=== PATIENT | male | born 1960 | race Caucasian/White ===

== ENCOUNTER 2016-12-03 19:31 | Emergency (ER) | payer OTHER ==
--- NOTE | 2016-12-03 21:31 | ED ---
Skin/Abscess/FB HPI - General Chief complaint: Skin/Abscess/Foreign Body Stated complaint: infection in right thumb Time Seen by Provider: 12/03/16 19:59 Source: patient Mode of arrival: ambulatory Limitations: no limitations - History of Present Illness Initial comments: Physical 6 years old gentleman presented with swelling of the right thumb, he denies any trauma or any injury to this he noticed swelling and infection for the last 24 hours. His neighbor tried to help him with poking the wound with a sterilized pain any cold symptoms passed out but swelling continue to remain. Denies any fever no chills my review of system is negative otherwise - Related Data Home Medications Medication Instructions Recorded Confirmed Lanoxin (Unknown Dose) 1 dose PO DAILY 12/03/16 12/03/16 Warfarin (Unknown Dose) 1 dose PO DIRECTED 12/03/16 12/03/16 Previous Rx's Medication Instructions Recorded Amoxic-Pot Clav 500-125 mg 1 tab PO Q12HR #14 tab 12/03/16 [Augmentin 500-125 mg] Allergies Allergy/AdvReac Type Severity Reaction Status Date / Time No Known Allergies Allergy Verified 12/03/16 20:06 Review of Systems ROS Statement: Those systems with pertinent positive or pertinent negative responses have been documented in the HPI. ROS Other: All systems not noted in ROS Statement are negative. Past Medical History Past Medical History: CVA/TIA, Hypertension History of Any Multi-Drug Resistant Organisms: None Reported Additional Past Surgical History / Comment(s): valve Past Psychological History: No Psychological Hx Reported Smoking Status: Current every day smoker Past Alcohol Use History: None Reported Past Drug Use History: None Reported General Exam - General Exam Comments Initial Comments: General: The patient is awake and alert, in no distress, and does not appear acutely ill. Skin: Skin is warm and dry and no rashes or lesions are noted. The patient's right thumb is quite swollen, has a paronychia Eye: Pupils are equal, round and reactive to light, extra-ocular movements are intact; there is normal conjunctiva bilaterally. Ears, nose, mouth and throat: There are moist mucous membranes and no oral lesions. Neck: The neck is supple, there is no tenderness or JVD. Cardiovascular: There is a regular rate and rhythm. No murmur, rub or gallop is appreciated. Respiratory: To auscultation bilateral, no wheezing no rhonchi no distress respiratory samaniego noticed Gastrointestinal: Soft, non-distended, non-tender abdomen without masses or organomegaly noted. There is no rebound or guarding present. Bowel sounds are unremarkable. Back: There is no tenderness to palpation in the midline. There is no obvious deformity. Musculoskeletal: Normal ROM, no tenderness, There is no pedal edema. There is no calf tenderness or swelling. No cords were appreciated. Neurological: CN II-XII intact, Cranial nerves III through XII are intact. There are no obvious motor or sensory deficits. Coordination appears grossly intact. Speech is normal. Psychiatric: Cooperative, appropriate mood & affect, normal judgment. Limitations: no limitations Course Vital Signs 12/03/16 19:50 Temperature 98.5 F Pulse Rate 64 Respiratory 16 Rate O2 Sat by Pulse 94 L Oximetry Procedures - Incision & Drainage Time Out Performed?: Yes Site: upper extremity Anesthetic Used: lidocaine 1% I&D Cleaning Method: Iodine Sterile Field Used?: Yes Scalpel Used: #11 Irrigation Performed?: Yes I&D Drainage Obtained: Pus, Blood (She tolerated the procedure well) Disposition Clinical Impression: Paronychia, Abscess Disposition: HOME SELF-CARE Condition: Good Instructions: Abscess Incision and Drainage (ED) Prescriptions: Amoxic-Pot Clav 500-125 mg [Augmentin 500-125 mg] 1 tab PO Q12HR #14 tab Referrals: Jose Ramon Dudley MD [Primary Care Provider] - 1-2 days
[2016-12-03] MEDS ORDERED: AMOXIC-POT CLAV 875-125MG 1 EACH TAB PO STA (21:37)
[2016-12-03 22:16] VITALS: BP 131/78; PULSE 76; RESP 18; TEMP 98.8
== END 2016-12-03 22:13 | disposition home or self-care (01) ==
LOC: EC 19:31
DX: L03.011 Cellulitis of right finger (principal); L02.511 Cutaneous abscess of right hand; F17.200 Nicotine dependence, unspecified, uncomplicated; Z86.73 Personal history of transient ischemic attack (TIA), and cerebral infarction without residual deficits; Z79.899 Other long term (current) drug therapy
CPT/HCPCS: 10060; 99282

== ENCOUNTER 2018-02-26 10:43 | Inpatient (IN) | payer OTHER ==
[2018-02-26] MEDS ORDERED: IPRATROPIUM-ALBUTEROL 3 ML NEB INHALATION STA (11:05)
--- NOTE | 2018-02-26 11:09 | ED ---
General Adult HPI - General Chief complaint: Weakness Stated complaint: Dyspnea Time Seen by Provider: 02/26/18 11:00 Source: patient, family, RN notes reviewed, Caregiver Mode of arrival: ambulatory Limitations: altered mental status - History of Present Illness Initial comments: Patient is a pleasant 57-year-old male presenting to the emergency department for not feeling well. Patient does have a history of anoxic brain injury and is a poor historian. Operations Vocational Instructor is present who does help provide history. Patient and regulatory manager have a difficult time explaining her symptoms. Patient did not eat well yesterday or today. Patient denies any chest discomfort. Patient does have history of atrial fibrillation with previous TX as well as previous aortic valve repair. Patient does admit to dyspnea. Dyspnea worsens with exertion. Mild cough that is nonproductive. No leg pain or leg swelling. No fevers. - Related Data Home Medications Medication Instructions Recorded Confirmed Diltiazem Oral [Cardizem*] 30 mg PO TID 02/26/18 02/26/18 Fosinopril [Monopril] 10 mg PO DAILY 02/26/18 02/26/18 Metoprolol Tartrate [Lopressor] 50 mg PO BID 02/26/18 02/26/18 Simvastatin [Zocor] 20 mg PO HS 02/26/18 02/26/18 Warfarin [Coumadin] 5 mg PO MOWESA 02/26/18 02/26/18 Warfarin [Coumadin] 7.5 mg PO SUTUTHFR 02/26/18 02/26/18 Allergies Allergy/AdvReac Type Severity Reaction Status Date / Time No Known Allergies Allergy Verified 02/26/18 11:41 Review of Systems ROS Statement: Those systems with pertinent positive or pertinent negative responses have been documented in the HPI. ROS Other: All systems not noted in ROS Statement are negative. Constitutional: Denies: fever Eyes: Denies: eye pain ENT: Denies: ear pain Respiratory: Reports: dyspnea Cardiovascular: Denies: chest pain Endocrine: Reports: fatigue Gastrointestinal: Denies: vomiting Genitourinary: Denies: dysuria Musculoskeletal: Denies: back pain Skin: Denies: rash Neurological: Denies: weakness, confusion Past Medical History Past Medical History: CVA/TIA, Hypertension History of Any Multi-Drug Resistant Organisms: None Reported Past Surgical History: Cardiac Valve Replacement Additional Past Surgical History / Comment(s): valve mi Past Psychological History: No Psychological Hx Reported Smoking Status: Current every day smoker Past Alcohol Use History: None Reported Past Drug Use History: None Reported General Exam General appearance: alert, in no apparent distress Head exam: Present: atraumatic Eye exam: Present: normal appearance, PERRL ENT exam: Present: normal oropharynx Neck exam: Present: normal inspection Respiratory exam: Present: decreased breath sounds Cardiovascular Exam: Present: tachycardia, irregular rhythm GI/Abdominal exam: Present: soft. Absent: tenderness Extremities exam: Present: normal inspection. Absent: pedal edema, calf tenderness Back exam: Present: normal inspection Neurological exam: Present: alert Psychiatric exam: Present: normal affect, normal mood Skin exam: Present: normal color Course Vital Signs 02/26/18 02/26/18 02/26/18 10:52 10:57 11:00 Temperature 97.2 F L Pulse Rate 115 H 96 107 H Pulse Rate [ Chief Concierge ] Respiratory 23 18 Rate Blood Pressure 89/76 89/76 O2 Sat by Pulse 93 L 93 L Oximetry 02/26/18 02/26/18 02/26/18 11:30 11:38 11:48 Temperature Pulse Rate 83 82 Pulse Rate [ 94 Chief Concierge ] Respiratory 16 12 Rate Blood Pressure 101/81 O2 Sat by Pulse 94 L Oximetry 02/26/18 02/26/18 02/26/18 11:58 12:00 12:30 Temperature Pulse Rate 90 86 Pulse Rate [ Chief Concierge ] Respiratory 10 L 21 Rate Blood Pressure 108/73 91/72 O2 Sat by Pulse Oximetry 02/26/18 13:00 Temperature Pulse Rate 90 Pulse Rate [ Chief Concierge ] Respiratory 11 L Rate Blood Pressure 91/71 O2 Sat by Pulse Oximetry EKG Findings - EKG Comments: EKG Findings:: A. fib with RVR, rate 104. QRS 110. QT 380. QTC or 99. Right axis. Incomplete right bundle-branch block. Nonspecific T waves. Medical Decision Making - Medical Decision Making Patient reevaluated and updated. Case was discussed in detail with Dr. Walton, who will admit covering for hospital call. Cardiology will be placed on consult. - Lab Data Result diagrams: 02/26/18 11:24 02/26/18 11:24 Lab Results 02/26/18 02/26/18 02/26/18 Range/Units 11:24 11:24 11:24 WBC 8.0 (3.8-10.6) k/uL RBC 5.09 (4.30-5.90) m/uL Hgb 16.5 (13.0-17.5) gm/dL Hct 54.1 H (39.0-53.0) % MCV 106.3 H (80.0-100.0) fL MCH 32.4 (25.0-35.0) pg MCHC 30.5 L (31.0-37.0) g/dL RDW 14.9 (11.5-15.5) % Plt Count 150 (150-450) k/uL Neutrophils % 66 % Lymphocytes % 16 % Monocytes % 13 % Eosinophils % 2 % Basophils % 1 % Neutrophils # 5.3 (1.3-7.7) k/uL Lymphocytes # 1.2 (1.0-4.8) k/uL Monocytes # 1.0 (0-1.0) k/uL Eosinophils # 0.1 (0-0.7) k/uL Basophils # 0.1 (0-0.2) k/uL Hypochromasia Slight Macrocytosis Moderate PT (9.0-12.0) sec INR (<1.2) APTT (22.0-30.0) sec Sodium 138 (137-145) mmol/L Potassium 4.6 (3.5-5.1) mmol/L Chloride 112 H (98-107) mmol/L Carbon Dioxide 21 L (22-30) mmol/L Anion Gap 5 mmol/L BUN 19 (9-20) mg/dL Creatinine 1.05 (0.66-1.25) mg/dL Est GFR (CKD-EPI)AfAm >90 (>60 ml/min/1.73 sqM) Est GFR (CKD-EPI)NonAf 78 (>60 ml/min/1.73 sqM) Glucose 93 (74-99) mg/dL Calcium 9.4 (8.4-10.2) mg/dL Magnesium 1.7 (1.6-2.3) mg/dL Total Bilirubin 5.3 H (0.2-1.3) mg/dL AST 39 (17-59) U/L ALT 32 (21-72) U/L Alkaline Phosphatase 141 H (38-126) U/L Total Creatine Kinase 84 (55-170) U/L CK-MB (CK-2) 2.2 (0.0-2.4) ng/mL CK-MB (CK-2) Rel Index 2.6 Troponin I 0.017 (0.000-0.034) ng/mL NT-Pro-B Natriuret Pep pg/mL Total Protein 6.1 L (6.3-8.2) g/dL Albumin 2.9 L (3.5-5.0) g/dL Digoxin <0.4 ng/mL 02/26/18 02/26/18 Range/Units 11:24 11:24 WBC (3.8-10.6) k/uL RBC (4.30-5.90) m/uL Hgb (13.0-17.5) gm/dL Hct (39.0-53.0) % MCV (80.0-100.0) fL MCH (25.0-35.0) pg MCHC (31.0-37.0) g/dL RDW (11.5-15.5) % Plt Count (150-450) k/uL Neutrophils % % Lymphocytes % % Monocytes % % Eosinophils % % Basophils % % Neutrophils # (1.3-7.7) k/uL Lymphocytes # (1.0-4.8) k/uL Monocytes # (0-1.0) k/uL Eosinophils # (0-0.7) k/uL Basophils # (0-0.2) k/uL Hypochromasia Macrocytosis PT 35.7 H (9.0-12.0) sec INR 3.7 H (<1.2) APTT 34.4 H (22.0-30.0) sec Sodium (137-145) mmol/L Potassium (3.5-5.1) mmol/L Chloride (98-107) mmol/L Carbon Dioxide (22-30) mmol/L Anion Gap mmol/L BUN (9-20) mg/dL Creatinine (0.66-1.25) mg/dL Est GFR (CKD-EPI)AfAm (>60 ml/min/1.73 sqM) Est GFR (CKD-EPI)NonAf (>60 ml/min/1.73 sqM) Glucose (74-99) mg/dL Calcium (8.4-10.2) mg/dL Magnesium (1.6-2.3) mg/dL Total Bilirubin (0.2-1.3) mg/dL AST (17-59) U/L ALT (21-72) U/L Alkaline Phosphatase (38-126) U/L Total Creatine Kinase (55-170) U/L CK-MB (CK-2) (0.0-2.4) ng/mL CK-MB (CK-2) Rel Index Troponin I (0.000-0.034) ng/mL NT-Pro-B Natriuret Pep 1310 pg/mL Total Protein (6.3-8.2) g/dL Albumin (3.5-5.0) g/dL Digoxin ng/mL - Radiology Data Radiology results: image reviewed (Chest x-ray shows cardiomegaly and interstitial changes consistent with CHF.) Disposition Clinical Impression: CHF (congestive heart failure) Disposition: ADMITTED IP TO THIS HOSP Is patient prescribed a controlled substance at d/c from ED?: No Referrals: None,Stated [Primary Care Provider] - 1-2 days Decision Time: 13:25
[2018-02-26 11:40] LABS: Basophils # (A) 0.1 k/uL (0-0.2); Basophils % (A) 1 %; Eosinophils # (A) 0.1 k/uL (0-0.7); Eosinophils % (A) 2 %; HCT 54.1 % (39.0-53.0); HGB 16.5 gm/dL (13.0-17.5); Hypochromasia Slight; Lymphocytes # (A) 1.2 k/uL (1.0-4.8); Lymphocytes % (A) 16 %; MCH 32.4 pg (25.0-35.0); MCHC 30.5 g/dL (31.0-37.0); MCV 106.3 fL (80.0-100.0); Macrocytosis Moderate; Mean Platelet Volume 7.3; Monocytes % (A) 13 %; Neutrophils # (A) 5.3 k/uL (1.3-7.7); Neutrophils % (A) 66 %; Platelet Count 150 k/uL (150-450); RBC 5.09 m/uL (4.30-5.90); RDW 14.9 % (11.5-15.5)
[2018-02-26 11:48] LABS: INR 3.7 (<1.2); Partial Thromboplastin Time 34.4 sec (22.0-30.0); Prothrombin Time 35.7 sec (9.0-12.0)
[2018-02-26 12:07] LABS: ALT 32 U/L (21-72); AST 39 U/L (17-59); Albumin 2.9 g/dL (3.5-5.0); Alkaline Phosphatase 141 U/L (38-126); Anion Gap 5 mmol/L; Blood Urea Nitrogen 19 mg/dL (9-20); Calcium 9.4 mg/dL (8.4-10.2); Carbon Dioxide 21 mmol/L (22-30); Chloride 112 mmol/L (98-107); Digoxin <0.4 ng/mL; Glucose 93 mg/dL (74-99); Magnesium 1.7 mg/dL (1.6-2.3); Potassium 4.6 mmol/L (3.5-5.1); Sodium 138 mmol/L (137-145); Total Bilirubin 5.3 mg/dL (0.2-1.3); Total Protein 6.1 g/dL (6.3-8.2)
[2018-02-26 12:18] LABS: Creatine Kinase MB 2.2 ng/mL (0.0-2.4); Troponin I 0.017 ng/mL (0.000-0.034)
--- NOTE | 2018-02-26 12:39 | XR ---
EXAMINATION TYPE: XR chest 2V DATE OF EXAM: 02/26/2018 COMPARISON: 07/20/2011 TECHNIQUE: PA and lateral views submitted. HISTORY: Difficulty breathing FINDINGS: Heart is enlarged there is a diffuse interstitial pattern with bilateral pleural effusions and consol idation. Chronic rib deformity seen. No pneumothorax. Diffuse osteopenia and arthropathy of the shoul ders. Postsurgical changes. Hyperinflation suggests COPD. IMPRESSION: 1. Correlate for CHF.
[2018-02-26] MEDS ORDERED: ASPIRIN 325 MG TAB PO STA (13:25)
[2018-02-26] MEDS ORDERED: MORPHINE SULFATE 2 MG/ML SYRINGE IV PRN (14:25)
[2018-02-26] MEDS ORDERED: NALOXONE 0.4 MG/ML 1 ML VIAL IV PRN (14:25)
[2018-02-26] MEDS ORDERED: ACETAMINOPHEN TAB 325 MG TAB PO PRN (14:25)
[2018-02-26] MEDS ORDERED: WARFARIN 5 MG TAB PO SCH (14:30)
--- NOTE | 2018-02-26 14:39 | P.HPIM ---
History of Present Illness H&P Date: 02/26/18 Chief Complaint: CHF exacerbation 49-year-old male with past medical history of cardiac valve replacement, atrial fibrillation, history of CVA presents the ED for generalized fatigue and weakness for the past 2 weeks. Patient reports a regular exercise tolerance of 2-3 blocks without feeling dyspneic. Over the last 2 weeks he has been able to walk only less than one block. Patient also endorses 3 pillow orthopnea. patient also reports a nonproductive cough over the past 2 weeks. He denies any lower extremity edema. Patient reports receiving a mechanical valve 20 years ago in [place]. He denies any headaches, nausea, vomiting, fever, chest pain, palpitations, changes in his bowel habits. He denies any numbness, weakness or tingling of the extremities. He does report increased urinary frequency and a decreased appetite. Denies any dysuria or hematuria. Of note, patient reports smoking one half packs per day since age of 15. He denies any alcohol or illicit drug use. Of note, patient reports living with his friend. He reports difficulty showering and getting up from a seated position. Patient reports that his friends son cooks for him. In the ED, CBC showed no leukocytosis. Coagulation panel showed an INR of 2.7. CMP was unremarkable except for chloride of 112, bicarbonate of 21 and total bilirubin of 5.3 with an alkaline phosphatase of 141. Initial troponin is 0.017 , EKG showing atrial fibrillation with rapid ventricular rate. BNP is 1310, chest x-ray showing findings of CHF. Patient is admitted for CHF exacerbation, cardiology is on consult. Review of Systems All systems: negative Past Medical History Past Medical History: CVA/TIA, Hypertension History of Any Multi-Drug Resistant Organisms: None Reported Past Surgical History: Cardiac Valve Replacement Additional Past Surgical History / Comment(s): valve mi Past Psychological History: No Psychological Hx Reported Smoking Status: Current every day smoker Past Alcohol Use History: None Reported Past Drug Use History: None Reported Medications and Allergies Home Medications Medication Instructions Recorded Confirmed Type Diltiazem Oral [Cardizem*] 30 mg PO TID 02/26/18 02/26/18 History Fosinopril [Monopril] 10 mg PO DAILY 02/26/18 02/26/18 History Metoprolol Tartrate [Lopressor] 50 mg PO BID 02/26/18 02/26/18 History Simvastatin [Zocor] 20 mg PO HS 02/26/18 02/26/18 History Warfarin [Coumadin] 5 mg PO MOWESA 02/26/18 02/26/18 History Warfarin [Coumadin] 7.5 mg PO SUTUTHFR 02/26/18 02/26/18 History Allergies Allergy/AdvReac Type Severity Reaction Status Date / Time No Known Allergies Allergy Verified 02/26/18 11:41 Physical Exam Vitals: Vital Signs Temp Pulse Pulse Resp BP Pulse Ox 02/26/18 13:00 90 11 L 91/71 02/26/18 12:30 91/72 02/26/18 12:00 86 21 108/73 02/26/18 11:58 90 10 L 02/26/18 11:48 82 12 02/26/18 11:38 94 02/26/18 11:30 83 16 101/81 94 L 02/26/18 11:00 107 H 89/76 93 L 02/26/18 10:57 97.2 F L 96 18 89/76 93 L 02/26/18 10:52 115 H 23 Intake and Output 02/25/18 02/26/18 02/26/18 22:59 06:59 14:59 Other: Weight 90.718 kg General: [non toxic], [no distress], [appears at stated age] Derm: [warm], [dry] Head: [atraumatic], [normocephalic], [symmetric] Eyes: [EOMI], [no lid lag], [anicteric sclera] Mouth: [no lip lesion], [mucus membranes moist] Cardiovascular: [irregularly irregular], [no murmur], [positive DP pulse bilateral], [positive JVD] Lungs: [decreased breath sounds bilateralwith poor inspiratory effort], [no rhonchi, no rales] , [no accessory muscle use] Abdominal: [soft], [ nontender to palpation], [no guarding], [no appreciable organomegaly] Ext: [no gross muscle atrophy], [no edema], [no contractures] Neuro: [no focal neuro deficits] Psych: [Alert], [oriented], [appropriate affect] Results CBC & Chem 7: 02/26/18 11:24 02/26/18 11:24 Labs: Abnormal Lab Results - Last 24 Hours (Table) 02/26/18 02/26/18 02/26/18 Range/Units 11:24 11:24 11:24 Hct 54.1 H (39.0-53.0) % MCV 106.3 H (80.0-100.0) fL MCHC 30.5 L (31.0-37.0) g/dL PT 35.7 H (9.0-12.0) sec INR 3.7 H (<1.2) APTT 34.4 H (22.0-30.0) sec Chloride 112 H (98-107) mmol/L Carbon Dioxide 21 L (22-30) mmol/L Total Bilirubin 5.3 H (0.2-1.3) mg/dL Alkaline Phosphatase 141 H (38-126) U/L Total Protein 6.1 L (6.3-8.2) g/dL Albumin 2.9 L (3.5-5.0) g/dL Thrombosis Risk Factor Assmnt - Choose All That Apply Any of the Below Risk Factors Present?: Yes Each Factor Represents 1 point: Age 41-60 years, Obesity (BMI >25) Other Risk Factors: No Thrombosis Risk Factor Assessment Total Risk Factor Score: 2 Thrombosis Risk Factor Assessment Level: Low Risk Assessment and Plan Assessment: Assessment and Plan 1. CHF exacerbation: BNP 1310. Troponin 0.017 with patient being asymptomatic, EKG showing A Fib with RVR. CXR shows findings consistent with CHF. Diuresis with Lasix 40 mg IV TID. Continue ACEi and beta pinky. Ins and Outs. Daily Weights. Elevated HOB. O2 per NC to maintain O2 sat > 92%. Trend Trop/EKG to r/ o ACS. FU Cardiology, Echocardiogram 2. Generalized weakness: Difficulty with ambulating at home and showering. FU PT /OT, SW 3. Atrial fibrillation with RVR: Confirmed on EKG. Continue Diltiazem 30 mg PO TID. Telemetry monitoring. Keep K > 4 and Mg > 2. Coumadin for anticoagulation. FU Cardiology 4. Hyperbilirubinemia: T. Bili 5.3 with ALK 141. Normal LFTs otherwise. Likely from hepatic congestion? Daily CMP 5. Supratherapeutic INR: INR 3.7. From Coumadin use. Hold Coumadin 5 mg PO QMoWeSa + 7.5 mg PO QSuTuThFr until within therapeutic range. Daily INR 6. h/o CVA: Stable. Continue ASA 325 mg PO QD, Lipitor 20 mg PO QHS. FU PT/OT 7. Hypertension: BP 91/71. Continue Lisinopril 10 mg PO QD, Metoprolol 50 mg PO BID. 8. DVT/GI Prophylaxis: Coumadin. Patient admitted for CHF exacerbation. Diuresing with Lasix IV. Pending clinical improvement. Will follow Cardiology recommendations.
[2018-02-26] MEDS: NOREPINEPHRINE 4 MG in SODIUM CHLORIDE 0.9% 250 ML IV SCH (17:40)
[2018-02-26] MEDS: NOREPINEPHRINE 16 MG in SODIUM CHLORIDE 0.9% 250 ML IV SCH ×2 (17:40→17:43)
[2018-02-26] MEDS: NITROGLYCERIN OINT 1 INCH/GM PACKET TOPICAL SCH ×2 (17:42→23:53)
--- NOTE | 2018-02-26 18:13 | P.CNPUL ---
History of Present Illness Consult date: 02/26/18 Reason for consult: dyspnea History of present illness: 49-year-old male patient with known history of valvular heart disease with a previous history of mechanical valve insertion, possibly aortic valve replacement along with history of chronic atrial fibrillation maintained on lifelong anticoagulation. The patient also has history of previous CVA. Patient presented emergency department because of exertional dyspnea and orthopnea and nonproductive cough of a few weeks duration. No significant edema lower extremity. He has been followed up by Dr. ROSALBA Mock locally. Initial blood work showed that the patient had a BNP of 1310, digoxin level was less than 0.4, troponin is that 0.017 and the rest of the blood work did not show any acute abnormalities. INR was at 3.7. The patient was running a blood pressure in the mid 90s. Following that the patient became hypotensive in addition to some rapid ventricular response in regards to his chronic atrial fibrillation. He was placed on norepinephrine infusion 5 mics. His chest x- ray showing cardiomegaly and pulmonary vessel congestion/early edema. No fever. No chills. No angina. No pleurisy. No hemoptysis. No altered mentation although he is slow in answering questions. The EKG showing atrial fibrillation with RVR and incomplete right bundle-branch block pattern. Review of Systems Poor historian the patient has a previous history of anoxic brain injury. No focal neurological deficits. Speech is slow and the patient is slow in answering questions. He has slow reflexes. No nausea. No vomiting. No abdominal pain. No significant urgency. No fever chills or night sweats. No falls. No open wounds or sores or ulceration. No angina. He has exertional dyspnea along with orthopnea. No edema in lower extremities. 12 point review of system was done and the positive findings are almost above history of present illness. 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 Past Anesthesia/Blood Transfusion Reactions: No Reported Reaction Additional Past Anesthesia/Blood Transfusion Reaction / Comment(s): clausterphobia. 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 Sister(s) Family Medical History: Thyroid Disorder Additional Family Medical History / Comment(s): thyroidectomy Medications and Allergies Home Medications Medication Instructions Recorded Confirmed Type Diltiazem Oral [Cardizem*] 30 mg PO TID 02/26/18 02/26/18 History Fosinopril [Monopril] 10 mg PO DAILY 02/26/18 02/26/18 History Metoprolol Tartrate [Lopressor] 50 mg PO BID 02/26/18 02/26/18 History Simvastatin [Zocor] 20 mg PO HS 02/26/18 02/26/18 History Warfarin [Coumadin] 5 mg PO MOWESA 02/26/18 02/26/18 History Warfarin [Coumadin] 7.5 mg PO SUTUTHFR 02/26/18 02/26/18 History Allergies Allergy/AdvReac Type Severity Reaction Status Date / Time No Known Allergies Allergy Verified 02/26/18 11:41 Physical Exam Vitals: Vital Signs Temp Pulse Pulse Resp BP Pulse Ox 02/26/18 16:21 97/87 02/26/18 16:00 80 20 74/54 02/26/18 15:00 100 14 89/78 93 L 02/26/18 14:00 89 24 80/69 95 02/26/18 13:00 90 11 L 91/71 02/26/18 12:30 91/72 02/26/18 12:00 86 21 108/73 02/26/18 11:58 90 10 L 02/26/18 11:48 82 12 02/26/18 11:38 94 02/26/18 11:30 83 16 101/81 94 L 02/26/18 11:00 107 H 89/76 93 L 02/26/18 10:57 97.2 F L 96 18 89/76 93 L 02/26/18 10:52 115 H 23 Intake and Output 02/26/18 02/26/18 02/26/18 06:59 14:59 22:59 Other: Weight 90.718 kg Gen. appearance he is calm and comfortable likely distress. No significant respiratory distress at this point and the patient is on room air oxygen. Head exam was generally normal. There was no scleral icterus or corneal arcus. Mucous membranes were moist. Neck was supple and without jugular venous distension, thyromegaly, or carotid bruits. Carotids were easily palpable bilaterally. There was no adenopathy. Lungs sounds are revealing crackles in the mid and lower lung couch bilaterally along with some scattered rhonchi. Heart sounds are irregular, slightly tachycardic, there is no aortic valve click heard throughout the precordium. There is some ventricular heave also.Abdominal exam revealed normal bowel sounds. The abdomen was soft, non- tender, and without masses, organomegaly, or appreciable enlargement of the abdominal aorta. Examination of the extremities revealed easily palpable radial, femoral and pedal pulses. There was no cyanosis, clubbing or edema. Examination of the skin revealed no evidence of significant rashes, suspicious appearing nevi or other concerning lesions. Results - Laboratory Findings CBC and BMP: 02/26/18 11:24 02/26/18 11:24 PT/INR, D-dimer PT 35.7 sec (9.0-12.0) H 02/26/18 11:24 INR 3.7 (<1.2) H 02/26/18 11:24 Abnormal lab findings: Abnormal Labs 02/26/18 02/26/18 02/26/18 11:24 11:24 11:24 Hct 54.1 H MCV 106.3 H MCHC 30.5 L PT 35.7 H INR 3.7 H APTT 34.4 H Chloride 112 H Carbon Dioxide 21 L Total Bilirubin 5.3 H Alkaline Phosphatase 141 H Total Protein 6.1 L Albumin 2.9 L - Diagnostic Findings Chest x-ray: image reviewed Assessment and Plan Plan: Assessment 1 acute CHF exacerbation. Suspect underlying systolic dysfunction. BNP slightly elevated. Chest x-ray is consistent with interstitial edema and cardiomegaly. 2 hypotension currently on pressors, rule out secondary to CHF 3 chronic atrial fibrillation with rapid ventricular response 4 previous history aortic valve replacement/mechanical valve and the patient is on lifelong articulation with warfarin. 5 supratherapeutic INR with an INR of 3.7 while on Coumadin 6 history of CVA 7 history of hypertension 8 history of anoxic encephalopathy, exact circumstances not known. Plan We'll move the patient to the intensive care unit. We'll obtain an echocardiogram to assess LV function, valvular function and pulmonary hypertension. We'll support the patient's blood pressure with some levo fed to keep a mean arterial pressure above 65. Insert a Almanza catheter. Monitor urine output. Gentle diuresis with Lasix and I would suggest going with 20 mg IV push every 8 hours. Hold on Cardizem and metoprolol to his blood pressures under better control. Obtain UA. Obtain urine culture. Obtain blood cultures. Repeat chest x-ray in the morning. Cardiology consultation. Establishment IV line. We'll continue to follow. The patient will be moved to the intensive care unit.
[2018-02-26] MEDS: FUROSEMIDE 10 MG/ML 4 ML VIAL IV SCH ×2 (18:27→23:54)
--- NOTE | 2018-02-26 18:35 | CONS ---
CONSULTATION Mr. Robles is a 49-year-old gentleman with history of aortic valve replacement, atrial fibrillation, CVA, who was brought into hospital by his friend with whom he lives with symptoms of fatigue and weakness for the past 2 weeks. The patient states that he has not been able to walk more than a block over the last few weeks. He is also using 3 pillows and has nonproductive cough. With all this he has been diagnosed with congestive heart failure and is admitted to the hospital. When I first evaluated him in the ER, he was found to be hypotensive with systolic blood pressures in the 70s. Hence, I started the patient on Levophed. The patient has a history of mechanical aortic valve replacement. I do not have any recent echos on him. He follows with Dr. Mattie Dudley in my office. SOCIAL HISTORY: Significant for smoking. There is no history of EtOH abuse or drug abuse. MEDICATIONS: At home included: Cardizem, Monopril, Lopressor, Zocor, and Coumadin. FAMILY HISTORY: Family history is negative for premature coronary artery disease. SOCIAL HISTORY: Significant for smoking. REVIEW OF SYSTEMS: HEENT is unremarkable. CARDIOVASCULAR: As described above. RESPIRATORY as described above. GI negative. GENITOURINARY: Negative. ALLERGY/IMMUNOLOGY: Negative. MUSCULOSKELETAL: Significant for fatigue, tiredness and weakness. PSYCHOSOCIAL negative. ENDOCRINE negative. HEMATOLOGICAL negative. The rest of the system review is not relevant. EXAM: Patient is comfortable at rest. Blood pressure is 74/54, heart rate is around 90 to 100 beats per minute, irregular. There is no jugular venous distention. Chest exam reveals first and second heart sounds, irregular rhythm. I cannot clearly hear the mechanical valve sound. Abdomen is soft. Exam of extremities did not reveal edema. Peripheral pulses are felt. LAB: Show that the hemoglobin is 16.5, platelet count is 150. INR is therapeutic at 3.7. Potassium is 4.6. Creatinine is 1. BNP is 1310. Troponin is 0.017. ASSESSMENT: 1. Acute onset diastolic heart failure. 2. History of aortic valve replacement. 3. Dyslipidemia. 4. Hypertension. PLAN: I will obtain a 2D echo to assess the mechanical valve. The exact etiology for hypotension is unclear. Patient does not have white cell count. Does not have any fever. If he develops any fever, we will consider doing blood cultures on him given the mechanical valve. We will assess mechanical valve function with an echo, treat him with the Levophed in the meantime. Further course of action based on how he evolves. MMODL / IJN: [id number] /
[2018-02-26 18:40] LABS: Troponin I 0.03 ng/mL (0.000-0.034)
[2018-02-26 19:05] LABS: Glucose,Whole Blood 66 mg/dL (75-99)
[2018-02-26 19:25] LABS: Glucose,Whole Blood 76 mg/dL (75-99)
--- NOTE | 2018-02-26 20:10 | ECHOF ---
Referral Reason:Heart Failure MEASUREMENTS -------- HEIGHT: 180.3 cm WEIGHT: 90.7 kg BP: RVIDd: 5.1 cm (< 3.3) IVSd: 1.2 cm (0.6 - 1.1) LVIDd: 3.8 cm (3.9 - 5.3) LVPWd: 1.3 cm (0.6 - 1.1) IVSs: 1.5 cm LVIDs: 3.7 cm LVPWs: 1.9 cm LAESV Index (A-L): 125.62 ml/m EPSS: 0.2 cm MV E Kane: 1.36 m/s MV DecT: 609 ms MV A Kane: 0.25 m/s MV E/A Ratio: 5.42 AV maxP.06 mmHg AV meanP.68 mmHg RAP: 5.00 mmHg RVSP: 24.38 mmHg %FS: 24.09 % EDV(Teich): 101.86 ml EF(Teich): 47.96 % ESV(Teich): 53.00 ml IVSd: 1.06 cm (0.6 - 1.1) IVSs: 1.03 cm LVIDd: 4.69 cm (3.9 - 5.3) LVIDs: 3.56 cm LVPWd: 0.89 cm (0.6 - 1.1) LVPWs: 1.37 cm MV EF SLOPE: 68.17 mm/s (70 - 150) MV EXCURSION: 1.82 cm (> 18.000) SV(Teich): 48.85 ml FINDINGS -------- Undetermined rhythm. This was a technically difficult study with suboptimal views. ADVISED IRMA Left ventricular wall thickness is normal. Overall left ventricular systolic function is mildly imp aired with, an EF between 45 - 50 %. There is paradoxical/dysynergic septal motion consistent with right ventricular volume overload and/or elevated right ventricular end-diastolic pressure. Possibl e Epsteins Anomaly The right ventricle is severely enlarged. The right ventricular systolic function is moderately imp aired. LA is severely dilated >40 ml/m2 The right atrium is moderately enlarged. Peak/mean gradient across the Aortic Valve is 15.06mmHg / 9.68mmHg. Normally functioning mechanical prosthetic valve. The mitral valve leaflets are mildly thickened. Mild mitral regurgitation is present. The peak a nd mean MV gradients are 10.82mmHg 3.83mmHg as measured by doppler. Qnrqhiqj-af-iibyip mitral steno sis. MV Repair. ADVISED IRMA Severe tricuspid regurgitation present. The right ventricular systolic pressure, as measured by Dop pler, is 24.38mmHg. The pulmonic valve was not well visualized. The aortic root size is normal. IVC Not well visulized. The pericardium is normal. CONCLUSIONS -------- 1. Undetermined rhythm. 2. This was a technically difficult study with suboptimal views. 3. Left ventricular wall thickness is normal. 4. Overall left ventricular systolic function is mildly impaired with, an EF between 45 - 50 %. 5. There is paradoxical/dysynergic septal motion consistent with right ventricular volume overload an d/or elevated right ventricular end-diastolic pressure. 6. 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 The right ventricle is severely enlarged. 8. LA is severely dilated >40 ml/m2 9. The right atrium is moderately enlarged. 10. Peak/mean gradient across the Aortic Valve is 15.06mmHg / 9.68mmHg. 11. Normally functioning mechanical prosthetic valve. 12. The mitral valve leaflets are mildly thickened. 13. Mild mitral regurgitation is present. 14. The peak and mean MV gradients are 10.82mmHg 3.83mmHg as measured by doppler. 15. Qeosooss-ot-joicss mitral stenosis. 16. MV Repair. 17. Severe tricuspid regurgitation present. 18. The right ventricular systolic pressure, as measured by Doppler, is 24.38mmHg. 19. The pulmonic valve was not well visualized. 20. The aortic root size is normal. 21. IVC Not well visulized. 22. The pericardium is normal. BASIC SCIENCES PROFESSOR: Cha Cotton RDCS
[2018-02-26 20:38] LABS: Glucose,Whole Blood 116 mg/dL (75-99)
[2018-02-26] MEDS: DILTIAZEM ORAL 30 MG TAB PO SCH ×2 (20:52→21:12)
[2018-02-26] MEDS: METOPROLOL TARTRATE 50 MG TAB PO SCH (21:12)
[2018-02-26] MEDS: ATORVASTATIN 20 MG TAB PO SCH (22:04)
[2018-02-27 00:46] LABS: Troponin I 0.02 ng/mL (0.000-0.034)
[2018-02-27] MEDS ORDERED: HALOPERIDOL LACTATE 5 MG/ML 1 ML VIAL IVP PRN (00:56)
[2018-02-27] MEDS: DILTIAZEM 50 MG in SODIUM CHLORIDE 0.9% 40 ML IV SCH ×3 (02:26→16:23)
[2018-02-27 02:42] LABS: Calcium 9.6 mg/dL (8.4-10.2); INR 4.1 (<1.2); Magnesium 1.7 mg/dL (1.6-2.3); Potassium 4.4 mmol/L (3.5-5.1); Prothrombin Time 39.1 sec (9.0-12.0); Total Bilirubin 3.7 mg/dL (0.2-1.3); Total Protein 6.2 g/dL (6.3-8.2)
[2018-02-27 03:39] LABS: Basophils # (A) 0.1 k/uL (0-0.2); Basophils % (A) 1 %; Eosinophils # (A) 0.1 k/uL (0-0.7); Eosinophils % (A) 2 %; HCT 51.6 % (39.0-53.0); HGB 15.7 gm/dL (13.0-17.5); Hypochromasia Slight; Lymphocytes # (A) 1.6 k/uL (1.0-4.8); Lymphocytes % (A) 20 %; MCH 32.6 pg (25.0-35.0); MCHC 30.5 g/dL (31.0-37.0); Macrocytosis Moderate; Mean Platelet Volume 7.3; Monocytes # (A) 1.5 k/uL (0-1.0); Monocytes % (A) 18 %; Neutrophils # (A) 4.4 k/uL (1.3-7.7); Neutrophils % (A) 55 %; Platelet Count 132 k/uL (150-450); RBC 4.82 m/uL (4.30-5.90); RDW 14.9 % (11.5-15.5)
[2018-02-27] MEDS ORDERED: Magnesium Replacement Protocol 1 EACH MISC MISCELLANE PRN (05:17)
[2018-02-27 05:55] LABS: Polychromasia Present
[2018-02-27 05:56] LABS: Anisocytosis (M) Present; Target Cells Present
[2018-02-27 05:57] LABS: Large Platelets Present; Poikilocytosis (M) Present
[2018-02-27] MEDS: MAGNESIUM SULFATE-D5W PMX 1 GM in DEXTROSE/WATER 1 100ML.BAG IVPB SCH ×2 (06:21→09:13)
--- NOTE | 2018-02-27 07:43 | XR ---
EXAMINATION TYPE: XR chest 1V portable DATE OF EXAM: 02/27/2018 COMPARISON: Prior chest x-ray 02/26/2018 HISTORY: Congestive heart failure TECHNIQUE: frontal view of the chest is obtained on 2 images. FINDINGS: Patient is post median sternotomy. Heart is enlarged. Prominent lung volume compatible wit h underlying COPD. Interstitium is increased. No pneumothorax. There are overlying cardiac leads. Dif ficult to exclude minimal effusion. IMPRESSION: Findings compatible with congestive heart failure.
[2018-02-27] MEDS ORDERED: SODIUM BICARB 8.4% 50 ML SYR (1 MEQ/ML) ONE (07:51)
--- NOTE | 2018-02-27 08:28 | P.PN ---
Subjective Progress Note Date: 02/27/18 On today's evaluation of 02/27/2018, I'm seeing this patient for a follow-up. The patient is resting comfortably in bed. The patient was brought into the intensive care unit because of CHF, interstitial edema and hypotension. The exact cause of hypotension was not clear. On and off, he required pressors in the form of levo fed. Earlier this morning the levo fed was discontinued and the patient was placed back on Cardizem drip at 5 mg an hour to regulate her chronic atrial fibrillation and drop the rate. Note that the patient is on no anticoagulants for now. Is a mechanical aortic valve. INR is at 4.1 today. Echocardiogram was done yesterday and the patient was found to have mildly impaired LV function with an ejection fraction 45-50% and there was paradoxic septal motion consistent with right ventricular overload and elevated right ventricular end-diastolic pressure. The right ventricle was severely dilated. An 80 was severely dilated. The patient also had moderate to severe mitral regurgitation. Aortic valve was prosthetic and metallic and was functioning appropriately. The IVC was not visualized. No fever. No chills. No leukocytosis. He was given a dose of empiric antibiotic coverage with IV Rocephin yesterday. His creatinine is up to 1.28 on today's evaluation. He is producing adequate amount of urine output and he has a net fluid balance of - 1.6 L since yesterday. Chest x-ray still showing cardiomegaly and pulmonary edema. The lactic acid is up from 2.1 down to 1.5. LFTs are within normal limits. Troponins are negative. Objective - Vital Signs Vital signs: Vital Signs Temp 97.9 F 02/27/18 03:30 Pulse 112 H 02/27/18 07:00 Resp 30 H 02/27/18 07:00 BP 145/75 02/27/18 07:00 Pulse Ox 91 L 02/27/18 07:00 Intake & Output 02/26/18 02/27/18 02/27/18 18:59 06:59 18:59 Intake Total 268.063 122.375 Output Total 1930 150 Balance -1661.937 -27.625 Weight 90.718 kg 95.8 kg Intake: IV 165 115 0.9 carrier 90 10 Diltiazem 50 mg In Sodium 25 5 Chloride 0.9% 40 ml @ 5 MG/HR 5 mls/hr IV .Q10H BEATA Rx#:[id number] Magnesium Sulfate-D5w Pmx 100 1 gm In Dextrose/Water 1 100ml.bag @ 100 mls/hr IVPB Q1H BEATA Rx#: [id number] cefTRIAXone 1,000 mg In 50 Sodium Chloride 0.9% 50 ml @ 100 mls/hr IVPB ONCE STA Rx#:[id number] Intake, IV Titration 103.063 7.375 Amount Norepinephrine 4 mg In 103.063 7.375 Sodium Chloride 0.9% 250 ml @ Titrate IV .Q0M BEATA Rx#:[id number] Output: Urine 1930 150 Other: Voiding Method Indwelling Catheter # Voids 1 # Bowel Movements 1 - Exam Gen. appearance he is calm and comfortable likely distress. No significant respiratory distress at this point and the patient is on room air oxygen. Head exam was generally normal. There was no scleral icterus or corneal arcus. Mucous membranes were moist. Neck was supple and without jugular venous distension, thyromegaly, or carotid bruits. Carotids were easily palpable bilaterally. There was no adenopathy. Lungs sounds are revealing crackles in the mid and lower lung couch bilaterally along with some scattered rhonchi. Heart sounds are irregular, slightly tachycardic, there is no aortic valve click heard throughout the precordium. There is some ventricular heave also.Abdominal exam revealed normal bowel sounds. The abdomen was soft, non- tender, and without masses, organomegaly, or appreciable enlargement of the abdominal aorta. Examination of the extremities revealed easily palpable radial, femoral and pedal pulses. There was no cyanosis, clubbing or edema. Examination of the skin revealed no evidence of significant rashes, suspicious appearing nevi or other concerning lesions. - Labs CBC & Chem 7: 02/27/18 02:13 02/27/18 02:13 Labs: Abnormal Lab Results - Last 24 Hours (Table) 02/26/18 02/26/18 02/26/18 Range/Units 11:24 11:24 11:24 Hct 54.1 H (39.0-53.0) % MCV 106.3 H (80.0-100.0) fL MCHC 30.5 L (31.0-37.0) g/dL Plt Count (150-450) k/uL Monocytes # (0-1.0) k/uL PT 35.7 H (9.0-12.0) sec INR 3.7 H (<1.2) APTT 34.4 H (22.0-30.0) sec Chloride 112 H (98-107) mmol/L Carbon Dioxide 21 L (22-30) mmol/L BUN (9-20) mg/dL Creatinine (0.66-1.25) mg/dL POC Glucose (mg/dL) (75-99) mg/dL Plasma Lactic Acid Heri (0.7-2.0) mmol/L Total Bilirubin 5.3 H (0.2-1.3) mg/dL Alkaline Phosphatase 141 H (38-126) U/L Total Protein 6.1 L (6.3-8.2) g/dL Albumin 2.9 L (3.5-5.0) g/dL 02/26/18 02/26/18 02/26/18 Range/Units 18:52 20:26 21:26 Hct (39.0-53.0) % MCV (80.0-100.0) fL MCHC (31.0-37.0) g/dL Plt Count (150-450) k/uL Monocytes # (0-1.0) k/uL PT (9.0-12.0) sec INR (<1.2) APTT (22.0-30.0) sec Chloride (98-107) mmol/L Carbon Dioxide (22-30) mmol/L BUN (9-20) mg/dL Creatinine (0.66-1.25) mg/dL POC Glucose (mg/dL) 66 L 116 H (75-99) mg/dL Plasma Lactic Acid Heri 2.1 H* (0.7-2.0) mmol/L Total Bilirubin (0.2-1.3) mg/dL Alkaline Phosphatase (38-126) U/L Total Protein (6.3-8.2) g/dL Albumin (3.5-5.0) g/dL 02/27/18 02/27/18 02/27/18 Range/Units 02:13 02:13 02:13 Hct (39.0-53.0) % MCV 107.0 H (80.0-100.0) fL MCHC 30.5 L (31.0-37.0) g/dL Plt Count 132 L (150-450) k/uL Monocytes # 1.5 H (0-1.0) k/uL PT 39.1 H (9.0-12.0) sec INR 4.1 H (<1.2) APTT (22.0-30.0) sec Chloride 109 H (98-107) mmol/L Carbon Dioxide (22-30) mmol/L BUN 23 H (9-20) mg/dL Creatinine 1.28 H (0.66-1.25) mg/dL POC Glucose (mg/dL) (75-99) mg/dL Plasma Lactic Acid Heri (0.7-2.0) mmol/L Total Bilirubin 3.7 H (0.2-1.3) mg/dL Alkaline Phosphatase 135 H (38-126) U/L Total Protein 6.2 L (6.3-8.2) g/dL Albumin 3.0 L (3.5-5.0) g/dL Assessment and Plan Plan: Assessment 1 acute CHF exacerbation. The patient has mild CHF with ejection fraction of 45 %. He does have also or valvular heart disease with moderate severe mitral regurgitation, severe LA dilatation, severe RV dilatation probably due to ongoing chronic MR. Aortic valve was bioprosthetic/mechanical and has been functioning appropriately based on the echocardiogram findings. 2 hypotension , could be related to his cardiac disease/valvular heart disease. No other obvious cause for his fluctuating blood pressure. He required pressors overnight and currently is off pressors. 3 chronic atrial fibrillation with rapid ventricular response, currently on Cardizem drip at 5 mg an hour for rate control 4 previous history aortic valve replacement/mechanical valve and the patient is on lifelong articulation with warfarin. 5 supratherapeutic INR with an INR of 4.1 while on Coumadin 6 history of CVA 7 history of hypertension 8 history of anoxic encephalopathy, exact circumstances not known. Plan We'll keep the patient ICU for hemodynamic monitoring. Consult cardiology. Continue the Cardizem drip with the intention of switching this patient oral Cardizem once the rate is under better control. Continue metoprolol as long as the patient's blood pressure remains stable. Cut down the Lasix to 20 mg IV push every 12 hours. Keep the Almanza catheter in place. Monitor the PT/INR. Pressors if needed. Blood cultures of been sent. Urine culture been sent. The patient was given empiric IV Rocephin. We'll continue to follow along with cardiology.
[2018-02-27] MEDS ORDERED: LISINOPRIL 10 MG TAB PO SCH (09:00)
[2018-02-27] MEDS: NITROGLYCERIN OINT 1 INCH/GM PACKET TOPICAL SCH (09:10)
[2018-02-27] MEDS: METOPROLOL TARTRATE 50 MG TAB PO SCH (09:10)
[2018-02-27] MEDS: FUROSEMIDE 10 MG/ML 2 ML VIAL IV SCH ×2 (09:13→21:53)
[2018-02-27] MEDS: DILTIAZEM ORAL 30 MG TAB PO SCH ×3 (09:22→22:07)
--- NOTE | 2018-02-27 09:56 | PCN ---
PROCEDURE NOTE ARTERIAL LINE PLACEMENT: PREOPERATIVE DIAGNOSIS: Hypertension. POSTOPERATIVE DIAGNOSIS: Hypertension. A time-out was completed verifying correct patient, procedure, site, positioning, and implant(s) or special equipment if applicable. Sanya's test was performed to ensure adequate perfusion. The patient's left wrist was prepped and draped in sterile fashion. Lidocaine 1% was used to anesthetize the area. An 18G Arrow arterial line was introduced into the radial/femoral artery. The catheter was threaded over the guide wire and the needle was removed with appropriate pulsatile blood return. Blood loss was minimal. The catheter was then sutured in place to the skin and a sterile dressing applied. Perfusion to the extremity distal to the point of catheter insertion was checked and found to be adequate. The patient tolerated the procedure well and there were no bedside complications or bleeding. MMODL / IJN: [id number] /
[2018-02-27 09:58] LABS: Appearance,Urine Clear (Clear); Bacteria,Urine Rare /hpf; Bilirubin,Urine Negative (Negative); Blood,Urine Moderate (Negative); Color,Urine Yellow; Glucose,Urine (UA) Negative (Negative); Hyaline Casts,Urine 3 /lpf (0-2); Ketones,Urine Negative (Negative); Leukocyte Esterase,Urine Large (Negative); Mucus,Urine Rare /hpf; Nitrite,Urine Negative (Negative); Protein,Urine Negative (Negative); RBC,Urine 17 /hpf (0-5); Specific Gravity,Urine 1.009 (1.001-1.035); Urobilinogen,Urine <2.0 mg/dL (<2.0); WBC,Urine 11 /hpf (0-5)
[2018-02-27] MEDS: METOPROLOL TARTRATE 25 MG TAB PO SCH ×2 (10:13→21:53)
--- NOTE | 2018-02-27 12:08 | PN ---
PROGRESS NOTE Leonel Robles is a 57-year-old gentleman with history of congenital heart disease, status post aortic valve replacement and chronic atrial fibrillation, who presented to hospital with symptoms of not feeling well. The patient was hypotensive in the emergency room and was in atrial fibrillation with poorly controlled ventricular rate. I admitted him to ICU on Levophed. This morning he is feeling better. Blood pressures have improved. PHYSICAL EXAMINATION: On exam, heart rate is 77 beats per minute. Blood pressure is 85/58. Respiratory rate is 18. Chest exam reveals good air entry bilaterally. Heart exam reveals first and second heart sounds. Systolic murmur at the left lower sternal border. Abdomen is soft. Examination of the extremities did not reveal any edema. 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 LABS: Labs show that the hemoglobin is 15.7. Potassium is 4.1. Creatinine is 1.2. ASSESSMENT: 1. History of aortic valve replacement with a mechanical valve. 2. Mitral stenosis. 3. Chronic atrial fibrillation with poorly controlled ventricular rate. 4. Atrial fibrillation with poorly controlled ventricular rate. PLAN: I will continue the patient on intravenous Cardizem, Levophed for blood pressure. INR is 4.1. Please hold the Coumadin. I am going to review his echocardiogram from the hospital and perform a IRMA if necessary. MMODL / ELLIEN: [id number] /
--- NOTE | 2018-02-27 12:48 | P.PN ---
Subjective Progress Note Date: 02/27/18 Principal diagnosis: CHF exacerbation, hypotension Patient was seen and examined. No acute events overnight. Patient is slow to respond, similar to yesterday. Patient reports no complaints this morning. He reports improvement in his breathing. He denies any chest pain, shortness of breath or palpitations. Currently on IV pressors to maintain MAP greater than 65. Objective - Vital Signs Vital signs: Vital Signs Temp 97.6 F 02/27/18 12:00 Pulse 84 02/27/18 12:00 Resp 20 02/27/18 12:00 BP 84/60 02/27/18 09:45 Pulse Ox 92 L 02/27/18 12:00 Intake & Output 02/26/18 02/27/18 02/27/18 18:59 06:59 18:59 Intake Total 268.063 311.292 Output Total 1930 1210 Balance -1661.937 -898.708 Weight 90.718 kg 95.8 kg Intake: IV 165 265 0.9 carrier 90 60 Diltiazem 50 mg In Sodium 25 5 Chloride 0.9% 40 ml @ 5 MG/HR 5 mls/hr IV .Q10H [facility] Rx#:[id number] Magnesium Sulfate-D5w Pmx 200 1 gm In Dextrose/Water 1 100ml.bag @ 100 mls/hr IVPB Q1H [facility] Rx#: [id number] cefTRIAXone 1,000 mg In 50 Sodium Chloride 0.9% 50 ml @ 100 mls/hr IVPB ONCE STA Rx#:[id number] Intake, IV Titration 103.063 46.292 Amount Diltiazem 50 mg In Sodium 38.917 Chloride 0.9% 40 ml @ 5 MG/HR 5 mls/hr IV .Q10H [facility] Rx#:[id number] Norepinephrine 4 mg In 103.063 7.375 Sodium Chloride 0.9% 250 ml @ Titrate IV .Q0M [facility] Rx#:[id number] Output: Urine 19290 Other: Voiding Method Indwelling Catheter Indwelling Catheter # Voids 1 # Bowel Movements 1 ABP, PAP, CO, CI - Last Documented Arterial Blood Pressure 107/78 - Exam General: [non toxic], [no distress], [appears at stated age] Derm: [warm], [dry] Head: [atraumatic], [normocephalic], [symmetric] Eyes: [EOMI], [no lid lag], [anicteric sclera] Mouth: [no lip lesion], [mucus membranes moist] Cardiovascular: [irregularly irregular], [no murmur], [positive DP pulse bilateral], [positive JVD] Lungs: [Bilateral crackles lower lung field, no wheezing, good air entry], [no rhonchi, no rales] , [no accessory muscle use] Abdominal: [soft], [ nontender to palpation], [no guarding], [no appreciable organomegaly] Ext: [no gross muscle atrophy], [no edema], [no contractures] Neuro: [no focal neuro deficits] Psych: [Alert], [oriented], [appropriate affect] - Labs CBC & Chem 7: 02/27/18 02:13 02/27/18 02:13 Labs: Abnormal Lab Results - Last 24 Hours (Table) 02/26/18 02/26/18 02/26/18 Range/Units 18:52 20:26 21:26 MCV (80.0-100.0) fL MCHC (31.0-37.0) g/dL Plt Count (150-450) k/uL Monocytes # (0-1.0) k/uL PT (9.0-12.0) sec INR (<1.2) Chloride (98-107) mmol/L BUN (9-20) mg/dL Creatinine (0.66-1.25) mg/dL POC Glucose (mg/dL) 66 L 116 H (75-99) mg/dL Plasma Lactic Acid Heri 2.1 H* (0.7-2.0) mmol/L Total Bilirubin (0.2-1.3) mg/dL Alkaline Phosphatase (38-126) U/L Total Protein (6.3-8.2) g/dL Albumin (3.5-5.0) g/dL Urine Blood (Negative) Ur Leukocyte Esterase (Negative) Urine RBC (0-5) /hpf Urine WBC (0-5) /hpf Urine WBC Clumps (None) /hpf Urine Bacteria (None) /hpf Hyaline Casts (0-2) /lpf Urine Mucus (None) /hpf 02/27/18 02/27/18 02/27/18 Range/Units 02:13 02:13 02:13 MCV 107.0 H (80.0-100.0) fL MCHC 30.5 L (31.0-37.0) g/dL Plt Count 132 L (150-450) k/uL Monocytes # 1.5 H (0-1.0) k/uL PT 39.1 H (9.0-12.0) sec INR 4.1 H (<1.2) Chloride 109 H (98-107) mmol/L BUN 23 H (9-20) mg/dL Creatinine 1.28 H (0.66-1.25) mg/dL POC Glucose (mg/dL) (75-99) mg/dL Plasma Lactic Acid Heri (0.7-2.0) mmol/L Total Bilirubin 3.7 H (0.2-1.3) mg/dL Alkaline Phosphatase 135 H (38-126) U/L Total Protein 6.2 L (6.3-8.2) g/dL Albumin 3.0 L (3.5-5.0) g/dL Urine Blood (Negative) Ur Leukocyte Esterase (Negative) Urine RBC (0-5) /hpf Urine WBC (0-5) /hpf Urine WBC Clumps (None) /hpf Urine Bacteria (None) /hpf Hyaline Casts (0-2) /lpf Urine Mucus (None) /hpf 02/27/18 Range/Units 09:10 MCV (80.0-100.0) fL MCHC (31.0-37.0) g/dL Plt Count (150-450) k/uL Monocytes # (0-1.0) k/uL PT (9.0-12.0) sec INR (<1.2) Chloride (98-107) mmol/L BUN (9-20) mg/dL Creatinine (0.66-1.25) mg/dL POC Glucose (mg/dL) (75-99) mg/dL Plasma Lactic Acid Heri (0.7-2.0) mmol/L Total Bilirubin (0.2-1.3) mg/dL Alkaline Phosphatase (38-126) U/L Total Protein (6.3-8.2) g/dL Albumin (3.5-5.0) g/dL Urine Blood Moderate H (Negative) Ur Leukocyte Esterase Large H (Negative) Urine RBC 17 H (0-5) /hpf Urine WBC 11 H (0-5) /hpf Urine WBC Clumps Rare H (None) /hpf Urine Bacteria Rare H (None) /hpf Hyaline Casts 3 H (0-2) /lpf Urine Mucus Rare H (None) /hpf Microbiology - Last 24 Hours (Table) 02/26/18 00:00 Urine Culture - Preliminary Urine,Catheterized Assessment and Plan Assessment: Assessment and Plan 1. CHF exacerbation: BNP 1310. Troponin 0.017, 0.030, 0.020 with patient being asymptomatic, EKG showing A Fib with RVR. CXR shows findings consistent with CHF. Lasix cut down from 40 mg IV TID to 20 mg IV BID. Continue ACEi and beta pinky. Ins and Outs. Daily Weights. Elevated HOB. Echo shows EF 45-50% with enlarged cavities, possible Yunier? O2 per NC to maintain O2 sat > 92%. FU Cardiology 2. Hypotension: BP 107/78. Holding Diltiazem PO and Lisinopril. Continue Metoprolol 25 mg PO BID and Diltiazem drip. Titrate IV pressors as per MICU attending. Patient is afebrile with no leukocytosis, lactic acidosis now resolved, likely due to dehydration with no concerns for sepsis. Monitor vitals , adjust medications as necessary. FU UCx, Blood Cx 3. Atrial fibrillation with RVR: Confirmed on EKG. Continue Diltiazem drip. Telemetry monitoring. Keep K > 4 and Mg > 2. Coumadin for anticoagulation. FU Cardiology 4. YING: BUN 23 Cr 1.28 likely due to Lasix use. Avoid nephrotoxins. Encourago PO hydration. Daily BMP. 5. Hyperbilirubinemia: T. Bili 5.3 to 3.7 with ALK 141 to 135. Normal LFTs otherwise. Likely from hepatic congestion? Daily CMP 6. Supratherapeutic INR: INR 3.7 to 4.1. From Coumadin use. Hold Coumadin 5 mg PO QMoWeSa + 7.5 mg PO QSuTuThFr until within therapeutic range. Daily INR 7. h/o CVA: Stable. Continue ASA 325 mg PO QD, Lipitor 20 mg PO QHS. FU PT/OT 8. Generalized weakness: Difficulty with ambulating at home and showering. FU PT /OT, SW 9. DVT/GI Prophylaxis: Coumadin. Patient admitted for CHF exacerbation. Diuresing with Lasix IV. Also on pressors for BP support. Will follow Cardiology recommendations.
[2018-02-27] MEDS: ASPIRIN 325 MG TAB PO SCH (13:18)
[2018-02-27] MEDS ORDERED: WARFARIN 5 MG TAB PO SCH (14:23)
[2018-02-27] MEDS: ATORVASTATIN 20 MG TAB PO SCH (21:53)
[2018-02-28 04:14] LABS: HCT 46.4 % (39.0-53.0); HGB 14.1 gm/dL (13.0-17.5); Macrocytosis Moderate
[2018-02-28 04:25] LABS: Albumin 2.6 g/dL (3.5-5.0); Calcium 8.6 mg/dL (8.4-10.2); Magnesium 1.8 mg/dL (1.6-2.3); Phosphorus 3.1 mg/dL (2.5-4.5); Potassium 3.7 mmol/L (3.5-5.1); Total Bilirubin 2.3 mg/dL (0.2-1.3); Total Protein 5.6 g/dL (6.3-8.2)
[2018-02-28 04:28] LABS: INR 3.6 (<1.2); Prothrombin Time 34.4 sec (9.0-12.0)
[2018-02-28 04:32] LABS: MCH 31.9 pg (25.0-35.0); MCHC 30.3 g/dL (31.0-37.0); MCV 105.3 fL (80.0-100.0); Mean Platelet Volume 7.1; Platelet Count 141 k/uL (150-450); RBC 4.41 m/uL (4.30-5.90); RDW 14.9 % (11.5-15.5); WBC 7.7 k/uL (3.8-10.6)
[2018-02-28] MEDS ORDERED: Potassium Replacement Protocol 1 EACH MISC MISCELLANE PRN (04:39)
[2018-02-28 04:54] LABS: Eosinophils # (M) 0.15 k/uL (0-0.7); Lymphocytes # (M) 1.08 k/uL (1.0-4.8); Monocytes # (M) 1.62 k/uL (0-1.0); Neutrophils # (M) 4.85 k/uL (1.3-7.7); Neutrophils % (M) 63 %; Nucleated Red Blood Cells 0 /100 WBC (0-0); Total Cells Counted 100
[2018-02-28] MEDS ORDERED: POTASSIUM CHLORIDE ER 20 MEQ TAB.ER PO SCH (05:00)
[2018-02-28] MEDS: DILTIAZEM 50 MG in SODIUM CHLORIDE 0.9% 40 ML IV SCH ×2 (05:50→17:33)
[2018-02-28] MEDS: MAGNESIUM SULFATE-D5W PMX 1 GM in DEXTROSE/WATER 1 100ML.BAG IVPB SCH ×2 (05:50→07:03)
[2018-02-28] MEDS: NOREPINEPHRINE 4 MG in SODIUM CHLORIDE 0.9% 250 ML IV SCH ×2 (08:30→11:21)
[2018-02-28] MEDS: HYDROcodone/APAP 5-325MG 1 EACH TAB PO PRN (08:57)
[2018-02-28] MEDS: ASPIRIN 325 MG TAB PO SCH (09:00)
[2018-02-28] MEDS ORDERED: IPRATROPIUM-ALBUTEROL 3 ML NEB INHALATION PRN (09:14)
--- NOTE | 2018-02-28 09:18 | XR ---
EXAMINATION TYPE: XR chest 1V portable DATE OF EXAM: 02/28/2018 COMPARISON: Prior chest x-ray 02/27/2018 HISTORY: Congestive heart failure TECHNIQUE: frontal view of the chest is obtained on 2 images. FINDINGS: Patient is post median sternotomy, the heart remains enlarged. Some pleural thickening has developed along the right lateral pleural margin, bandlike area in the perihilar location shows incre ased conspicuity. Interstitium remains increased. Minimal blunting of the right costophrenic angle. N o pneumothorax. IMPRESSION: Correlate for congestive heart failure. Possible small effusion. .
[2018-02-28] MEDS: FUROSEMIDE 10 MG/ML 2 ML VIAL IV SCH ×2 (09:27→22:14)
[2018-02-28] MEDS: METOPROLOL TARTRATE 25 MG TAB PO SCH ×2 (09:52→22:14)
[2018-02-28] MEDS: DILTIAZEM ORAL 30 MG TAB PO SCH ×3 (09:52→22:55)
[2018-02-28] MEDS: IPRATROPIUM-ALBUTEROL 3 ML NEB INHALATION SCH ×3 (09:58→21:35)
[2018-02-28] MEDS: AZITHROMYCIN 500 MG TAB PO SCH (11:02)
[2018-02-28 11:28] VITALS: BMI 28.5
--- NOTE | 2018-02-28 14:01 | PN ---
PROGRESS NOTE This is a 57-year-old gentleman with history of congenital heart disease, status post mechanical valve replacement, chronic atrial fibrillation, multivalvular heart disease, who was admitted to hospital with hypotension. He is on Levophed and is also receiving Lasix. He was on intravenous Cardizem for rate control. This has been switched to p.o. He is also on metoprolol 25 b.i.d. PHYSICAL EXAM: Heart rate is 98 beats and blood pressure is 84/60, respiratory rate is 16, O2 sat is 91%. Chest exam reveals good air entry bilaterally. Heart exam reveals first and second heart sounds. Mechanical valve sound is heard clearly. Abdomen is soft. Exam of the extremities did not reveal any edema. Peripheral pulses are felt. Labs show a hemoglobin of 14.1, platelet count is 140. INR is 3.6. ASSESSMENT: 1. Status post mechanical valve replacement. 2. Hypotension. 3. Chronic atrial fibrillation with better controlled ventricular rate. PLAN: Will continue with the oral beta blockers, Cardizem taper and stop the Levophed. I reviewed echo results at this time. Patient does not need a IRMA. Blood cultures have been negative. On discharge I can ask his primary jacquard card cutter to review his data and decide on whether he really needs a IRMA. MMODL / IJN: [id number] /
--- NOTE | 2018-02-28 17:03 | P.PN ---
Subjective Progress Note Date: 02/28/18 57-year-old male patient with history of congestion heart failure, valvular heart disease and the patient has a bioprosthetic mechanical aortic valve and moderate to severe mitral regurgitation, came into the hospital because of hypotension, atrial fibrillation, generalized weakness. The patient has been in the intensive care unit since. His blood pressure was fluctuating and we had difficulties in obtaining an accurate blood pressure on him. I inserted an arterial line in his left radial artery and the blood patient is being monitored very closely. Note that the patient is in atrial fibrillation. We will utilize Cardizem drip at 5 mg an hour and the patient is also on beta pinky which was held for a while due to his hypotension. The patient is also being diuresis with IV Lasix. Is producing adequate amount of urine output. To support his blood pressure, the patient was being given norepinephrine infusion at 2 mics to maintain a mean artery pressure above 65. He is currently on 5 mics. He was given his morning metoprolol this morning at a dose of 25 mg and he also was taken off the Cardizem drip and placed on oral Cardizem 30 mg which she was going to receive 3 times a day. His PT/INR is supratherapeutic still and no Coumadin was given. His cultures of been indicating a gram-positive bacillus which is probably contaminant. The patient was widely covered with a empiric antibiotics including IV Rocephin. Chest x- ray from today still showing pulmonary vascular congestion. There is a patchy infiltrate in the right upper lung area and for that reason Zithromax was also added. Discussed the case with cardiology. The exact nature of hypotension is not clear. Serum cortisol was checked and the level is at 8. The patient's fluid balance of been negative. The patient is producing adequate amount of urine output. Creatinine is at 1.24. Objective - Vital Signs Vital signs: Vital Signs Temp 97.9 F 02/28/18 12:00 Pulse 78 02/28/18 15:57 Resp 15 02/28/18 13:00 BP 84/60 02/28/18 13:00 Pulse Ox 89 L 02/28/18 13:00 Intake & Output 02/27/18 02/28/18 02/28/18 18:59 06:59 18:59 Intake Total 455.375 889.312 263.313 Output Total 1625 900 460 Balance -1169.625 -10.688 -196.687 Weight 95.8 kg 95.4 kg 95.4 kg Intake: IV 335 243 206 0.9 carrier 130 110 70 Cardizem 15 Diltiazem 50 mg In Sodium 5 Chloride 0.9% 40 ml @ 5 MG/HR 5 mls/hr IV .Q10H [facility] Rx#:[id number] Magnesium Sulfate-D5w Pmx 200 100 100 1 gm In Dextrose/Water 1 100ml.bag @ 100 mls/hr IVPB Q1H [facility] Rx#: [id number] pressure bag 33 21 Intake, IV Titration 120.375 146.312 57.313 Amount Diltiazem 50 mg In Sodium 69.750 50 25.25 Chloride 0.9% 40 ml @ 5 MG/HR 5 mls/hr IV .Q10H [facility] Rx#:[id number] Norepinephrine 4 mg In 50.625 96.312 32.063 Sodium Chloride 0.9% 250 ml @ Titrate IV .Q0M [facility] Rx#:[id number] Oral 500 Output: Urine 1625 900 360 Other 100 Other: Voiding Method Indwelling Catheter Indwelling Catheter ABP, PAP, CO, CI - Last Documented Arterial Blood Pressure 94/62 - Exam Gen. appearance he is calm and comfortable likely distress. No significant respiratory distress at this point and the patient is on room air oxygen. Head exam was generally normal. There was no scleral icterus or corneal arcus. Mucous membranes were moist. Neck was supple and without jugular venous distension, thyromegaly, or carotid bruits. Carotids were easily palpable bilaterally. There was no adenopathy. Lungs sounds are revealing crackles in the mid and lower lung couch bilaterally along with some scattered rhonchi. Heart sounds are irregular, slightly tachycardic, there is no aortic valve click heard throughout the precordium. There is some ventricular heave also.Abdominal exam revealed normal bowel sounds. The abdomen was soft, non- tender, and without masses, organomegaly, or appreciable enlargement of the abdominal aorta. Examination of the extremities revealed easily palpable radial, femoral and pedal pulses. There was no cyanosis, clubbing or edema. Examination of the skin revealed no evidence of significant rashes, suspicious appearing nevi or other concerning lesions. - Labs CBC & Chem 7: 02/28/18 04:05 02/28/18 04:05 Labs: Abnormal Lab Results - Last 24 Hours (Table) 02/28/18 02/28/18 02/28/18 Range/Units 04:05 04:05 04:05 MCV 105.3 H (80.0-100.0) fL MCHC 30.3 L (31.0-37.0) g/dL Plt Count 141 L (150-450) k/uL Monocytes # (Manual) 1.62 H (0-1.0) k/uL PT 34.4 H (9.0-12.0) sec INR 3.6 H (<1.2) BUN 21 H (9-20) mg/dL Glucose 110 H (74-99) mg/dL Total Bilirubin 2.3 H (0.2-1.3) mg/dL Alkaline Phosphatase 133 H (38-126) U/L Total Protein 5.6 L (6.3-8.2) g/dL Albumin 2.6 L (3.5-5.0) g/dL Microbiology - Last 24 Hours (Table) 02/26/18 21:12 Blood Culture Gram Stain - Preliminary Blood 02/26/18 00:00 Urine Culture - Final Urine,Catheterized 02/26/18 21:12 Blood Culture - Final Blood 02/26/18 21:26 Blood Culture - Preliminary Blood No Growth after 24 hours Assessment and Plan Plan: Assessment 1 acute CHF exacerbation. The patient has mild CHF with ejection fraction of 45 %. He does have also or valvular heart disease with moderate severe mitral regurgitation, severe LA dilatation, severe RV dilatation probably due to ongoing chronic MR. Aortic valve was bioprosthetic/mechanical and has been functioning appropriately based on the echocardiogram findings. The chest x- ray continues to show pulmonary edema and a patchy infiltrate in the right upper lung area for that reason the patient was covered also with broad- spectrum antibiotics suspecting an underlying pneumonia. Predominant presentation is still CHF. Cultures of been negative and the gram-positive bacillus in the blood is most likely a contaminant. Serum cortisol level is low. 2 hypotension , could be related to his cardiac disease/valvular heart disease. No other obvious cause for his fluctuating blood pressure. He required pressors overnight and currently is off pressors. 3 chronic atrial fibrillation with rapid ventricular response, currently on oral Cardizem and metoprolol. 4 previous history aortic valve replacement/mechanical valve and the patient is on lifelong articulation with warfarin. 5 supratherapeutic INR with an INR of 3.6 while on Coumadin 6 history of CVA 7 history of hypertension 8 history of anoxic encephalopathy, exact circumstances not known. Plan We'll keep the patient ICU for hemodynamic monitoring. Continue gentle diuresis. Continue supporting her blood pressure with norepinephrine. We'll give the patient a trial of hydrocortisone 100 mg every 8 hours based on the fact that he has a low cortisol and he may have an underlying coronary insufficiency. Awaiting final cultures. Continue same antibiotic coverage. Cardiology is on the case. Monitor PT/INR. Monitor renal function. We'll continue to follow.
--- NOTE | 2018-02-28 18:14 | P.PN ---
Subjective Progress Note Date: 02/28/18 Principal diagnosis: CHF exacerbation, hypotension patient was seen and examined. No acute events overnight. Patient reports great improvement in his breathing. He denies any shortness of breath, chest pain or palpitations at this time. Patient reports tolerating his diet well. Objective - Vital Signs Vital signs: Vital Signs Temp 97.9 F 02/28/18 08:00 Pulse 98 02/28/18 11:00 Resp 16 02/28/18 11:00 BP 84/60 02/28/18 11:00 Pulse Ox 91 L 02/28/18 11:00 Intake & Output 02/27/18 02/28/18 02/28/18 18:59 06:59 18:59 Intake Total 455.375 889.312 237.313 Output Total 1625 900 360 Balance -1169.625 -10.688 -122.687 Weight 95.8 kg 95.4 kg 95.4 kg Intake: IV 335 243 180 0.9 carrier 130 110 50 Cardizem 15 Diltiazem 50 mg In Sodium 5 Chloride 0.9% 40 ml @ 5 MG/HR 5 mls/hr IV .Q10H [facility] Rx#:[id number] Magnesium Sulfate-D5w Pmx 200 100 100 1 gm In Dextrose/Water 1 100ml.bag @ 100 mls/hr IVPB Q1H [facility] Rx#: [id number] pressure bag 33 15 Intake, IV Titration 120.375 146.312 57.313 Amount Diltiazem 50 mg In Sodium 69.750 50 25.25 Chloride 0.9% 40 ml @ 5 MG/HR 5 mls/hr IV .Q10H [facility] Rx#:[id number] Norepinephrine 4 mg In 50.625 96.312 32.063 Sodium Chloride 0.9% 250 ml @ Titrate IV .Q0M [facility] Rx#:[id number] Oral 500 Output: Urine 1625 900 360 Other: Voiding Method Indwelling Catheter Indwelling Catheter ABP, PAP, CO, CI - Last Documented Arterial Blood Pressure 102/67 - Exam General: [non toxic], [no distress], [appears at stated age] Derm: [warm], [dry] Head: [atraumatic], [normocephalic], [symmetric] Eyes: [EOMI], [no lid lag], [anicteric sclera] Mouth: [no lip lesion], [mucus membranes moist] Cardiovascular: [irregularly irregular], [no murmur], [positive DP pulse bilateral], [positive JVD] Lungs: [clear to auscultation bilaterally with good air entry], [no rhonchi, no rales] , [no accessory muscle use] Abdominal: [soft], [ nontender to palpation], [no guarding], [no appreciable organomegaly] Ext: [no gross muscle atrophy], [no edema], [no contractures] Neuro: [no focal neuro deficits] Psych: [Alert], [oriented], [appropriate affect] - Labs CBC & Chem 7: 02/28/18 04:05 02/28/18 04:05 Labs: Abnormal Lab Results - Last 24 Hours (Table) 02/28/18 02/28/18 02/28/18 Range/Units 04:05 04:05 04:05 MCV 105.3 H (80.0-100.0) fL MCHC 30.3 L (31.0-37.0) g/dL Plt Count 141 L (150-450) k/uL Monocytes # (Manual) 1.62 H (0-1.0) k/uL PT 34.4 H (9.0-12.0) sec INR 3.6 H (<1.2) BUN 21 H (9-20) mg/dL Glucose 110 H (74-99) mg/dL Total Bilirubin 2.3 H (0.2-1.3) mg/dL Alkaline Phosphatase 133 H (38-126) U/L Total Protein 5.6 L (6.3-8.2) g/dL Albumin 2.6 L (3.5-5.0) g/dL Microbiology - Last 24 Hours (Table) 02/26/18 21:12 Blood Culture Gram Stain - Preliminary Blood 02/26/18 21:12 Blood Culture - Final Blood 02/26/18 21:26 Blood Culture - Preliminary Blood No Growth after 24 hours 02/26/18 00:00 Urine Culture - Preliminary Urine,Catheterized Assessment and Plan Assessment: Assessment and Plan 1. CHF exacerbation: BNP 1310. Troponin 0.017, 0.030, 0.020 with patient being asymptomatic, EKG showing A Fib with RVR. CXR shows findings consistent with CHF. Lasix cut down from 40 mg IV TID to 20 mg IV BID. Continue ACEi and beta pinky. Ins and Outs. Daily Weights. Elevated HOB. Echo shows EF 45-50% with enlarged cavities, possible Yunier? O2 per NC to maintain O2 sat > 92%. On IV ceftriaxone and azithromycin for empiric treatment of community acquired pneumonia. Cardiology consulted and recommends Cardizem drip, DC Coumadin and review of Echo with possible IRMA. FU Cardiology 2. Hypotension: BP 84/60. Holding Diltiazem PO and Lisinopril. Continue Metoprolol 25 mg PO BID and Diltiazem drip. Titrate IV pressors as per MICU attending. Patient is afebrile with no leukocytosis, lactic acidosis now resolved, likely due to dehydration with no concerns for sepsis. Monitor vitals , adjust medications as necessary. Urine culture is preliminarily negative, blood culture is negative after 24 hours. FU UCx and BCx 3. Atrial fibrillation with RVR: Confirmed on EKG. Continue Diltiazem drip. Telemetry monitoring. Keep K > 4 and Mg > 2. Coumadin for anticoagulation. FU Cardiology 5. Hyperbilirubinemia: T. Bili 5.3 to 3.7 to 2.3 with ALK 141 to 135 to 133. Normal LFTs otherwise. Likely from hepatic congestion? Daily CMP 6. Supratherapeutic INR: INR 3.7 to 4.1 to 3.6. From Coumadin use. Hold Coumadin 5 mg PO QMoWeSa + 7.5 mg PO QSuTuThFr until within therapeutic range. Daily INR 7. h/o CVA: Stable. Continue ASA 325 mg PO QD, Lipitor 20 mg PO QHS. FU PT/OT 8. Generalized weakness: Difficulty with ambulating at home and showering. FU PT /OT, SW 9. DVT/GI Prophylaxis: Coumadin. Resolved; YING Patient admitted for CHF exacerbation. Diuresing with Lasix IV. Also on pressors for BP support. Empirically treated for community acquired pneumonia. Will follow Cardiology recommendations.
[2018-02-28] MEDS: HYDROCORTISONE SUCCINATE 100 MG/2 ML VIAL IV SCH ×2 (18:29→23:00)
[2018-02-28] MEDS: ATORVASTATIN 20 MG TAB PO SCH (22:14)
[2018-03-01] MEDS: DILTIAZEM 50 MG in SODIUM CHLORIDE 0.9% 40 ML IV SCH ×3 (05:31→23:14)
[2018-03-01 05:36] LABS: Basophils % (A) 0 %; Eosinophils % (A) 1 %; HCT 48.6 % (39.0-53.0); HGB 15.6 gm/dL (13.0-17.5); Lymphocytes # (A) 0.5 k/uL (1.0-4.8); Lymphocytes % (A) 7 %; MCH 33.9 pg (25.0-35.0); MCHC 32.1 g/dL (31.0-37.0); MCV 105.6 fL (80.0-100.0); Macrocytosis Moderate; Mean Platelet Volume 7.7; Monocytes # (A) 0.4 k/uL (0-1.0); Monocytes % (A) 7 %; Neutrophils # (A) 5.4 k/uL (1.3-7.7); Neutrophils % (A) 84 %; Platelet Count 135 k/uL (150-450); RDW 14.7 % (11.5-15.5); WBC 6.4 k/uL (3.8-10.6)
[2018-03-01 05:41] LABS: INR 2.5 (<1.2); Prothrombin Time 23.9 sec (9.0-12.0)
[2018-03-01 05:53] LABS: Albumin 3.1 g/dL (3.5-5.0); Calcium 9.1 mg/dL (8.4-10.2); Total Protein 6.4 g/dL (6.3-8.2)
[2018-03-01 06:10] LABS: Magnesium 1.9 mg/dL (1.6-2.3); Phosphorus 3.5 mg/dL (2.5-4.5); Potassium 5.6 mmol/L (3.5-5.1); Total Bilirubin 2.8 mg/dL (0.2-1.3)
[2018-03-01] MEDS: NOREPINEPHRINE 4 MG in SODIUM CHLORIDE 0.9% 250 ML IV SCH (07:30)
--- NOTE | 2018-03-01 08:30 | XR ---
EXAMINATION TYPE: XR chest 1V portable DATE OF EXAM: 03/01/2018 COMPARISON: Prior chest x-ray 02/28/2018 HISTORY: Congestive heart failure TECHNIQUE: Single frontal view of the chest is obtained. FINDINGS: There may be worsening airspace disease as compared to prior exam. Interstitium is again i ncreased, there may be pseudotumor in the right mid lung. Heart remains enlarged. No pneumothorax. Di fficult to exclude small effusion. IMPRESSION: There may be worsening pulmonary edema. Follow-up recommended.
[2018-03-01] MEDS: FUROSEMIDE 10 MG/ML 2 ML VIAL IV SCH ×2 (08:40→21:40)
[2018-03-01] MEDS: AZITHROMYCIN 500 MG TAB PO SCH (08:40)
[2018-03-01] MEDS: ASPIRIN 325 MG TAB PO SCH (08:40)
[2018-03-01] MEDS: METOPROLOL TARTRATE 25 MG TAB PO SCH ×2 (08:40→21:40)
[2018-03-01] MEDS: DILTIAZEM ORAL 30 MG TAB PO SCH ×3 (08:40→22:44)
[2018-03-01] MEDS: HYDROCORTISONE SUCCINATE 100 MG/2 ML VIAL IV SCH ×3 (08:40→23:08)
[2018-03-01 08:43] LABS: Calcium 8.9 mg/dL (8.4-10.2); Potassium 4.4 mmol/L (3.5-5.1)
[2018-03-01] MEDS: IPRATROPIUM-ALBUTEROL 3 ML NEB INHALATION SCH ×4 (09:41→19:49)
[2018-03-01] MEDS ORDERED: MAGNESIUM HYDROXIDE 2,400 MG/10 ML CUP PO PRN (10:33)
--- NOTE | 2018-03-01 14:35 | PN ---
PROGRESS NOTE This is a 57-year-old gentleman who was admitted to hospital with not feeling well, hypotension and chronic atrial fibrillation. His hypotension has improved. He is no longer on Levophed. Heart rate is better controlled on Cardizem and Lopressor. He is also on IV Lasix. On exam heart rate is 90 beats per minute. Blood pressure is 95/60, respiratory rate is 18. Chest exam reveals occasional rhonchi bilaterally. Heart exam reveals first and second heart sounds. Systolic murmur at the apex. Mechanical heart sound is heard. Abdomen is soft. Exam of extremities did not reveal edema. Peripheral pulses are felt. Labs show a hemoglobin of 15.6. INR is 2.5. Will resume patient's Coumadin. MMODL / IJN: [id number] /
--- NOTE | 2018-03-01 15:49 | P.PN ---
Subjective Progress Note Date: 03/01/18 Principal diagnosis: Hypotension, AFib with RVR Patient was seen and examined. No acute events overnight. Patient reports improvement in his breathing. He denies any chest pain or shortness of breath. His BP is maintaining in the low 100s on pressors. Objective - Vital Signs Vital signs: Vital Signs Temp 97.6 F 03/01/18 08:00 Pulse 118 H 03/01/18 15:00 Resp 21 03/01/18 15:00 BP 109/75 03/01/18 15:00 Pulse Ox 94 L 03/01/18 15:00 Intake & Output 02/28/18 03/01/18 03/01/18 18:59 06:59 18:59 Intake Total 389.876 344.437 452.125 Output Total 665 510 485 Balance -275.124 -165.563 -32.875 Weight 95.4 kg 98 kg 98 kg Intake: IV 284 143 39 0.9 carrier 130 110 30 Cardizem 15 0 Magnesium Sulfate-D5w Pmx 100 1 gm In Dextrose/Water 1 100ml.bag @ 100 mls/hr IVPB Q1H [facility] Rx#: [id number] pressure bag 39 33 9 Intake, IV Titration 105.876 201.437 13.125 Amount Diltiazem 50 mg In Sodium 25.25 Chloride 0.9% 40 ml @ 5 MG/HR 5 mls/hr IV .Q10H [facility] Rx#:[id number] Norepinephrine 4 mg In 80.626 201.437 13.125 Sodium Chloride 0.9% 250 ml @ Titrate IV .Q0M [facility] Rx#:[id number] Oral 400 Output: Urine 565 510 485 Other 100 Other: Voiding Method Indwelling Catheter Indwelling Catheter Indwelling Catheter # Voids 1 ABP, PAP, CO, CI - Last Documented Arterial Blood Pressure 104/78 - Exam General: [non toxic], [no distress], [appears at stated age] Derm: [warm], [dry] Head: [atraumatic], [normocephalic], [symmetric] Eyes: [EOMI], [no lid lag], [anicteric sclera] Mouth: [no lip lesion], [mucus membranes moist] Cardiovascular: [irregularly irregular], [no murmur], [positive DP pulse bilateral] Lungs: [clear to auscultation bilaterally with good air entry], [no rhonchi, no rales] , [no accessory muscle use] Abdominal: [soft], [ nontender to palpation], [no guarding], [no appreciable organomegaly] Ext: [no gross muscle atrophy], [no edema], [no contractures] Neuro: [no focal neuro deficits] Psych: [Alert], [oriented], [appropriate affect] - Labs CBC & Chem 7: 03/01/18 05:28 03/01/18 07:49 Labs: Abnormal Lab Results - Last 24 Hours (Table) 02/28/18 03/01/18 03/01/18 Range/Units 11:08 05:28 05:28 MCV 105.6 H (80.0-100.0) fL Plt Count 135 L (150-450) k/uL Lymphocytes # 0.5 L (1.0-4.8) k/uL PT 23.9 H (9.0-12.0) sec INR 2.5 H (<1.2) Potassium (3.5-5.1) mmol/L Chloride (98-107) mmol/L Carbon Dioxide (22-30) mmol/L BUN (9-20) mg/dL Glucose (74-99) mg/dL Total Bilirubin (0.2-1.3) mg/dL Alkaline Phosphatase (38-126) U/L Albumin (3.5-5.0) g/dL Procalcitonin 0.11 H (0.02-0.09) ng/mL 03/01/18 03/01/18 Range/Units 05:28 07:49 MCV (80.0-100.0) fL Plt Count (150-450) k/uL Lymphocytes # (1.0-4.8) k/uL PT (9.0-12.0) sec INR (<1.2) Potassium 5.6 H (3.5-5.1) mmol/L Chloride 111 H (98-107) mmol/L Carbon Dioxide 21 L (22-30) mmol/L BUN 23 H 22 H (9-20) mg/dL Glucose 135 H 157 H (74-99) mg/dL Total Bilirubin 2.8 H (0.2-1.3) mg/dL Alkaline Phosphatase 141 H (38-126) U/L Albumin 3.1 L (3.5-5.0) g/dL Procalcitonin (0.02-0.09) ng/mL Microbiology - Last 24 Hours (Table) 02/28/18 11:22 Blood Culture - Preliminary Blood No Growth after 24 hours 02/28/18 10:51 Blood Culture - Preliminary Blood No Growth after 24 hours 02/26/18 21:12 Blood Culture Gram Stain - Preliminary Blood Blood Culture - Preliminary Diphtheroid species 02/26/18 21:26 Blood Culture - Preliminary Blood No Growth after 48 hours 02/26/18 00:00 Urine Culture - Final Urine,Catheterized Assessment and Plan Assessment: Assessment and Plan 1. CHF exacerbation: BNP 1310. Troponin 0.017, 0.030, 0.020 with patient being asymptomatic, EKG showing A Fib with RVR. CXR shows findings consistent with CHF. Lasix cut down from 40 mg IV TID to 20 mg IV BID. Continue ACEi and beta pinky. Ins and Outs. Daily Weights. Elevated HOB. Echo shows EF 45-50% with enlarged cavities, possible Yunier? O2 per NC to maintain O2 sat > 92%. On IV ceftriaxone and azithromycin for empiric treatment of community acquired pneumonia. Cardiology consulted and recommends Cardizem drip, DC Coumadin and review of Echo with possible IRMA. FU Cardiology 2. Hypotension: BP 109/75. Restart Diltiazem 30 mg PO TID. Continue Metoprolol 25 mg PO BID and DC Diltiazem drip. Titrate IV pressors as per MICU attending ( on Hydrocortisone IV and Levophed). Patient is afebrile with no leukocytosis, lactic acidosis now resolved, likely due to dehydration with no concerns for sepsis. Monitor vitals, adjust medications as necessary. Urine culture is negative. Blood culture first one shows Diphtheroid, likely contaminant. Repeat BCx negative at 24H. 3. Atrial fibrillation with RVR: Confirmed on EKG. Continue Diltiazem drip. Telemetry monitoring. Keep K > 4 and Mg > 2. Coumadin for anticoagulation. FU Cardiology 5. Hyperbilirubinemia: T. Bili 5.3 to 3.7 to 2.8 with ALK 141 to 135 to 141. Normal LFTs otherwise. Likely from hepatic congestion? Daily CMP 6. Supratherapeutic INR: INR 3.7 to 4.1 to 3.6 to 2.5. From Coumadin use. Restart Coumadin 5 mg PO QMoWeSa + 7.5 mg PO QSuTuThFr when OK with Cardiology. Daily INR 7. h/o CVA: Stable. Continue ASA 325 mg PO QD, Lipitor 20 mg PO QHS. FU PT/OT 8. Generalized weakness: Difficulty with ambulating at home and showering. FU PT /OT, SW 9. DVT/GI Prophylaxis: Coumadin. Resolved; YING, Supratherapeutic INR Patient admitted for CHF exacerbation. Diuresing with Lasix IV, CXR today is worsening. Also on pressors for BP support. Empirically treated for community acquired pneumonia. Will follow Cardiology recommendations.
--- NOTE | 2018-03-01 16:50 | P.PN ---
Subjective Progress Note Date: 03/01/18 On 03/01/2018 and seeing this patient for a follow-up. The patient is doing well. No of shortness of breath. The patient has no cough sputum production chest tightness or wheezing. The patient has no fever. He is still in atrial fibrillation. Rate is controlled with a combination of metoprolol and Cardizem orally. The patient was taken off the pressors. The patient is being diuresis with IV Lasix. The fluid balance over the past 24 hours is -1.1 L and the patient continues to be a negative fluid balance. Chest x-ray from today still showing evidence of moderate edema/CHF. The serum cortisol was low at 8. I opted to give this patient hydrocortisone 100 mg every 8 hours. It seems that this also helped with the patient's blood pressure control and currently with off pressors. Urine cultures negative. Blood culture is showing diphtheroids features likely contaminant and repeat blood culture is pending for now. His PT /INR today shows further drop in INR is down to 2.5 and the patient will be started on Coumadin again the patient will be given 5 mg of Coumadin knowing that he has a mechanical aortic valve. He is tolerating his diet. No focal neurological deficit. Renal function is stable with a creatinine of 1.08. Objective - Vital Signs Vital signs: Vital Signs Temp 97.6 F 03/01/18 08:00 Pulse 118 H 03/01/18 15:00 Resp 21 03/01/18 15:00 BP 109/75 03/01/18 15:00 Pulse Ox 94 L 03/01/18 15:00 Intake & Output 02/28/18 03/01/18 03/01/18 18:59 06:59 18:59 Intake Total 389.876 344.437 452.125 Output Total 665 510 485 Balance -275.124 -165.563 -32.875 Weight 95.4 kg 98 kg 98 kg Intake: IV 284 143 39 0.9 carrier 130 110 30 Cardizem 15 0 Magnesium Sulfate-D5w Pmx 100 1 gm In Dextrose/Water 1 100ml.bag @ 100 mls/hr IVPB Q1H [facility] Rx#: [id number] pressure bag 39 33 9 Intake, IV Titration 105.876 201.437 13.125 Amount Diltiazem 50 mg In Sodium 25.25 Chloride 0.9% 40 ml @ 5 MG/HR 5 mls/hr IV .Q10H [facility] Rx#:[id number] Norepinephrine 4 mg In 80.626 201.437 13.125 Sodium Chloride 0.9% 250 ml @ Titrate IV .Q0M [facility] Rx#:[id number] Oral 400 Output: Urine 565 510 485 Other 100 Other: Voiding Method Indwelling Catheter Indwelling Catheter Indwelling Catheter # Voids 1 ABP, PAP, CO, CI - Last Documented Arterial Blood Pressure 104/78 - Exam Gen. appearance he is calm and comfortable likely distress. No significant respiratory distress at this point and the patient is on room air oxygen. Head exam was generally normal. There was no scleral icterus or corneal arcus. Mucous membranes were moist. Neck was supple and without jugular venous distension, thyromegaly, or carotid bruits. Carotids were easily palpable bilaterally. There was no adenopathy. Lungs sounds are revealing crackles in the mid and lower lung couch bilaterally along with some scattered rhonchi. Heart sounds are irregular, slightly tachycardic, there is no aortic valve click heard throughout the precordium. There is some ventricular heave also.Abdominal exam revealed normal bowel sounds. The abdomen was soft, non- tender, and without masses, organomegaly, or appreciable enlargement of the abdominal aorta. Examination of the extremities revealed easily palpable radial, femoral and pedal pulses. There was no cyanosis, clubbing or edema. Examination of the skin revealed no evidence of significant rashes, suspicious appearing nevi or other concerning lesions. - Labs CBC & Chem 7: 03/01/18 05:28 03/01/18 07:49 Labs: Abnormal Lab Results - Last 24 Hours (Table) 02/28/18 03/01/18 03/01/18 Range/Units 11:08 05:28 05:28 MCV 105.6 H (80.0-100.0) fL Plt Count 135 L (150-450) k/uL Lymphocytes # 0.5 L (1.0-4.8) k/uL PT 23.9 H (9.0-12.0) sec INR 2.5 H (<1.2) Potassium (3.5-5.1) mmol/L Chloride (98-107) mmol/L Carbon Dioxide (22-30) mmol/L BUN (9-20) mg/dL Glucose (74-99) mg/dL Total Bilirubin (0.2-1.3) mg/dL Alkaline Phosphatase (38-126) U/L Albumin (3.5-5.0) g/dL Procalcitonin 0.11 H (0.02-0.09) ng/mL 03/01/18 03/01/18 Range/Units 05:28 07:49 MCV (80.0-100.0) fL Plt Count (150-450) k/uL Lymphocytes # (1.0-4.8) k/uL PT (9.0-12.0) sec INR (<1.2) Potassium 5.6 H (3.5-5.1) mmol/L Chloride 111 H (98-107) mmol/L Carbon Dioxide 21 L (22-30) mmol/L BUN 23 H 22 H (9-20) mg/dL Glucose 135 H 157 H (74-99) mg/dL Total Bilirubin 2.8 H (0.2-1.3) mg/dL Alkaline Phosphatase 141 H (38-126) U/L Albumin 3.1 L (3.5-5.0) g/dL Procalcitonin (0.02-0.09) ng/mL Microbiology - Last 24 Hours (Table) 02/28/18 11:22 Blood Culture - Preliminary Blood No Growth after 24 hours 02/28/18 10:51 Blood Culture - Preliminary Blood No Growth after 24 hours 02/26/18 21:12 Blood Culture Gram Stain - Preliminary Blood Blood Culture - Preliminary Diphtheroid species 02/26/18 21:26 Blood Culture - Preliminary Blood No Growth after 48 hours 02/26/18 00:00 Urine Culture - Final Urine,Catheterized Assessment and Plan Plan: Assessment 1 acute CHF exacerbation. The patient has mild CHF with ejection fraction of 45 %. He does have also or valvular heart disease with moderate severe mitral regurgitation, severe LA dilatation, severe RV dilatation probably due to ongoing chronic MR. Aortic valve- mechanical and has been functioning appropriately based on the echocardiogram findings. 2 hypotension , recovered and the patient is currently off pressors. Hydrocortisone in the form of stress dose was given based on the fact that the patient had a low cortisol level despite him being hypotensive earlier. Currently is off pressors and producing adequate amount of urine output. 3 chronic atrial fibrillation with rapid ventricular response, currently on oral Cardizem and metoprolol. 4 previous history aortic valve replacement/mechanical valve and the patient is on lifelong articulation with warfarin. 5 supratherapeutic INR with an INR of 2.5 6 history of CVA 7 history of hypertension 8 history of anoxic encephalopathy, exact circumstances not known. Plan The patient is an acute heart failure and the chest x-ray still showing acute pulmonary edema. Continued IV Lasix. Optimize the volume status and fluid balance. Use pressors if needed should the patient become hypotensive. Continue metoprolol and Cardizem for rate control. Restart and correlation knowing that the patient INR is down to 2.5 and the patient will be given 5 mg of Coumadin today. Will appreciate further advice from cardiology. The presentation essentially secondary to valvular heart disease/CHF. No septic event. Pro-calcitonin level is low. We'll continue to follow. We'll keep the patient ICU for now for further monitoring. Repeat PT/INR in the morning. Follow-up blood work in the morning. The patient's exam morning. We'll follow.
[2018-03-01] MEDS ORDERED: WARFARIN 5 MG TAB PO ONE (18:00)
[2018-03-01] MEDS: ATORVASTATIN 20 MG TAB PO SCH (21:40)
[2018-03-02] MEDS: IPRATROPIUM-ALBUTEROL 3 ML NEB INHALATION SCH ×4 (04:34→20:37)
[2018-03-02 05:08] LABS: Basophils % (A) 0 %; Eosinophils # (A) 0.1 k/uL (0-0.7); Eosinophils % (A) 1 %; HCT 49.4 % (39.0-53.0); HGB 14.9 gm/dL (13.0-17.5); Hypochromasia Slight; Lymphocytes # (A) 0.7 k/uL (1.0-4.8); Lymphocytes % (A) 6 %; MCH 31.8 pg (25.0-35.0); MCHC 30.1 g/dL (31.0-37.0); MCV 105.5 fL (80.0-100.0); Macrocytosis Moderate; Mean Platelet Volume 7.3; Monocytes # (A) 0.6 k/uL (0-1.0); Monocytes % (A) 5 %; Neutrophils # (A) 10.4 k/uL (1.3-7.7); Neutrophils % (A) 87 %; Platelet Count 168 k/uL (150-450); RBC 4.69 m/uL (4.30-5.90); RDW 14.9 % (11.5-15.5)
[2018-03-02 05:22] LABS: Calcium 9.3 mg/dL (8.4-10.2); Potassium 4.8 mmol/L (3.5-5.1)
--- NOTE | 2018-03-02 08:30 | XR ---
EXAMINATION TYPE: XR chest 1V portable DATE OF EXAM: 03/02/2018 COMPARISON: 03/01/2018 HISTORY: Shortness of breath FINDINGS: There are bilateral pleural effusions with cardiomegaly and bibasilar infiltrate. There is a diffuse interstitial pattern. Postsurgical changes noted. No pneumothorax. IMPRESSION: 1. Correlate for CHF with pulmonary edema versus pneumonia.
[2018-03-02] MEDS: AZITHROMYCIN 500 MG TAB PO SCH (08:33)
[2018-03-02] MEDS: DILTIAZEM ORAL 30 MG TAB PO SCH ×3 (08:33→20:33)
[2018-03-02] MEDS: HYDROCORTISONE SUCCINATE 100 MG/2 ML VIAL IV SCH ×3 (08:34→23:11)
[2018-03-02] MEDS: ASPIRIN 325 MG TAB PO SCH (08:34)
[2018-03-02] MEDS: METOPROLOL TARTRATE 25 MG TAB PO SCH ×2 (08:34→20:32)
[2018-03-02] MEDS: DILTIAZEM 50 MG in SODIUM CHLORIDE 0.9% 40 ML IV SCH (10:23)
[2018-03-02] MEDS: FUROSEMIDE 10 MG/ML 2 ML VIAL IV SCH (10:23)
[2018-03-02 11:00] LABS: Prothrombin Time 19.7 sec (9.0-12.0)
[2018-03-02] MEDS: FUROSEMIDE 10 MG/ML 4 ML VIAL IV SCH ×3 (12:36→23:11)
--- NOTE | 2018-03-02 13:30 | PN ---
PROGRESS NOTE Leonel is a 57-year-old gentleman with history of known mechanical mitral valve in atrial fibrillation, who presented to hospital, not feeling well. Had hypotension and A fib with poorly controlled ventricular rate. He was on Levophed. Levophed is off. Heart rate is better controlled. He is on oral Cardizem 30 q.8, Lipitor, Lopressor 25 b.i.d. and is also on IV Lasix because of congestive heart failure. PHYSICAL EXAMINATION: On exam, heart rate is 83 beats per minute, blood pressure is 90/70, respiratory rate is 14. There is no jugular venous distention. Chest exam reveals diminished air entry at the bases. Heart exam reveals first and second heart sounds. Mechanical valve sound is heard. Abdomen is soft. Examination of the extremities reveals mild edema. Peripheral pulses are palpable. ASSESSMENT: 1. History of mechanical mitral valve. 2. Acute exacerbation of chronic systolic heart failure. 3. Chronic atrial fibrillation with poorly controlled ventricular rate. PLAN: Will continue with the IV Lasix. Please continue Coumadin to maintain an INR of around 2.5 to 3. We will give him a dose of 7.5 mg today. MMODL / IJN: [id number] /
--- NOTE | 2018-03-02 13:52 | P.PN ---
Subjective Progress Note Date: 03/02/18 On 03/02/2018, and seeing this patient for a follow-up. He has been without liters of oxygen by nasal cannula. Chest x-ray still showing pulmonary edema. Hemodynamically is not requiring any pressors. He is on a combination of metoprolol and Cardizem for rate control, as the patient has underlying atrial fibrillation. The patient is in a negative fluid balance. He is responding to diuretics although his negativity has not been strong and I'm going to intensify his diuretic treatment. He is on empiric antibiotic coverage with a combination of Rocephin and Zithromax. He was restarted back on his anticoagulation yesterday and the patient's INR today is down to 2.0 despite receiving 5 mg of warfarin yesterday. Today we'll given 7.5 mg of warfarin. The patient denies having any chest pain. No nausea or vomiting. Tolerating his diet. Rest of the blood work and electrodes are all within normal limits. BUN is 26 and creatinine is at 1.1. . Objective - Vital Signs Vital signs: Vital Signs Temp 98.5 F 03/02/18 04:00 Pulse 83 03/02/18 12:00 Resp 14 03/02/18 12:00 BP 90/71 03/02/18 12:00 Pulse Ox 93 L 03/02/18 11:30 Intake & Output 03/01/18 03/02/18 03/02/18 18:59 06:59 18:59 Intake Total 452.125 33 853 Output Total 720 675 233 Balance -267.875 -642 620 Weight 99 kg Intake: IV 39 33 3 0.9 carrier 30 pressure bag 9 33 3 Intake, IV Titration 13.125 Amount Norepinephrine 4 mg In 13.125 Sodium Chloride 0.9% 250 ml @ Titrate IV .Q0M [facility] Rx#:[id number] Oral 400 850 Output: Urine 720 675 233 Other: Voiding Method Indwelling Catheter Indwelling Catheter Indwelling Catheter ABP, PAP, CO, CI - Last Documented Arterial Blood Pressure 108/83 - Exam Gen. appearance he is calm and comfortable likely distress. No significant respiratory distress at this point and the patient is on room air oxygen. Head exam was generally normal. There was no scleral icterus or corneal arcus. Mucous membranes were moist. Neck was supple and without jugular venous distension, thyromegaly, or carotid bruits. Carotids were easily palpable bilaterally. There was no adenopathy. Lungs sounds are revealing crackles in the mid and lower lung couch bilaterally along with some scattered rhonchi. Heart sounds are irregular, slightly tachycardic, there is no aortic valve click heard throughout the precordium. There is some ventricular heave also.Abdominal exam revealed normal bowel sounds. The abdomen was soft, non- tender, and without masses, organomegaly, or appreciable enlargement of the abdominal aorta. Examination of the extremities revealed easily palpable radial, femoral and pedal pulses. There was no cyanosis, clubbing or edema. Examination of the skin revealed no evidence of significant rashes, suspicious appearing nevi or other concerning lesions. - Labs CBC & Chem 7: 03/02/18 04:50 03/02/18 04:50 Labs: Abnormal Lab Results - Last 24 Hours (Table) 03/02/18 03/02/18 03/02/18 Range/Units 04:50 04:50 10:35 WBC 12.0 H (3.8-10.6) k/uL MCV 105.5 H (80.0-100.0) fL MCHC 30.1 L (31.0-37.0) g/dL Neutrophils # 10.4 H (1.3-7.7) k/uL Lymphocytes # 0.7 L (1.0-4.8) k/uL PT 19.7 H (9.0-12.0) sec INR 2.0 H (<1.2) Sodium 132 L (137-145) mmol/L BUN 26 H (9-20) mg/dL Glucose 119 H (74-99) mg/dL Microbiology - Last 24 Hours (Table) 02/28/18 10:51 Blood Culture - Preliminary Blood No Growth after 48 hours 02/26/18 21:12 Blood Culture Gram Stain - Final Blood Blood Culture - Final Diphtheroid species 02/26/18 21:26 Blood Culture - Preliminary Blood No Growth after 72 hours 02/28/18 11:22 Blood Culture - Preliminary Blood No Growth after 24 hours Assessment and Plan Plan: Assessment 1 acute CHF exacerbation. The patient has mild CHF with ejection fraction of 45 %. He does have also or valvular heart disease with moderate severe mitral regurgitation, severe LA dilatation, severe RV dilatation probably due to ongoing chronic MR. Aortic valve- mechanical and has been functioning appropriately based on the echocardiogram findings. The patient clinically continues to be in CHF. Chest x-ray still showing pulmonary edema secondary to CHF. No major improvement in her chest x-ray findings on today's film. 2 hypotension , recovered 3 chronic atrial fibrillation with rapid ventricular response, currently on oral Cardizem and metoprolol. 4 previous history aortic valve replacement/mechanical valve and the patient is on lifelong articulation with warfarin. 5 supratherapeutic INR with an INR of 2.0 6 history of CVA 7 history of hypertension 8 history of anoxic encephalopathy, exact circumstances not known. Plan Continue Cardizem and metoprolol for rate control. Increase the Lasix to 40 mg every 8 hours. Monitor urine output. Repeat chest x-ray in the morning. Monitor electrolytes. Give the patient 7.5 mg of Coumadin today and repeat the PT/INR for tomorrow. Discussed the case with cardiology. We'll add digoxin for improved rate control with an underlying atrial fibrillation rhythm. The patient will be kept in ICU for 24 hours. We'll continue to follow. Cardiology is on the case.
[2018-03-02] MEDS: DIGOXIN 250 MCG TAB PO SCH (14:13)
--- NOTE | 2018-03-02 16:06 | P.PN ---
Subjective Progress Note Date: 03/02/18 Principal diagnosis: Pulmonary edema, atrial fibrillation with RVR Patient was seen and examined. No acute events overnight. Patient reports improvement in his breathing. Patient asking when he can go home. His friend is at bedside. He denies any shortness of breath, chest pain or palpitations at this time no nausea or vomiting. According to his friend, patient is at baseline per mentation. Objective - Vital Signs Vital signs: Vital Signs Temp 98.5 F 03/02/18 04:00 Pulse 96 03/02/18 15:49 Resp 7 L 03/02/18 15:00 BP 103/80 03/02/18 15:00 Pulse Ox 93 L 03/02/18 15:49 Intake & Output 03/01/18 03/02/18 03/02/18 18:59 06:59 18:59 Intake Total 452.452 83 8972 Output Total 720 675 333 Balance -267.875 -642 1320 Weight 99 kg Intake: IV 39 33 3 0.9 carrier 30 pressure bag 9 33 3 Intake, IV Titration 13.125 Amount Norepinephrine 4 mg In 13.125 Sodium Chloride 0.9% 250 ml @ Titrate IV .Q0M [facility] Rx#:[id number] Oral 400 1650 Output: Urine 720 675 333 Other: Voiding Method Indwelling Catheter Indwelling Catheter Indwelling Catheter ABP, PAP, CO, CI - Last Documented Arterial Blood Pressure 91/67 - Exam General: [non toxic], [no distress], [appears at stated age] Derm: [warm], [dry] Head: [atraumatic], [normocephalic], [symmetric] Eyes: [EOMI], [no lid lag], [anicteric sclera] Mouth: [no lip lesion], [mucus membranes moist] Cardiovascular: [irregularly irregular], [no murmur], [positive DP pulse bilateral] Lungs: [Mild crackles bilaterally with good air entry], [no rhonchi, no rales] , [no accessory muscle use] Abdominal: [soft], [ nontender to palpation], [no guarding], [no appreciable organomegaly] Ext: [no gross muscle atrophy], [no edema], [no contractures] Neuro: [no focal neuro deficits] Psych: [Alert], [oriented], [appropriate affect] - Labs CBC & Chem 7: 03/02/18 04:50 03/02/18 04:50 Labs: Abnormal Lab Results - Last 24 Hours (Table) 03/02/18 03/02/18 03/02/18 Range/Units 04:50 04:50 10:35 WBC 12.0 H (3.8-10.6) k/uL MCV 105.5 H (80.0-100.0) fL MCHC 30.1 L (31.0-37.0) g/dL Neutrophils # 10.4 H (1.3-7.7) k/uL Lymphocytes # 0.7 L (1.0-4.8) k/uL PT 19.7 H (9.0-12.0) sec INR 2.0 H (<1.2) Sodium 132 L (137-145) mmol/L BUN 26 H (9-20) mg/dL Glucose 119 H (74-99) mg/dL Microbiology - Last 24 Hours (Table) 02/28/18 11:22 Blood Culture - Preliminary Blood No Growth after 48 hours 02/28/18 10:51 Blood Culture - Preliminary Blood No Growth after 48 hours 02/26/18 21:12 Blood Culture Gram Stain - Final Blood Blood Culture - Final Diphtheroid species 02/26/18 21:26 Blood Culture - Preliminary Blood No Growth after 72 hours Assessment and Plan Assessment: Assessment and Plan 1. CHF exacerbation: BNP 1310. Troponin 0.017, 0.030, 0.020 with patient being asymptomatic, EKG showing A Fib with RVR. CXR shows findings consistent with CHF. Lasix increased back to 40 mg IV TID. Continue ACEi and beta pinky. Ins and Outs. Daily Weights. Elevated HOB. Echo shows EF 45-50% with enlarged cavities, possible Yunier? O2 per NC to maintain O2 sat > 92%. On IV ceftriaxone and azithromycin for empiric treatment of community acquired pneumonia. Cardiology consulted and recommends Cardizem by mouth, increase Coumadin. FU Cardiology 2. Hypotension: BP 103/80. Continue Diltiazem 30 mg PO TID. Continue Metoprolol 25 mg PO BID. Off pressors today. Patient is afebrile with no leukocytosis, lactic acidosis now resolved, likely due to dehydration with no concerns for sepsis. Monitor vitals, adjust medications as necessary. Urine culture is negative. Blood culture first one shows Diphtheroid, likely contaminant. Repeat BCx negative at 48H. 3. Atrial fibrillation with RVR: Confirmed on EKG. Continue digoxin 250 mg by mouth daily. Continue Cardizem and metoprolol by mouth. Telemetry monitoring. Keep K > 4 and Mg > 2. Coumadin for anticoagulation. FU Cardiology 5. Hyperbilirubinemia: T. Bili 5.3 to 3.7 to 2.8 with ALK 141 to 135 to 141. Normal LFTs otherwise. Likely from hepatic congestion? Daily CMP 6. Supratherapeutic INR: INR 3.7 to 4.1 to 3.6 to 2.5 to 2.0. From Coumadin use. Restart Coumadin 5 mg PO QMoWeSa + 7.5 mg PO QSuTuThFr when OK with Cardiology. Daily INR 7. h/o CVA: Stable. Continue ASA 325 mg PO QD, Lipitor 20 mg PO QHS. FU PT/OT 8. Generalized weakness: Difficulty with ambulating at home and showering. FU PT /OT, SW 9. DVT/GI Prophylaxis: Coumadin. Resolved; YING, Supratherapeutic INR Patient admitted for CHF exacerbation. Diuresing with Lasix IV, CXR today is persistent. Increase Lasix as per ICU attending and cardiology attending. Empirically treated for community acquired pneumonia. Off pressors at this time. Will follow Cardiology recommendations.
[2018-03-02] MEDS ORDERED: WARFARIN 7.5 MG TAB PO ONE (18:00)
[2018-03-02] MEDS: ATORVASTATIN 20 MG TAB PO SCH (20:32)
[2018-03-03 05:46] LABS: Basophils % (A) 0 %; Eosinophils # (A) 0.1 k/uL (0-0.7); Eosinophils % (A) 1 %; HCT 50.2 % (39.0-53.0); HGB 14.9 gm/dL (13.0-17.5); Hypochromasia Slight; Lymphocytes # (A) 0.6 k/uL (1.0-4.8); Lymphocytes % (A) 5 %; MCH 31.9 pg (25.0-35.0); MCHC 29.7 g/dL (31.0-37.0); MCV 107.1 fL (80.0-100.0); Macrocytosis Moderate; Mean Platelet Volume 7.2; Monocytes # (A) 0.8 k/uL (0-1.0); Monocytes % (A) 8 %; Neutrophils # (A) 8.8 k/uL (1.3-7.7); Neutrophils % (A) 85 %; Platelet Count 133 k/uL (150-450); RBC 4.69 m/uL (4.30-5.90); WBC 10.4 k/uL (3.8-10.6)
[2018-03-03 05:53] LABS: INR 2.4 (<1.2)
[2018-03-03 06:00] LABS: Calcium 9.3 mg/dL (8.4-10.2); Potassium 4.6 mmol/L (3.5-5.1)
--- NOTE | 2018-03-03 06:12 | XR ---
EXAMINATION TYPE: XR chest 1V portable DATE OF EXAM: 03/03/2018 HISTORY: SOB, ICU management. REFERENCE: Previous study dated 03/02/2018. FINDINGS: There has been a midline sternotomy. There is multichamber cardiac enlargement. There is improved aeration of both lung bases. There agustin nues be vascular congestion without jennifer edema. No definite pleural fluid is seen. IMPRESSION: IMPROVED AERATION OF BOTH LUNG BASES.
[2018-03-03] MEDS: IPRATROPIUM-ALBUTEROL 3 ML NEB INHALATION SCH ×4 (07:42→20:07)
[2018-03-03] MEDS: HYDROCORTISONE SUCCINATE 100 MG/2 ML VIAL IV SCH ×3 (08:05→23:58)
[2018-03-03] MEDS: AZITHROMYCIN 500 MG TAB PO SCH (08:06)
[2018-03-03] MEDS: ASPIRIN 325 MG TAB PO SCH (08:06)
[2018-03-03] MEDS: DILTIAZEM ORAL 30 MG TAB PO SCH ×3 (08:07→21:09)
[2018-03-03] MEDS: METOPROLOL TARTRATE 25 MG TAB PO SCH ×2 (08:07→21:09)
[2018-03-03] MEDS: DIGOXIN 250 MCG TAB PO SCH (08:08)
[2018-03-03] MEDS: HYDROcodone/APAP 5-325MG 1 EACH TAB PO PRN (08:30)
[2018-03-03] MEDS: FUROSEMIDE 10 MG/ML 4 ML VIAL IV SCH (09:19)
--- NOTE | 2018-03-03 09:31 | P.PN ---
Subjective Progress Note Date: 03/03/18 Principal diagnosis: CHF exacerbation Patient was seen and examined. No acute events overnight. Patient reports improvement in his breathing, looking forward to going home. He denies any chest pain, shortness of breath or palpitations. His heart rate is fluctuant from 110 to 130. He is being off pressors since yesterday. His blood pressure is maintained with a low SBP in the 100s. Chest x-ray this morning shows improved aeration. Objective - Vital Signs Vital signs: Vital Signs Temp 97.6 F 03/03/18 04:00 Pulse 138 H 03/03/18 07:54 Resp 18 03/03/18 07:00 BP 100/47 03/02/18 18:00 Pulse Ox 89 L 03/03/18 07:42 Intake & Output 03/02/18 03/03/18 03/03/18 18:59 06:59 18:59 Intake Total 2103 536 Output Total 813 1430 Balance 1290 -894 Weight 100.3 kg Intake: IV 3 36 pressure bag 3 36 Intake, IV Titration 50 Amount cefTRIAXone 1,000 mg In 50 Sodium Chloride 0.9% 50 ml @ 100 mls/hr IVPB Q24H [facility] Rx#:[id number] Oral 2050 500 Output: Urine 813 1430 Other: Voiding Method Indwelling Catheter Indwelling Catheter # Voids 1 ABP, PAP, CO, CI - Last Documented Arterial Blood Pressure 103/80 - Exam General: [non toxic], [no distress], [appears at stated age] Derm: [warm], [dry] Head: [atraumatic], [normocephalic], [symmetric] Eyes: [EOMI], [no lid lag], [anicteric sclera] Mouth: [no lip lesion], [mucus membranes moist] Cardiovascular: [irregularly irregular], [tachycardic], [positive DP pulse bilateral] Lungs: [Mild crackles bilaterally with good air entry], [no rhonchi, no rales] , [no accessory muscle use] Abdominal: [soft], [ nontender to palpation], [no guarding], [abdominal hernia noted] Ext: [no gross muscle atrophy], [no edema], [no contractures] Neuro: [no focal neuro deficits] Psych: [Alert], [oriented], [appropriate affect] - Labs CBC & Chem 7: 03/03/18 05:24 03/03/18 05:24 Labs: Abnormal Lab Results - Last 24 Hours (Table) 03/02/18 03/03/18 03/03/18 Range/Units 10:35 05:24 05:24 MCV 107.1 H (80.0-100.0) fL MCHC 29.7 L (31.0-37.0) g/dL Plt Count 133 L (150-450) k/uL Neutrophils # 8.8 H (1.3-7.7) k/uL Lymphocytes # 0.6 L (1.0-4.8) k/uL PT 19.7 H (9.0-12.0) sec INR 2.0 H (<1.2) Sodium 135 L (137-145) mmol/L BUN 35 H (9-20) mg/dL Creatinine 1.46 H (0.66-1.25) mg/dL Glucose 113 H (74-99) mg/dL 03/03/18 Range/Units 05:24 MCV (80.0-100.0) fL MCHC (31.0-37.0) g/dL Plt Count (150-450) k/uL Neutrophils # (1.3-7.7) k/uL Lymphocytes # (1.0-4.8) k/uL PT 23.0 H (9.0-12.0) sec INR 2.4 H (<1.2) Sodium (137-145) mmol/L BUN (9-20) mg/dL Creatinine (0.66-1.25) mg/dL Glucose (74-99) mg/dL Microbiology - Last 24 Hours (Table) 02/26/18 21:26 Blood Culture - Preliminary Blood No Growth after 96 hours 02/28/18 11:22 Blood Culture - Preliminary Blood No Growth after 48 hours 02/28/18 10:51 Blood Culture - Preliminary Blood No Growth after 48 hours 02/26/18 21:12 Blood Culture Gram Stain - Final Blood Blood Culture - Final Diphtheroid species Assessment and Plan Assessment: Assessment and Plan 1. CHF exacerbation: BNP 1310. Troponin 0.017, 0.030, 0.020 with patient being asymptomatic, EKG showing A Fib with RVR. CXR shows findings consistent with CHF. Continue Lasix 40 mg IV TID. Continue ACEi and beta pinky. Ins and Outs. Daily Weights. Elevated HOB. Echo shows EF 45-50% with enlarged cavities, possible Yunier? O2 per NC to maintain O2 sat > 92%. On IV ceftriaxone and azithromycin for empiric treatment of community acquired pneumonia. Cardiology consulted and recommends Cardizem by mouth, increase Coumadin. FU Cardiology 2. Hypotension: BP 103/80. On Hydrocortisone 100 mg IV TID. Continue Diltiazem 30 mg PO TID. Continue Metoprolol 25 mg PO BID. Patient is afebrile with no leukocytosis, lactic acidosis now resolved, likely due to dehydration with no concerns for sepsis. Monitor vitals, adjust medications as necessary. Urine culture is negative. Blood culture first one shows Diphtheroid, likely contaminant. Repeat BCx negative at 96H. 3. Atrial fibrillation with RVR: Confirmed on EKG. Continue digoxin 250 mg by mouth daily. Continue Cardizem and metoprolol by mouth. Telemetry monitoring. Keep K > 4 and Mg > 2. Restart Coumadin 5 mg PO QMoWeSa + 7.5 mg PO QSuTuThFr. FU Cardiology, TSH 4. YING: BUN 35 Cr 1.46 GFR 52. Likely due to Lasix use. Avoid nephrotoxins. Strict Ins and Outs, making good urine output. Daily BMP. 5. Macrocytosis: MCV 107.1 without anemia. FU B12/Folate, TSH 6. Hyperbilirubinemia: T. Bili 5.3 to 3.7 to 2.8 with ALK 141 to 135 to 141. Normal LFTs otherwise. Likely from hepatic congestion? Daily CMP 7. h/o CVA: Stable. Continue ASA 325 mg PO QD, Lipitor 20 mg PO QHS. FU PT/OT 8. Generalized weakness: Difficulty with ambulating at home and showering. FU PT /OT, SW 9. DVT/GI Prophylaxis: Coumadin. Resolved; Supratherapeutic INR Patient admitted for CHF exacerbation. Diuresing with Lasix IV, CXR today is improving today. Empirically treated for community acquired pneumonia. Off pressors at this time. Will follow Cardiology recommendations.
--- NOTE | 2018-03-03 09:43 | P.PN ---
Subjective Progress Note Date: 03/03/18 Principal diagnosis: Chronic atrial fibrillation This is a pleasant 57-year-old gentleman with a past medical history significant for valvular heart disease and status post aortic valve replacement using mechanical valve, cardiomyopathy with EF between 40-45%, as well as chronic atrial fibrillation, who was admitted to the hospital with heart failure as well as atrial fibrillation with RVR. I'll follow-up with him today, he is feeling better intermittent shortness of breath. Atrial fibrillation continues to be not well-controlled on the current dose of metoprolol as well as Cardizem. The creatinine is a slightly worse. He is on Lasix at 40 mg IV 3 times a day. The chest x-ray showed improvement in the CHF. Objective - Vital Signs Vital signs: Vital Signs Temp 97.6 F 03/03/18 04:00 Pulse 138 H 03/03/18 07:54 Resp 18 03/03/18 07:00 BP 100/47 03/02/18 18:00 Pulse Ox 89 L 03/03/18 07:42 Intake & Output 03/02/18 03/03/18 03/03/18 18:59 06:59 18:59 Intake Total 2103 536 Output Total 813 1430 Balance 1290 -894 Weight 100.3 kg Intake: IV 3 36 pressure bag 3 36 Intake, IV Titration 50 Amount cefTRIAXone 1,000 mg In 50 Sodium Chloride 0.9% 50 ml @ 100 mls/hr IVPB Q24H [facility] Rx#:[id number] Oral 2050 500 Output: Urine 813 1430 Other: Voiding Method Indwelling Catheter Indwelling Catheter # Voids 1 ABP, PAP, CO, CI - Last Documented Arterial Blood Pressure 103/80 - Constitutional General appearance: Present: no acute distress - Respiratory Respiratory: bilateral: diminished - Cardiovascular Rhythm: regular Abnormal Heart Sounds: Present: systolic murmur - Labs CBC & Chem 7: 03/03/18 05:24 03/03/18 05:24 Labs: Abnormal Lab Results - Last 24 Hours (Table) 03/02/18 03/03/18 03/03/18 Range/Units 10:35 05:24 05:24 MCV 107.1 H (80.0-100.0) fL MCHC 29.7 L (31.0-37.0) g/dL Plt Count 133 L (150-450) k/uL Neutrophils # 8.8 H (1.3-7.7) k/uL Lymphocytes # 0.6 L (1.0-4.8) k/uL PT 19.7 H (9.0-12.0) sec INR 2.0 H (<1.2) Sodium 135 L (137-145) mmol/L BUN 35 H (9-20) mg/dL Creatinine 1.46 H (0.66-1.25) mg/dL Glucose 113 H (74-99) mg/dL 03/03/18 Range/Units 05:24 MCV (80.0-100.0) fL MCHC (31.0-37.0) g/dL Plt Count (150-450) k/uL Neutrophils # (1.3-7.7) k/uL Lymphocytes # (1.0-4.8) k/uL PT 23.0 H (9.0-12.0) sec INR 2.4 H (<1.2) Sodium (137-145) mmol/L BUN (9-20) mg/dL Creatinine (0.66-1.25) mg/dL Glucose (74-99) mg/dL Microbiology - Last 24 Hours (Table) 02/26/18 21:26 Blood Culture - Preliminary Blood No Growth after 96 hours 02/28/18 11:22 Blood Culture - Preliminary Blood No Growth after 48 hours 02/28/18 10:51 Blood Culture - Preliminary Blood No Growth after 48 hours 02/26/18 21:12 Blood Culture Gram Stain - Final Blood Blood Culture - Final Diphtheroid species Assessment and Plan Assessment: Assessment #1 congestive heart failure exacerbation secondary to systolic dysfunction #2 atrial fibrillation with uncontrolled heart rate #3 status post mechanical aortic valve #4 multiple comorbid conditions Plan #1 decrease the dose of Lasix in view of the worsening creatinine #2 increase the dose of metoprolol to 25 mg by mouth 3 times a day for better heart rate control #3 continue the current dose of Cardizem by mouth #4 follow-up with the patient #5 continue oral anticoagulation was Coumadin
--- NOTE | 2018-03-03 13:33 | P.PN ---
Subjective Progress Note Date: 03/03/18 Principal diagnosis: Acute exacerbation of congestive heart failure, systolic in nature. Ejection fraction 45%. The patient is seen today 03/03/2018 in follow-up in the intensive care unit. He is currently awake and alert in no acute distress. He is maintaining good O2 saturations in the low 90s on room air. Chest x-ray shows improved aeration bilaterally. He's been afebrile. Blood pressure stable. Off pressors. White count 10.4. Hemoglobin 14.9. INR 2.4. Creatinine 1.46. Remains on Lasix 40 mg IV push every 12 hours. He is on antibiotics in form of ceftriaxone and azithromycin along with bronchodilators. Objective - Vital Signs Vital signs: Vital Signs Temp 97.5 F L 03/03/18 12:00 Pulse 109 H 03/03/18 13:00 Resp 18 03/03/18 13:00 BP 96/75 03/03/18 13:00 Pulse Ox 92 L 03/03/18 13:00 Intake & Output 03/02/18 03/03/18 03/03/18 18:59 06:59 18:59 Intake Total 2103 536 1040 Output Total 813 1430 320 Balance 1290 -894 720 Weight 100.3 kg Intake: IV 3 36 pressure bag 3 36 Intake, IV Titration 50 Amount cefTRIAXone 1,000 mg In 50 Sodium Chloride 0.9% 50 ml @ 100 mls/hr IVPB Q24H [facility] Rx#:[id number] Oral 2050 500 1040 Output: Urine 813 1430 320 Other: Voiding Method Indwelling Catheter Indwelling Catheter Indwelling Catheter # Voids 1 ABP, PAP, CO, CI - Last Documented Arterial Blood Pressure 103/80 - Exam Gen. appearance he is calm and comfortable no acute distress. No significant respiratory distress at this point and the patient is on room air oxygen. Head exam was generally normal. There was no scleral icterus or corneal arcus. Mucous membranes were moist. Neck was supple and without jugular venous distension, thyromegaly, or carotid bruits. Carotids were easily palpable bilaterally. There was no adenopathy. Lungs sounds are revealing crackles in the mid and lower lung couch bilaterally along with some scattered rhonchi. Heart sounds are irregular, slightly tachycardic, there is no aortic valve click heard throughout the precordium. There is some ventricular heave also.Abdominal exam revealed normal bowel sounds. The abdomen was soft, non- tender, and without masses, organomegaly, or appreciable enlargement of the abdominal aorta. Examination of the extremities revealed easily palpable radial, femoral and pedal pulses. There was no cyanosis, clubbing or edema. Examination of the skin revealed no evidence of significant rashes, suspicious appearing nevi or other concerning lesions. - Labs CBC & Chem 7: 03/03/18 05:24 03/03/18 05:24 Labs: Abnormal Lab Results - Last 24 Hours (Table) 03/03/18 03/03/18 03/03/18 Range/Units 05:24 05:24 05:24 MCV 107.1 H (80.0-100.0) fL MCHC 29.7 L (31.0-37.0) g/dL Plt Count 133 L (150-450) k/uL Neutrophils # 8.8 H (1.3-7.7) k/uL Lymphocytes # 0.6 L (1.0-4.8) k/uL PT 23.0 H (9.0-12.0) sec INR 2.4 H (<1.2) Sodium 135 L (137-145) mmol/L BUN 35 H (9-20) mg/dL Creatinine 1.46 H (0.66-1.25) mg/dL Glucose 113 H (74-99) mg/dL Microbiology - Last 24 Hours (Table) 02/26/18 21:26 Blood Culture - Preliminary Blood No Growth after 96 hours 02/28/18 11:22 Blood Culture - Preliminary Blood No Growth after 48 hours 02/28/18 10:51 Blood Culture - Preliminary Blood No Growth after 48 hours 02/26/18 21:12 Blood Culture Gram Stain - Final Blood Blood Culture - Final Diphtheroid species Assessment and Plan Assessment: Impression: #1 Acute exacerbation of chronic systolic congestive heart failure with ejection fraction 45%. The patient also has valvular heart disease with moderate severe mitral regurgitation. Chest x-ray shows improved aeration at both lung bases. #2 Chronic atrial fibrillation with episodes of rapid ventricular response. Maintained on Cardizem and metoprolol. #3 History of aortic valve replacement/mechanical valve and is on lifelong warfarin. Current INR 2.4. #4 History of CVA. #5 Hypertension, history of. #6 History of anoxic encephalopathy, exact circumstances unknown. Plan: The patient was seen and evaluated by Dr. Trevino. Chest x-ray and labs were reviewed. Continue with diuretics. Continue DuoNeb inhalations and lymphatics. Increase his activity as tolerated. Transfer her out to selective care unit. We'll continue to follow. I, the cosigning physician, performed a history & physical examination of the patient. Lungs sounds basilar crackles. Maintaining good O2 saturations in the 90s on room air. I discussed the assessment and plan of care with my nurse practitioner, Anyi Vieyra. I attest to the above note as dictated by her.
[2018-03-03] MEDS ORDERED: METOPROLOL TARTRATE 25 MG TAB PO SCH (16:00)
[2018-03-03] MEDS ORDERED: FUROSEMIDE 10 MG/ML 4 ML VIAL IV SCH (21:00)
[2018-03-03] MEDS: ATORVASTATIN 20 MG TAB PO SCH (21:07)
[2018-03-04 05:53] LABS: Basophils % (A) 0 %; Eosinophils # (A) 0.1 k/uL (0-0.7); Eosinophils % (A) 0 %; HCT 48.9 % (39.0-53.0); Hypochromasia Slight; Lymphocytes # (A) 0.4 k/uL (1.0-4.8); Lymphocytes % (A) 4 %; MCH 32.6 pg (25.0-35.0); MCHC 30.7 g/dL (31.0-37.0); MCV 106.3 fL (80.0-100.0); Macrocytosis Moderate; Monocytes # (A) 1.4 k/uL (0-1.0); Monocytes % (A) 12 %; Neutrophils # (A) 9.2 k/uL (1.3-7.7); Neutrophils % (A) 82 %; Platelet Count 140 k/uL (150-450); RDW 15.1 % (11.5-15.5); WBC 11.3 k/uL (3.8-10.6)
[2018-03-04 05:59] LABS: INR 3.4 (<1.2); Prothrombin Time 32.5 sec (9.0-12.0)
[2018-03-04] MEDS ORDERED: FUROSEMIDE 10 MG/ML 4 ML VIAL IV SCH (06:00)
[2018-03-04 06:04] LABS: Magnesium 1.9 mg/dL (1.6-2.3); Potassium 4.4 mmol/L (3.5-5.1)
--- NOTE | 2018-03-04 07:05 | XR ---
EXAMINATION TYPE: XR chest 1V portable DATE OF EXAM: 03/04/2018 HISTORY: SOB, ICU management. REFERENCE: Previous study dated 03/03/2018. FINDINGS: There has been a midline sternotomy. The heart is enlarged. There is vascular congestion and subtle interstitial change. There are small, bilateral effusions. IMPRESSION: FINDINGS CONSISTENT WITH MILD HEART FAILURE.
[2018-03-04] MEDS: IPRATROPIUM-ALBUTEROL 3 ML NEB INHALATION SCH ×4 (07:53→19:41)
[2018-03-04] MEDS: HYDROCORTISONE SUCCINATE 100 MG/2 ML VIAL IV SCH ×3 (08:29→23:26)
[2018-03-04] MEDS: DIGOXIN 250 MCG TAB PO SCH (08:30)
[2018-03-04] MEDS: DILTIAZEM ORAL 30 MG TAB PO SCH ×3 (08:30→21:02)
[2018-03-04] MEDS: AZITHROMYCIN 500 MG TAB PO SCH (08:30)
[2018-03-04] MEDS: ASPIRIN 325 MG TAB PO SCH (08:30)
[2018-03-04] MEDS: METOPROLOL TARTRATE 25 MG TAB PO SCH ×3 (08:30→21:01)
[2018-03-04] MEDS: FUROSEMIDE 40 MG TAB PO SCH (09:42)
--- NOTE | 2018-03-04 11:34 | P.PN ---
Subjective Progress Note Date: 03/04/18 On today's evaluation 03/04/2018, the patient is awake and alert and communicating and ambulating. No significant respiratory distress. Chest x- ray shows significant improvement in the volume status. No hypotension. No fever. Creatinine is slightly higher compared to yesterday to 1.6. Race 9 creatinine was 1.08. This is essentially second 2 aggressive diuresis. The patient is a negative fluid balance. No fever. No chills. No cough or sputum production. He is currently on room air oxygen. Oxygen has been discontinued at the patient's home edema is also improved. INR is at 3.4 and the patient on Coumadin regarding a mechanical aortic valve. His underlying cardiac rhythm is atrial fibrillation. Objective - Vital Signs Vital signs: Vital Signs Temp 97.6 F 03/04/18 08:00 Pulse 95 03/04/18 10:00 Resp 18 03/04/18 10:00 BP 94/78 03/04/18 10:00 Pulse Ox 90 L 03/04/18 07:00 Intake & Output 03/03/18 03/04/18 03/04/18 18:59 06:59 18:59 Intake Total 1640 160 Output Total 620 475 Balance 1020 -475 160 Weight 99.7 kg Intake: IV 50 cefTRIAXone 1,000 mg In 50 Sodium Chloride 0.9% 50 ml @ 100 mls/hr IVPB Q24H [facility] Rx#:[id number] Oral 1590 160 Output: Urine 620 475 Other: Voiding Method Toilet Toilet Toilet Urinal Urinal Urinal # Voids 2 1 # Bowel Movements 1 1 ABP, PAP, CO, CI - Last Documented Arterial Blood Pressure 103/80 - Exam Gen. appearance he is calm and comfortable likely distress. No significant respiratory distress at this point and the patient is on room air oxygen. Head exam was generally normal. There was no scleral icterus or corneal arcus. Mucous membranes were moist. Neck was supple and without jugular venous distension, thyromegaly, or carotid bruits. Carotids were easily palpable bilaterally. There was no adenopathy. Lungs sounds are revealing crackles in the mid and lower lung couch bilaterally along with some scattered rhonchi. Heart sounds are irregular, slightly tachycardic, there is no aortic valve click heard throughout the precordium. There is some ventricular heave also.Abdominal exam revealed normal bowel sounds. The abdomen was soft, non- tender, and without masses, organomegaly, or appreciable enlargement of the abdominal aorta. Examination of the extremities revealed easily palpable radial, femoral and pedal pulses. There was no cyanosis, clubbing or edema. Examination of the skin revealed no evidence of significant rashes, suspicious appearing nevi or other concerning lesions. - Labs CBC & Chem 7: 03/04/18 05:25 03/04/18 05:25 Labs: Abnormal Lab Results - Last 24 Hours (Table) 03/04/18 03/04/18 03/04/18 Range/Units 05:25 05:25 05:25 WBC 11.3 H (3.8-10.6) k/uL MCV 106.3 H (80.0-100.0) fL MCHC 30.7 L (31.0-37.0) g/dL Plt Count 140 L (150-450) k/uL Neutrophils # 9.2 H (1.3-7.7) k/uL Lymphocytes # 0.4 L (1.0-4.8) k/uL Monocytes # 1.4 H (0-1.0) k/uL PT 32.5 H (9.0-12.0) sec INR 3.4 H (<1.2) Sodium 135 L (137-145) mmol/L BUN 42 H (9-20) mg/dL Creatinine 1.62 H (0.66-1.25) mg/dL Glucose 128 H (74-99) mg/dL Microbiology - Last 24 Hours (Table) 02/26/18 21:26 Blood Culture - Preliminary Blood No Growth after 120 hours 02/28/18 11:22 Blood Culture - Preliminary Blood No Growth after 72 hours 02/28/18 10:51 Blood Culture - Preliminary Blood No Growth after 72 hours Assessment and Plan Plan: Assessment 1 acute CHF exacerbation. The patient has mild CHF with ejection fraction of 45 %. He does have also or valvular heart disease with moderate severe mitral regurgitation, severe LA dilatation, severe RV dilatation probably due to ongoing chronic MR. Aortic valve- mechanical and has been functioning appropriately based on the echocardiogram findings. The patient's condition improved significantly. Subsequent chest x-ray showed improvement in the pulmonary edema. The patient occupational also improved and the patient is currently off oxygen therapy. 2 hypotension , recovered 3 chronic atrial fibrillation with rapid ventricular response, currently on oral Cardizem and metoprolol. 4 previous history aortic valve replacement/mechanical valve and the patient is on lifelong articulation with warfarin. The INR is therapeutic at 3.4 5 acute kidney injury, secondary to prerenal factors essentially secondary to aggressive diuresis and creatinine is up to 1.6 6 history of CVA 7 history of hypertension 8 history of anoxic encephalopathy, exact circumstances not known. Plan Continue Cardizem and metoprolol and digoxin for rate control. Increase the Lasix to 40 mg by mouth daily. Give the patient 5 mg of warfarin today. Assessment home AND ambulate the patient the hallway and see there is going to be any desaturation. Wean off the hydrocortisone over the next 3-4 hours and discontinue. We'll continue to follow. Monitor renal function. Monitor PT/ INR. Cardiology is also on the case.
--- NOTE | 2018-03-04 13:24 | P.PN ---
Subjective Progress Note Date: 03/04/18 Principal diagnosis: Atrial fibrillation with RVR, CHF exacerbation Patient was seen and examined. No acute events overnight. Patient reports improvement in his breathing, back to baseline. Chest x-ray this morning, findings shows mild CHF. He denies chest pain or palpitations. No nausea or vomiting. No fever or chills. Continues to be on hydrocortisone, plans to discontinue later on today. Heart rate currently in the 90s, SBP maintaining in the 90s. Objective - Vital Signs Vital signs: Vital Signs Temp 97.6 F 03/04/18 08:00 Pulse 95 03/04/18 10:00 Resp 18 03/04/18 10:00 BP 94/78 03/04/18 10:00 Pulse Ox 90 L 03/04/18 07:00 Intake & Output 03/03/18 03/04/18 03/04/18 18:59 06:59 18:59 Intake Total 1640 160 Output Total 620 475 Balance 1020 -475 160 Weight 99.7 kg Intake: IV 50 cefTRIAXone 1,000 mg In 50 Sodium Chloride 0.9% 50 ml @ 100 mls/hr IVPB Q24H [facility] Rx#:[id number] Oral 1590 160 Output: Urine 620 475 Other: Voiding Method Toilet Toilet Toilet Urinal Urinal Urinal # Voids 2 1 # Bowel Movements 1 1 ABP, PAP, CO, CI - Last Documented Arterial Blood Pressure 103/80 - Exam General: [non toxic], [no distress], [appears at stated age] Derm: [warm], [dry] Head: [atraumatic], [normocephalic], [symmetric] Eyes: [EOMI], [no lid lag], [anicteric sclera] Mouth: [no lip lesion], [mucus membranes moist] Cardiovascular: [irregularly irregular], [no murmur], [positive DP pulse bilateral] Lungs: [Mild crackles bilaterally with good air entry], [no rhonchi, no rales] , [no accessory muscle use] Abdominal: [soft], [ nontender to palpation], [no guarding], [abdominal hernia noted] Ext: [no gross muscle atrophy], [no edema], [no contractures] Neuro: [no focal neuro deficits] Psych: [Alert], [oriented], [appropriate affect] - Labs CBC & Chem 7: 03/04/18 05:25 03/04/18 05:25 Labs: Abnormal Lab Results - Last 24 Hours (Table) 03/04/18 03/04/18 03/04/18 Range/Units 05:25 05:25 05:25 WBC 11.3 H (3.8-10.6) k/uL MCV 106.3 H (80.0-100.0) fL MCHC 30.7 L (31.0-37.0) g/dL Plt Count 140 L (150-450) k/uL Neutrophils # 9.2 H (1.3-7.7) k/uL Lymphocytes # 0.4 L (1.0-4.8) k/uL Monocytes # 1.4 H (0-1.0) k/uL PT 32.5 H (9.0-12.0) sec INR 3.4 H (<1.2) Sodium 135 L (137-145) mmol/L BUN 42 H (9-20) mg/dL Creatinine 1.62 H (0.66-1.25) mg/dL Glucose 128 H (74-99) mg/dL Microbiology - Last 24 Hours (Table) 02/26/18 21:26 Blood Culture - Preliminary Blood No Growth after 120 hours 02/28/18 11:22 Blood Culture - Preliminary Blood No Growth after 72 hours 02/28/18 10:51 Blood Culture - Preliminary Blood No Growth after 72 hours Assessment and Plan Assessment: Assessment and Plan 1. CHF exacerbation: BNP 1310. Troponin 0.017, 0.030, 0.020 with patient being asymptomatic, EKG showing A Fib with RVR. CXR shows findings consistent with CHF. Lasix transitioned from IV to 40 mg PO QD. Continue Digoxin 250 mcg PO QD, Diltiazem 30 mg PO TID, Metoprolol 37.5 mg PO TID. Restart ACEi when Cr has improved. Ins and Outs. Daily Weights. Elevated HOB. Echo shows EF 45-50% with enlarged cavities, possible Yunier? O2 per NC to maintain O2 sat > 92%. On IV ceftriaxone and azithromycin for empiric treatment of community acquired pneumonia. FU Cardiology 2. Hypotension: BP 94/78. On Hydrocortisone 100 mg IV TID. Continue Diltiazem 30 mg PO TID. Continue Metoprolol 37.5 mg PO TID. Patient is afebrile with no leukocytosis, lactic acidosis now resolved, likely due to dehydration with no concerns for sepsis. Monitor vitals, adjust medications as necessary. Urine culture is negative. Blood culture first one shows Diphtheroid, likely contaminant. Repeat BCx negative at 120H. 3. Atrial fibrillation with RVR: Confirmed on EKG. Continue Digoxin, Cardizem and Metoprolol at above doses. Telemetry monitoring. Keep K > 4 and Mg > 2. Restart Coumadin 5 mg PO QMoWeSa + 7.5 mg PO QSuTuThFr. TSH is within normal limits. FU Cardiology 4. YING: BUN 35 to 42 Cr 1.46 to 1.62 GFR 52 to 46. Transition Lasix IV to PO. Avoid nephrotoxins. Strict Ins and Outs, making good urine output. Daily BMP. 5. Macrocytosis: MCV 106.3 without anemia. TSH is within normal limits. FU B12 /Folate 6. Hyperbilirubinemia: T. Bili 5.3 to 3.7 to 2.8 with ALK 141 to 135 to 141. Normal LFTs otherwise. Likely from hepatic congestion? Daily CMP 7. h/o CVA: Stable. Continue ASA 325 mg PO QD, Lipitor 20 mg PO QHS. FU PT/OT 8. Generalized weakness: Difficulty with ambulating at home and showering. FU PT /OT, SW 9. DVT/GI Prophylaxis: Coumadin. Resolved; Supratherapeutic INR Patient admitted for CHF exacerbation. Diuresing with Lasix PO now, CXR today is improving today. Empirically treated for community acquired pneumonia. Off pressors at this time, maintain low SBP in the 90s and HR in the 90s. Follow Cardiology recommendations.
--- NOTE | 2018-03-04 16:28 | P.PN ---
Subjective Progress Note Date: 03/04/18 Principal diagnosis: Chronic atrial fibrillation This is a pleasant 57-year-old gentleman with a past medical history significant for valvular heart disease and status post aortic valve replacement using mechanical valve, cardiomyopathy with EF between 40-45%, as well as chronic atrial fibrillation, who was admitted to the hospital with heart failure as well as atrial fibrillation with RVR. I'll follow-up with him today, 03/04/2018, he is feeling better in terms off shortness of breath. Atrial fibrillation continues to be not well-controlled on the current dose of metoprolol as well as Cardizem. Also he is on oral anticoagulation with warfarin. The dose of metoprolol was increased yesterday. Objective - Vital Signs Vital signs: Vital Signs Temp 98.3 F 03/04/18 12:00 Pulse 106 H 03/04/18 14:00 Resp 18 03/04/18 12:00 BP 95/76 03/04/18 12:00 Pulse Ox 91 L 03/04/18 12:00 Intake & Output 03/03/18 03/04/18 03/04/18 18:59 06:59 18:59 Intake Total 1640 400 Output Total 620 475 Balance 1020 -475 400 Weight 99.7 kg Intake: IV 50 [id number] 1,000 mg In 50 Sodium Chloride 0.9% 50 ml @ 100 mls/hr IVPB Q24H [facility] Rx#:[id number] Oral 1590 400 Output: Urine 620 475 Other: Voiding Method Toilet Toilet Toilet Urinal Urinal Urinal # Voids 2 1 # Bowel Movements 1 1 ABP, PAP, CO, CI - Last Documented Arterial Blood Pressure 103/80 - Constitutional General appearance: Present: no acute distress - Respiratory Respiratory: bilateral: CTA - Cardiovascular Rhythm: irregularly irregular Heart sounds: normal: S1, S2 - Labs CBC & Chem 7: 03/04/18 05:25 03/04/18 05:25 Labs: Abnormal Lab Results - Last 24 Hours (Table) 03/04/18 03/04/18 03/04/18 Range/Units 05:25 05:25 05:25 WBC 11.3 H (3.8-10.6) k/uL MCV 106.3 H (80.0-100.0) fL MCHC 30.7 L (31.0-37.0) g/dL Plt Count 140 L (150-450) k/uL Neutrophils # 9.2 H (1.3-7.7) k/uL Lymphocytes # 0.4 L (1.0-4.8) k/uL Monocytes # 1.4 H (0-1.0) k/uL PT 32.5 H (9.0-12.0) sec INR 3.4 H (<1.2) Sodium 135 L (137-145) mmol/L BUN 42 H (9-20) mg/dL Creatinine 1.62 H (0.66-1.25) mg/dL Glucose 128 H (74-99) mg/dL Microbiology - Last 24 Hours (Table) 02/28/18 11:22 Blood Culture - Preliminary Blood No Growth after 96 hours 02/28/18 10:51 Blood Culture - Preliminary Blood No Growth after 96 hours 02/26/18 21:26 Blood Culture - Preliminary Blood No Growth after 120 hours Assessment and Plan Assessment: Assessment #1 congestive heart failure exacerbation secondary to systolic dysfunction #2 atrial fibrillation with uncontrolled heart rate #3 status post mechanical aortic valve #4 multiple comorbid conditions Plan #1 continue the current medical regimen #2 continue the current dose of metoprolol #3 continue the current dose of Cardizem by mouth #4 follow-up with the patient #5 continue oral anticoagulation was Coumadin
[2018-03-04] MEDS ORDERED: WARFARIN 5 MG TAB PO ONE ×2 (18:00)
[2018-03-04] MEDS: ATORVASTATIN 20 MG TAB PO SCH (20:48)
[2018-03-05 05:33] LABS: Basophils % (A) 0 %; Eosinophils % (A) 0 %; HCT 47.4 % (39.0-53.0); HGB 14.5 gm/dL (13.0-17.5); Lymphocytes # (A) 0.5 k/uL (1.0-4.8); Lymphocytes % (A) 5 %; MCH 32.2 pg (25.0-35.0); MCHC 30.5 g/dL (31.0-37.0); MCV 105.5 fL (80.0-100.0); Macrocytosis Moderate; Mean Platelet Volume 6.9; Monocytes # (A) 1.2 k/uL (0-1.0); Monocytes % (A) 12 %; Neutrophils # (A) 8.1 k/uL (1.3-7.7); Neutrophils % (A) 82 %; Platelet Count 142 k/uL (150-450); RBC 4.49 m/uL (4.30-5.90); RDW 14.9 % (11.5-15.5); WBC 9.9 k/uL (3.8-10.6)
[2018-03-05 05:41] LABS: INR 2.8 (<1.2); Prothrombin Time 26.7 sec (9.0-12.0)
[2018-03-05 05:44] LABS: Potassium 4.1 mmol/L (3.5-5.1)
[2018-03-05] MEDS: IPRATROPIUM-ALBUTEROL 3 ML NEB INHALATION SCH ×4 (07:02→20:18)
[2018-03-05] MEDS: FUROSEMIDE 40 MG TAB PO SCH (08:15)
[2018-03-05] MEDS: ASPIRIN 325 MG TAB PO SCH (08:15)
[2018-03-05] MEDS: METOPROLOL TARTRATE 25 MG TAB PO SCH ×3 (08:15→21:52)
[2018-03-05] MEDS: HYDROCORTISONE SUCCINATE 100 MG/2 ML VIAL IV SCH (08:15)
[2018-03-05] MEDS: DILTIAZEM ORAL 30 MG TAB PO SCH ×3 (08:15→21:52)
[2018-03-05] MEDS: DIGOXIN 250 MCG TAB PO SCH (08:16)
--- NOTE | 2018-03-05 08:25 | P.PN ---
Subjective Progress Note Date: 03/05/18 Principal diagnosis: Chronic atrial fibrillation This is a pleasant 57-year-old gentleman with a past medical history significant for valvular heart disease and status post aortic valve replacement using mechanical valve, cardiomyopathy with EF between 40-45%, as well as chronic atrial fibrillation, who was admitted to the hospital with heart failure as well as atrial fibrillation with RVR. On follow-up with the patient today, March 052018, he is stable and seems to be asymptomatic. He continues to be in atrial fibrillation with relatively controlled heart rate and heart rate between 90-100 beats per minutes. The heart rate is controlled on the current dose of metoprolol as well as Cardizem by mouth. He is on oral anticoagulation was, then. I will give the patient 2.5 mg of Coumadin today and check the INR tomorrow. He does have mild bilateral lower extremities edema and currently he is on Lasix by mouth. From the cardiac vascular standpoint overview, the patient can be transferred out of the ICU. Objective - Vital Signs Vital signs: Vital Signs Temp 98.4 F 03/04/18 20:00 Pulse 101 H 03/05/18 07:10 Resp 20 03/04/18 20:00 BP 112/91 03/04/18 20:00 Pulse Ox 89 L 03/04/18 20:00 Intake & Output 03/04/18 03/05/18 03/05/18 18:59 06:59 18:59 Intake Total 640 Balance 640 Weight 101.7 kg Intake: Oral 640 Other: Voiding Method Toilet Urinal Urinal # Voids 1 1 # Bowel Movements 1 1 ABP, PAP, CO, CI - Last Documented Arterial Blood Pressure 103/80 - Constitutional General appearance: Present: no acute distress - Respiratory Respiratory: bilateral: CTA - Cardiovascular Rhythm: irregularly irregular Heart sounds: normal: S1, S2 - Labs CBC & Chem 7: 03/05/18 05:11 03/05/18 05:11 Labs: Abnormal Lab Results - Last 24 Hours (Table) 03/05/18 03/05/18 03/05/18 Range/Units 05:11 05:11 05:11 MCV 105.5 H (80.0-100.0) fL MCHC 30.5 L (31.0-37.0) g/dL Plt Count 142 L (150-450) k/uL Neutrophils # 8.1 H (1.3-7.7) k/uL Lymphocytes # 0.5 L (1.0-4.8) k/uL Monocytes # 1.2 H (0-1.0) k/uL PT 26.7 H (9.0-12.0) sec INR 2.8 H (<1.2) BUN 39 H (9-20) mg/dL Creatinine 1.28 H (0.66-1.25) mg/dL Glucose 128 H (74-99) mg/dL Microbiology - Last 24 Hours (Table) 02/26/18 21:26 Blood Culture - Final Blood No Growth after 144 hours 02/28/18 11:22 Blood Culture - Preliminary Blood No Growth after 96 hours 02/28/18 10:51 Blood Culture - Preliminary Blood No Growth after 96 hours Assessment and Plan Assessment: Assessment #1 congestive heart failure exacerbation secondary to systolic dysfunction #2 atrial fibrillation with uncontrolled heart rate #3 status post mechanical aortic valve #4 multiple comorbid conditions Plan #1 continue anticoagulation with Coumadin #2 continue the current dose of metoprolol #3 continue the current dose of Cardizem by mouth #4 follow-up with the patient #5 the patient can be transferred out of the ICU
[2018-03-05 12:03] LABS: Folate, Serum 10.4 ng/mL
--- NOTE | 2018-03-05 12:19 | P.PN ---
Subjective Progress Note Date: 03/05/18 Principal diagnosis: Acute systolic congestive heart failure secondary to LV dysfunction and severe mitral valve disease. And atrial fibrillation with RVR 49-year-old male patient with known history of valvular heart disease with a previous history of mechanical valve insertion, possibly aortic valve replacement along with history of chronic atrial fibrillation maintained on lifelong anticoagulation. The patient also has history of previous CVA. Patient presented emergency department because of exertional dyspnea and orthopnea and nonproductive cough of a few weeks duration. No significant edema lower extremity. He has been followed up by Dr. ROSALBA Mock locally. Initial blood work showed that the patient had a BNP of 1310, digoxin level was less than 0.4, troponin is that 0.017 and the rest of the blood work did not show any acute abnormalities. INR was at 3.7. The patient was running a blood pressure in the mid 90s. Following that the patient became hypotensive in addition to some rapid ventricular response in regards to his chronic atrial fibrillation. He was placed on norepinephrine infusion 5 mics. His chest x- ray showing cardiomegaly and pulmonary vessel congestion/early edema. No fever. No chills. No angina. No pleurisy. No hemoptysis. No altered mentation although he is slow in answering questions. The EKG showing atrial fibrillation with RVR and incomplete right bundle-branch block pattern. On today's evaluation 03/04/2018, the patient is awake and alert and communicating and ambulating. No significant respiratory distress. Chest x- ray shows significant improvement in the volume status. No hypotension. No fever. Creatinine is slightly higher compared to yesterday to 1.6. Race 9 creatinine was 1.08. This is essentially second 2 aggressive diuresis. The patient is a negative fluid balance. No fever. No chills. No cough or sputum production. He is currently on room air oxygen. Oxygen has been discontinued at the patient's home edema is also improved. INR is at 3.4 and the patient on Coumadin regarding a mechanical aortic valve. His underlying cardiac rhythm is atrial fibrillation. On 03/05/2018, patient remains in the ICU, on nasal cannula, in no distress. Patient denies any shortness of breath, no cough no wheezing, maintaining adequate saturations, and his atrial fibrillation seems to be well-controlled. Patient is anticoagulated, INR is 2.8. His renal functioning is improving creatinine down to 1.28 from 1.62 yesterday. Chest x-ray continues to show mild congestive heart failure changes based on the chest x-ray done yesterday. Patient remains on diuretics. Lasix 40 mg by mouth daily. Objective - Vital Signs Vital signs: Vital Signs Temp 97.6 F 03/05/18 08:00 Pulse 78 03/05/18 11:25 Resp 20 03/05/18 08:00 BP 101/79 03/05/18 08:00 Pulse Ox 94 L 03/05/18 08:00 Intake & Output 03/04/18 03/05/18 03/05/18 18:59 06:59 18:59 Intake Total 640 Output Total 2 Balance 640 -2 Weight 101.7 kg Intake: Oral 640 Output: Stool 2 Other: Voiding Method Toilet Urinal Toilet Urinal # Voids 1 1 # Bowel Movements 1 1 ABP, PAP, CO, CI - Last Documented Arterial Blood Pressure 103/80 - Exam Physical Exam: Revealed a 57-year-old white male in no distress. Head: Atraumatic normocephalic. HEENT:[Neck is supple.] [No neck masses.] [No thyromegaly.] [No JVD.] PERRLA, EOMI, no icterus. Chest: [Minimal fine crackles at the bases, no rhonchi and no wheezes. Symmetrical chest expansion..] Cardiac Exam: Irregular irregular rhythm, normal S1 and S2, 2/6 systolic murmur thought the precordium. Abdomen: [Soft, nontender, no megaly, no rebound, no guarding, normal bowel sounds.] Extremities: [No clubbing, no edema, no cyanosis.] Neurological Exam: [No focal neurologic deficit.] Skin: No rashes. Lymphatics: No lymphadenopathy. - Labs CBC & Chem 7: 03/05/18 05:11 03/05/18 05:11 Labs: Abnormal Lab Results - Last 24 Hours (Table) 03/05/18 03/05/18 03/05/18 Range/Units 05:11 05:11 05:11 MCV 105.5 H (80.0-100.0) fL MCHC 30.5 L (31.0-37.0) g/dL Plt Count 142 L (150-450) k/uL Neutrophils # 8.1 H (1.3-7.7) k/uL Lymphocytes # 0.5 L (1.0-4.8) k/uL Monocytes # 1.2 H (0-1.0) k/uL PT 26.7 H (9.0-12.0) sec INR 2.8 H (<1.2) BUN 39 H (9-20) mg/dL Creatinine 1.28 H (0.66-1.25) mg/dL Glucose 128 H (74-99) mg/dL Microbiology - Last 24 Hours (Table) 02/26/18 21:26 Blood Culture - Final Blood No Growth after 144 hours 02/28/18 11:22 Blood Culture - Preliminary Blood No Growth after 96 hours 02/28/18 10:51 Blood Culture - Preliminary Blood No Growth after 96 hours Assessment and Plan Assessment: Impression: 1 acute hypoxic respiratory failure secondary to acute pulmonary edema secondary to systolic dysfunction and moderate severe mitral regurgitation. 2 chronic atrial fibrillation with RVR. 3 valvular heart disease including mitral valve disease and aortic valve disease , patient is on lifelong anticoagulation therapy/Coumadin. 4 acute kidney injury, likely cardiorenal. improving with diuretics and improved congestive heart failure. 5 history of CVA 6 history of anoxic encephalopathy 7 benign essential hypertension. Recommendation: Continue Cardizem, metoprolol, and digoxin, continue Lasix, continue Coumadin, continue to monitor saturations, and titrate oxygen accordingly. We will discontinue hydrocortisone, his hypotension was likely cardiac related, patient will be transferred out of the ICU to a monitor bed on selective today. We'll continue to follow closely. Chest x-ray was reviewed and it does continue to show some mild congestive heart failure changes. Not quite ready for discharge planning, multiple complex medical problems above are being addressed. Time with Patient: Less than 30
--- NOTE | 2018-03-05 12:38 | P.PN ---
Subjective Progress Note Date: 03/05/18 Principal diagnosis: CHF exacerbation, hypotension Patient seen and examined. No acute events overnight. Patient reports consistent improvement in his breathing. He has no complaints today. He denies any chest pain, shortness of breath or palpitations. Had a small bowel movement this morning. Seen by cardiology and Dr. Peters this morning, cleared to be transferred out of ICU. Objective - Vital Signs Vital signs: Vital Signs Temp 97.6 F 03/05/18 12:00 Pulse 83 03/05/18 12:00 Resp 18 03/05/18 12:00 BP 93/69 03/05/18 12:00 Pulse Ox 94 L 03/05/18 12:00 Intake & Output 03/04/18 03/05/18 03/05/18 18:59 06:59 18:59 Intake Total 640 Output Total 2 Balance 640 -2 Weight 101.7 kg Intake: Oral 640 Output: Stool 2 Other: Voiding Method Toilet Urinal Toilet Urinal # Voids 1 1 # Bowel Movements 1 1 ABP, PAP, CO, CI - Last Documented Arterial Blood Pressure 103/80 - Exam General: [non toxic], [no distress], [appears at stated age] Derm: [warm], [dry] Head: [atraumatic], [normocephalic], [symmetric] Eyes: [EOMI], [no lid lag], [anicteric sclera] Mouth: [no lip lesion], [mucus membranes moist] Cardiovascular: [irregularly irregular], [systolic murmur], [positive DP pulse bilateral] Lungs: [Mild crackles at the base bilaterally with good air entry], [no rhonchi , no rales] , [no accessory muscle use] Abdominal: [soft], [ nontender to palpation], [no guarding], [abdominal hernia noted] Ext: [no gross muscle atrophy], [no edema], [no contractures] Neuro: [no focal neuro deficits] Psych: [Alert], [oriented], [slow to respond but appropriate] - Labs CBC & Chem 7: 03/05/18 05:11 03/05/18 05:11 Labs: Abnormal Lab Results - Last 24 Hours (Table) 03/05/18 03/05/18 03/05/18 Range/Units 05:11 05:11 05:11 MCV 105.5 H (80.0-100.0) fL MCHC 30.5 L (31.0-37.0) g/dL Plt Count 142 L (150-450) k/uL Neutrophils # 8.1 H (1.3-7.7) k/uL Lymphocytes # 0.5 L (1.0-4.8) k/uL Monocytes # 1.2 H (0-1.0) k/uL PT 26.7 H (9.0-12.0) sec INR 2.8 H (<1.2) BUN 39 H (9-20) mg/dL Creatinine 1.28 H (0.66-1.25) mg/dL Glucose 128 H (74-99) mg/dL Microbiology - Last 24 Hours (Table) 02/26/18 21:26 Blood Culture - Final Blood No Growth after 144 hours 02/28/18 11:22 Blood Culture - Preliminary Blood No Growth after 96 hours 02/28/18 10:51 Blood Culture - Preliminary Blood No Growth after 96 hours Assessment and Plan Assessment: Assessment and Plan 1. CHF exacerbation: BNP 1310. Troponin 0.017, 0.030, 0.020 with patient being asymptomatic, EKG showing A Fib with RVR. CXR shows findings consistent with CHF. Continue Lasix 40 mg PO QD. Continue Digoxin 250 mcg PO QD, Diltiazem 30 mg PO TID, Metoprolol 37.5 mg PO TID. Restart ACEi when Cr has improved. Ins and Outs. Daily Weights. Elevated HOB. Echo shows EF 45-50% with enlarged cavities, possible Yunier? O2 per NC to maintain O2 sat > 92%. Completed course of IV Abx (Rocephin and Azithromycin) for CAP. FU Cardiology 2. Hypotension: BP 93/69. Hydrocortisone IV discontinued. Continue Diltiazem 30 mg PO TID. Continue Metoprolol 37.5 mg PO TID. Patient is afebrile with no leukocytosis, lactic acidosis now resolved, likely due to dehydration with no concerns for sepsis. Monitor vitals, adjust medications as necessary. Urine culture is negative. Blood culture first one shows Diphtheroid, likely contaminant. Repeat BCx negative at 144H. 3. Atrial fibrillation with RVR: Confirmed on EKG. Continue Digoxin, Cardizem and Metoprolol at above doses. Telemetry monitoring. Keep K > 4 and Mg > 2. Restart Coumadin 5 mg PO QMoWeSa + 7.5 mg PO QSuTuThFr. TSH is within normal limits. FU Cardiology 4. YING: BUN 42 to 39 Cr 1.62 to 1.28 GFR 61. Likely from PO Lasix. Avoid nephrotoxins. Strict Ins and Outs, making good urine output. Daily BMP. 5. Macrocytosis: MCV 106.3 without anemia. TSH is within normal limits. B12 and Folate are within normal limits. 6. Hyperbilirubinemia: T. Bili 5.3 to 3.7 to 2.8 with ALK 141 to 135 to 141. Normal LFTs otherwise. Likely from hepatic congestion. 7. h/o CVA: Stable. Continue ASA 325 mg PO QD, Lipitor 20 mg PO QHS. FU PT/OT 8. Generalized weakness: Difficulty with ambulating at home and showering. FU PT /OT, SW 9. DVT/GI Prophylaxis: Coumadin. Resolved; Supratherapeutic INR Patient admitted for CHF exacerbation. Diuresing with Lasix PO now, CXR today is improving. Hypotension inproved, off pressors at this time, maintain low SBP in the 100s and HR in the 90s. Will follow Cardiology recommendations.
[2018-03-05] MEDS ORDERED: WARFARIN 2.5 MG TAB PO ONE (18:00)
[2018-03-05] MEDS: ATORVASTATIN 20 MG TAB PO SCH (21:51)
[2018-03-06 05:53] LABS: HCT 48.5 % (39.0-53.0); HGB 14.7 gm/dL (13.0-17.5); Hypochromasia Slight; INR 2.7 (<1.2); MCH 32.5 pg (25.0-35.0); MCHC 30.4 g/dL (31.0-37.0); Macrocytosis Moderate; Mean Platelet Volume 6.9; Platelet Count 143 k/uL (150-450); Prothrombin Time 26.2 sec (9.0-12.0); RBC 4.53 m/uL (4.30-5.90); RDW 14.9 % (11.5-15.5); WBC 11.4 k/uL (3.8-10.6)
[2018-03-06 06:03] LABS: Calcium 8.9 mg/dL (8.4-10.2); Potassium 3.8 mmol/L (3.5-5.1)
[2018-03-06] MEDS: IPRATROPIUM-ALBUTEROL 3 ML NEB INHALATION SCH ×2 (08:10→11:43)
[2018-03-06] MEDS: METOPROLOL TARTRATE 25 MG TAB PO SCH (08:56)
[2018-03-06] MEDS: FUROSEMIDE 40 MG TAB PO SCH (08:57)
[2018-03-06] MEDS: DIGOXIN 250 MCG TAB PO SCH (08:57)
[2018-03-06] MEDS: DILTIAZEM ORAL 30 MG TAB PO SCH (08:57)
[2018-03-06] MEDS: ASPIRIN 325 MG TAB PO SCH (08:57)
--- NOTE | 2018-03-06 09:02 | P.PN ---
Subjective Progress Note Date: 03/06/18 Principal diagnosis: Chronic atrial fibrillation This is a pleasant 57-year-old gentleman with a past medical history significant for valvular heart disease and status post aortic valve replacement using mechanical valve, cardiomyopathy with EF between 40-45%, as well as chronic atrial fibrillation, who was admitted to the hospital with heart failure as well as atrial fibrillation with RVR. On follow-up with the patient today, March 062018, he is stable and seems to be asymptomatic. He continues to be in atrial fibrillation with relatively controlled heart rate and heart rate between 90-100 beats per minutes. The heart rate is controlled on the current dose of metoprolol as well as Cardizem by mouth. He is on oral anticoagulation with Coumadin. The patient can be discharged home today. Objective - Vital Signs Vital signs: Vital Signs Temp 98.6 F 03/06/18 04:00 Pulse 68 03/06/18 08:19 Resp 19 03/06/18 04:00 BP 105/64 03/06/18 04:00 Pulse Ox 93 L 03/06/18 04:00 Intake & Output 03/05/18 03/06/18 03/06/18 18:59 06:59 18:59 Output Total 804 380 Balance -804 -380 Weight 101.3 kg Output: Urine 800 380 Stool 4 Other: Voiding Method Toilet Toilet # Voids 1 1 # Bowel Movements 1 ABP, PAP, CO, CI - Last Documented Arterial Blood Pressure 103/80 - Constitutional General appearance: Present: no acute distress - Respiratory Respiratory: bilateral: CTA - Cardiovascular Rhythm: irregularly irregular Heart sounds: normal: S1, S2 - Labs CBC & Chem 7: 03/06/18 05:12 03/06/18 05:12 Labs: Abnormal Lab Results - Last 24 Hours (Table) 03/06/18 03/06/18 03/06/18 Range/Units 05:12 05:12 05:12 WBC 11.4 H (3.8-10.6) k/uL MCV 107.0 H (80.0-100.0) fL MCHC 30.4 L (31.0-37.0) g/dL Plt Count 143 L (150-450) k/uL PT 26.2 H (9.0-12.0) sec INR 2.7 H (<1.2) Carbon Dioxide 31 H (22-30) mmol/L BUN 39 H (9-20) mg/dL Glucose 122 H (74-99) mg/dL Microbiology - Last 24 Hours (Table) 02/28/18 11:22 Blood Culture - Preliminary Blood No Growth after 120 hours 02/28/18 10:51 Blood Culture - Preliminary Blood No Growth after 120 hours Assessment and Plan Assessment: Assessment #1 congestive heart failure exacerbation secondary to systolic dysfunction #2 atrial fibrillation with uncontrolled heart rate #3 status post mechanical aortic valve #4 multiple comorbid conditions Plan #1 continue anticoagulation with Coumadin #2 continue the current dose of metoprolol #3 continue the current dose of Cardizem by mouth #4 the patient can be discharged home
[2018-03-06 10:22] VITALS: RESP 20; TEMP 97.4
--- NOTE | 2018-03-06 10:39 | P.DS ---
Providers Date of admission: 02/26/18 17:53 Expected date of discharge: 03/06/18 Attending physician: Kianna Monsivais MD Consults: 02/26/18 13:25 Consult Physician Routine Consulting Provider: Marcos [place] Consult Reason/Comments: chf Do you want consulting provider notified?: Yes 02/26/18 17:18 Consult Physician Routine Consulting Provider: Valentina Sidhu Consult Reason/Comments: Hypotension Do you want consulting provider notified?: Yes Primary care physician: Stated None Hospital Course: Discharge Diagnosis: Acute exacerbation of systolic congestive heart failure, ejection fraction 45-50 % Acute hypoxic respiratory failure Atrial fibrillation with rapid ventricular response Status post mechanical aortic valve Hypotension-undetermined etiology Macrocytosis Hyperbilirubinemia likely secondary to hepatic congestion Generalized weakness Acute kidney injury Hypertension Thrombocytopenia Lactic acidosis Hospital Course: Patient is a 49-year-old male with a past medical history of TIA, prior valve replacement, A. fib, CVA, and anoxic encephalopathy who presented with generalized fatigue and weakness for 2 weeks' duration. In the ED he underwent extensive evaluation which showed an INR 2.7, elevated bilirubin of 5.3, an elevated BNP of 1310. His chest x-ray showed findings of CHF. He was placed on diuresis and admitted for further monitoring. He was also found to have A. fib with RVR and was started on diltiazem 30 mg 3 times daily. He developed hypotension in the emergency department as well as A. fib with RVR. He was started on norepinephrine. Pulmonary was contacted and he was admitted to ICU. He did require a Cardizem drip in order to obtain adequate rate control. Echocardiogram showed an ejection fraction of 45-50%. Aortic valve was functioning appropriately. Lactic acid was improving. He did have a positive blood culture which ultimately showed diphtheroids. Initially had been treated with empiric antibiotics which were discontinued when it was discovered this was a contaminant. Serum cortisol level was checked and was 8 and he was therefore started on stress dose steroids. His INR elevated and Coumadin was held during hospitalization. It was resumed and INR remained within therapeutic range. His blood pressure stabilized and levofloxacin was discontinued. He was started on Cardizem and metoprolol for rate control. Digoxin was added for improving rate control with his A. fib. His medication regimen was optimized. His creatinine stabilized. His INR was stabilized. He was determined stable for discharge home. He will have home health, a walker, and chronic oxygen at home. He will follow with Dr. Escobar and Denise Mehta. Patient seen and examined at bedside. No chest pain, SOB, nuasea, feeling tired. Vital signs reviewed and stable. General: [non toxic], [no distress], [appears at stated age] Derm: [warm], [dry] Head: [atraumatic], [normocephalic], [symmetric] Eyes: [EOMI], [no lid lag], [anicteric sclera] Mouth: [no lip lesion], [mucus membranes moist] Cardiovascular: [S1S2 reg], [no murmur], [positive posterior tibial pulse bilateral], Lungs: [crackels bases bilateral], [no rhonchi, no rales] , [no accessory muscle use] Abdominal: [soft], [ nontender to palpation], [no guarding], [no appreciable organomegaly] Ext: [no gross muscle atrophy], [3+ edema], [no contractures] Neuro: [ CN II-XI grossly intact], [no focal neuro deficits] Psych: [Alert], [oriented], [appropriate affect] A total of 45 minutes of time were spent preparing this complex discharge summary . Pertinent Studies: CXR- Pulmonary edema Echo- EF 45-50%, paradoxical wall motion Patient Condition at Discharge: Stable Plan - Discharge Summary Discharge Rx Participant: No New Discharge Prescriptions: New Aspirin 81 mg PO DAILY #30 chewable Atorvastatin [Lipitor] 20 mg PO HS #20 tab Digoxin [Lanoxin] 250 mcg PO DAILY #30 tab Furosemide [Lasix] 40 mg PO DAILY #40 tab Metoprolol Tartrate [Lopressor] 37.5 mg PO TID #140 tab Continue Warfarin [Coumadin] 7.5 mg PO SUTUTHFR Warfarin [Coumadin] 5 mg PO MOWESA Diltiazem Oral [Cardizem*] 30 mg PO TID Fosinopril [Monopril] 10 mg PO DAILY #30 tab Discontinued Simvastatin [Zocor] 20 mg PO HS Metoprolol Tartrate [Lopressor] 50 mg PO BID Discharge Medication List Diltiazem Oral [Cardizem*] 30 mg PO TID 02/26/18 [History] Warfarin [Coumadin] 5 mg PO MOWESA 02/26/18 [History] Warfarin [Coumadin] 7.5 mg PO SUTUTHFR 02/26/18 [History] Aspirin 81 mg PO DAILY #30 chewable 03/06/18 [Rx] Atorvastatin [Lipitor] 20 mg PO HS #20 tab 03/06/18 [Rx] Digoxin [Lanoxin] 250 mcg PO DAILY #30 tab 03/06/18 [Rx] Fosinopril [Monopril] 10 mg PO DAILY #30 tab 03/06/18 [Rx] Furosemide [Lasix] 40 mg PO DAILY #40 tab 03/06/18 [Rx] Metoprolol Tartrate [Lopressor] 37.5 mg PO TID #140 tab 03/06/18 [Rx] Follow up Appointment(s)/Referral(s): Denise Mehta NPC [Nurse Practitioner] - 3 Days [facility], [NON-STAFF] - 1-2 Days None,Stated [Primary Care Provider] - 1-2 days [facility] [NON-STAFF] - As Needed Jose Ramon Dudley MD [STAFF PHYSICIAN] - 1 Week Ambulatory/Diagnostic Orders: Basic Metabolic Panel [LAB.AMB] Time Frame: 1 Week, Location: None Selected Prothrombin Time INR [LAB.AMB] Time Frame: 1 Week, Location: None Selected Activity/Diet/Wound Care/Special Instructions: cardiac diet, 2L fluid restriction Activity as tolerated Home care to draw blood work Discharge Disposition: HOME WITH HOME HEALTH SERVICES
[2018-03-06 11:46] VITALS: BP 112/75
[2018-03-06 11:54] VITALS: PULSE 90
--- NOTE | 2018-03-06 12:12 | P.PN ---
Subjective Progress Note Date: 03/06/18 Principal diagnosis: Acute exacerbation of congestive heart failure, systolic in nature. Ejection fraction 45%. Patient is seen today 03/06/2018 in follow-up in the intensive care unit. He is currently awake and alert in no acute distress. He is sitting up in a chair at the bedside. He denies any worsening shortness of breath, cough or congestion. He is maintaining good O2 saturations in the 90s on 2 L/m per nasal cannula. He is afebrile. Hemodynamically stable. Follow-up blood cultures reveal no growth. White count 11.4. Hemoglobin 14.7. INR 2.7. Creatinine 1.17. Objective - Vital Signs Vital signs: Vital Signs Temp 97.4 F L 03/06/18 11:37 Pulse 90 03/06/18 11:53 Resp 20 03/06/18 11:37 BP 112/75 03/06/18 11:37 Pulse Ox 94 L 03/06/18 11:37 Intake & Output 03/05/18 03/06/18 03/06/18 18:59 06:59 18:59 Output Total 804 380 302 Balance -804 -380 -302 Weight 101.3 kg Output: Urine 800 380 300 Stool 4 2 Other: Voiding Method Toilet Toilet Toilet # Voids 1 1 1 # Bowel Movements 1 ABP, PAP, CO, CI - Last Documented Arterial Blood Pressure 103/80 - Exam GENERAL EXAM: Alert, active, comfortable in no apparent distress. HEAD: Normocephalic. EYES: Normal reaction of pupils, equal size. NOSE: Clear with pink turbinates. THROAT: No erythema or exudates. NECK: No masses, no JVD. CHEST: No chest wall deformity. LUNGS: Equal air entry with no crackles, wheeze, rhonchi or dullness. CVS: S1 and S2 normal with no audible murmur, regular rhythm. ABDOMEN: No hepatosplenomegaly, normal bowel sounds, no guarding or rigidity. SPINE: No scoliosis or deformity SKIN: No rashes CENTRAL NERVOUS SYSTEM: Slow to respond, no focal deficits, tone is normal in all 4 extremities. EXTREMITIES: There is no peripheral edema. No clubbing, no cyanosis. Peripheral pulses are intact. - Labs CBC & Chem 7: 03/06/18 05:12 03/06/18 05:12 Labs: Abnormal Lab Results - Last 24 Hours (Table) 03/06/18 03/06/18 03/06/18 Range/Units 05:12 05:12 05:12 WBC 11.4 H (3.8-10.6) k/uL MCV 107.0 H (80.0-100.0) fL MCHC 30.4 L (31.0-37.0) g/dL Plt Count 143 L (150-450) k/uL PT 26.2 H (9.0-12.0) sec INR 2.7 H (<1.2) Carbon Dioxide 31 H (22-30) mmol/L BUN 39 H (9-20) mg/dL Glucose 122 H (74-99) mg/dL Microbiology - Last 24 Hours (Table) 02/28/18 11:22 Blood Culture - Preliminary Blood No Growth after 120 hours 02/28/18 10:51 Blood Culture - Preliminary Blood No Growth after 120 hours Assessment and Plan Assessment: Impression: #1 Acute exacerbation of chronic systolic congestive heart failure with ejection fraction 45%. The patient also has valvular heart disease with moderate severe mitral regurgitation. Recovered. #2 Chronic atrial fibrillation with episodes of rapid ventricular response. Maintained on Cardizem and metoprolol. #3 History of aortic valve replacement/mechanical valve and is on lifelong warfarin. Current INR 2.7. #4 History of CVA. #5 Hypertension, history of. #6 History of anoxic encephalopathy, exact circumstances unknown. Plan: The patient was seen and evaluated by Dr. Sidhu. He is cleared for discharge from the pulmonary and critical care standpoint. The plan is to discharge to home with home care services. I, the cosigning physician, performed a history & physical examination of the patient. Lungs sounds basilar crackles. Maintaining good O2 saturations in the 90s on 2 L/m per nasal cannula. I discussed the assessment and plan of care with my nurse practitioner, Anyi Vieyra. I attest to the above note as dictated by her.
== END 2018-03-06 13:27 | disposition home health service (06) | DRG 291 ==
LOC: EC 10:43 → 3SCARD 13:26 → OBSVTOIN 17:53 → 2SICU 18:06
PROVIDERS: ADMIT Family Medicine; ATTEND Family Medicine
PROC: 03HY32Z Insertion of Monitoring Device into Upper Artery, Percutaneous Approach (ICD-10-PCS; principal; 2018-02-27)
PROC: 4A133B1 Monitoring of Arterial Pressure, Peripheral, Percutaneous Approach (ICD-10-PCS; 2018-02-27)
PROC: 4A133J1 Monitoring of Arterial Pulse, Peripheral, Percutaneous Approach (ICD-10-PCS; 2018-02-27)
DX: I11.0 Hypertensive heart disease with heart failure (principal); J18.9 Pneumonia, unspecified organism; J96.01 Acute respiratory failure with hypoxia; N17.9 Acute kidney failure, unspecified; E87.2 Acidosis; I50.23 Acute on chronic systolic (congestive) heart failure; I48.2 Chronic atrial fibrillation; I08.1 Rheumatic disorders of both mitral and tricuspid valves; R35.0 Frequency of micturition; F17.210 Nicotine dependence, cigarettes, uncomplicated; F40.240 Claustrophobia; R79.1 Abnormal coagulation profile; Z96.641 Presence of right artificial hip joint; E80.6 Other disorders of bilirubin metabolism; D69.6 Thrombocytopenia, unspecified; E78.5 Hyperlipidemia, unspecified; I42.9 Cardiomyopathy, unspecified; I45.10 Unspecified right bundle-branch block; D75.89 Other specified diseases of blood and blood-forming organs; Z86.73 Personal history of transient ischemic attack (TIA), and cerebral infarction without residual deficits; Z79.01 Long term (current) use of anticoagulants; Z79.899 Other long term (current) drug therapy; Z95.4 Presence of other heart-valve replacement; I25.2 Old myocardial infarction; Z79.82 Long term (current) use of aspirin; Z83.3 Family history of diabetes mellitus; T50.1X5A Adverse effect of loop [high-ceiling] diuretics, initial encounter; Y92.230 Patient room in hospital as the place of occurrence of the external cause
CPT/HCPCS: 36415; 71045; 71046; 80048; 80053; 80162; 81001; 82533; 82550; 82553; 82607; 82746; 83605; 83735; 83880; 84100; 84145; 84443; 84484; 85025; 85027; 85610; 85730; 87040; 87086; 93005; 93306; 94640; 96365; 96374; 99285

== ENCOUNTER 2018-07-10 12:31 | Inpatient (IN) | payer OTHER ==
[2018-07-10] MEDS ORDERED: SODIUM CHLORIDE 0.9% 1,000 ML IV STA (13:50)
[2018-07-10] MEDS ORDERED: fentaNYL (PF) 50 MCG/ML 2 ML AMP IVP STA (14:11)
--- NOTE | 2018-07-10 14:14 | ED ---
General Adult HPI - General Source: patient Mode of arrival: ambulatory Limitations: no limitations <Yovany Zaman - Last Filed: 07/10/18 17:07> <Robbie Giang - Last Filed: 07/10/18 19:22> - General Chief complaint: Abdominal Pain Stated complaint: Side pain Time Seen by Provider: 07/10/18 13:50 - History of Present Illness Initial comments: Dictation was produced using [employer] dictation software. please excuse any grammatical, word or spelling errors. Chief Complaint: 58-year-old male with past medical history of cardiac disease, ADelilah mendoza on Coumadin presents with left lower quadrant abdominal pain 2 days. History of Present Illness: 58-year-old male multiple comorbidities. Patient has history of cardiac disease at a young age of 32. Currently resides with a friend area patient has been having left lower quadrant abdominal pain/flank pain since yesterday. States his pain has been getting worse. He has any nausea vomiting. No diarrhea. Patient reports that the pain is worse with palpation. Denies any pattern with by mouth intake. He ate breakfast today wit hout any complications. Since this morning he does report that his pain progressively worsened prepped him to come to the emergency department. Patient denies any constitutional symptoms. Patient is a poor historian. The ROS documented in this emergency department record has been reviewed and c onfirmed by me. Those systems with pertinent positive or negative responses have been documented in the HPI. All other systems are other negative and/or noncontributory. PHYSICAL EXAM: General Impression: Alert and oriented x3, acute distress secondary to pain HEENT: Normocephalic atraumatic, extra-ocular movements intact, pupils equal and reactive to light bilaterally, dry mucous membranes Cardiovascular: Heart regular rate and rhythm, S1&S2 audible, no murmurs, rubs or gallops Chest: Lungs clear to auscultation bilaterally, no rhonchi, no wheeze, no rales Abdomen: Bowel sounds present, abdomen soft, diffuse tenderness worse in the left lower quadrant Musculoskeletal: Pulses present and equal in all extremities, no peripheral edema Motor: no focal deficits noted Neurological: CN II-XII grossly intact, no focal motor or sensory deficits noted Skin: Intact with no visualized rashes ED course: 58-year-old male presents with complaint of left-sided abdominal/flank pain. Vital signs upon arrival shows heart rate of 109, blood pressure 89/67. Patient is 90% on 3 beers this cannula. Laboratory evaluation obtained. Hemoglobin stable with the level XV.0. Coag panel is remarkable. Patient has an INR greater than 10. Metabolic panel shows slight elevation of renal markers which appear to be around his baseline. Troponin 0.013. Rest left grossly unremarkable. Urinalysis consistent with urinary tract infection. Chest x-ray and KUB shows no acute findings. Possible small mild ileus. Chest x-ray shows mild interstitial edema. There is very demonstration of marked cardiomegaly seen from prior echocardiogram. The abdomen and pelvis was obtained given the patient was having abdominal/flank pain. There is moderate L2 compression fracture moderate peritoneal fluid li ninfa secondary to ascites, stenosis of the common iliac and chronic cardiomegaly with chamber enlargement. The only rhythm at bedside and has some suspicion that patient fell recently. Patient is unsure if he fell however he is a poor historian. Patient does have mild erythema around the left eye which family says is no. Patient given vitamin K for Coumadin reversal. Immediate neuro deficits. CT of the chest head and C-spine were obtained. Patient's blood pressures improved after intravenous fluids. Patient started on low-dose Cardizem for rate control. Patient is signed out to Dr. Giang for follow-up of imaging studies to disposition. EKG interpretation: Ventricular rate 116, afebrile with RVR, QRS 110, QTc 494. No TN prolongation, no QTC prolongation, no ST or T-wave changes noted. EKG compared to general 2089 showing no changes. Overall, this EKG is unremarkable (Yovany Zaman) - Related Data Home Medications Medication Instructions Recorded Confirmed Diltiazem Oral [Cardizem*] 30 mg PO TID 02/26/18 07/10/18 Warfarin [Coumadin] 5 mg PO WESA 02/26/18 07/10/18 Warfarin [Coumadin] 7.5 mg PO SUMOTUTHFR 02/26/18 07/10/18 Metoprolol Tartrate [Lopressor] 25 mg PO BID 07/10/18 07/10/18 Simvastatin [Zocor] 20 mg PO HS 07/10/18 07/10/18 Previous Rx's Medication Instructions Recorded Fosinopril [Monopril] 10 mg PO DAILY #30 tab 03/06/18 Allergies Allergy/AdvReac Type Severity Reaction Status Date / Time No Known Allergies Allergy Verified 07/10/18 13:40 Review of Systems ROS Other: All systems not noted in ROS Statement are negative. <Yovany Zaman - Last Filed: 07/10/18 17:07> ROS Other: All systems not noted in ROS Statement are negative. <Robbie Giang - Last Filed: 07/10/18 19:22> ROS Statement: Those systems with pertinent positive or pertinent negative responses have been documented in the HPI. 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 Past Anesthesia/Blood Transfusion Reactions: No Reported Reaction Additional Past Anesthesia/Blood Transfusion Reaction / Comment(s): clausterphobia. 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 Sister(s) Family Medical History: Thyroid Disorder Additional Family Medical History / Comment(s): thyroidectomy <Yovany Zaman - Last Filed: 07/10/18 17:07> General Exam Limitations: no limitations <Yovany Zaman - Last Filed: 07/10/18 17:07> Course Vital Signs 07/10/18 07/10/18 07/10/18 13:35 14:06 15:46 Temperature 97.5 F L Pulse Rate 133 H 109 H 130 H Respiratory 22 22 22 Rate Blood Pressure 89/67 89/67 70/27 O2 Sat by Pulse 96 98 97 Oximetry 07/10/18 07/10/18 16:32 17:54 Temperature Pulse Rate 140 H 140 H Respiratory 22 20 Rate Blood Pressure 100/81 100/66 O2 Sat by Pulse 96 96 Oximetry Medical Decision Making - Lab Data Result diagrams: 07/10/18 14:00 07/10/18 14:00 <Yovany Zaman - Last Filed: 07/10/18 17:07> - Lab Data Result diagrams: 07/10/18 14:00 07/10/18 14:00 <Robbie Giang - Last Filed: 07/10/18 19:22> - Medical Decision Making CT of the head and C-spine and chest showed no acute abnormality. I spoke with Dr. Roberts and he agreed to accept the patient and I admitted the patient wrote admitting orders. Cardizem continue the emergency department will be continued on the floor as well. (Robbie Giang) - Lab Data Lab Results 07/10/18 07/10/18 07/10/18 Range/Units 14:00 14:00 14:00 WBC 6.8 (3.8-10.6) k/uL RBC 4.74 (4.30-5.90) m/uL Hgb 15.0 (13.0-17.5) gm/dL Hct 49.0 (39.0-53.0) % MCV 103.3 H (80.0-100.0) fL MCH 31.6 (25.0-35.0) pg MCHC 30.6 L (31.0-37.0) g/dL RDW 14.3 (11.5-15.5) % Plt Count 145 L (150-450) k/uL Neutrophils % 69 % Lymphocytes % 13 % Monocytes % 10 % Eosinophils % 3 % Basophils % 1 % Neutrophils # 4.7 (1.3-7.7) k/uL Lymphocytes # 0.9 L (1.0-4.8) k/uL Monocytes # 0.7 (0-1.0) k/uL Eosinophils # 0.2 (0-0.7) k/uL Basophils # 0.1 (0-0.2) k/uL Hypochromasia Moderate Macrocytosis Slight PT (9.0-12.0) sec INR (<1.2) Sodium 139 (137-145) mmol/L Potassium 4.4 (3.5-5.1) mmol/L Chloride 110 H (98-107) mmol/L Carbon Dioxide 24 (22-30) mmol/L Anion Gap 5 mmol/L BUN 27 H (9-20) mg/dL Creatinine 1.48 H (0.66-1.25) mg/dL Est GFR (CKD-EPI)AfAm 59 (>60 ml/min/1.73 sqM) Est GFR (CKD-EPI)NonAf 51 (>60 ml/min/1.73 sqM) Glucose 90 (74-99) mg/dL Plasma Lactic Acid Heri 1.1 (0.7-2.0) mmol/L Calcium 9.5 (8.4-10.2) mg/dL Total Bilirubin 2.5 H (0.2-1.3) mg/dL AST 46 (17-59) U/L ALT 40 (21-72) U/L Alkaline Phosphatase 145 H (38-126) U/L Creatine Kinase 53 L (55-170) U/L Troponin I (0.000-0.034) ng/mL Total Protein 5.9 L (6.3-8.2) g/dL Albumin 2.9 L (3.5-5.0) g/dL Lipase 125 (23-300) U/L Urine Color Urine Appearance (Clear) Urine pH (5.0-8.0) Ur Specific Dutton (1.001-1.035) Urine Protein (Negative) Urine Glucose (UA) (Negative) Urine Ketones (Negative) Urine Blood (Negative) Urine Nitrite (Negative) Urine Bilirubin (Negative) Urine Urobilinogen (<2.0) mg/dL Ur Leukocyte Esterase (Negative) Urine RBC (0-5) /hpf Urine WBC (0-5) /hpf Ur Squamous Epith Cells (0-4) /hpf Urine Mucus (None) /hpf 07/10/18 07/10/18 07/10/18 Range/Units 14:00 14:00 16:45 WBC (3.8-10.6) k/uL RBC (4.30-5.90) m/uL Hgb (13.0-17.5) gm/dL Hct (39.0-53.0) % MCV (80.0-100.0) fL MCH (25.0-35.0) pg MCHC (31.0-37.0) g/dL RDW (11.5-15.5) % Plt Count (150-450) k/uL Neutrophils % % Lymphocytes % % Monocytes % % Eosinophils % % Basophils % % Neutrophils # (1.3-7.7) k/uL Lymphocytes # (1.0-4.8) k/uL Monocytes # (0-1.0) k/uL Eosinophils # (0-0.7) k/uL Basophils # (0-0.2) k/uL Hypochromasia Macrocytosis PT >130.0 H (9.0-12.0) sec INR >10.0 H* (<1.2) Sodium (137-145) mmol/L Potassium (3.5-5.1) mmol/L Chloride (98-107) mmol/L Carbon Dioxide (22-30) mmol/L Anion Gap mmol/L BUN (9-20) mg/dL Creatinine (0.66-1.25) mg/dL Est GFR (CKD-EPI)AfAm (>60 ml/min/1.73 sqM) Est GFR (CKD-EPI)NonAf (>60 ml/min/1.73 sqM) Glucose (74-99) mg/dL Plasma Lactic Acid Heri (0.7-2.0) mmol/L Calcium (8.4-10.2) mg/dL Total Bilirubin (0.2-1.3) mg/dL AST (17-59) U/L ALT (21-72) U/L Alkaline Phosphatase (38-126) U/L Creatine Kinase (55-170) U/L Troponin I 0.013 (0.000-0.034) ng/mL Total Protein (6.3-8.2) g/dL Albumin (3.5-5.0) g/dL Lipase (23-300) U/L Urine Color Yellow Urine Appearance Clear (Clear) Urine pH 5.5 (5.0-8.0) Ur Specific Dutton 1.032 (1.001-1.035) Urine Protein Trace H (Negative) Urine Glucose (UA) Negative (Negative) Urine Ketones Negative (Negative) Urine Blood Negative (Negative) Urine Nitrite Negative (Negative) Urine Bilirubin Negative (Negative) Urine Urobilinogen 3.0 (<2.0) mg/dL Ur Leukocyte Esterase Small H (Negative) Urine RBC 6 H (0-5) /hpf Urine WBC 18 H (0-5) /hpf Ur Squamous Epith Cells <1 (0-4) /hpf Urine Mucus Rare H (None) /hpf Critical Care Time Critical Care Time: Yes Total Critical Care Time: 40 <Robbie Giang - Last Filed: 07/10/18 19:22> Disposition <Yovany Zaman - Last Filed: 07/10/18 17:07> Time of Disposition: 19:13 <Robbie Giang - Last Filed: 07/10/18 19:22> Clinical Impression: Coagulopathy, Abdominal pain, Compression fracture of L2, Peritoneal fluid, Atrial fibrillation with rapid ventricular response Disposition: ADMITTED IP TO THIS HOSP Referrals: Medardo Maria MD [Primary Care Provider] - 1-2 days
[2018-07-10 14:35] LABS: Albumin 2.9 g/dL (3.5-5.0); Calcium 9.5 mg/dL (8.4-10.2); Potassium 4.4 mmol/L (3.5-5.1); Total Bilirubin 2.5 mg/dL (0.2-1.3); Total Protein 5.9 g/dL (6.3-8.2)
[2018-07-10 14:36] LABS: Basophils # (A) 0.1 k/uL (0-0.2); Basophils % (A) 1 %; Eosinophils # (A) 0.2 k/uL (0-0.7); Eosinophils % (A) 3 %; Hypochromasia Moderate; Lymphocytes # (A) 0.9 k/uL (1.0-4.8); Lymphocytes % (A) 13 %; MCH 31.6 pg (25.0-35.0); MCHC 30.6 g/dL (31.0-37.0); MCV 103.3 fL (80.0-100.0); Macrocytosis Slight; Mean Platelet Volume 7.9; Monocytes # (A) 0.7 k/uL (0-1.0); Monocytes % (A) 10 %; Neutrophils # (A) 4.7 k/uL (1.3-7.7); Neutrophils % (A) 69 %; Platelet Count 145 k/uL (150-450); RBC 4.74 m/uL (4.30-5.90); RDW 14.3 % (11.5-15.5); WBC 6.8 k/uL (3.8-10.6)
[2018-07-10 14:47] LABS: Prothrombin Time >130.0 sec (9.0-12.0)
[2018-07-10 14:48] LABS: INR >10.0 (<1.2)
--- NOTE | 2018-07-10 15:01 | XR ---
EXAMINATION TYPE: XR chest 1V portable DATE OF EXAM: 07/10/2018 COMPARISON: 03/04/2018 HISTORY: Pain and shortness of breath TECHNIQUE: Single frontal view of the chest is obtained. FINDINGS: There is mild pulmonary vascular congestion and interstitial edema. The cardiac mediastina l silhouette is markedly enlarged. Right lower lung more confluent opacity is favored to represent co nfluent pulmonary edema. The costophrenic angles are very slightly blunted. Post CABG changes are see n of the chest. No sizable pneumothorax. No acute osseous pathology. IMPRESSION: Mild interstitial edema, trace pleural effusions and probable confluent right basilar pu lmonary edema likely on the basis of congestive heart failure. Marked cardiomegaly is again seen. Alt marilee this is stable from the prior echocardiogram could assess for pericardial effusion.
--- NOTE | 2018-07-10 15:05 | XR ---
EXAMINATION TYPE: XR KUB DATE OF EXAM: 07/10/2018 2:46 PM CLINICAL HISTORY: Abdominal pain TECHNIQUE: Single supine KUB image of the abdomen is obtained. COMPARISON: None. FINDINGS: Scattered gas is seen in mildly dilated small bowel loops in the right lower quadrant measu ring just over 3 cm. Gas and fecal material is seen in nondilated colon. There is no visceromegaly, p neumoperitoneum, or abnormal calcification appreciated. Evaluation for pneumoperitoneum is limited gi jenn the supine view only. The lung bases are clear and the osseous structures are intact. Right femor al arthroplasty is present. IMPRESSION: Mildly prominent right lower quadrant loops of small bowel may represent mild ileus.
[2018-07-10] MEDS ORDERED: PHYTONADIONE ORAL 5 MG/5 ML ORAL.SYRG PO STA (16:45)
[2018-07-10] MEDS ORDERED: SODIUM CHLORIDE 0.9% 500 ML IV STA (16:51)
[2018-07-10] MEDS ORDERED: DILTIAZEM 125 MG in SODIUM CHLORIDE 0.9% 100 ML IV SCH (17:00)
[2018-07-10 17:01] LABS: Appearance,Urine Clear (Clear); Bilirubin,Urine Negative (Negative); Blood,Urine Negative (Negative); Color,Urine Yellow; Glucose,Urine (UA) Negative (Negative); Ketones,Urine Negative (Negative); Leukocyte Esterase,Urine Small (Negative); Mucus,Urine Rare /hpf; Nitrite,Urine Negative (Negative); PH, Urine 5.5 (5.0-8.0); Protein,Urine Trace (Negative); RBC,Urine 6 /hpf (0-5); Specific Gravity,Urine 1.032 (1.001-1.035); Squamous Epithelial Cell,Urine <1 /hpf (0-4); WBC,Urine 18 /hpf (0-5)
--- NOTE | 2018-07-10 17:03 | CT ---
EXAMINATION TYPE: CT abdomen pelvis w con DATE OF EXAM: 07/10/2018 COMPARISON: None HISTORY: Back pain and urination changes CT DLP: 1299.7 mGycm Automated exposure control for dose reduction was used. TECHNIQUE: Helical acquisition of images was performed from the lung bases through the pelvis. CONTRAST: Performed without Oral Contrast and with IV Contrast, patient injected with 80 mL of Isovue 300. FINDINGS: VISUALIZED LOWER CHEST: No definite acute process. However, there is marked cardiomegaly with pancham brandy enlargement, and particularly right atrial and right ventricle enlargement. Passive congestion of the IVC is noted. Chronic pleural calcifications noted, consistent with asbestos-related change. PERITONEAL CAVITY: Moderate volume of fluid throughout the abdomen and pelvis. No pneumoperitoneum. LIVER/GB: The gallbladder is indistinct; there is no intrahepatic or extrahepatic biliary dilation. T here is prominent caudate lobe hypertrophy and the liver margins are lobulated. No focal liver lesion s. There are in numerable abdominal and pelvic varices, and these are particularly prominent within t he left upper quadrant. PANCREAS: No significant abnormality is seen. SPLEEN: Atrophic. ADRENALS: No significant abnormality is seen. KIDNEYS: No acute findings. However, there are multifocal wedge shaped areas of volume loss, consiste nt with bilateral remote infarctions. ABDOMINAL ADENOPATHY: None visualized REPRODUCTIVE ORGANS: No significant abnormality is seen URINARY BLADDER: No significant abnormality is seen. PELVIC ADENOPATHY: None visualized. OSSEOUS STRUCTURES: The L2 vertebral body shows moderate compression and relative hypersclerosis, co nsistent with compression fracture with indeterminant chronicity. BOWEL: There are a few loops of small bowel which demonstrate mural thickening and fluid distention, without dilation. These changes are nonspecific. No pneumatosis. VASCULATURE: No acute findings. The right aortoiliac inflow shows evidence of right common iliac obst ructive stenosis. There are widespread nonaneurysmal atherosclerotic changes throughout the visualize d arterial anatomy. IMPRESSION: 1. MODERATE L2 COMPRESSION FRACTURE. 2. MODERATE PERITONEAL FLUID. CHRONIC HEPATOMEGALY SPLENIC FINDINGS AND VARICES. 3. RIGHT COMMON ILIAC OBSTRUCTIVE STENOSIS. 4. CHRONIC CARDIOMEGALY WITH HENRY CHAMBER ENLARGEMENT, GREATER ON THE RIGHT.
--- NOTE | 2018-07-10 18:42 | CT ---
EXAMINATION TYPE: CT brain jaswant flores DATE OF EXAM: 07/10/2018 COMPARISON: None HISTORY: Recent fall. CT DLP: 1427.2 mGycm Automated exposure control for dose reduction was used. TECHNIQUE: CT scan of the head and cervical spine are performed without contrast. FINDINGS: There is no fracture or acute intracranial hemorrhage. There is no mass or mass effect. No midline sh ift. There are no definite acute attenuation defects, but there is asymmetric diffuse low-attenuation and volume loss pattern throughout the cerebellar hemispheres, consistent with marked symmetric encephalo malacia. In addition, there is a right parietal 3 cm zone of encephalomalacia, consistent with remote infarction which appears to be in the watershed between the right MCA and [employer] territories. Finally, bilateral 2 cm low-attenuation zones are seen in the occipital poles symmetrically, also consistent w ith remote ictus. If clinically indicated, a diffusion MRI can fully exclude an acute acute intra-axi al process. The ventricles and sulci are within normal limits in size. The globes are intact and the visualized sinuses are clear. Cervical spine is visualized in its entirety from C1 through upper thoracic levels and demonstrates s atisfactory alignment without evidence of acute fracture or dislocation. Prevertebral soft tissue ap pears within normal limits. The C1-C2 articulation is unremarkable. There are moderate and moderate marked multilevel cervical spondylosis changes. Marked emphysematous changes are noted in the lung a pices. There is moderate-marked cardiomegaly with sternal sutures and mediastinal clips. IMPRESSION: 1. There is no acute fracture or dislocation evident in the cervical spine. 2. No definite acute cranial/intracranial process, but findings as above.
--- NOTE | 2018-07-10 18:49 | CT ---
EXAMINATION TYPE: CT chest wo con DATE OF EXAM: 07/10/2018 HISTORY: Recent fall. Pain. CT DLP: 546.5 mGycm. Automated Exposure Control for Dose Reduction was Utilized. TECHNIQUE: CT scan of the thorax is performed without IV contrast. FINDINGS: AIRWAYS: The tracheobronchial tree is patent. LUNGS: There are emphysematous changes, moderate marked in degree. There is a focal consolidative [place] in the left upper lobe, correlate for contusion versus developing bronchopneumonia. PLEURAL SPACES: There is no pleural effusion or pneumothorax. Pleural plaque like calcifications are noted, consistent with asbestos-related change. These are much more prominent on the right. MEDIASTINUM: Lack of IV contrast is noted to limit evaluation for mediastinal pathology. There is mar ked cardiomegaly with pain chamber enlargement. Sternal sutures and mediastinal clips and aortic valv e plane calcifications noted. There is no pericardial effusion. No mediastinal hemorrhage. There are a few scattered mediastinal and hilar subcentimeter lymph nodes, nonspecific. SKELETAL: Negative for fracture. IMPRESSION: No definite acute process.
[2018-07-10] MEDS ORDERED: SODIUM CHLORIDE 0.9% 1,000 ML IV ONE (19:14)
[2018-07-10] MEDS ORDERED: SODIUM CHLORIDE 0.9% 500 ML 500 ML IV ONE (20:55)
--- NOTE | 2018-07-10 22:18 | P.HPIM ---
History of Present Illness H&P Date: 07/10/18 Chief Complaint: feeling dizzy , lower abd/flank pain 58 year old male with history of aortic valve mechanical valve replacement, A. fib, on Coumadin, hypertension, systolic CHF Patient is very poor historian when asked he doesn't elaborate on details he only mumbles a few words. Makes good eye contact but he just doesn't answer the questions or go over details. It seems like the patient came to the hospital due to 2 day history of left lower abdominal/flank pain patient describes it as severe sharp pain without elaborating any details even when asked directly. He seems to have some mental challenges or may be developmental delays. I found by reviewing medical records that he possibly had some anoxic encephalopathy in the past for unknown reason not clear why exactly that happened. He also reports feeling dizzy and tired again without elaborating any details. In the ER patient was found to be in A. fib with RVR and was hypotensive improved with some gentle IV fluid hydration and boluses however ER doctor was careful with fluid hydration due to chest x-ray showing some early interstitial edema. To avoid fluid overload. He was also found to have elevated INR more than 10, he takes Coumadin for mechanical aortic valve and A. fib. Patient denies any GI bleeding Computed tomography scan of the abdomen was done showed some fluids in the abdomen, L2 compression fracture, hepatosplenomegaly. And evidence of varices. Labs showed elevated bilirubin which is chronic AST and ALTs are within normal limits. This is possibly due to hepatic congestion f from congestive heart failure patient was also in A. fib with RVR, he was started on Cardizem drip however patient in the past became hypotensive quickly with Cardizem. Currently watching his blood pressure closely. Patient urine has strong odor and looks dark urine analysis with borderline abnormal. Patient was given a dose of Rocephin for possible UTI which could explain the left flank pain. Patient was also found to have acute kidney injury with creatinine of 1.48 this could be due to cardiorenal syndrome. Patient also reported vague history of falling without elaborating any details. Patient reports that he doesn't use any assistive devices for ambulation. He lives with a roommate without going over any further details. Patient reported questionable fall for which she had CT of the brain done and that was negative for any evidence of bleeding. His hemoglobin is stable. This seems from the medical records that patient had some cardiac disease since a young age of 32 I couldn't find an exact reason for why he had the heart failure and cardiac disease at this age but probably related to his aortic valve that was replaced with a mechanical aortic valve. Patient is known to have cardiomegaly with dilated chambers His most recent left ventricular ejection fraction is 45% CT of the abdomen also suggested right common iliac obstructive stenosis, it's not clear if this is acute or chronic I couldn't find any other CAT scans in the past compare. I would consider consulting vascular surgery for evaluation. Review of Systems unable to obtain any meaningful review of systems, agent is not cooperating with history taking he just mumbled random words and he doesn't feel upright over details Past Medical History Past Medical History: Atrial Fibrillation, CVA/TIA, Hyperlipidemia, Hypertension, Myocardial Infarction (CT) Additional Past Medical History / Comment(s): mechanical aortic valve, systolic CHF Last Myocardial Infarction Date:: "in his 20's" History of Any Multi-Drug Resistant Organisms: None Reported Past Surgical History: Cardiac Valve Replacement Additional Past Surgical History / Comment(s): per h aortic valve replacment, hemiarthroplasty rt hip , 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 Past Anesthesia/Blood Transfusion Reactions: No Reported Reaction Additional Past Anesthesia/Blood Transfusion Reaction / Comment(s): clausterphobia. 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 Sister(s) Family Medical History: Thyroid Disorder Additional Family Medical History / Comment(s): thyroidectomy Medications and Allergies Home Medications Medication Instructions Recorded Confirmed Type Diltiazem Oral [Cardizem*] 30 mg PO TID 02/26/18 07/10/18 History Warfarin [Coumadin] 5 mg PO WESA 02/26/18 07/10/18 History Warfarin [Coumadin] 7.5 mg PO SUMOTUTHFR 02/26/18 07/10/18 History Fosinopril [Monopril] 10 mg PO DAILY #30 tab 03/06/18 07/10/18 Rx Metoprolol Tartrate [Lopressor] 25 mg PO BID 07/10/18 07/10/18 History Simvastatin [Zocor] 20 mg PO HS 07/10/18 07/10/18 History Allergies Allergy/AdvReac Type Severity Reaction Status Date / Time No Known Allergies Allergy Verified 07/10/18 13:40 Physical Exam Vitals: Vital Signs Temp Pulse Resp BP Pulse Ox 07/10/18 21:56 101 H 18 100/63 94 L 07/10/18 19:29 121 H 18 94/81 95 07/10/18 17:54 140 H 20 100/66 96 07/10/18 16:32 140 H 22 100/81 96 07/10/18 15:46 130 H 22 70/27 97 07/10/18 14:06 109 H 22 89/67 98 07/10/18 13:35 97.5 F L 133 H 22 89/67 96 Intake and Output 07/10/18 07/10/18 07/10/18 06:59 14:59 22:59 Other: Weight 99.79 kg Constitutional: No acute distress, not very cooperative with history taking patient only mumbles a few words he is totally alert but doesn't elaborate over details when asked Eyes: Anicteric sclerae, moist conjunctiva, Pupils equal round reactive to light, there is erythema around his left eye again patient doesn't give any details of when did that starts or if it's bothering him ENMT: NC/AT Oropharynx clear, no erythema, orexudates Neck: Supple, FROM, no masses, or JVD No carotid bruits No thyromegaly Lungs: good air entry throughout, there is finance respiratory rales at lung bases, there is some scattered coarse crackles Clear to percussion Normal respiratory effort, no accessory muscle use Cardiovascular: Heart irregular with tachycardia systolic murmurs, no gallops, or rubs No peripheral edema Abdominal: Soft, tenderness to palpation of the left flank and to percussi on of the left costovertebral angle. Nontender,abdomen otherwise, no guarding, rebound or rigidity Abdomen moving with respiration Normoactive bowel sounds palpable hepatomegaly, palpable splenomegaly No palpable mass positive for abdominal wall hernia Skin: Normal tone, texture, turgor, cold extremities No induration No subcutaneous nodules No rash, lesions No ulcers Extremities: No digital cyanosis , capillary refill is immediate over bilateral toes No clubbing Pedal pulses week and symmetrical, posterior tibial artery not palpable bilaterally Radial pulses intact and symmetrical No calf tenderness Psychiatric: Alert and oriented to person, place not oriented to time not very cooperative with history taking doesn't elaborate over d etails when asked Neuro patient did not cooperate with neuro exam but she is moving all 4 extremities spontaneously and purposefully Lymphatics: no palpable cervical or supraclavicular , or inguinal lymph nodes Results CBC & Chem 7: 07/10/18 14:00 07/10/18 14:00 Labs: Abnormal Lab Results - Last 24 Hours (Table) 07/10/18 07/10/18 07/10/18 Range/Units 14:00 14:00 14:00 MCV 103.3 H (80.0-100.0) fL MCHC 30.6 L (31.0-37.0) g/dL Plt Count 145 L (150-450) k/uL Lymphocytes # 0.9 L (1.0-4.8) k/uL PT >130.0 H (9.0-12.0) sec INR >10.0 H* (<1.2) Chloride 110 H (98-107) mmol/L BUN 27 H (9-20) mg/dL Creatinine 1.48 H (0.66-1.25) mg/dL Total Bilirubin 2.5 H (0.2-1.3) mg/dL Alkaline Phosphatase 145 H (38-126) U/L Creatine Kinase 53 L (55-170) U/L Total Protein 5.9 L (6.3-8.2) g/dL Albumin 2.9 L (3.5-5.0) g/dL Urine Protein (Negative) Ur Leukocyte Esterase (Negative) Urine RBC (0-5) /hpf Urine WBC (0-5) /hpf Urine Mucus (None) /hpf 07/10/18 Range/Units 16:45 MCV (80.0-100.0) fL MCHC (31.0-37.0) g/dL Plt Count (150-450) k/uL Lymphocytes # (1.0-4.8) k/uL PT (9.0-12.0) sec INR (<1.2) Chloride (98-107) mmol/L BUN (9-20) mg/dL Creatinine (0.66-1.25) mg/dL Total Bilirubin (0.2-1.3) mg/dL Alkaline Phosphatase (38-126) U/L Creatine Kinase (55-170) U/L Total Protein (6.3-8.2) g/dL Albumin (3.5-5.0) g/dL Urine Protein Trace H (Negative) Ur Leukocyte Esterase Small H (Negative) Urine RBC 6 H (0-5) /hpf Urine WBC 18 H (0-5) /hpf Urine Mucus Rare H (None) /hpf Assessment and Plan Assessment: patient with history of mechanical aortic valve and systolic CHF and A. fib on Coumadin. Admitted as an inpatient with expected length of stay more than 48 hours for A. fib with RVR, supratherapeutic INR, UTI and acute kidney injury In the ER patient was found to be in A. fib with RVR and was hypotensive improved with some gentle IV fluid hydration and boluses however ER doctor was careful with fluid hydration due to chest x-ray showing some early interstitial edema. To avoid fluid overload. He was also found to have elevated INR more than 10, he takes Coumadin for mechanical aortic valve and A. fib. Patient denies any GI bleeding Computed tomography scan of the abdomen was done showed some fluids in the abdomen, L2 compression fracture, hepatosplenomegaly. And evidence of varices. Labs showed elevated bilirubin which is chronic AST and ALTs are within normal limits. This is possibly due to hepatic congestion f from congestive heart failure patient was also in A. fib with RVR, he was started on Cardizem drip however patient in the past became hypotensive quickly with Cardizem. Currently watching his blood pressure closely. Patient urine has strong odor and looks dark urine analysis with borderline abnormal. Patient was given a dose of Rocephin for possible UTI which could explain the left flank pain. Patient was also found to have acute kidney injury with creatinine of 1.48 this could be due to cardiorenal syndrome. Patient also reported vague history of falling without elaborating any details. Patient reports that he doesn't use any assistive devices for ambulation. He lives with a roommate without going over any further details. Patient reported questionable fall for which she had CT of the brain done and that was negative for any evidence of bleeding. His hemoglobin is stable. This seems from the medical records that patient had some cardiac disease since a young age of 32 I couldn't find an exact reason for why he had the heart failure and cardiac disease at this age but probably related to his aortic valve that was replaced with a mechanical aortic valve. Patient is known to have cardiomegaly with dilated chambers His most recent left ventricular ejection fraction is 45% CT of the abdomen also suggested right common iliac obstructive stenosis, it's not clear if this is acute or chronic I couldn't find any other CAT scans in the past compare. I would consider consulting vascular surgery for evaluation. Plan: A. fib with RVR Hypotension Supratherapeutic INR, patient with history of mechanical aortic valve replacement Acute mild exacerbation of systolic CHF with most recent left ventricular ejection fraction of 45% acute kidney injury possibly secondary to cardiorenal syndrome Hepatic congestion with hepatosplenomegaly and basis UTI Unknown acuity of computed tomography scan finding of right common iliac obstructive stenosis, consult to vascular surgery for evaluation Unknown acuity of L2 compression fracture, with questionable history of recent fall, consult to orthopedics Plan Patient started on Cardizem drip, if he continues to be hypotensive with no good control of his heartrate I will consider switching to amiodarone Patient received gentle hydration and IV fluid boluses with close monitoring to avoid fluid overload I will start patient IV Lasix in the morning if tolerated, with hold parameters to avoid hypotension Check echocardiogram to rule out pericardial effusion per radiology recommendations Follow up labs in the morning Continue with Rocephin Follow-up cultures Vascular surgery consult for right common iliac obstructive stenosis Orthopedic consult for L2 vertebral compression fracture PT/OT evaluation Coumadin on hold, patient received 2.5 mg of vitamin K in the ER Pharmacy to dose Coumadin goal INR 2.5-3.5 with history of mechanical aortic valve fall precautions continue home meds, hold nephrotoxic meds, hold blood pressure medications due to hypotension, continue metoprolol with hold parameters. Surrogate decision-maker: patient didn't name any one CODE STATUS:full code DVT prophylaxis: patient on Coumadin currently supratherapeutic INR Discussed with: Patient, ER, RN Anticipated discharge: 48-[address]: pending clinical course A total of 60 minutes was spent on the care of this complex patient more than 50% of the time was spent in counseling and care coordination.
[2018-07-10 23:21] LABS: INR >10.0 (<1.2); Prothrombin Time >130.0 sec (9.0-12.0)
[2018-07-11] MEDS ORDERED: FUROSEMIDE 10 MG/ML 4 ML VIAL IV STA (06:12)
[2018-07-11] MEDS ORDERED: DEXTROSE 5% IN WATER 100 ML with AMIODARONE 150 MG IV ONE (06:42)
[2018-07-11] MEDS: AMIODARONE 360 MG in DEXTROSE 5% IN WATER 200 ML IV ONE ×4 (07:20→10:53)
[2018-07-11] MEDS ORDERED: FUROSEMIDE 10 MG/ML 2 ML VIAL IV SCH (09:00)
[2018-07-11] MEDS ORDERED: METOPROLOL TARTRATE 25 MG TAB PO SCH (09:00)
[2018-07-11 09:46] LABS: Basophils # (A) 0.1 k/uL (0-0.2); Basophils % (A) 1 %; Eosinophils # (A) 0.2 k/uL (0-0.7); Eosinophils % (A) 3 %; HCT 46.8 % (39.0-53.0); HGB 14.1 gm/dL (13.0-17.5); Hypochromasia Marked; Lymphocytes # (A) 0.7 k/uL (1.0-4.8); Lymphocytes % (A) 9 %; MCH 31.1 pg (25.0-35.0); MCHC 30.1 g/dL (31.0-37.0); MCV 103.3 fL (80.0-100.0); Macrocytosis Slight; Monocytes % (A) 13 %; Neutrophils # (A) 5.7 k/uL (1.3-7.7); Neutrophils % (A) 73 %; Platelet Count 146 k/uL (150-450); RBC 4.53 m/uL (4.30-5.90); RDW 15.1 % (11.5-15.5); WBC 7.8 k/uL (3.8-10.6)
[2018-07-11 09:47] LABS: Albumin 2.9 g/dL (3.5-5.0); Potassium 4.2 mmol/L (3.5-5.1); Total Bilirubin 3.4 mg/dL (0.2-1.3); Total Protein 5.9 g/dL (6.3-8.2)
[2018-07-11 09:48] LABS: INR 6.7 (<1.2)
--- NOTE | 2018-07-11 11:53 | P.PN ---
Subjective Progress Note Date: 07/11/18 The patient seen and examined in follow-up today, apparently underwent 2 history distress 18 was called overnight, it was attributed to CHF exacerbation as the patient appeared volume overloaded, was given a couple rounds of Lasix and diuresed well approximately 800 mL out since then. The patient's respiratory status has improved. Patient unable to answer directly with interview apparently has a history of CVA in his 30s,, patient transitioned from Cardizem to amiodarone and his ventricular rate was improved. Patient's most recent echocardiogram 02/27/18 showed an EF of 45-50%, severely dilated left atrium. INR down from greater than 10-6.7 after a dose of vitamin K. The patient's blood pressure continues to be borderline. Patient was previously here in February. Objective - Vital Signs Vital signs: Vital Signs Temp 98 F 07/11/18 07:40 Pulse 78 07/11/18 10:50 Resp 18 07/11/18 10:50 BP 94/62 07/11/18 10:50 Pulse Ox 93 L 07/11/18 10:50 Intake & Output 07/10/18 07/11/18 07/11/18 18:59 06:59 18:59 Intake Total 268.332 Output Total 400 Balance -131.668 Weight 99.79 kg Intake: Intake, IV Titration 268.332 Amount Amiodarone 300 mg In 150 Dextrose 5% in Water 250 ml @ 0.5 MG/MIN 25 mls/hr IV .Q10H [facility] Rx#: [id number] Amiodarone 360 mg In 118.332 Dextrose 5% in Water 200 ml @ 1 MG/MIN 33.333 mls/ hr IV .Q6H [facility] Rx#: [id number] Output: Urine 400 - Exam Constitutional: No acute distress, conversant, pleasant Eyes: Anicteric sclerae, moist conjunctiva, no lid-lag, PERRLA ENMT: NC/AT,Oropharynx clear, no erythema, exudates Neck:Supple, FROM, no masses, or JVD, No carotid bruits; No thyromegaly Lungs: Diminished in the bases, Clear to percussion, Normal respiratory effort, no accessory muscle use on 2 L is a cannula Cardiovascular: Irregularly irregular with normal rate, No murmurs, gallops, or rubs no peripheral edema Abdominal: Soft Nontender, nom distended, no guarding, no rebound or rigidity, Normoactive bowel sounds No hepatomegaly, No splenomegaly, No palpable mass No abdominal wall hernia noted Skin: Normal temperature, tone, texture, turgor, No induration No subcutaneous nodules, No rash, lesions, No ulcers Extremities:No digital cyanosis No clubbing, Pedal pulses intact and symmetrical Radial pulses intact and symmetrical Normal gait and station, No calf tenderness - Labs CBC & Chem 7: 07/11/18 09:10 07/11/18 09:10 Labs: Abnormal Lab Results - Last 24 Hours (Table) 07/10/18 07/10/18 07/10/18 Range/Units 14:00 14:00 14:00 MCV 103.3 H (80.0-100.0) fL MCHC 30.6 L (31.0-37.0) g/dL Plt Count 145 L (150-450) k/uL Lymphocytes # 0.9 L (1.0-4.8) k/uL PT >130.0 H (9.0-12.0) sec INR >10.0 H* (<1.2) Chloride 110 H (98-107) mmol/L BUN 27 H (9-20) mg/dL Creatinine 1.48 H (0.66-1.25) mg/dL Total Bilirubin 2.5 H (0.2-1.3) mg/dL Alkaline Phosphatase 145 H (38-126) U/L Creatine Kinase 53 L (55-170) U/L Total Protein 5.9 L (6.3-8.2) g/dL Albumin 2.9 L (3.5-5.0) g/dL Urine Protein (Negative) Ur Leukocyte Esterase (Negative) Urine RBC (0-5) /hpf Urine WBC (0-5) /hpf Urine Mucus (None) /hpf 07/10/18 07/10/18 07/11/18 Range/Units 16:45 22:35 09:10 MCV 103.3 H (80.0-100.0) fL MCHC 30.1 L (31.0-37.0) g/dL Plt Count 146 L (150-450) k/uL Lymphocytes # 0.7 L (1.0-4.8) k/uL PT >130.0 H (9.0-12.0) sec INR >10.0 H* (<1.2) Chloride (98-107) mmol/L BUN (9-20) mg/dL Creatinine (0.66-1.25) mg/dL Total Bilirubin (0.2-1.3) mg/dL Alkaline Phosphatase (38-126) U/L Creatine Kinase (55-170) U/L Total Protein (6.3-8.2) g/dL Albumin (3.5-5.0) g/dL Urine Protein Trace H (Negative) Ur Leukocyte Esterase Small H (Negative) Urine RBC 6 H (0-5) /hpf Urine WBC 18 H (0-5) /hpf Urine Mucus Rare H (None) /hpf 07/11/18 07/11/18 Range/Units 09:10 09:10 MCV (80.0-100.0) fL MCHC (31.0-37.0) g/dL Plt Count (150-450) k/uL Lymphocytes # (1.0-4.8) k/uL PT 65.0 H (9.0-12.0) sec INR 6.7 H* (<1.2) Chloride 111 H (98-107) mmol/L BUN 24 H (9-20) mg/dL Creatinine 1.36 H (0.66-1.25) mg/dL Total Bilirubin 3.4 H (0.2-1.3) mg/dL Alkaline Phosphatase 144 H (38-126) U/L Creatine Kinase (55-170) U/L Total Protein 5.9 L (6.3-8.2) g/dL Albumin 2.9 L (3.5-5.0) g/dL Urine Protein (Negative) Ur Leukocyte Esterase (Negative) Urine RBC (0-5) /hpf Urine WBC (0-5) /hpf Urine Mucus (None) /hpf Microbiology - Last 24 Hours (Table) 07/10/18 16:45 Urine Culture - Preliminary Urine,Voided Assessment and Plan (1) Acute on chronic systolic (congestive) heart failure Narrative/Plan: * Previously respiratory distress secondary to likely CHF flare * Patient received IV Lasix and has diuresed well and respiratory status has improved * We'll order 2-D echocardiogram repeat 2 view chest x-ray, continue diuresis with Lasix, check NT proBNP * Continue to monitor fluid status closely Current Visit: Yes Status: Acute Code(s): I50.23 - ACUTE ON CHRONIC SYSTOLIC (CONGESTIVE) HEART FAILURE SNOMED Code(s): 331887774 (2) Atrial fibrillation with RVR Narrative/Plan: * The patient switched from IV Cardizem now on IV amiodarone drip * Ventricular rate is now controlled continues to be in A. fib * INR supratherapeutic as previously noted, continue metoprolol * 2-D echocardiogram, nt pro BNP ordered cardiology consultation pending Current Visit: Yes Status: Acute Code(s): I48.91 - UNSPECIFIED ATRIAL FIBRILLATION SNOMED Code(s): 365360064607736 (3) Supratherapeutic INR Narrative/Plan: * No signs of bleeding hemoglobin stable INR down to 6.7 after a dose of vitamin K * We'll continue to monitor daily INRs for now Current Visit: Yes Status: Acute Code(s): R79.1 - ABNORMAL COAGULATION PROFILE SNOMED Code(s): 051023467 (4) Hypotension Narrative/Plan: * Likely multifactorial suspicious for cardiogenic shock versus adrenal insufficiency * Patient previously needing stress doses of Solu-cortef on previous admission, will order a stat cortisol level * Try empiric stress dose of steroids for the next 24 hours to receive his blood pressure responds Current Visit: No Status: Acute Code(s): I95.9 - HYPOTENSION, UNSPECIFIED SNOMED Code(s): 47512714 (5) Abdominal pain Narrative/Plan: * Possibly secondary to ongoing peritoneal fluid accumulation * CT abdomen and pelvis showing chronic hepatosplenomegaly and varices * We'll start Tylenol with Codeine for his abdominal pain Current Visit: Yes Status: Acute Code(s): R10.9 - UNSPECIFIED ABDOMINAL PAIN SNOMED Code(s): 59709763 (6) Compression fracture of L2 Narrative/Plan: * Acuity unknown with questionable history of recent fall * Orthopedics consult pending Current Visit: Yes Status: Acute Code(s): S32.020A - WEDGE COMPRESSION FRACTURE OF SECOND LUMBAR VERTEBRA, INIT SNOMED Code(s): 10564938956586345 (7) PVD (peripheral vascular disease) Narrative/Plan: * Noted right common iliac obstructive stenosis * we'll initiate the patient on aspirin and check a lipid panel * Vascular surgery Dr. Sung consulted, awaiting recommendations Current Visit: Yes Status: Acute Code(s): I73.9 - PERIPHERAL VASCULAR DISEASE, UNSPECIFIED SNOMED Code(s): 332522636 Plan: * We'll await any recommendations from consultants * Continue current management at this time * Continue to hold Coumadin and check daily INRs * Follow up on urine cultures Time with Patient: Greater than 30
--- NOTE | 2018-07-11 11:59 | XR ---
EXAMINATION TYPE: XR chest 2V DATE OF EXAM: 07/11/2018 COMPARISON: Prior chest x-ray and chest CT 07/10/2018 HISTORY: Congestive heart failure, atrial fibrillation TECHNIQUE: Frontal and lateral views of the chest are obtained. FINDINGS: The heart remains enlarged, patient is post median sternotomy. There are overlying cardiac leads. No pneumothorax. Interstitium is increased. There is blunting the costophrenic angles. Old le ft sixth rib fracture is stable. Prominent lung volumes suggest underlying COPD. There are overlying artifacts. Pleural calcifications posterior right chest could be related to patient's prior surgery a nd hemorrhage versus asbestos related disease. IMPRESSION: Correlate for pulmonary venous hypertension and interstitial edema, there may be small e ffusions and basilar atelectasis versus edema or possibly scarring, correlate for possible asbestos r elated disease.
[2018-07-11] MEDS: ASPIRIN 81 MG PO STA ×2 (15:19→15:34)
[2018-07-11] MEDS: HYDROCORTISONE SUCCINATE 100 MG/2 ML VIAL IV SCH ×3 (15:20→23:11)
[2018-07-11] MEDS: AMIODARONE 300 MG in DEXTROSE 5% IN WATER 250 ML IV SCH ×4 (15:20→22:25)
[2018-07-11] MEDS ORDERED: SODIUM CHLORIDE 0.9% 500 ML 500 ML IV ONE (16:25)
[2018-07-11 17:08] LABS: Glucose,Whole Blood 85 mg/dL (75-99)
--- NOTE | 2018-07-11 17:45 | P.CNPUL ---
History of Present Illness Consult date: 07/11/18 Requesting physician: Gilles Becker Reason for consult: other (Hypotension patient was transferred to the ICU for norepinephrine infusion.) Chief complaint: Dizzy spells lower abdominal and flank pain. History of present illness: This is a 58-year-old white male with history of multiple medical problems, patient is a very poor historian, most of the information was obtained from the chart. Patient is known to have history of aortic valve replacement, chronic atrial fibrillation, systolic congestive heart failure, and hypertension. Patient presented to the ER with 2 days history of left lower abdominal and flank pain. Pain was described as severe and not associated with any nausea v omiting melena or hematemesis. Patient again is a very poor historian, apparently had previous history of anoxic encephalopathy and upon presentation to the ER he was found to be in atrial fibrillation with RVR he was also hypotensive. Considering his history of congestive heart failure, patient was given gently fluid boluses, and he was hydrated cautiously. His chest x-ray did show evidence of mild interstitial edema on presentation. Patient was admitted to the cardiac floor, and he was placed on amiodarone for his atrial fibrillation and RVR. Seen by cardiology this afternoon, and he was noted to be hypotensive with blood pressure around 80 systolic. His atrial fibrillation was controlled and heart rate was in the high 70s. Considering the low blood pressure patient was transferred to the ICU for norepinephrine infusion, and shortly after I saw him I recommended another 500 mL of fluid bolus. I agree fully with the transfer plans to the ICU. Since this admission, the patient was noted to have elevated INR, apparently his Coumadin is supratherapeutic. CT of the abdomen and pelvis showed L2 compression fracture and hepatosplenomegaly. There was also evidence of elevated bilirubin apparently chronic in nature. [place] to be related to his hepatic congestion from congestive heart failure. His urinalysis was suggestive of possible UTI and the patient was given Rocephin. Renal functioning was abnormal and his creatinine was 1.48. On follow-up his creatinine came down to 1.36. His INR came down to 6.7. Again there was no evidence of bleeding clinically. Repeat chest x-ray this morning showed mild interstitial edema and small effusions with bibasilar atelectasis. Review of Systems ROS unobtainable: due to mental status (Cannot be obtained, patient is a very poor historian, has history of anoxic encephalopathy.) Past Medical History Past Medical History: Atrial Fibrillation, CVA/TIA, Hyperlipidemia, Hypertension, Myocardial Infarction ([place]) Additional Past Medical History / Comment(s): mechanical aortic valve, systolic CHF Last Myocardial Infarction Date:: "in his 20's" History of Any Multi-Drug Resistant Organisms: None Reported Past Surgical History: Cardiac Valve Replacement Additional Past Surgical History / Comment(s): per [facility] aortic valve replacment, hemiarthroplasty rt hip , 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 Past Anesthesia/Blood Transfusion Reactions: No Reported Reaction Additional Past Anesthesia/Blood Transfusion Reaction / Comment(s): clausterphobia. pt unsure if he ever had blood trandsfusion Past Psychological History: No Psychological Hx Reported Smoking Status: Current every day smoker Past Alcohol Use History: None Reported Additional Past Alcohol Use History / Comment(s): started smopking at age 14 used to smoke 1 ppd.currently pt stated a pack will last him 2 weeks. 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 Sister(s) Family Medical History: Thyroid Disorder Additional Family Medical History / Comment(s): thyroidectomy Medications and Allergies Home Medications Medication Instructions Recorded Confirmed Type Diltiazem Oral [Cardizem*] 30 mg PO TID 02/26/18 07/10/18 History Warfarin [Coumadin] 5 mg PO WESA 02/26/18 07/10/18 History Warfarin [Coumadin] 7.5 mg PO SUMOTUTHFR 02/26/18 07/10/18 History Fosinopril [Monopril] 10 mg PO DAILY #30 tab 03/06/18 07/10/18 Rx Metoprolol Tartrate [Lopressor] 25 mg PO BID 07/10/18 07/10/18 History Simvastatin [Zocor] 20 mg PO HS 07/10/18 07/10/18 History Allergies Allergy/AdvReac Type Severity Reaction Status Date / Time No Known Allergies Allergy Verified 07/10/18 13:40 Physical Exam Vitals: Vital Signs Temp Pulse Pulse Pulse Resp BP BP 05/29/19 16:23 67 18 07/11/18 15:55 82 22 07/11/18 15:39 97.0 F L 82 18 07/11/18 12:24 07/11/18 12:00 69 22 07/11/18 10:50 78 18 07/11/18 09:27 134 H 22 07/11/18 07:56 133 H 20 07/11/18 07:40 98 F 126 H 19 07/11/18 06:57 146 H 22 07/11/18 06:35 121 H 24 87/58 07/11/18 06:25 133 H 26 H 99/71 07/11/18 06:18 151 H 24 88/75 07/11/18 06:15 149 H 24 80/54 07/11/18 06:14 153 H 24 80/54 07/11/18 06:10 141 H 21 108/86 07/11/18 06:09 161 H 28 H 07/11/18 06:05 161 H 14 07/11/18 06:02 163 H 25 H 77/61 07/11/18 05:55 149 H 30 H 102/68 07/11/18 05:35 122 H 18 07/11/18 04:50 112 H 16 102/68 07/11/18 04:00 98.0 F 110 H 17 07/11/18 03:50 130 H 17 97/82 07/11/18 03:40 141 H 8 L 106/07/11/18 03:30 109 H 19 07/11/18 03:00 07/11/18 02:40 118 H 29 H 106/07/11/18 01:20 115 H 28 H 106/91 07/11/18 01:10 125 H 21 106/91 07/11/18 00:30 118 H 16 07/11/18 00:20 110 H 0 L 07/10/18 23:10 137 H 9 L 94/70 07/10/18 23:00 126 H 18 91/79 07/10/18 22:31 111 H 18 100/63 07/10/18 21:56 101 H 18 100/63 07/10/18 19:29 121 H 18 94/81 07/10/18 17:54 140 H 20 100/66 BP Pulse Ox 07/11/18 16:23 93/45 07/11/18 15:55 07/11/18 15:39 80/33 97 07/11/18 12:24 81/52 07/11/18 12:00 92 L 07/11/18 10:50 94/62 93 L 07/11/18 09:27 110/88 93 L 07/11/18 07:56 89/69 93 L 07/11/18 07:40 94/74 91 L 07/11/18 06:57 99/71 95 07/11/18 06:35 94 L 07/11/18 06:25 07/11/18 06:18 93 L 07/11/18 06:15 90 L 07/11/18 06:14 90 L 07/11/18 06:10 93 L 07/11/18 06:09 108/86 93 L 07/11/18 06:05 85 L 07/11/18 06:02 86 L 07/11/18 05:55 82 L 07/11/18 05:35 87 L 07/11/18 04:50 90 L 07/11/18 04:00 07/11/18 03:50 90 L 07/11/18 03:40 07/11/18 03:30 07/11/18 03:00 97 07/11/18 02:40 07/11/18 01:20 91 L 07/11/18 01:10 91 L 07/11/18 00:30 91 L 07/11/18 00:20 92 L 07/10/18 23:10 92 L 07/10/18 23:00 07/10/18 22:31 95 07/10/18 21:56 94 L 07/10/18 19:29 95 07/10/18 17:54 96 Intake and Output 07/11/18 07/11/18 07/11/18 06:59 14:59 22:59 Intake Total 388.332 Output Total 400 Balance -11.668 Intake: Intake, IV Titration 268.332 Amount Amiodarone 300 mg In 150 Dextrose 5% in Water 250 ml @ 0.5 MG/MIN 25 mls/hr IV .Q10H [facility] Rx#: [id number] Amiodarone 360 mg In 118.332 Dextrose 5% in Water 200 ml @ 1 MG/MIN 33.333 mls/ hr IV .Q6H [facility] Rx#: [id number] Oral 120 Output: Urine 400 Other: # Voids 1 # Bowel Movements 1 Weight 93.3 kg PHYSICAL EXAM: General: Revealed a 58-year-old white male, confused, in no distress. HEENT: PERRLA, EOMI, positive icterus, no neck masses, no JVD, moist mucous membranes. No stridor. Cardiovascular: Irregular irregular rhythm, 2/6 systolic murmur thought the precordium. Chest: Diminished breath sounds at the bases, minimal crackles at the bases, no rhonchi and no wheezes. Symmetrical chest expansion, no chest wall tenderness. Abdomen: Soft nontender no megaly no rebound no guarding, positive bowel sounds Extremities:: No clubbing edema or cyanosis. Good distal pulses bilaterally. Musculoskeletal: Normal range of motion, no deformities noted. Skin: No rashes. No cyanosis. Normal tone and texture normal turgor. Lymphatics: No lymphadenopathy. Results - Laboratory Findings CBC and BMP: 07/11/18 09:10 07/11/18 09:10 PT/INR, D-dimer PT 65.0 sec (9.0-12.0) H 07/11/18 09:10 INR 6.7 (<1.2) H* 07/11/18 09:10 Abnormal lab findings: Abnormal Labs 07/10/18 07/10/18 07/10/18 14:00 14:00 14:00 MCV 103.3 H MCHC 30.6 L Plt Count 145 L Lymphocytes # 0.9 L PT >130.0 H INR >10.0 H* Chloride 110 H BUN 27 H Creatinine 1.48 H Total Bilirubin 2.5 H Alkaline Phosphatase 145 H Creatine Kinase 53 L Total Protein 5.9 L Albumin 2.9 L Urine Protein Ur Leukocyte Esterase Urine RBC Urine WBC Urine Mucus 07/10/18 07/10/18 07/11/18 16:45 22:35 09:10 MCV 103.3 H MCHC 30.1 L Plt Count 146 L Lymphocytes # 0.7 L PT >130.0 H INR >10.0 H* Chloride BUN Creatinine Total Bilirubin Alkaline Phosphatase Creatine Kinase Total Protein Albumin Urine Protein Trace H Ur Leukocyte Esterase Small H Urine RBC 6 H Urine WBC 18 H Urine Mucus Rare H 07/11/18 07/11/18 09:10 09:10 MCV MCHC Plt Count Lymphocytes # PT 65.0 H INR 6.7 H* Chloride 111 H BUN 24 H Creatinine 1.36 H Total Bilirubin 3.4 H Alkaline Phosphatase 144 H Creatine Kinase Total Protein 5.9 L Albumin 2.9 L Urine Protein Ur Leukocyte Esterase Urine RBC Urine WBC Urine Mucus - Diagnostic Findings Chest x-ray: image reviewed (As noted in HPI.) Assessment and Plan Assessment: Impression: 1 acute hypotension in a patient with history of atrial fibrillation and RVR, presently on amiodarone. 2 atrial fibrillation with RVR 3 possible urinary tract infection, strongly doubt sepsis. 4 history of aortic valve replacement. Patient has a mechanical valve and ma intained on anticoagulation therapy 5 history of anoxic brain injury and encephalopathy 6 chronic systolic congestive heart failure Recommendation: Agree with the present treatment plan, we will arrange for the patient to be transferred to the ICU, will start a gentle fluid bolus of 500 mL of 0.9 normal saline, and if his blood pressure remains low, we'll start the patient on norepinephrine. In the meantime continue to hold blood pressure medications and continue amiodarone. Patient did receive Rocephin, and he is receiving Solu-Cortef 100 mg IV push every 8 hours for possible adrenal ins ufficiency, serum cortisol is pending. He is also on Rocephin 1 g every 24 hours, urine cultures are pending. We will continue to follow. Time with Patient: Greater than 30
--- NOTE | 2018-07-11 18:56 | CONS ---
CONSULTATION Mr. Robles is a 58-year-old gentleman who is seen for cardiac evaluation. The patient's emergency room records and old records are reviewed. This patient has been known to us for many years. The patient has a history of rheumatic heart disease, status post aortic valve replacement and mitral valvuloplasty, and he has been followed. The patient is a rather unreliable historian. The patient lives with a friend and he had been having abdominal pain with some flank pain. He was not significantly short of breath. He denied any nausea, vomiting or diarrhea. No definite fever or chills were noted. In the emergency room patient was found to be in atrial fibrillation with a moderately rapid ventricular response. Patient was initially started on Cardizem drip but became hypotensive. He required some IV fluids. The patient subsequently was admitted to [facility]. When I examined this patient, his heart rate was 70 to 80s. He is on amiodarone drip. Blood pressure remains in the range of 80. Patient's chest x-ray is suggestive of congestive cardiac failure. PAST MEDICAL HISTORY: Includes: 1. History of aortic valve replacement. 2. Mitral valve repair. 3. Patient has rheumatic valvular disease. 4. Chronic atrial fibrillation. 5. History of CVA or TIA. 6. Hyperlipidemia. HOME MEDICATIONS: Include: 1. Zocor 20 mg daily. 2. Cardizem 30 mg t.i.d. 3. Coumadin. 4. Metoprolol 25 mg b.i.d. PHYSICAL EXAMINATION: Physical examination at present reveals a 58-year-old gentleman who at present is not in any acute distress. The patient's skin is slightly cold. Blood pressure is 80/60. In the emergency room patient's blood pressure one time was 70. Head and ENT examination is negative. Neck is supple. Jugular venous pressure is elevated. Both the carotid pulses are felt. There is no bruit. Chest is symmetrical. Metallic prosthetic sounds are heard and there is a short systolic murmur noted. Lung examination reveals bilateral scattered wheezes, and a few rales are noted. Abdomen is distended with possible fluid in the abdomen; ascites. EXTREMITIES: There is 1+ leg edema. The patient's white count is 6800. Electrolytes are normal. Creatinine is 1.4. SGOT and SGPT are normal. Total bilirubin is 2.5. Albumin is 2.9. Patient's INR is more than 10. Initial troponin was 0.013. The patient's EKG shows evidence of atrial fibrillation with rapid ventricular response and QR pattern in V1 and V2 suggestive of significant right ventricular enlargement. Patient has probably incomplete right bundle branch block pattern. Patient's CT scan of the chest does not show any significant abnormality. There is evidence of mild cardiomegaly. CT of the abdomen shows evidence of a compression fracture of L2, moderate degree of peritoneal fluid, chronic hepatomegaly and splenic findings unchanged. There is a right common iliac artery obstruction. Echocardiogram reveals evidence that overall left ventricular systolic function is normal. Severely enlarged left atrium and the right ventricle chambers are enlarged. The patient has severe tricuspid regurgitation. The mitral valve is rheumatic with doming. Mild mitral regurgitation is noted. Aortic valve is functioning normally. FINAL IMPRESSION: 1. This patient is admitted with abdominal pain and flank pain, exact etiology undetermined. Patient does have evidence of some vertebral fracture. 2. Atrial fibrillation with rapid ventricular response. At present patient also has evidence of hypotension. 3. Status post aortic valve replacement and mitral valvuloplasty. RECOMMENDATIONS: We recommend continuing the patient on IV amiodarone to control the rate. Patient has evidence of left-sided heart failure as well as right-sided heart failure, and we will treat the patient with Lasix 40 mg IV q.12 hourly. The patient will be transferred to the intensive care unit and may need Levophed treatment to maintain the blood pressure about 100 systolic. MMODL / IJN: [id number] /
[2018-07-11] MEDS: FUROSEMIDE 10 MG/ML 4 ML VIAL IV SCH (20:44)
[2018-07-11] MEDS: ATORVASTATIN 10 MG TAB PO SCH (20:44)
[2018-07-11] MEDS: NOREPINEPHRINE 4 MG in SODIUM CHLORIDE 0.9% 250 ML IV SCH (21:08)
--- NOTE | 2018-07-12 00:23 | P.CNOR ---
History of Present Illness - [facility] Consult date: 07/11/18 Requesting physician: Gilles Becker Consult reason: fracture (L2 compression fracture deformity status post fall), low back pain History of present illness: Patient is a very pleasant 58-year-old male who is seen and examined the bedside after consultation was placed for significant low back pain. Patient is currently being seen and treated in the hospital for other significant adequate diagnoses including atrial fibrillation with RVR. He was previously in the ICU and transferred to [facility]. He is seen and examined in [facility]. At the time of this dictation he has been transferred back to the ICU. Patient has a significant medical history which includes stroke at approximately age 25. He is able to answer questions appropriately and answers questions with 1 word answers. He states the stroke significantly affected the rest of his life. He states a month ago or so he fell in the bathtub causing an exacerbation of back pain. He has not sought further evaluation or treatment for his lumbar spine since that time. He denies specific lower extremity weakness or radiculopathy bilaterally but states his legs feel "crummy". He does ambulate in the outpatient setting without the use of a walking aid. He denies any other recent falls other than the fall in the bathtub. He feels his back pain is exacerbated with movements of the spine, coughing, and sneezing. His significant medical history includes chronic atrial fibrillation, systolic congestive heart failure, hypertension, and history of aortic valve replacement during this admission he is also been experiencing left lower abdominal pain and flank pain. Patient may also have evidence of UTI and is currently being treated with Rocephin. He has also been experiencing some hypotension. He was also found to have a supratherapeutic INR of greater than 10 during his presentation to the emergency department. 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 Past Anesthesia/Blood Transfusion Reactions: No Reported Reaction Additional Past Anesthesia/Blood Transfusion Reaction / Comm: clausterphobia. pt unsure if he ever had blood trandsfusion Past Psychological History: No Psychological Hx Reported Smoking Status: Current every day smoker Past Alcohol Use History: None Reported Additional Past Alcohol Use History / Comment(s): started smopking at age 14 used to smoke 1 ppd.currently pt stated a pack will last him 2 weeks. 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 Sister(s) Family Medical History: Thyroid Disorder Additional Family Medical History / Comment(s): thyroidectomy Medications and Allergies Home Medications Medication Instructions Recorded Confirmed Type Diltiazem Oral [Cardizem*] 30 mg PO TID 02/26/18 07/10/18 History Warfarin [Coumadin] 5 mg PO WESA 02/26/18 07/10/18 History Warfarin [Coumadin] 7.5 mg PO SUMOTUTHFR 02/26/18 07/10/18 History Fosinopril [Monopril] 10 mg PO DAILY #30 tab 03/06/18 07/10/18 Rx Metoprolol Tartrate [Lopressor] 25 mg PO BID 07/10/18 07/10/18 History Simvastatin [Zocor] 20 mg PO HS 07/10/18 07/10/18 History Allergies Allergy/AdvReac Type Severity Reaction Status Date / Time No Known Allergies Allergy Verified 07/10/18 13:40 Physical Examination Physical exam: Patient is awake, alert, and oriented 3; patient does not have deep conversation but is able to answer questions appropriately with 1 word answers Vital signs per stable Adequate chest excursion with deep inspiration and expiration Examination of lumbar spine reveals skin is intact with no abrasions, lacerations, or bruises; no erythema, purulence or signs of infection Pain with palpation along the midline of the lumbar spine Dorsiflexion, plantarflexion, and extensor hallucis longus positive sustained bilaterally Lower extremity strength positive sustained throughout range of motion but generally slow Patellar reflex 0+ bilaterally No lower extremity hyperreflexia bilaterally Straight leg test negative bilateral lower extremities No signs or symptoms of DVT; no calf pain No pain with internal and external rotation of the hips bilaterally Neurovascularly intact Results Pertinent studies: CT that abdomen and pelvis reviewed from a bony standpoint: L2 mild to moderate vertebral body compression fracture deformity of indeterminant age and chronicity - Labs Labs: Abnormal Lab Results - Last 24 Hours (Table) 07/10/18 07/11/18 07/11/18 Range/Units 22:35 09:10 09:10 MCV 103.3 H (80.0-100.0) fL MCHC 30.1 L (31.0-37.0) g/dL Plt Count 146 L (150-450) k/uL Lymphocytes # 0.7 L (1.0-4.8) k/uL PT >130.0 H (9.0-12.0) sec INR >10.0 H* (<1.2) Chloride 111 H (98-107) mmol/L BUN 24 H (9-20) mg/dL Creatinine 1.36 H (0.66-1.25) mg/dL Total Bilirubin 3.4 H (0.2-1.3) mg/dL Alkaline Phosphatase 144 H (38-126) U/L Total Protein 5.9 L (6.3-8.2) g/dL Albumin 2.9 L (3.5-5.0) g/dL 07/11/18 Range/Units 09:10 MCV (80.0-100.0) fL MCHC (31.0-37.0) g/dL Plt Count (150-450) k/uL Lymphocytes # (1.0-4.8) k/uL PT 65.0 H (9.0-12.0) sec INR 6.7 H* (<1.2) Chloride (98-107) mmol/L BUN (9-20) mg/dL Creatinine (0.66-1.25) mg/dL Total Bilirubin (0.2-1.3) mg/dL Alkaline Phosphatase (38-126) U/L Total Protein (6.3-8.2) g/dL Albumin (3.5-5.0) g/dL Microbiology - Last 24 Hours (Table) 07/10/18 16:45 Urine Culture - Preliminary Urine,Voided H & H 07/10/18 07/11/18 Range/Units 14:00 09:10 Hgb 15.0 14.1 (13.0-17.5) gm/dL Hct 49.0 46.8 (39.0-53.0) % Coagulation 07/10/18 07/10/18 07/11/18 Range/Units 14:00 22:35 09:10 INR >10.0 H* >10.0 H* 6.7 H* (<1.2) Result Diagrams: 07/11/18 09:10 07/11/18 09:10 Assessment and Plan Assessment: Assessment: Acute intractable low back pain L2 compression fracture deformity Status post fall Atrial fibrillation with RVR Hypotension Supratherapeutic INR Urinary tract infection History of stroke at age 25 History of chronic atrial fibrillation, systolic congestive heart failure, hypertension, and history of aortic valve replacement (1) Acute low back pain due to trauma Current Visit: Yes Status: Acute Code(s): M54.5 - LOW BACK PAIN; G89.11 - ACUTE PAIN DUE TO TRAUMA SNOMED Code(s): 329591116 (2) Status post fall Current Visit: Yes Status: Acute Code(s): Z91.81 - HISTORY OF FALLING SNOMED Code(s): 613449015 (3) Traumatic compression fracture of L2 vertebra Current Visit: Yes Status: Acute Code(s): S32.020A - W[place]GE COMPRESSION FRACTURE OF SECOND LUMBAR VERTEBRA, INIT SNOMED Code(s): 714199736 (4) Atrial fibrillation with RVR Current Visit: Yes Status: Acute Code(s): I48.91 - UNSPECIFIED ATRIAL FIBRILLATION SNOMED Code(s): 912394473625514 (5) Supratherapeutic INR Current Visit: Yes Status: Acute Code(s): R79.1 - ABNORMAL COAGULATION P ROFILE SNOMED Code(s): 850622149 (6) CHF (congestive heart failure) Current Visit: No Status: Acute Code(s): I50.9 - HEART FAILURE, UNSPECIFIED SNOMED Code(s): 91831108 (7) Hypotension Current Visit: No Status: Acute Code(s): I95.9 - HYPOTENSION, UNSPECIFIED SNOMED Code(s): 05838234 (8) Urinary tract infection Current Visit: Yes Status: Acute Code(s): N39.0 - URINARY TRACT INFECTION, SITE NOT SPECIFIED SNOMED Code(s): 66334390 (9) History of stroke Current Visit: Yes Status: Acute Code(s): Z86.73 - PRSNL HX OF TIA (TIA), AND CEREB INFRC W/O RESID DEFICITS SNOMED Code(s): 082044797 Plan: Plan: 1. After physical examination of the patient, reviewing of the imaging, and further discussion with the patient, will currently planned to continue with conservative treatment at this time in regards to his lumbar spine for his L2 compression fracture deformity. At this time we'll plan for bracing. A prescription has been written and provided to case management for an Exos LSO brace. Once this brace is delivered and fitted appropriately, patient should wear this brace while sitting upright at greater than 45, during increase activities, during ambulation. Brace is not have to or while lying in bed or while bathing. Following fitting of this brace, patient is clear for discharge from an orthopedic spine standpoint. Following discharge, patient may follow-up with Carlos Menchaca PA-C or Dr. Yoandy Hanna at [facility] in approximately 2-3 weeks for further evaluation. 2. Patient will continue to be seen and examined by other multiple medical providers including medicine, cardiology and pulmonology his other significant medical diagnoses Time with Patient: Greater than 30 (Including obtaining history, physical examination, reviewing of imaging, and dictation.)
[2018-07-12] MEDS: NOREPINEPHRINE 4 MG in SODIUM CHLORIDE 0.9% 250 ML IV SCH ×3 (05:35→21:07)
[2018-07-12 05:42] LABS: HCT 49.8 % (39.0-53.0); Hypochromasia Marked; MCH 31.3 pg (25.0-35.0); MCHC 30.1 g/dL (31.0-37.0); MCV 104.1 fL (80.0-100.0); Macrocytosis Slight; Mean Platelet Volume 8.2; Platelet Count 168 k/uL (150-450); RBC 4.78 m/uL (4.30-5.90); WBC 5.5 k/uL (3.8-10.6)
[2018-07-12 05:50] LABS: INR 4.5 (<1.2); Prothrombin Time 43.7 sec (9.0-12.0)
[2018-07-12 06:01] LABS: Calcium 9.4 mg/dL (8.4-10.2); Magnesium 1.8 mg/dL (1.6-2.3); Phosphorus 3.7 mg/dL (2.5-4.5); Potassium 4.7 mmol/L (3.5-5.1)
--- NOTE | 2018-07-12 07:06 | CONS ---
DATE OF CONSULTATION: 07/11/2018 This is a 58-year-old gentleman who came to the emergency room with abdominal pain mostly in the left lower quadrant. The patient had a complete workup including x-ray of abdomen which shows no evidence of bowel obstruction. CT scan of the abdomen showed there is some abdominal cavity fluid, but air. The patient has no nausea or vomiting. MEDICAL HISTORY: History of atrial fibrillation, hypertension, history of LA in the past at the age of 19. PERSONAL HISTORY: Smoker on daily basis. I was consulted for the patient has incidental finding of right common femoral artery occlusion. PHYSICAL EXAMINATION: On examination, patient was seen in his room. NECK: Supple. CHEST: Clear on auscultation. ABDOMEN: Bowel sounds are present. Mild discomfort noted in the left lower quadrant. VASCULAR EXAMINATION: Brachial and radial pulses are present. Femorals are 2+ on the left side. Right side femoral not palpable. Patient has no ischemic ulceration noted on the lower extremity. No venous stasis ulcer. IMPRESSION: Right common femoral artery chronic occlusion. At this point, patient is asymptomatic from vascular point of view. Due to the incidental finding, the patient will need an outpatient workup for vascular evaluation. The patient will be re-evaluated for peripheral vascular disease when patient is stable from medical point of view. MMODL / IJN: [id number] / MTDD
--- NOTE | 2018-07-12 08:06 | XR ---
EXAMINATION TYPE: XR chest 1V portable DATE OF EXAM: 07/12/2018 COMPARISON: Prior chest x-ray 07/11/2018 HISTORY: Abnormal physical exam, adventitious lung sounds TECHNIQUE: Single frontal view of the chest is obtained. FINDINGS: There is developing bilateral airspace disease, interstitium remains increased. Heart is e nlarged. Thickening of the minor fissure has developed. No pneumothorax. Patient is post median avila otomy. IMPRESSION: Correlate for congestive heart failure, worsening volume status.
[2018-07-12] MEDS: HYDROCORTISONE SUCCINATE 100 MG/2 ML VIAL IV SCH ×2 (08:31→16:15)
[2018-07-12] MEDS ORDERED: ASPIRIN 325 MG TAB PO SCH (09:00)
[2018-07-12] MEDS: FUROSEMIDE 10 MG/ML 4 ML VIAL IV SCH ×2 (10:04→16:15)
--- NOTE | 2018-07-12 10:46 | P.PN ---
Progress Note - Text Progress Note Date: 07/12/18 Patient is seen and examined today at bedside. He is back intensive care unit for his rapid ventricular response with atrial fibrillation. He is able to confer some follow commands he states that he is still having somewhat of a chronically feeling in his legs and some soreness at his lower dennis k. He has not been using his brace thus far. He denies any new pains. He is on intensive care with monitoring and his pulses is approximately 130 with rapid ventricular response His back is nontender to palpation. There is no open wounds lacerations or abrasions. Lower extremities have sustained dorsal/plan flexion and EHL hip flexion and extension his calves are soft and nontender L2 compression fracture Atrial fibrillation with rapid ventricular response Physical history of CVA Patient's continue his medical management. In terms of his L2 compression fracture we have ordered an LSO brace for him. He is not having significant changes in his neurologic exam in his lower extremities and we do not plan any surgical intervention. It is okay for him to mobilize with the brace on but he may remove it when he is less than 45 her in bed or while bathing. From a orthopedic spine standpoint its okay for him to follow up on an outpatient basis once he has his brace intact. He will continue his management for his multiple medical issues.
--- NOTE | 2018-07-12 11:55 | P.PN ---
Subjective Progress Note Date: 07/12/18 Principal diagnosis: Atrial fibrillation with RVR and hypotension This is a 58-year-old white male with history of multiple medical problems, patient is a very poor historian, most of the information was obtained from the chart. Patient is known to have history of aortic valve replacement, chronic atrial fibrillation, systolic congestive heart failure, and hypertension. Claudia meng presented to the ER with 2 days history of left lower abdominal and flank pain. Pain was described as severe and not associated with any nausea vomiting melena or hematemesis. Patient again is a very poor historian, apparently had previous history of anoxic encephalopathy and upon presentation to the ER he was found to be in atrial fibrillation with RVR he was also hypotensive. Considering his history of congestive heart failure, patient was given gently fluid boluses, and he was hydrated cautiously. His chest x-ray did show evidence of mild interstitial edema on presentation. Patient was admitted to the cardiac floor, and he was placed on amiodarone for his atrial fibrillation and RVR. Seen by cardiology this afternoon, and he was noted to be hypotensive with blood pressure around 80 systolic. His atrial fibrillation was controlled and heart rate was in the high 70s. Considering the low blood pressure patient was transferred to the ICU for norepinephrine infusion, and shortly after I saw him I recommended another 500 mL of fluid bolus. I agree fully with the transfer plans to the ICU. Since this admission, the patient was noted to have elevated INR, apparently his Coumadin is supratherapeutic. CT of the abdomen and pelvis showed L2 compression fracture and hepatosplenomegaly. There was also evidence of elevated bilirubin apparently chronic in nature. [place] to be related to his hepatic congestion from congestive heart failure. His urinalysis was suggestive of possible UTI and the patient was given Rocephin. Renal functioning was abnormal and his creatinine was 1.48. On follow-up his creatinine came down to 1.36. His INR came down to 6.7. Again there was no evidence of bleeding clinically. Repeat chest x-ray this morning showed mild interstitial edema and small effusions with bibasilar atelectasis. Reevaluated today on 07/12/2018, remains in the ICU, presently on norepinephrine, small dose to maintain adequate blood pressure, remains on amiodarone, and he is on 5 L nasal cannula with O2 saturation of 95%. Patient is confused which is usually his baseline. His heart rate remains in atrial fibrillation with a rate ranging between 130 and 140, that is being addressed by cardiology. Chest x-ray is showing worsening interstitial edema, hence the Lasix dose was increased. Clearly there is worsening volume status compared to yesterday. Patient is on Lasix at 40 mg IV push every 8 hours, he is also on Aldactone 25 mg by mouth twice a day. Patient did receive fluid boluses yesterday for hypotension. Presently IV fluid is at KVO. Objective - Vital Signs Vital signs: Vital Signs Temp 96.5 F L 07/12/18 08:00 Pulse 116 H 07/12/18 11:00 Resp 19 07/12/18 11:00 BP 96/73 07/12/18 11:00 Pulse Ox 95 07/12/18 11:00 Intake & Output 07/11/18 07/12/18 07/12/18 18:59 06:59 18:59 Intake Total 978.332 691.083 600 Output Total 522 1080 725 Balance 456.332 -388.917 -125 Weight 93.3 kg 97.3 kg Intake: IV 40 260 100 .9 20 40 260 100 Intake, IV Titration 818.332 431.083 Amount Amiodarone 300 mg In 150 177.083 Dextrose 5% in Water 250 ml @ 0.5 MG/MIN 25 mls/hr IV .Q10H [facility] Rx#: [id number] Amiodarone 360 mg In 118.332 Dextrose 5% in Water 200 ml @ 1 MG/MIN 33.333 mls/ hr IV .Q6H [facility] Rx#: [id number] Norepinephrine 4 mg In 254.000 Sodium Chloride 0.9% 250 ml @ 0.05 MCG/KG/MIN 17. 774 mls/hr IV .[id number] [facility] Rx#:[id number] Sodium Chloride 0.9% 500 500 ml 500 ml @ 999 mls/hr IV .Q31M [facility] Rx#:[id number] cefTRIAXone 1 gm In 50 Sodium Chloride 0.9% 50 ml @ 100 mls/hr IVPB Q24H [facility] Rx#:[id number] Oral 120 500 Output: Urine 522 1080 725 Uretheral (Almanza) 45 0 Other: Voiding Method Indwelling Catheter Indwelling Catheter Indwelling Catheter # Voids 1 # Bowel Movements 1 - Exam General: Revealed a 58-year-old white male, confused, in no distress. Confused. HEENT: PERRLA, EOMI, positive icterus, no neck masses, no JVD, moist mucous membranes. No stridor. Cardiovascular: Irregular irregular rhythm, 2/6 systolic murmur thought the precordium. Chest: Diminished breath sounds at the bases, crackles at the bases bilaterally. No wheezes. Symmetrical chest expansion. Abdomen: Soft nontender no megaly no rebound no guarding, positive bowel sounds Extremities:: No clubbing edema or cyanosis. Good distal pulses bilaterally. Musculoskeletal: Normal range of motion, no deformities noted. Skin: No rashes. No cyanosis. Normal tone and texture normal turgor. Lymphatics: No lymphadenopathy. Neurologic: Confused, known history of anoxic brain injury. - Labs CBC & Chem 7: 07/12/18 05:10 07/12/18 05:10 Labs: Abnormal Lab Results - Last 24 Hours (Table) 07/12/18 07/12/18 07/12/18 Range/Units 05:10 05:10 05:10 MCV 104.1 H (80.0-100.0) fL MCHC 30.1 L (31.0-37.0) g/dL PT 43.7 H (9.0-12.0) sec INR 4.5 H (<1.2) Carbon Dioxide 21 L (22-30) mmol/L BUN 27 H (9-20) mg/dL Creatinine 1.60 H (0.66-1.25) mg/dL Glucose 131 H (74-99) mg/dL HDL Cholesterol 39 L (40-60) mg/dL Microbiology - Last 24 Hours (Table) 07/10/18 16:45 Urine Culture - Final Urine,Voided Assessment and Plan Assessment: Impression: 1 atrial fibrillation with RVR and hypotension, remains on amiodarone, and presently on norepinephrine. 2 atrial fibrillation with RVR 3 possible urinary tract infection, strongly doubt sepsis. 4 history of aortic valve replacement. Patient has a mechanical valve and maintained on anticoagulation therapy 5 history of anoxic brain injury and encephalopathy 6 chronic systolic congestive heart failure Recommendation: Continue amiodarone, norepinephrine, diuretics, Solu-Cortef, patient is now on Lasix and Aldactone, titrate norepinephrine to maintain adequate blood pressure with a mean of 65, continue empiric Rocephin, patient will remain in the ICU, no plans to transfer out of the ICU at this point. We'll continue to follow Time with Patient: Less than 30
[2018-07-12] MEDS: DIGOXIN 250 MCG/ML 2 ML AMP IVP SCH ×2 (11:56→20:46)
[2018-07-12] MEDS: AMIODARONE 300 MG in DEXTROSE 5% IN WATER 250 ML IV SCH ×4 (12:15→17:36)
--- NOTE | 2018-07-12 12:48 | PN ---
PROGRESS NOTE Mr. Robles is a 58-year-old gentleman who has a known history of aortic valve replacement and mitral valvuloplasty. The patient has been doing better since yesterday. Patient is on a small dose of Levophed. Chest x-ray still shows evidence of congestive cardiac failure. The patient's heart rate is in the range of 100 to 120, blood pressure is 96/73 mmHg. First and second heart sounds are heard. Lungs reveal bilateral basal rales. Chest x-ray suggestive of congestive cardiac failure. PLAN: We will add Aldactone 25 mg b.i.d. and continue the Lasix 40 mg IV q.8 hourly. Patient's INR is 4.5 and patient will receive IV digoxin for rate control. MMPASCUAL / ELLIEN: [id number] /
[2018-07-12] MEDS ORDERED: LORazepam 2 MG/ML INJ ONE (17:09)
[2018-07-12] MEDS ORDERED: TERBUTALINE 1 MG/ML VIAL SQ ONE (17:11)
--- NOTE | 2018-07-12 17:53 | P.PN ---
Subjective Progress Note Date: 07/12/18 The patient was seen and examined at the bedside. The patient complained of pain in both his arms due to the phlebotomy draws along with back pain. He denied fever, chills, chest pain, or SOB. Objective - Vital Signs Vital signs: Vital Signs Temp 98.1 F 07/12/18 16:00 Pulse 126 H 07/12/18 16:00 Resp 18 07/12/18 16:00 BP 107/95 07/12/18 16:00 Pulse Ox 95 07/12/18 16:00 Intake & Output 07/11/18 07/12/18 07/12/18 18:59 06:59 18:59 Intake Total 978.332 853.392 9608.155 Output Total 522 1080 1325 Balance 456.332 -388.917 -42.845 Weight 93.3 kg 97.3 kg Intake: IV 40 260 200 .9 20 40 260 200 Intake, IV Titration 818.332 431.083 432.155 Amount Amiodarone 300 mg In 150 177.083 Dextrose 5% in Water 250 ml @ 0.5 MG/MIN 25 mls/hr IV .Q10H [facility] Rx#: [id number] Amiodarone 300 mg In 178.155 Dextrose 5% in Water 250 ml @ 1 MG/MIN 50 mls/hr IV .Q5H [facility] Rx#:[id number] Amiodarone 360 mg In 118.332 Dextrose 5% in Water 200 ml @ 1 MG/MIN 33.333 mls/ hr IV .Q6H [facility] Rx#: [id number] Norepinephrine 4 mg In 254.000 254 Sodium Chloride 0.9% 250 ml @ 0.05 MCG/KG/MIN 17. 774 mls/hr IV .[id number] [facility] Rx#:[id number] Sodium Chloride 0.9% 500 500 ml 500 ml @ 999 mls/hr IV .Q31M [facility] Rx#:[id number] cefTRIAXone 1 gm In 50 Sodium Chloride 0.9% 50 ml @ 100 mls/hr IVPB Q24H [facility] Rx#:[id number] Oral 120 650 Output: Urine 522 1080 1325 Uretheral (Almanza) 45 0 Other: Voiding Method Indwelling Catheter Indwelling Catheter Indwelling Catheter # Voids 1 # Bowel Movements 1 - Exam General: Non-toxic, in no acute distress, appears older than stated age, overweight HEENT: NC/AT, anicteric sclerae, moist conjunctiva, no lid-lag, PERRLA Cardiovascular: Irregularly irregular, no murmurs, rubs, or gallops Lungs: Bibasilar rales w/ decreased air entry jennifer, normal respiratory effort, no accessory muscle use Abdominal: Soft, non-tender, non-distended, no guarding, rebound, or rigidity Skin: Warm, dry Extremities: No edema or contractures Psychiatric: Alert and oriented to person, place and time, appropriate affect Neuro: Moving all extremities, no focal deficits - Labs CBC & Chem 7: 07/12/18 05:10 07/12/18 05:10 Labs: Abnormal Lab Results - Last 24 Hours (Table) 07/12/18 07/12/18 07/12/18 Range/Units 05:10 05:10 05:10 MCV 104.1 H (80.0-100.0) fL MCHC 30.1 L (31.0-37.0) g/dL PT 43.7 H (9.0-12.0) sec INR 4.5 H (<1.2) Carbon Dioxide 21 L (22-30) mmol/L BUN 27 H (9-20) mg/dL Creatinine 1.60 H (0.66-1.25) mg/dL Glucose 131 H (74-99) mg/dL HDL Cholesterol 39 L (40-60) mg/dL Microbiology - Last 24 Hours (Table) 07/10/18 16:45 Urine Culture - Final Urine,Voided Assessment and Plan Plan: Acute on chronic systolic CHF -Cardiology recs appreciated -C/w Lasix 40 mg IV q8h -Started on Aldactone 25 mg bid A-fib w/ RVR -As per Cardiology. Patient currently on Amiodarone infusion and started on Digoxin Supratherapeutic INR -INR 4.5 today -Monitor for now UTI -C/w Ceftriaxone Hypotension -Currently on Levophed -Good urine output -C/w Hydrocortisone 100 mg q8h L2 Compression fracture -Brace in place CKD -Monitor BMP
[2018-07-12] MEDS: ATORVASTATIN 10 MG TAB PO SCH (20:46)
[2018-07-12] MEDS: SPIRONOLACTONE 25 MG TAB PO SCH (20:46)
--- NOTE | 2018-07-12 21:11 | PCN ---
PROCEDURE NOTE OPERATIVE REPORT: Placement of right femoral triple-lumen catheter. This was done emergently. PREOPERATIVE DIAGNOSIS: Hypotension. The patient is on norepinephrine, and the norepinephrine infiltrated via peripheral line and no peripheral access or central access. POSTOPERATIVE DIAGNOSES: Hypotension and atrial fibrillation with RVR. ANESTHESIA USED: 2 mL of 1% lidocaine. PROCEDURE DESCRIPTION: The patient was placed in a supine position, right groin was prepared in a sterile fashion and drapes were applied. The right groin was locally anesthetized with lidocaine. Then, the right femoral vein was cannulated easily, and a guidewire was placed. The area around the guidewire was dilated with a dilator. Then a triple-lumen catheter was inserted over the guidewire, and the guidewire was removed. Good blood flow was noted in the 3 different ports of the triple-lumen catheter. The procedure was well tolerated and no evidence of any immediate complications. MMODL / IJN: [id number] /
--- NOTE | 2018-07-12 21:17 | PCN ---
PROCEDURE NOTE OPERATIVE REPORT: Emergency placement of the right radial arterial line. PREOPERATIVE DIAGNOSIS: Hypotension, atrial fibrillation with RVR, patient is on multiple drips. POSTOPERATIVE DIAGNOSIS: Hypotension, atrial fibrillation with RVR, patient is on multiple drips. ANESTHESIA: None deployed. PROCEDURE DESCRIPTION: The patient was placed in a supine position, the right hand was placed on a table, and the right wrist was prepared in a sterile fashion and drapes were applied. The right radial artery was palpated, cannulated, and a guidewire was placed. A Cook catheter was inserted over the guidewire, and the guidewire was removed. Good blood flow and good waveform noted, and no evidence of any immediate complications. Line was secured using 3.0 silk sutures. MMODL / IJN: [id number] /
[2018-07-13] MEDS: HYDROCORTISONE SUCCINATE 100 MG/2 ML VIAL IV SCH ×3 (00:18→15:54)
[2018-07-13] MEDS: FUROSEMIDE 10 MG/ML 4 ML VIAL IV SCH ×4 (00:18→15:54)
[2018-07-13] MEDS: AMIODARONE 300 MG in DEXTROSE 5% IN WATER 250 ML IV SCH ×8 (00:21→19:09)
[2018-07-13 05:16] LABS: HCT 43.8 % (39.0-53.0); HGB 13.6 gm/dL (13.0-17.5); Hypochromasia Moderate; MCH 31.3 pg (25.0-35.0); MCHC 31.2 g/dL (31.0-37.0); MCV 100.5 fL (80.0-100.0); Macrocytosis Slight; Mean Platelet Volume 7.7; Platelet Count 159 k/uL (150-450); RBC 4.36 m/uL (4.30-5.90); RDW 14.7 % (11.5-15.5)
[2018-07-13 05:34] LABS: Prothrombin Time 53.4 sec (9.0-12.0)
[2018-07-13 05:40] LABS: Calcium 8.7 mg/dL (8.4-10.2); Magnesium 1.6 mg/dL (1.6-2.3); Potassium 3.7 mmol/L (3.5-5.1)
[2018-07-13 05:41] LABS: INR 5.5 (<1.2)
[2018-07-13] MEDS ORDERED: Magnesium Replacement Protocol 1 EACH MISC MISCELLANE PRN (06:10)
[2018-07-13] MEDS ORDERED: Potassium Replacement Protocol 1 EACH MISC MISCELLANE PRN (06:10)
[2018-07-13] MEDS ORDERED: POTASSIUM CHLORIDE ER 20 MEQ TAB.ER PO SCH (08:00)
[2018-07-13] MEDS: MAGNESIUM SULFATE-D5W PMX 1 GM in DEXTROSE/WATER 1 100ML.BAG IVPB SCH ×2 (08:20→09:53)
[2018-07-13] MEDS: DIGOXIN 250 MCG/ML 2 ML AMP IVP SCH (08:21)
[2018-07-13] MEDS: SPIRONOLACTONE 25 MG TAB PO SCH ×2 (08:21→21:44)
[2018-07-13] MEDS: NOREPINEPHRINE 4 MG in SODIUM CHLORIDE 0.9% 250 ML IV SCH (09:53)
--- NOTE | 2018-07-13 11:56 | P.PN ---
Subjective Progress Note Date: 07/13/18 Principal diagnosis: Atrial fibrillation with RVR and hypotension This is a 58-year-old white male with history of multiple medical problems, patient is a very poor historian, most of the information was obtained from the chart. Patient is known to have history of aortic valve replacement, chronic atrial fibrillation, systolic congestive heart failure, and hypertension. Claudia meng presented to the ER with 2 days history of left lower abdominal and flank pain. Pain was described as severe and not associated with any nausea vomiting melena or hematemesis. Patient again is a very poor historian, apparently had previous history of anoxic encephalopathy and upon presentation to the ER he was found to be in atrial fibrillation with RVR he was also hypotensive. Considering his history of congestive heart failure, patient was given gently fluid boluses, and he was hydrated cautiously. His chest x-ray did show evidence of mild interstitial edema on presentation. Patient was admitted to the cardiac floor, and he was placed on amiodarone for his atrial fibrillation and RVR. Seen by cardiology this afternoon, and he was noted to be hypotensive with blood pressure around 80 systolic. His atrial fibrillation was controlled and heart rate was in the high 70s. Considering the low blood pressure patient was transferred to the ICU for norepinephrine infusion, and shortly after I saw him I recommended another 500 mL of fluid bolus. I agree fully with the transfer plans to the ICU. Since this admission, the patient was noted to have elevated INR, apparently his Coumadin is supratherapeutic. CT of the abdomen and pelvis showed L2 compression fracture and hepatosplenomegaly. There was also evidence of elevated bilirubin apparently chronic in nature. [place] to be related to his hepatic congestion from congestive heart failure. His urinalysis was suggestive of possible UTI and the patient was given Rocephin. Renal functioning was abnormal and his creatinine was 1.48. On follow-up his creatinine came down to 1.36. His INR came down to 6.7. Again there was no evidence of bleeding clinically. Repeat chest x-ray this morning showed mild interstitial edema and small effusions with bibasilar atelectasis. Reevaluated today on 07/12/2018, remains in the ICU, presently on norepinephrine, small dose to maintain adequate blood pressure, remains on amiodarone, and he is on 5 L nasal cannula with O2 saturation of 95%. Patient is confused which is usually his baseline. His heart rate remains in atrial fibrillation with a rate ranging between 130 and 140, that is being addressed by cardiology. Chest x-ray is showing worsening interstitial edema, hence the Lasix dose was increased. Clearly there is worsening volume status compared to yesterday. Patient is on Lasix at 40 mg IV push every 8 hours, he is also on Aldactone 25 mg by mouth twice a day. Patient did receive fluid boluses yesterday for hypotension. Presently IV fluid is at KVO. Reevaluated today on 07/13/2018, patient remains in the ICU, remains on amiodarone drip, norepinephrine drip, his norepinephrine is at 0.04 mcg/kg/m, advised the nurses to titrate down to maintain a mean arterial pressure of 65 at best. Patient remains in atrial fibrillation with RVR, and that is being addressed by cardiology. Chest x-ray continues to show interstitial edema, patient remains on diuretics. His INR remains elevated at 5.5. Renal functioning is improving creatinine is down to 1.34. WBC count is 15 hemoglobin is 13.6. Patient denies being short of breath, however complaining about his Almanza catheter with burning sensation from the Almanza catheter. Objective - Vital Signs Vital signs: Vital Signs Temp 97.1 F L 07/13/18 08:00 Pulse 101 H 07/13/18 11:00 Resp 16 07/13/18 11:00 BP 94/71 07/13/18 08:00 Pulse Ox 92 L 07/13/18 11:00 Intake & Output 07/12/18 07/13/18 07/13/18 18:59 06:59 18:59 Intake Total 1572.155 875.108 801.537 Output Total 1725 2275 885 Balance -152.845 -1399.892 -83.463 Weight 94.7 kg Intake: IV 240 240 280 .9 20 240 240 80 Magnesium Sulfate-D5w Pmx 200 1 gm In Dextrose/Water 1 100ml.bag @ 100 mls/hr IVPB Q1H [facility] Rx#: [id number] Intake, IV Titration 432.155 395.108 271.537 Amount Amiodarone 300 mg In 178.155 224.775 Dextrose 5% in Water 250 ml @ 1 MG/MIN 50 mls/hr IV .Q5H [facility] Rx#:[id number] Norepinephrine 4 mg In 254 170.333 271.537 Sodium Chloride 0.9% 250 ml @ 0.05 MCG/KG/MIN 17. 774 mls/hr IV .[id number] [facility] Rx#:[id number] Oral 900 240 250 Output: Urine 1725 0545 885 Other: Voiding Method Indwelling Catheter Indwelling Catheter Indwelling Catheter # Bowel Movements 1 ABP, PAP, CO, CI - Last Documented Arterial Blood Pressure 98/57 - Exam General: Revealed a 58-year-old white male, confused, in no distress. HEENT: PERRLA, EOMI, positive icterus, no neck masses, no JVD, moist mucous membranes. No stridor. Cardiovascular: Irregular irregular rhythm, 2/6 systolic murmur thought the precordium. Chest: Diminished breath sounds at the bases, crackles at the bases bilaterally. No wheezes. Symmetrical chest expansion. Abdomen: Soft nontender no megaly no rebound no guarding, positive bowel sounds Extremities:: No clubbing edema or cyanosis. Good distal pulses bilaterally. Musculoskeletal: Normal range of motion, no deformities noted. Skin: No rashes. No cyanosis. Normal tone and texture normal turgor. Lymphatics: No lymphadenopathy. Neurologic: Confused, known history of anoxic brain injury. Patient has garbled speech. Difficult to understand. - Labs CBC & Chem 7: 07/13/18 04:45 07/13/18 04:45 Labs: Abnormal Lab Results - Last 24 Hours (Table) 07/13/18 07/13/18 07/13/18 Range/Units 04:45 04:45 04:45 WBC 15.0 H (3.8-10.6) k/uL MCV 100.5 H (80.0-100.0) fL PT 53.4 H (9.0-12.0) sec INR 5.5 H* (<1.2) Sodium 136 L (137-145) mmol/L BUN 31 H (9-20) mg/dL Creatinine 1.34 H (0.66-1.25) mg/dL Glucose 142 H (74-99) mg/dL Microbiology - Last 24 Hours (Table) 07/10/18 16:45 Urine Culture - Preliminary Urine,Voided Assessment and Plan Assessment: Impression: 1 atrial fibrillation with RVR and hypotension, remains on amiodarone, and norepinephrine. 2 atrial fibrillation with RVR 3 possible urinary tract infection, strongly doubt sepsis. 4 history of aortic valve replacement. Patient has a mechanical valve and maint ained on anticoagulation therapy 5 history of anoxic brain injury and encephalopathy 6 chronic systolic congestive heart failure Recommendation: Continue present treatment plan including norepinephrine, amiodarone, diuretics, cut down the Solu-Cortef, continue diuretics including Lasix and Aldactone, continue Rocephin empirically, clearly the patient needs to remain in the ICU, no plans to transfer the patient out of the ICU anytime soon. Prognosis remains extremely poor and guarded. Time with Patient: Less than 30
--- NOTE | 2018-07-13 13:57 | PN ---
PROGRESS NOTE This patient was admitted with the hypotension, shortness of breath. Patient has evidence of congestive cardiac failure. He is feeling better and comfortable. Denies any abdominal pain or back pain. The blood pressure is 98/58 mmHg, heart rate is 100 to 110 per minute. First and second heart sounds are heard. Lungs examination reveals bilateral few basal rales. Patient's urine output is about 1200 to 1600 mL per shift and has lost 3 kg of the weight. We will continue the patient on the IV Lasix and switch him to the p.o. amiodarone. Repeat the chest x-ray tomorrow morning. MMODL / IJN: [id number] /
--- NOTE | 2018-07-13 14:34 | ECHOF ---
Referral Reason:CHF/Afib MEASUREMENTS -------- HEIGHT: 177.8 cm WEIGHT: 99.8 kg BP: RVIDd: 5.7 cm (< 3.3) IVSd: 1.2 cm (0.6 - 1.1) LVIDd: 4.5 cm (3.9 - 5.3) LVPWd: 1.1 cm (0.6 - 1.1) IVSs: 1.2 cm LVIDs: 4.4 cm LVPWs: 1.4 cm LAESV Index (A-L): 84.93 ml/m EPSS: 1.0 cm AV maxP.81 mmHg AV meanP.59 mmHg RAP: 20.00 mmHg RVSP: 41.17 mmHg MV EF SLOPE: 37.87 mm/s (70 - 150) MV EXCURSION: 1.44 cm (> 18.000) FINDINGS -------- Atrial fibrillation. This was a technically difficult study with suboptimal views. The left ventricular size is normal. Left ventricular wall thickness is normal. There is paradoxi victoria/dysynergic septal motion consistent with right ventricular volume overload and/or elevated right ventricular end-diastolic pressure. Can not estimate EF The right ventricle is severely enlarged. Left atrium is severely dilated by volume. The right atrium is markedly enlarged. Lumason used Aneurysmal septum Peak/mean gradient across the valve is 20.81mmHg / 11.59mmHg. Normally functioning mechanical prost hetic valve. Mild mitral regurgitation is present. There is mild mitral valve prolapse , predominately an anteri gricelda directed jet. MV repair Severe tricuspid regurgitation present. There is mild pulmonary hypertension. The right ventricul ar systolic pressure, as measured by Doppler, is 41.17mmHg. There is no pulmonic regurgitation present. The aortic root size is normal. The inferior vena cava was not well visualized. There is no pericardial effusion. CONCLUSIONS -------- 1. Atrial fibrillation. 2. This was a technically difficult study with suboptimal views. 3. The left ventricular size is normal. 4. Left ventricular wall thickness is normal. 5. There is paradoxical/dysynergic septal motion consistent with right ventricular volume overload an d/or elevated right ventricular end-diastolic pressure. 6. Can not estimate EF 7. The right ventricle is severely enlarged. 8. Left atrium is severely dilated by volume. 9. The right atrium is markedly enlarged. 10. Lumason used 11. Aneurysmal septum 12. Peak/mean gradient across the valve is 20.81mmHg / 11.59mmHg. 13. Normally functioning mechanical prosthetic valve. 14. Mild mitral regurgitation is present. 15. There is mild mitral valve prolapse. 16. , predominately an anteriorly directed jet. 17. MV repair 18. Severe tricuspid regurgitation present. 19. There is mild pulmonary hypertension. 20. The right ventricular systolic pressure, as measured by Doppler, is 41.17mmHg. 21. There is no pulmonic regurgitation present. 22. The aortic root size is normal. 23. The inferior vena cava was not well visualized. 24. There is no pericardial effusion. TOE SEWER: Cha Cotton RDCS
[2018-07-13] MEDS: AMIODARONE 200 MG TAB PO SCH ×2 (15:17→21:44)
[2018-07-13] MEDS: Acetaminophen-Codeine 300-30mg TAB PO PRN (16:36)
--- NOTE | 2018-07-13 17:08 | P.PN ---
Subjective Progress Note Date: 07/13/18 The patient was seen and examined at the bedside on 07/13/18. The patient endorsed ongoing lower back pain but otherwise denied fever, chills, chest pain, shortness of breath. He further denied nausea, vomiting. Objective - Vital Signs Vital signs: Vital Signs Temp 98.1 F 07/13/18 16:00 Pulse 133 H 07/13/18 16:00 Resp 28 H 07/13/18 16:00 BP 94/71 07/13/18 08:00 Pulse Ox 94 L 07/13/18 16:00 Intake & Output 07/12/18 07/13/18 07/13/18 18:59 06:59 18:59 Intake Total 1572.155 875.108 944.135 Output Total 1725 2275 1575 Balance -152.845 -1399.892 -630.865 Weight 94.7 kg 94.7 kg Intake: IV 240 240 380 .9 20 240 240 180 Magnesium Sulfate-D5w Pmx 200 1 gm In Dextrose/Water 1 100ml.bag @ 100 mls/hr IVPB Q1H [facility] Rx#: [id number] Intake, IV Titration 432.155 395.108 314.135 Amount Amiodarone 300 mg In 178.155 224.775 Dextrose 5% in Water 250 ml @ 1 MG/MIN 50 mls/hr IV .Q5H [facility] Rx#:[id number] Norepinephrine 4 mg In 254 170.333 314.135 Sodium Chloride 0.9% 250 ml @ 0.05 MCG/KG/MIN 17. 774 mls/hr IV .[id number] [facility] Rx#:[id number] Oral 900 240 250 Output: Urine 1725 2275 1575 Other: Voiding Method Indwelling Catheter Indwelling Catheter Indwelling Catheter # Voids 1 # Bowel Movements 1 ABP, PAP, CO, CI - Last Documented Arterial Blood Pressure 103/59 - Exam General: Non-toxic, in no acute distress, appears older than stated age, overweight HEENT: NC/AT, anicteric sclerae, moist conjunctiva, no lid-lag, PERRLA Cardiovascular: Irregularly irregular, no murmurs, rubs, or gallops Lungs: Bibasilar rales w/ decreased air entry jennifer, normal respiratory effort, no accessory muscle use Abdominal: Soft, non-tender, non-distended, no guarding, rebound, or rigidity Skin: Warm, dry Extremities: No edema or contractures Psychiatric: Alert and oriented to person and place, not fully oriented to time, appropriate affect Neuro: Moving all extremities, no focal deficits - Labs CBC & Chem 7: 07/13/18 04:45 07/13/18 04:45 Labs: Abnormal Lab Results - Last 24 Hours (Table) 07/13/18 07/13/18 07/13/18 Range/Units 04:45 04:45 04:45 WBC 15.0 H (3.8-10.6) k/uL MCV 100.5 H (80.0-100.0) fL PT 53.4 H (9.0-12.0) sec INR 5.5 H* (<1.2) Sodium 136 L (137-145) mmol/L BUN 31 H (9-20) mg/dL Creatinine 1.34 H (0.66-1.25) mg/dL Glucose 142 H (74-99) mg/dL Microbiology - Last 24 Hours (Table) 07/10/18 16:45 Urine Culture - Preliminary Urine,Voided Assessment and Plan Plan: Acute on chronic systolic CHF -Cardiology recs appreciated -C/w Lasix 40 mg IV q8h and Aldactone 25 mg bid A-fib w/ RVR -As per Cardiology. Patient on Amiodarone and Digoxin Supratherapeutic INR -INR increased to 5.5 today. Will defer to cardiology regarding reversal UTI -C/w Ceftriaxone Hypotension, improved -Good urine output -C/w Hydrocortisone 100 mg q8h L2 Compression fracture -Brace in place CKD -Monitor BMP
[2018-07-13] MEDS: POTASSIUM CHLORIDE ER 20 MEQ TAB.ER PO SCH ×2 (18:17→21:44)
[2018-07-13] MEDS: ATORVASTATIN 10 MG TAB PO SCH (21:44)
[2018-07-14] MEDS: FUROSEMIDE 10 MG/ML 4 ML VIAL IV SCH ×2 (02:10→08:14)
[2018-07-14] MEDS: HYDROCORTISONE SUCCINATE 100 MG/2 ML VIAL IV SCH ×3 (02:10→17:09)
[2018-07-14] MEDS: AMIODARONE 300 MG in DEXTROSE 5% IN WATER 250 ML IV SCH ×2 (02:37)
[2018-07-14 05:42] LABS: HCT 44.4 % (39.0-53.0); HGB 13.5 gm/dL (13.0-17.5); Hypochromasia Moderate; MCH 30.8 pg (25.0-35.0); MCHC 30.3 g/dL (31.0-37.0); MCV 101.5 fL (80.0-100.0); Macrocytosis Slight; Mean Platelet Volume 7.4; Platelet Count 168 k/uL (150-450); RBC 4.37 m/uL (4.30-5.90); RDW 14.4 % (11.5-15.5); WBC 14.4 k/uL (3.8-10.6)
[2018-07-14 05:43] LABS: INR 4.1 (<1.2); Prothrombin Time 39.6 sec (9.0-12.0)
[2018-07-14 06:21] LABS: Calcium 8.7 mg/dL (8.4-10.2); Phosphorus 2.6 mg/dL (2.5-4.5); Potassium 4.4 mmol/L (3.5-5.1)
--- NOTE | 2018-07-14 07:34 | XR ---
EXAMINATION TYPE: XR chest 1V portable DATE OF EXAM: 07/14/2018 HISTORY: chf. REFERENCE: Previous study dated 07/12/2018. FINDINGS: There has been a midline sternotomy. There is multichamber cardiac enlargement. There is va scular congestion and subtle interstitial change. This is improved slightly from the previous exam. T here are tiny, bilateral effusions. IMPRESSION: 3 SLIGHT IMPROVEMENT IN THE PATIENT'S PULMONARY EDEMA.
[2018-07-14] MEDS: DIGOXIN 250 MCG/ML 2 ML AMP IVP SCH (08:14)
[2018-07-14] MEDS: AMIODARONE 200 MG TAB PO SCH ×2 (08:14→20:38)
[2018-07-14] MEDS: SPIRONOLACTONE 25 MG TAB PO SCH ×2 (08:14→20:38)
[2018-07-14] MEDS ORDERED: AMIODARONE 200 MG TAB PO STA (09:29)
[2018-07-14] MEDS: Acetaminophen-Codeine 300-30mg TAB PO PRN (11:30)
--- NOTE | 2018-07-14 11:34 | P.PN ---
Subjective Progress Note Date: 07/14/18 Principal diagnosis: Atrial fibrillation with RVR and hypotension This is a 58-year-old white male with history of multiple medical problems, patient is a very poor historian, most of the information was obtained from the chart. Patient is known to have history of aortic valve replacement, chronic atrial fibrillation, systolic congestive heart failure, and hypertension. Claudia meng presented to the ER with 2 days history of left lower abdominal and flank pain. Pain was described as severe and not associated with any nausea vomiting melena or hematemesis. Patient again is a very poor historian, apparently had previous history of anoxic encephalopathy and upon presentation to the ER he was found to be in atrial fibrillation with RVR he was also hypotensive. Considering his history of congestive heart failure, patient was given gently fluid boluses, and he was hydrated cautiously. His chest x-ray did show evidence of mild interstitial edema on presentation. Patient was admitted to the cardiac floor, and he was placed on amiodarone for his atrial fibrillation and RVR. Seen by cardiology this afternoon, and he was noted to be hypotensive with blood pressure around 80 systolic. His atrial fibrillation was controlled and heart rate was in the high 70s. Considering the low blood pressure patient was transferred to the ICU for norepinephrine infusion, and shortly after I saw him I recommended another 500 mL of fluid bolus. I agree fully with the transfer plans to the ICU. Since this admission, the patient was noted to have elevated INR, apparently his Coumadin is supratherapeutic. CT of the abdomen and pelvis showed L2 compression fracture and hepatosplenomegaly. There was also evidence of elevated bilirubin apparently chronic in nature. [place] to be related to his hepatic congestion from congestive heart failure. His urinalysis was suggestive of possible UTI and the patient was given Rocephin. Renal functioning was abnormal and his creatinine was 1.48. On follow-up his creatinine came down to 1.36. His INR came down to 6.7. Again there was no evidence of bleeding clinically. Repeat chest x-ray this morning showed mild interstitial edema and small effusions with bibasilar atelectasis. Reevaluated today on 07/12/2018, remains in the ICU, presently on norepinephrine, small dose to maintain adequate blood pressure, remains on amiodarone, and he is on 5 L nasal cannula with O2 saturation of 95%. Patient is confused which is usually his baseline. His heart rate remains in atrial fibrillation with a rate ranging between 130 and 140, that is being addressed by cardiology. Chest x-ray is showing worsening interstitial edema, hence the Lasix dose was increased. Clearly there is worsening volume status compared to yesterday. Patient is on Lasix at 40 mg IV push every 8 hours, he is also on Aldactone 25 mg by mouth twice a day. Patient did receive fluid boluses yesterday for hypotension. Presently IV fluid is at KVO. Reevaluated today on 07/13/2018, patient remains in the ICU, remains on amiodarone drip, norepinephrine drip, his norepinephrine is at 0.04 mcg/kg/m, advised the nurses to titrate down to maintain a mean arterial pressure of 65 at best. Patient remains in atrial fibrillation with RVR, and that is being addressed by cardiology. Chest x-ray continues to show interstitial edema, patient remains on diuretics. His INR remains elevated at 5.5. Renal functioning is improving creatinine is down to 1.34. WBC count is 15 hemoglobin is 13.6. Patient denies being short of breath, however complaining about his Almanza catheter with burning sensation from the Almanza catheter. Reevaluated today on 07/14/2018, remains in the ICU, still on amiodarone drip, intermittently on norepinephrine, presently off norepinephrine. Remains on diuretics for congestive heart failure. His BUN is 38 creatinine is 1.52. CBC is relatively normal WBC count is a bit elevated at 14.4. Clinically however the patient feels fine, he is not in any form of distress, he is on few liters nasal cannula. Reviewed the chest x-ray, it showed some improvement in his pulmonary edema. Objective - Vital Signs Vital signs: Vital Signs Temp 97.5 F L 07/14/18 08:00 Pulse 120 H 07/14/18 11:00 Resp 16 07/14/18 11:00 BP 99/65 07/14/18 06:00 Pulse Ox 95 07/14/18 10:00 Intake & Output 07/13/18 07/14/18 07/14/18 18:59 06:59 18:59 Intake Total 991.244 678.192 470.800 Output Total 1775 1050 700 Balance -783.756 -371.808 -229.200 Weight 94.7 kg Intake: IV 420 240 100 .9 20 220 240 100 Magnesium Sulfate-D5w Pmx 200 1 gm In Dextrose/Water 1 100ml.bag @ 100 mls/hr IVPB Q1H [facility] Rx#: [id number] Intake, IV Titration 321.244 438.192 120.800 Amount Amiodarone 300 mg In 246.667 Dextrose 5% in Water 250 ml @ 0.5 MG/MIN 25 mls/hr IV .Q10H [facility] Rx#: [id number] Amiodarone 300 mg In 186.667 Dextrose 5% in Water 250 ml @ 0.5 MG/MIN 25 mls/hr IV .Q10H [facility] Rx#: [id number] Norepinephrine 4 mg In 321.244 4.858 120.800 Sodium Chloride 0.9% 250 ml @ 0.05 MCG/KG/MIN 17. 774 mls/hr IV .[id number] [facility] Rx#:[id number] Oral 250 250 Output: Urine 1775 1050 700 Other: Voiding Method Indwelling Catheter Indwelling Catheter Indwelling Catheter # Voids 1 2 # Bowel Movements 1 ABP, PAP, CO, CI - Last Documented Arterial Blood Pressure 149/104 - Exam General: Revealed a 58-year-old white male, less confused today, in no distress. HEENT: PERRLA, EOMI, , no neck masses, no JVD, moist mucous membranes. No stridor. Cardiovascular: Irregular irregular rhythm, 2/6 systolic murmur thought the precordium. Positive mechanical valve sound noted throughout the whole precordium. Chest: Diminished breath sounds at the bases, crackles at the bases bilaterally. No wheezes. Symmetrical chest expansion. Abdomen: Soft nontender no megaly no rebound no guarding, positive bowel sounds Extremities:: No clubbing edema or cyanosis. Good distal pulses bilaterally. Musculoskeletal: Normal range of motion, no deformities noted. Skin: No rashes. No cyanosis. Normal tone and texture normal turgor. Lymphatics: No lymphadenopathy. Neurologic: Less Confused, known history of anoxic brain injury. Patient has garbled speech. - Labs CBC & Chem 7: 07/14/18 04:55 07/14/18 04:55 Labs: Abnormal Lab Results - Last 24 Hours (Table) 07/13/18 07/14/18 07/14/18 Range/Units 17:10 04:55 04:55 WBC 14.4 H (3.8-10.6) k/uL MCV 101.5 H (80.0-100.0) fL MCHC 30.3 L (31.0-37.0) g/dL PT 39.6 H (9.0-12.0) sec INR 4.1 H (<1.2) Potassium 3.3 L (3.5-5.1) mmol/L BUN (9-20) mg/dL Creatinine (0.66-1.25) mg/dL Glucose (74-99) mg/dL 07/14/18 Range/Units 04:55 WBC (3.8-10.6) k/uL MCV (80.0-100.0) fL MCHC (31.0-37.0) g/dL PT (9.0-12.0) sec INR (<1.2) Potassium (3.5-5.1) mmol/L BUN 38 H (9-20) mg/dL Creatinine 1.52 H (0.66-1.25) mg/dL Glucose 125 H (74-99) mg/dL Microbiology - Last 24 Hours (Table) 07/10/18 16:45 Urine Culture - Preliminary Urine,Voided Assessment and Plan Assessment: Impression: 1 atrial fibrillation with RVR and hypotension, remains on amiodarone, presently off norepinephrine. 2 atrial fibrillation with RVR 3 possible urinary tract infection, strongly doubt sepsis. 4 history of aortic valve replacement. Patient has a mechanical valve and maintained on anticoagulation therapy 5 history of anoxic brain injury and encephalopathy 6 acute on chronic systolic congestive heart failure, remains on diuretics, chest x-ray is showing slight improvement today. Recommendation: Continue amiodarone Continue diuretics Decreased Solu-Cortef Use norepinephrine when necessary for low blood pressure Continue to monitor in the ICU, his atrial fibrillation is poorly controlled and that is being addressed by cardiology. Prognosis remains poor and guarded, we'll continue to follow. Time with Patient: Less than 30
--- NOTE | 2018-07-14 15:13 | PN ---
PROGRESS NOTE This patient was admitted with abdominal pain. The patient was in atrial fibrillation with a rapid rate and congestive heart failure. Patient is feeling comfortable. He denies any shortness of breath, orthopnea or PND. Blood pressure is 109/71 mmHg, heart rate is between 120-130 to 150 per minute. We will increase the oral amiodarone two 400 mg b.i.d. Continue Lanoxin 0.125 mg daily. Patient's chest x-ray shows improvement in the heart failure and we will decrease the dose of Lasix to 40 mg b.i.d. If the patient's blood pressure permits, we will try the patient on a small dose of beta pinky. MMODL / IJN: [id number] /
[2018-07-14] MEDS: FUROSEMIDE 40 MG TAB PO SCH (17:09)
[2018-07-14] MEDS: NOREPINEPHRINE 4 MG in SODIUM CHLORIDE 0.9% 250 ML IV SCH (17:17)
[2018-07-14] MEDS: ATORVASTATIN 10 MG TAB PO SCH (20:38)
[2018-07-15] MEDS: HYDROCORTISONE SUCCINATE 100 MG/2 ML VIAL IV SCH ×2 (00:38→08:59)
[2018-07-15] MEDS: Acetaminophen-Codeine 300-30mg TAB PO PRN ×2 (00:38→13:39)
[2018-07-15 05:02] LABS: HCT 42.8 % (39.0-53.0); HGB 13.1 gm/dL (13.0-17.5); Hypochromasia Moderate; MCH 31.4 pg (25.0-35.0); MCHC 30.6 g/dL (31.0-37.0); MCV 102.6 fL (80.0-100.0); Macrocytosis Slight; Mean Platelet Volume 7.3; Platelet Count 127 k/uL (150-450); RBC 4.17 m/uL (4.30-5.90); RDW 14.5 % (11.5-15.5); WBC 10.8 k/uL (3.8-10.6)
[2018-07-15 05:08] LABS: INR 3.2 (<1.2); Prothrombin Time 30.5 sec (9.0-12.0)
[2018-07-15 05:17] LABS: Albumin 2.8 g/dL (3.5-5.0); Calcium 8.6 mg/dL (8.4-10.2); Total Bilirubin 1.4 mg/dL (0.2-1.3); Total Protein 5.6 g/dL (6.3-8.2)
--- NOTE | 2018-07-15 07:15 | P.PN ---
Subjective Progress Note Date: 07/14/18 Principal diagnosis: A. fib with RVR Patient was seen and examined. No acute events overnight. Patient unable to make meaningful conversation. He is eating dinner at bedside comfortably. He has no complaints at this time. Objective - Vital Signs Vital signs: Vital Signs Temp 97.4 F L 07/14/18 12:00 Pulse 112 H 07/14/18 14:00 Resp 9 L 07/14/18 14:00 BP 99/65 07/14/18 06:00 Pulse Ox 94 L 07/14/18 14:00 Intake & Output 07/13/18 07/14/18 07/14/18 18:59 06:59 18:59 Intake Total 991.244 678.192 470.800 Output Total 1775 1050 1100 Balance -783.756 -371.808 -629.200 Weight 94.7 kg Intake: IV 420 240 100 .9 20 220 240 100 Magnesium Sulfate-D5w Pmx 200 1 gm In Dextrose/Water 1 100ml.bag @ 100 mls/hr IVPB Q1H [facility] Rx#: [id number] Intake, IV Titration 321.244 438.192 120.800 Amount Amiodarone 300 mg In 246.667 Dextrose 5% in Water 250 ml @ 0.5 MG/MIN 25 mls/hr IV .Q10H [facility] Rx#: [id number] Amiodarone 300 mg In 186.667 Dextrose 5% in Water 250 ml @ 0.5 MG/MIN 25 mls/hr IV .Q10H [facility] Rx#: [id number] Norepinephrine 4 mg In 321.244 4.858 120.800 Sodium Chloride 0.9% 250 ml @ 0.05 MCG/KG/MIN 17. 774 mls/hr IV .[id number] [facility] Rx#:[id number] Oral 250 250 Output: Urine 1775 1050 1100 Other: Voiding Method Indwelling Catheter Indwelling Catheter Indwelling Catheter # Voids 1 1 # Bowel Movements 1 ABP, PAP, CO, CI - Last Documented Arterial Blood Pressure 104/59 - Exam General: [non toxic], [no distress], [appears at stated age] Derm: [warm], [dry] Head: [atraumatic], [normocephalic], [symmetric] Eyes: [EOMI], [no lid lag], [anicteric sclera] Mouth: [no lip lesion], [mucus membranes moist] Cardiovascular: [S1S2 reg], [irregularly irregular], [positive DP pulse bilateral], Lungs: [CTA bilateral], [no rhonchi, no rales] , [no accessory muscle use] Abdominal: [soft], [ nontender to palpation], [no guarding], [no appreciable organomegaly] Ext: [no gross muscle atrophy], [no edema], [no contractures] Neuro: [Unable to determine] Psych: [Pleasantly confused] - Labs CBC & Chem 7: 07/15/18 04:25 07/15/18 04:25 Labs: Abnormal Lab Results - Last 24 Hours (Table) 07/13/18 07/14/18 07/14/18 Range/Units 17:10 04:55 04:55 WBC 14.4 H (3.8-10.6) k/uL MCV 101.5 H (80.0-100.0) fL MCHC 30.3 L (31.0-37.0) g/dL PT 39.6 H (9.0-12.0) sec INR 4.1 H (<1.2) Potassium 3.3 L (3.5-5.1) mmol/L BUN (9-20) mg/dL Creatinine (0.66-1.25) mg/dL Glucose (74-99) mg/dL 07/14/18 Range/Units 04:55 WBC (3.8-10.6) k/uL MCV (80.0-100.0) fL MCHC (31.0-37.0) g/dL PT (9.0-12.0) sec INR (<1.2) Potassium (3.5-5.1) mmol/L BUN 38 H (9-20) mg/dL Creatinine 1.52 H (0.66-1.25) mg/dL Glucose 125 H (74-99) mg/dL Assessment and Plan Assessment: Assessment and Plan Acute on chronic systolic congestive heart failure Atrial fibrillation with rapid ventricular rate Hypotension likely due to A. fib with RVR with concerns for sepsis due to UTI UTI Supratherapeutic INR L2 compression fracture Chronic kidney disease BNP 832, with echocardiogram showing atrial fibrillation paradoxical septal motion, severe enlargement of the right ventricle and left atrium, severe regurgitation of the tricuspid valve, cannot estimate EF. Recent chest x-ray showing slight improvement in the patient's pulmonary edema. Plans: Patient transition from Lasix IV to 40 mg by mouth 3 times a day. Hold LARON inhibitor due to CKD. Hold beta pinky due to hypotension. Continue Aldactone. Strict intake and output. Daily weights. Follow cardiology recommendations. Heart rate in the 120s. Plans: Currently on digoxin IV and amiodarone by mouth due to hypotension. Hold Coumadin until INR normalizes. Keep K > 4 and Mg greater than 2. Telemetry monitoring. Follow cardiology recommendations. BP currently 104/59. Patient afebrile throughout hospitalization. Had no leukocytosis on admission until started on steroids.lactic acid negative. UA shows small leukocyte esterase, but asymptomatic. Urine culture prelim negative. Patient has no source of infection, sepsis highly unlikely. Hypotension is likely secondary to atrial fibrillation with RVR. Plans: Continue hydrocortisone and Levophed to maintain MAP > 65. Diuresed carefully due to hypotensive nature. Follow ICU consultation. UA showing small leukocyte esterase. Plans: Continue Rocephin IV. Follow urine culture. INR 4.1 this morning. Plans: Continue to hold Coumadin until in a therapeutic range. From recent fall. Plans: Follow-up in the outpatient setting. Continue wearing brace. Creatinine 1.52. Plans: Avoid nephrotoxins. Encourage hydration by mouth. Daily BMP. Patient admitted for CHF exacerbation, IV diuresis transitioned to oral. Being treated for A. fib with RVR. Close hemodynamic monitoring due to hypotension, on pressors. Also being treated for UTI. Patient is pending clinical improvement.
[2018-07-15] MEDS: NOREPINEPHRINE 4 MG in SODIUM CHLORIDE 0.9% 250 ML IV SCH ×2 (08:14→21:00)
[2018-07-15] MEDS: DIGOXIN 250 MCG/ML 2 ML AMP IVP SCH (08:59)
[2018-07-15] MEDS: SPIRONOLACTONE 25 MG TAB PO SCH ×2 (08:59→20:59)
[2018-07-15] MEDS: AMIODARONE 200 MG TAB PO SCH ×2 (08:59→21:00)
[2018-07-15] MEDS: FUROSEMIDE 40 MG TAB PO SCH ×2 (08:59→16:47)
--- NOTE | 2018-07-15 09:01 | P.PN ---
Subjective Progress Note Date: 07/15/18 Principal diagnosis: Atrial fibrillation with RVR and hypotension This is a 58-year-old white male with history of multiple medical problems, patient is a very poor historian, most of the information was obtained from the chart. Patient is known to have history of aortic valve replacement, chronic atrial fibrillation, systolic congestive heart failure, and hypertension. Claudia meng presented to the ER with 2 days history of left lower abdominal and flank pain. Pain was described as severe and not associated with any nausea vomiting melena or hematemesis. Patient again is a very poor historian, apparently had previous history of anoxic encephalopathy and upon presentation to the ER he was found to be in atrial fibrillation with RVR he was also hypotensive. Considering his history of congestive heart failure, patient was given gently fluid boluses, and he was hydrated cautiously. His chest x-ray did show evidence of mild interstitial edema on presentation. Patient was admitted to the cardiac floor, and he was placed on amiodarone for his atrial fibrillation and RVR. Seen by cardiology this afternoon, and he was noted to be hypotensive with blood pressure around 80 systolic. His atrial fibrillation was controlled and heart rate was in the high 70s. Considering the low blood pressure patient was transferred to the ICU for norepinephrine infusion, and shortly after I saw him I recommended another 500 mL of fluid bolus. I agree fully with the transfer plans to the ICU. Since this admission, the patient was noted to have elevated INR, apparently his Coumadin is supratherapeutic. CT of the abdomen and pelvis showed L2 compression fracture and hepatosplenomegaly. There was also evidence of elevated bilirubin apparently chronic in nature. [place] to be related to his hepatic congestion from congestive heart failure. His urinalysis was suggestive of possible UTI and the patient was given Rocephin. Renal functioning was abnormal and his creatinine was 1.48. On follow-up his creatinine came down to 1.36. His INR came down to 6.7. Again there was no evidence of bleeding clinically. Repeat chest x-ray this morning showed mild interstitial edema and small effusions with bibasilar atelectasis. Reevaluated today on 07/12/2018, remains in the ICU, presently on norepinephrine, small dose to maintain adequate blood pressure, remains on amiodarone, and he is on 5 L nasal cannula with O2 saturation of 95%. Patient is confused which is usually his baseline. His heart rate remains in atrial fibrillation with a rate ranging between 130 and 140, that is being addressed by cardiology. Chest x-ray is showing worsening interstitial edema, hence the Lasix dose was increased. Clearly there is worsening volume status compared to yesterday. Patient is on Lasix at 40 mg IV push every 8 hours, he is also on Aldactone 25 mg by mouth twice a day. Patient did receive fluid boluses yesterday for hypotension. Presently IV fluid is at KVO. Reevaluated today on 07/13/2018, patient remains in the ICU, remains on amiodarone drip, norepinephrine drip, his norepinephrine is at 0.04 mcg/kg/m, advised the nurses to titrate down to maintain a mean arterial pressure of 65 at best. Patient remains in atrial fibrillation with RVR, and that is being addressed by cardiology. Chest x-ray continues to show interstitial edema, patient remains on diuretics. His INR remains elevated at 5.5. Renal functioning is improving creatinine is down to 1.34. WBC count is 15 hemoglobin is 13.6. Patient denies being short of breath, however complaining about his Almanza catheter with burning sensation from the Almanza catheter. Reevaluated today on 07/14/2018, remains in the ICU, still on amiodarone drip, intermittently on norepinephrine, presently off norepinephrine. Remains on diuretics for congestive heart failure. His BUN is 38 creatinine is 1.52. CBC is relatively normal WBC count is a bit elevated at 14.4. Clinically however the patient feels fine, he is not in any form of distress, he is on few liters nasal cannula. Reviewed the chest x-ray, it showed some improvement in his pulmonary edema. Reevaluated today on 07/15/2018, remains in the ICU, off IV amiodarone, off IV norepinephrine, remains on diuretics for congestive heart failure. His renal functioning is improving BUN is 44 creatinine is 1.30. His CBC is relatively unremarkable. Clinically the patient is doing much better, breathing a lot easier. Hence I plan to transfer him to a monitor bed on [facility] today. Objective - Vital Signs Vital signs: Vital Signs Temp 96.5 F L 07/15/18 08:00 Pulse 110 H 07/15/18 08:00 Resp 12 07/15/18 08:00 BP 99/65 07/14/18 06:00 Pulse Ox 96 07/15/18 06:00 Intake & Output 07/14/18 07/15/18 07/15/18 18:59 06:59 18:59 Intake Total 690.800 220 100 Output Total 1400 850 150 Balance -709.200 -630 -50 Weight 97.6 kg Intake: IV 220 220 0 .9 20 220 220 0 Intake, IV Titration 220.800 Amount Norepinephrine 4 mg In 120.800 Sodium Chloride 0.9% 250 ml @ 0.05 MCG/KG/MIN 17. 774 mls/hr IV .[id number] [facility] Rx#:[id number] cefTRIAXone 1 gm In 100 Sodium Chloride 0.9% 50 ml @ 100 mls/hr IVPB Q24H [facility] Rx#:[id number] Oral 250 100 Output: Urine 1400 850 150 Other: Voiding Method Indwelling Catheter Urinal # Voids 1 0 ABP, PAP, CO, CI - Last Documented Arterial Blood Pressure 142/94 - Exam General: Revealed a 58-year-old white male, alert and oriented, in no distress. HEENT: PERRLA, EOMI, , no neck masses, no JVD, moist mucous membranes. No stridor. Cardiovascular: Irregular irregular rhythm, 2/6 systolic murmur thought the precordium. Positive mechanical valve sound noted throughout the whole pr ecordium. Chest: Diminished breath sounds at the bases, crackles at the bases bilaterally. No wheezes. Symmetrical chest expansion. Abdomen: Soft nontender no megaly no rebound no guarding, positive bowel sounds Extremities:: No clubbing edema or cyanosis. Good distal pulses bilaterally. Musculoskeletal: Normal range of motion, no deformities noted. Skin: No rashes. No cyanosis. Normal tone and texture normal turgor. Lymphatics: No lymphadenopathy. Neurologic: Alert oriented, continues to have garbled speech which is chronic for him. - Labs CBC & Chem 7: 07/15/18 04:25 07/15/18 04:25 Labs: Abnormal Lab Results - Last 24 Hours (Table) 07/15/18 07/15/18 07/15/18 Range/Units 04:25 04:25 04:25 WBC 10.8 H (3.8-10.6) k/uL RBC 4.17 L (4.30-5.90) m/uL MCV 102.6 H (80.0-100.0) fL MCHC 30.6 L (31.0-37.0) g/dL Plt Count 127 L (150-450) k/uL PT 30.5 H (9.0-12.0) sec INR 3.2 H (<1.2) Sodium 135 L (137-145) mmol/L Carbon Dioxide 31 H (22-30) mmol/L BUN 44 H (9-20) mg/dL Creatinine 1.30 H (0.66-1.25) mg/dL Glucose 130 H (74-99) mg/dL Total Bilirubin 1.4 H (0.2-1.3) mg/dL Alkaline Phosphatase 142 H (38-126) U/L Total Protein 5.6 L (6.3-8.2) g/dL Albumin 2.8 L (3.5-5.0) g/dL Assessment and Plan Assessment: Impression: 1 atrial fibrillation with RVR and hypotension, off IV amiodarone and norepinephrine. Patient is hemodynamically stable. 2 atrial fibrillation with RVR 3 possible urinary tract infection, urinary culture is nondiagnostic, was mixed jo. 4 history of aortic valve replacement. Patient has a mechanical valve and maintained on anticoagulation therapy 5 history of anoxic brain injury and encephalopathy 6 acute on chronic systolic congestive heart failure, remains on diuretics, chest x-ray is showing slight improvement today. Recommendation: Transfer patient out of the ICU to a monitor bed on selective. Continue diuretics. Continue antiarrhythmic agents for his A. fib/RVR. Switched to oral prednisone We'll continue to follow. Possible discharge planning in the next 24-48 hours. Time with Patient: Less than 30
--- NOTE | 2018-07-15 10:05 | P.PN ---
Subjective Progress Note Date: 07/15/18 Principal diagnosis: A. fib with RVR Patient was seen and examined. No acute events overnight. Patient unable to make meaningful conversation. He has no complaints at this time. Objective - Vital Signs Vital signs: Vital Signs Temp 96.5 F L 07/15/18 08:00 Pulse 110 H 07/15/18 08:00 Resp 12 07/15/18 08:00 BP 99/65 07/14/18 06:00 Pulse Ox 96 07/15/18 06:00 Intake & Output 07/14/18 07/15/18 07/15/18 18:59 06:59 18:59 Intake Total 690.800 220 100 Output Total 1400 850 150 Balance -709.200 -630 -50 Weight 97.6 kg Intake: IV 220 220 0 .9 20 220 220 0 Intake, IV Titration 220.800 Amount Norepinephrine 4 mg In 120.800 Sodium Chloride 0.9% 250 ml @ 0.05 MCG/KG/MIN 17. 774 mls/hr IV .[id number] [facility] Rx#:[id number] cefTRIAXone 1 gm In 100 Sodium Chloride 0.9% 50 ml @ 100 mls/hr IVPB Q24H [facility] Rx#:[id number] Oral 250 100 Output: Urine 1400 850 150 Other: Voiding Method Indwelling Catheter Urinal Urinal # Voids 1 0 ABP, PAP, CO, CI - Last Documented Arterial Blood Pressure 142/94 - Exam General: [non toxic], [no distress], [appears at stated age] Derm: [warm], [dry] Head: [atraumatic], [normocephalic], [symmetric] Eyes: [EOMI], [no lid lag], [anicteric sclera] Mouth: [no lip lesion], [mucus membranes moist] Cardiovascular: [S1S2 reg], [irregularly irregular], [positive DP pulse bilateral], Lungs: [CTA bilateral], [no rhonchi, no rales] , [no accessory muscle use] Abdominal: [soft], [ nontender to palpation], [no guarding], [no appreciable organomegaly] Ext: [no gross muscle atrophy], [no edema], [no contractures] Neuro: [no focal deficits] Psych: [Limited conversation] - Labs CBC & Chem 7: 07/15/18 04:25 07/15/18 04:25 Labs: Abnormal Lab Results - Last 24 Hours (Table) 07/15/18 07/15/18 07/15/18 Range/Units 04:25 04:25 04:25 WBC 10.8 H (3.8-10.6) k/uL RBC 4.17 L (4.30-5.90) m/uL MCV 102.6 H (80.0-100.0) fL MCHC 30.6 L (31.0-37.0) g/dL Plt Count 127 L (150-450) k/uL PT 30.5 H (9.0-12.0) sec INR 3.2 H (<1.2) Sodium 135 L (137-145) mmol/L Carbon Dioxide 31 H (22-30) mmol/L BUN 44 H (9-20) mg/dL Creatinine 1.30 H (0.66-1.25) mg/dL Glucose 130 H (74-99) mg/dL Total Bilirubin 1.4 H (0.2-1.3) mg/dL Alkaline Phosphatase 142 H (38-126) U/L Total Protein 5.6 L (6.3-8.2) g/dL Albumin 2.8 L (3.5-5.0) g/dL Assessment and Plan Assessment: Assessment and Plan Acute on chronic systolic congestive heart failure Atrial fibrillation with rapid ventricular rate Hypotension likely due to A. fib with RVR with concerns for sepsis due to UTI UTI Supratherapeutic INR L2 compression fracture Chronic kidney disease BNP 832, with echocardiogram showing atrial fibrillation paradoxical septal motion, severe enlargement of the right ventricle and left atrium, severe regurgitation of the tricuspid valve, cannot estimate EF. Recent chest x-ray showing slight improvement in the patient's pulmonary edema. Plans: Patient transition from Lasix IV to 40 mg by mouth 3 times a day. Hold LARON inhibitor due to CKD. Hold beta pinky due to hypotension. Continue Aldactone. Strict intake and output. Daily weights. Follow cardiology recommendations. Heart rate in the 120s. Plans: Currently on digoxin IV and amiodarone by mouth due to hypotension. Hold Coumadin until INR normalizes. Keep K > 4 and Mg greater than 2. Telemetry monitoring. Follow cardiology recommendations. BP currently 142/94. Patient afebrile throughout hospitalization. Had no addison kocytosis on admission until started on steroids. Lactic acid negative. UA shows small leukocyte esterase, but asymptomatic. Urine culture prelim negative. Patient has no source of infection, sepsis highly unlikely. Hypotension is likely secondary to atrial fibrillation with RVR. Plans: Patient currently transitioned off hydrocortisone and Levophed, able to transfer out of MICU. Diurese carefully due to hypotensive nature. Follow ICU consultation. UA showing small leukocyte esterase. Plans: Continue Rocephin IV. Follow urine culture. INR 3.2 this morning. Plans: Continue to hold Coumadin until in a therapeutic range. From recent fall. Plans: Follow-up in the outpatient setting. Continue wearing brace. Creatinine 1.30. Plans: Avoid nephrotoxins. Encourage hydration by mouth. Mary DOZIER. Patient admitted for CHF exacerbation, IV diuresis transitioned to oral. Being treated for A. fib with RVR. Currently off pressors and BP maintaining. Also being treated for UTI. Move out of ICU to [facility]. Plans on DC in 1-2 days.
[2018-07-15] MEDS: predniSONE 10 MG TAB PO SCH ×2 (11:47→21:00)
--- NOTE | 2018-07-15 18:44 | PN ---
PROGRESS NOTE This patient is status post aortic valve replacement and mitral valve annuloplasty. The patient was admitted with abdominal pain. He is feeling better. Sitting comfortably. No respiratory distress is noted. Heart rate is between 100-110, blood pressure is 116/91 mmHg. First and second heart sounds are normal. The prosthetic sounds are well heard. Lungs are clear to auscultation and percussion. The patient still has INR in the range of 3.0, Coumadin is being on hold. The patient remains hemodynamically stable. If the patient is doing well, the patient can be discharged home in the next 24-48 hours. If the patient's blood pressure permits, we would put him on small dose of beta pinky. MMODL / IJN: [id number] /
[2018-07-15] MEDS: ATORVASTATIN 10 MG TAB PO SCH (20:59)
[2018-07-16 05:35] LABS: HCT 43.1 % (39.0-53.0); HGB 13.3 gm/dL (13.0-17.5); Hypochromasia Moderate; MCH 31.5 pg (25.0-35.0); MCHC 30.8 g/dL (31.0-37.0); MCV 102.4 fL (80.0-100.0); Macrocytosis Slight; Mean Platelet Volume 7.4; Platelet Count 124 k/uL (150-450); RBC 4.21 m/uL (4.30-5.90); RDW 14.4 % (11.5-15.5); WBC 10.3 k/uL (3.8-10.6)
[2018-07-16 05:53] LABS: Albumin 2.9 g/dL (3.5-5.0); Calcium 8.8 mg/dL (8.4-10.2); Potassium 4.9 mmol/L (3.5-5.1); Total Bilirubin 1.4 mg/dL (0.2-1.3); Total Protein 5.7 g/dL (6.3-8.2)
[2018-07-16 06:21] LABS: INR 2.1 (<1.2); Prothrombin Time 20.5 sec (9.0-12.0)
[2018-07-16] MEDS: DIGOXIN 250 MCG/ML 2 ML AMP IVP SCH (09:01)
[2018-07-16] MEDS: AMIODARONE 200 MG TAB PO SCH ×2 (09:02→21:24)
[2018-07-16] MEDS: FUROSEMIDE 40 MG TAB PO SCH ×2 (09:02→18:36)
[2018-07-16] MEDS: SPIRONOLACTONE 25 MG TAB PO SCH ×2 (09:02→21:24)
[2018-07-16] MEDS: predniSONE 10 MG TAB PO SCH ×2 (09:02→21:24)
--- NOTE | 2018-07-16 09:49 | P.PN ---
Subjective Progress Note Date: 07/16/18 Principal diagnosis: Atrial fibrillation with RVR and hypotension This is a 58-year-old white male with history of multiple medical problems, patient is a very poor historian, most of the information was obtained from the chart. Patient is known to have history of aortic valve replacement, chronic atrial fibrillation, systolic congestive heart failure, and hypertension. Adrianna ent presented to the ER with 2 days history of left lower abdominal and flank pain. Pain was described as severe and not associated with any nausea vomiting melena or hematemesis. Patient again is a very poor historian, apparently had previous history of anoxic encephalopathy and upon presentation to the ER he was found to be in atrial fibrillation with RVR he was also hypotensive. Considering his history of congestive heart failure, patient was given gently fluid boluses, and he was hydrated cautiously. His chest x-ray did show evidence of mild interstitial edema on presentation. Patient was admitted to the cardiac floor, and he was placed on amiodarone for his atrial fibrillation and RVR. Seen by cardiology this afternoon, and he was noted to be hypotensive with blood pressure around 80 systolic. His atrial fibrillation was controlled and heart rate was in the high 70s. Considering the low blood pressure patient was transferred to the ICU for norepinephrine infusion, and shortly after I saw him I recommended another 500 mL of fluid bolus. I agree fully with the transfer plans to the ICU. Since this admission, the patient was noted to have elevated INR, apparently his Coumadin is supratherapeutic. CT of the abdomen and pelvis showed L2 compression fracture and hepatosplenomegaly. There was also evidence of elevated bilirubin apparently chronic in nature. [place] to be related to his hepatic congestion from congestive heart failure. His urinalysis was suggestive of possible UTI and the patient was given Rocephin. Renal functioning was abnormal and his creatinine was 1.48. On follow-up his creatinine came down to 1.36. His INR came down to 6.7. Again there was no evidence of bleeding clinically. Repeat chest x-ray this morning showed mild interstitial edema and small effusions with bibasilar atelectasis. Reevaluated today on 07/12/2018, remains in the ICU, presently on norepinephrine, small dose to maintain adequate blood pressure, remains on amiodarone, and he is on 5 L nasal cannula with O2 saturation of 95%. Patient is confused which is usually his baseline. His heart rate remains in atrial fibrillation with a rate ranging between 130 and 140, that is being addressed by cardiology. Chest x-ray is showing worsening interstitial edema, hence the Lasix dose was increased. Clearly there is worsening volume status compared to yesterday. Patient is on Lasix at 40 mg IV push every 8 hours, he is also on Aldactone 25 mg by mouth twice a day. Patient did receive fluid boluses yesterday for hypotension. Presently IV fluid is at KVO. Reevaluated today on 07/13/2018, patient remains in the ICU, remains on amiodarone drip, norepinephrine drip, his norepinephrine is at 0.04 mcg/kg/m, advised the nurses to titrate down to maintain a mean arterial pressure of 65 at best. Patient remains in atrial fibrillation with RVR, and that is being a ddressed by cardiology. Chest x-ray continues to show interstitial edema, patient remains on diuretics. His INR remains elevated at 5.5. Renal functioning is improving creatinine is down to 1.34. WBC count is 15 hemoglobin is 13.6. Patient denies being short of breath, however complaining about his Almanza catheter with burning sensation from the Almanza catheter. Reevaluated today on 07/14/2018, remains in the ICU, still on amiodarone drip, intermittently on norepinephrine, presently off norepinephrine. Remains on diuretics for congestive heart failure. His BUN is 38 creatinine is 1.52. CBC is relatively normal WBC count is a bit elevated at 14.4. Clinically however the patient feels fine, he is not in any form of distress, he is on few liters nasal cannula. Reviewed the chest x-ray, it showed some improvement in his pulmonary edema. Reevaluated today on 07/15/2018, remains in the ICU, off IV amiodarone, off IV norepinephrine, remains on diuretics for congestive heart failure. His renal functioning is improving BUN is 44 creatinine is 1.30. His CBC is relatively unremarkable. Clinically the patient is doing much better, breathing a lot easier. Hence I plan to transfer him to a monitor bed on [facility] today. On 07/16/2016 patient seen in follow-up in the intensive care unit. He is awake and alert, he sitting up in the recliner, he is somewhat slow to respond, but he denies any acute distress, no shortness of breath, no other specific complaints. He is currently on room air no running IVs. His pulse ox is 93%. Respirations are even and nonlabored. Afebrile, hemodynamically stable, he remains in atrial fibrillation and his rate is ranging from 126-140, his lung sounds are clear, no cough, no wheezing, no congestion. Patient is on oral amiodarone for rate c ontrol, and he was given a dose of digoxin, cardiology is following, he is on oral prednisone, 10 mg twice daily, he remains on oral Lasix. He is maintaining negative fluid balance, -1339 mL or less 24 hours, no new chest x-ray today. Lab work has been reviewed, showing white blood cell count is 10.3, hemoglobin is 13.3, INR is 2.1, serum sodium is 136, potassium is 4.9, chloride is 98, CO2 is 37, BUN is 46 and creatinine is 1.39. Patient remains on IV Rocephin for presumed to urinary tract infection, urine culture showed 10,000-49,000 CFU per mL. No fever or chills, no urinary complaints. Objective - Vital Signs Vital signs: Vital Signs Temp 98.1 F 07/16/18 00:00 Pulse 135 H 07/16/18 04:00 Resp 16 07/16/18 04:00 BP 90/77 07/16/18 04:00 Pulse Ox 93 L 07/16/18 04:00 Intake & Output 07/15/18 07/16/18 07/16/18 18:59 06:59 18:59 Intake Total 100 240 Output Total 450 1300 Balance -350 -1060 Weight 97.8 kg Intake: IV 0 .9 20 0 Oral 100 240 Output: Urine 450 500 Stool 800 Other: Voiding Method Urinal Urinal # Voids 1 1 ABP, PAP, CO, CI - Last Documented Arterial Blood Pressure 142/94 - Exam GENERAL EXAM: Alert, 58-year-old white male, sitting up in the recliner, somewhat slow to respond, related to remote history of anoxic brain injury, comfortable in no apparent distress. HEAD: Normocephalic/atraumatic. EYES: Normal reaction of pupils, equal size. Conjunctiva pink, sclera white. NOSE: Clear with pink turbinates. THROAT: No erythema or exudates. NECK: No masses, no JVD, no thyroid enlargement, no adenopathy. CHEST: No chest wall deformity. Symmetrical expansion. LUNGS: Equal air entry with no crackles, wheeze, rhonchi or dullness. CVS: Irregular rate and rhythm, normal S1 and S2, no gallops, no murmurs, no rubs ABDOMEN: Soft, nontender. No hepatosplenomegaly, normal bowel sounds, no guarding or rigidity. EXTREMITIES: No clubbing, no edema, no cyanosis, 2+ pulses and upper and lower extremities. MUSCULOSKELETAL: Muscle strength and tone normal. SPINE: No scoliosis or deformity SKIN: No rashes CENTRAL NERVOUS SYSTEM: Alert and oriented -3. No focal deficits, tone is normal in all 4 extremities. PSYCHIATRIC: Alert and oriented -3. Appropriate affect. Intact judgment and insight. - Labs CBC & Chem 7: 07/16/18 05:15 07/16/18 05:15 Labs: Abnormal Lab Results - Last 24 Hours (Table) 07/16/18 07/16/18 07/16/18 Range/Units 05:15 05:15 05:27 RBC 4.21 L (4.30-5.90) m/uL MCV 102.4 H (80.0-100.0) fL MCHC 30.8 L (31.0-37.0) g/dL Plt Count 124 L (150-450) k/uL PT 20.5 H (9.0-12.0) sec INR 2.1 H (<1.2) Sodium 136 L (137-145) mmol/L Carbon Dioxide 37 H (22-30) mmol/L BUN 46 H (9-20) mg/dL Creatinine 1.39 H (0.66-1.25) mg/dL Glucose 114 H (74-99) mg/dL Total Bilirubin 1.4 H (0.2-1.3) mg/dL Alkaline Phosphatase 148 H (38-126) U/L Total Protein 5.7 L (6.3-8.2) g/dL Albumin 2.9 L (3.5-5.0) g/dL Assessment and Plan Plan: 1 atrial fibrillation with RVR and hypotension, off IV amiodarone and norepinephrine. Patient is hemodynamically stable. 2 atrial fibrillation with RVR 3 possible urinary tract infection, urinary culture is nondiagnostic, was mixed jo. 4 history of aortic valve replacement. Patient has a mechanical valve and maintained on anticoagulation therapy 5 history of anoxic brain injury and encephalopathy 6 acute on chronic systolic congestive heart failure, remains on diuretics, chest x-ray is showing slight improvement today. Plan: Continue oral prednisone, oral diuretics, no fever or chills, hemodynamically patient is stable, remains in A. fib RVR, cardiology is following, and patient is on oral amiodarone and digoxin for rate control. No acute issues overnight, no worsening shortness of breath or chest pain, patient is awaiting a bed on [facility] care unit. We'll obtain follow-up chest x-ray tomorrow. I performed a history & physical examination of the patient and discussed their management with my nurse practitioner, Gabrielle Shaikh. I reviewed the nurse practitioner's note and agree with the documented findings and plan of care. Lung sounds are positive for clear breath sounds. The findings and the impression was discussed with the patient. I attest to the documentation by the nurse practitioner. Time with Patient: Less than 30
--- NOTE | 2018-07-16 11:22 | P.PN ---
Subjective Progress Note Date: 07/16/18 Principal diagnosis: A. fib with RVR Patient was seen and examined. No acute events overnight. Minimal communication with patient. Patient with no complaints this morning. Sitting up comfortably in chair. Objective - Vital Signs Vital signs: Vital Signs Temp 97.9 F 07/16/18 08:00 Pulse 114 H 07/16/18 08:00 Resp 20 07/16/18 08:00 BP 103/79 07/16/18 08:00 Pulse Ox 92 L 07/16/18 08:00 Intake & Output 07/15/18 07/16/18 07/16/18 18:59 06:59 18:59 Intake Total 100 240 Output Total 450 1300 Balance -350 -1060 Weight 97.8 kg Intake: IV 0 .9 20 0 Oral 100 240 Output: Urine 450 500 Stool 800 Other: Voiding Method Urinal Urinal Urinal # Voids 1 1 ABP, PAP, CO, CI - Last Documented Arterial Blood Pressure 142/94 - Exam General: [non toxic], [no distress], [appears at stated age] Derm: [warm], [dry] Head: [atraumatic], [normocephalic], [symmetric] Eyes: [EOMI], [no lid lag], [anicteric sclera] Mouth: [no lip lesion], [mucus membranes moist] Cardiovascular: [S1S2 reg], [irregularly irregular], [positive DP pulse bilateral], Lungs: [coarse breath sounds bilateral], [no rhonchi, no rales] , [no accessory muscle use] Abdominal: [soft], [ nontender to palpation], [no guarding], [no appreciable organomegaly] Ext: [no gross muscle atrophy], [no edema], [no contractures] Neuro: [no focal deficits] Psych: [Limited conversation] - Labs CBC & Chem 7: 07/16/18 05:15 07/16/18 05:15 Labs: Abnormal Lab Results - Last 24 Hours (Table) 07/16/18 07/16/18 07/16/18 Range/Units 05:15 05:15 05:27 RBC 4.21 L (4.30-5.90) m/uL MCV 102.4 H (80.0-100.0) fL MCHC 30.8 L (31.0-37.0) g/dL Plt Count 124 L (150-450) k/uL PT 20.5 H (9.0-12.0) sec INR 2.1 H (<1.2) Sodium 136 L (137-145) mmol/L Carbon Dioxide 37 H (22-30) mmol/L BUN 46 H (9-20) mg/dL Creatinine 1.39 H (0.66-1.25) mg/dL Glucose 114 H (74-99) mg/dL Total Bilirubin 1.4 H (0.2-1.3) mg/dL Alkaline Phosphatase 148 H (38-126) U/L Total Protein 5.7 L (6.3-8.2) g/dL Albumin 2.9 L (3.5-5.0) g/dL Assessment and Plan Assessment: Assessment and Plan Acute on chronic systolic congestive heart failure Atrial fibrillation with rapid ventricular rate Hypotension likely due to A. fib with RVR with concerns for sepsis due to UTI UTI Supratherapeutic INR L2 compression fracture Chronic kidney disease BNP 832, with echocardiogram showing atrial fibrillation paradoxical septal motion, severe enlargement of the right ventricle and left atrium, severe regurgitation of the tricuspid valve, cannot estimate EF. Recent chest x-ray showing slight improvement in the patient's pulmonary edema. Plans: Patient transition from Lasix IV to 40 mg by mouth 3 times a day. Hold LARON inhibitor due to CKD. Hold beta pinky due to hypotension. Continue Aldactone. Strict intake and output. Daily weights. Follow cardiology recommendations. Repeat chest x-ray tomorrow. Heart rate in the 120s. Plans: Currently on digoxin IV and amiodarone by mouth. Hold Coumadin until INR normalizes. Keep K > 4 and Mg greater than 2. Telemetry monitoring. Follow cardiology recommendations. BP currently 103/68. Patient afebrile throughout hospitalization. Had no leukocytosis on admission until started on steroids. Lactic acid negative. UA shows small leukocyte esterase, but asymptomatic. Urine culture prelim negative. Patient has no source of infection, sepsis highly unlikely. Hypotension is likely secondary to atrial fibrillation with RVR. Plans: Patient currently transitioned off hydrocortisone and Levophed, able to transfer out of MICU. Diurese carefully due to hypotensive nature. Follow ICU consultation. UA showing small leukocyte esterase. Urine culture prelim negative. Plans: Continue Rocephin IV. Follow urine culture. INR 2.1 this morning. Plans: Continue to hold Coumadin until in a therapeutic range. From recent fall. Plans: Follow-up in the outpatient setting. Continue wearing brace. Creatinine 1.39. Plans: Avoid nephrotoxins. Encourage hydration by mouth. Daily BMP. Patient admitted for CHF exacerbation, IV diuresis transitioned to oral. Being treated for A. fib with RVR. Currently off pressors and BP maintaining. Also being treated for UTI. Repeat chest x-ray ordered per pulmonology tomorrow. Possible DC in 1-2 days.
--- NOTE | 2018-07-16 19:49 | PN ---
PROGRESS NOTE Patient has been doing fairly well. He is sitting comfortably without any significant respiratory distress. The patient's heart rate now is in the range of 100-120, blood pressure is 126/85 mmHg. First and second heart sounds are normal. Lungs reveal bilateral diminished air entry. Patient's creatinine is 1.34. INR is 2.1. His triple lumen catheter will be discontinued and the discharge placement is being planned. MMODL / IJN: [id number] /
[2018-07-16] MEDS: Acetaminophen-Codeine 300-30mg TAB PO PRN (21:21)
[2018-07-16] MEDS: ATORVASTATIN 10 MG TAB PO SCH (21:24)
[2018-07-17] MEDS: Acetaminophen-Codeine 300-30mg TAB PO PRN ×2 (03:42→23:30)
[2018-07-17 06:12] LABS: HCT 42.4 % (39.0-53.0); HGB 13.2 gm/dL (13.0-17.5); Hypochromasia Moderate; MCH 30.9 pg (25.0-35.0); MCHC 31.1 g/dL (31.0-37.0); MCV 99.4 fL (80.0-100.0); Macrocytosis Slight; Platelet Count 117 k/uL (150-450); RBC 4.27 m/uL (4.30-5.90); RDW 15.3 % (11.5-15.5); WBC 8.2 k/uL (3.8-10.6)
[2018-07-17 06:18] LABS: Albumin 2.8 g/dL (3.5-5.0); Calcium 8.7 mg/dL (8.4-10.2); Phosphorus 3.2 mg/dL (2.5-4.5); Potassium 4.8 mmol/L (3.5-5.1); Total Bilirubin 1.7 mg/dL (0.2-1.3); Total Protein 5.5 g/dL (6.3-8.2)
[2018-07-17 06:31] LABS: INR 1.6 (<1.2); Prothrombin Time 15.9 sec (9.0-12.0)
[2018-07-17] MEDS ORDERED: WARFARIN 5 MG TAB PO ONE (07:30)
[2018-07-17] MEDS: SPIRONOLACTONE 25 MG TAB PO SCH ×2 (07:43→20:24)
[2018-07-17] MEDS: METOPROLOL TARTRATE 25 MG TAB PO SCH ×2 (07:43→20:24)
[2018-07-17] MEDS: AMIODARONE 200 MG TAB PO SCH ×2 (07:43→20:25)
[2018-07-17] MEDS: FUROSEMIDE 40 MG TAB PO SCH ×2 (07:43→15:59)
[2018-07-17] MEDS: predniSONE 10 MG TAB PO SCH ×2 (07:43→20:25)
[2018-07-17] MEDS: DIGOXIN 250 MCG/ML 2 ML AMP IVP SCH (07:44)
--- NOTE | 2018-07-17 08:48 | XR ---
EXAMINATION TYPE: XR chest 2V DATE OF EXAM: 07/17/2018 COMPARISON: 07/14/2018 TECHNIQUE: PA and lateral views submitted. HISTORY: Shortness of breath FINDINGS: Heart is enlarged and there is postsurgical changes with bilateral pleural effusions and diffuse inte rstitial pattern. Basilar consolidation. Apical pleural thickening. No pneumothorax. Underlying COPD suspected. Hypertrophic and degenerative changes spine. Chronic rib deformity noted. IMPRESSION: 1. Stable x-ray correlate for CHF superimposed on a background of COPD. Underlying pneumonia not excl uded.
--- NOTE | 2018-07-17 09:23 | PN ---
PROGRESS NOTE DATE OF SERVICE: 07/17/2018 This is a 58-year-old gentleman with a history of atrial fibrillation and RVR. The patient currently is still in atrial fibrillation, still having heart rates in the 120- 140 range. In addition, he has a history of possible urinary tract infection, status post aortic valve replacement, anoxic brain injury with encephalopathy and acute on chronic systolic congestive heart failure. He is currently resting comfortably. He is on nasal O2 at 3 L. He is getting 0.9 IV KVO. Again, he still in atrial fibrillation. His heart rate is about 120 beats per minute. The patient seemed relatively stable. Difficult to get history from him because of his anoxic brain injury. He does not appear to have any distress. Denies any chest pain or chest discomfort. No shortness of breath difficulty breathing. PHYSICAL EXAMINATION: Current vital signs are reviewed. Temperature 97.3, heart rate is 98 and very irregular with sometimes the heart rate is going up to the 120s and 130s. Respiratory rate 14, blood pressure 112/70, mean 89, 3 L saturation 95%. Appears in no acute distress. HEENT examination is grossly unremarkable. Mucous membranes are moist. Nasal O2 noted. NECK: Supple. Full range of motion without adenopathy, thyromegaly or neck vein distention. CARDIOVASCULAR: Full examination reveals irregular rhythm rate. Heart rate about 115 beats per minute. He is clearly in atrial fibrillation. S1, S2 normal. No distinct murmur noted. LUNGS: Reveal relatively clear breath sounds. A few scattered rhonchi. No wheezes or crackles. ABDOMEN: Soft, bowel sounds are heard. There is no masses or tenderness. EXTREMITIES: Intact. No cyanosis, clubbing, or edema. SKIN: Without rash. NEUROLOGIC: Examination is brief but nonfocal. LABS: Reviewed. White count 8.2, hemoglobin 13.2, hematocrit 42.4, platelet count 117,000. PT 15.9, INR 1.6. Sodium 137, potassium 4.8, chloride is 95, CO2 is 40, anion gap is 2, BUN and creatinine were 51 and 1.30. Albumin 2.8. Microbiologic studies are thus far negative. He did have a chest x-ray done. It shows some possible mild fluid overload. There is small effusions. There is an interstitial pattern which is life consistent with interstitial edema. There is some mild amount of fluid in the minor fissure. Sternal wires is seen from previous valve replacement. ASSESSMENT: 1. Atrial fibrillation with rapid ventricular rate, currently stable with better control of ventricular response rate. 2. Chronic atrial fibrillation. 3. Possible urinary tract infection. 4. History of aortic valve replacement. 5. History of anoxic brain injury with encephalopathy. 6. Acute on chronic systolic congestive heart failure. PLAN: The patient's overall chest x-ray is improved. Clinically, he is doing better. His heart rate is a bit better controlled. He is still in atrial fibrillation. Most of his time his heart rate hovering between 95-110 beats per minute. Occasionally does increased up to the 130 to 140 range. I believe he is better than he was yesterday. He appears to be relatively comfortable. Not complaining of any chest pain or chest discomfort. We will continue to follow. The patient could be transferred to [address] [place] [address]. CHAIM / ELLIEN: [id number] /
--- NOTE | 2018-07-17 10:29 | PN ---
PROGRESS NOTE Mr. Robles remains in atrial fib rate, it is at least moderately fast in the range of 110 to 120, sometimes up to 130 beats per minute. He seems to be hemodynamically stable, sitting up in the chair. INR is 1.6. Yesterday, it was 2.1. I am going to resume the Coumadin at 5 mg p.o. today and I will add a small dose of metoprolol tartrate 25 mg b.i.d. and check PT/INR daily. His blood pressure is about 112 systolic, heart rate is about 120, irregular. JVD is 1 cm. S1, S2 with a prosthetic valve. Clicks are audible. Lungs revealed improved air entry. Abdomen and lower extremity exam is unchanged. Plan is to initiate Coumadin 5 mg p.o. today. Check PT/INR daily. Add metoprolol tartrate 25 mg b.i.d. for his rate control. Blood pressure seems to be better today. MMODL / IJN: [id number] /
--- NOTE | 2018-07-17 10:40 | CDI ---
Documentation Clarification Form Date: 07/17/2018 9:23:19 AM From: Maral Carpenter RN, CCDS Admit Date: 07/10/2018 7:15:00 PM Patient Name: Leonel Robles Visit Number: [id number] Discharge Date: ATTENTION: The Clinical Documentation Specialists (CDI) and [facility] Coding Staff appreciate your assistance in clarifying documentation. Please respond to the clarification below the line at the bottom and electronically sign. The CDI & [facility] Coding staff will review the response and follow-up if needed. Please note: Queries are made part of the Legal Health Record. If you have any questions, please contact the author of this message via ITS. Dr. Kianna Monsivais Shock is documented in the progress note on 06/14/2018 Hypotension likely multifactorial suspicious for cardiogenic shock vs adrenal insufficiency. Patient history/risk factors: Atrial Fibrillation, CVA, Hyperlipidemia, Hypertension, Systolic CHF, Aortic valve replacement, Current every day smoker Clinical Indicators: 58-year-old male with history of cardiac disease at a young age of 32. He present with left lower quadrant abdominal flank pain. Vital signs upon arrival show heart rate of 133, blood pressure 89/67, he was 96 % 3/L nasal cannula. 07/11/2018 Patient was hypotensive and transferred to ICU for norepinephrine drip. Vital signs 80/54 149 24, 77/61 163 25, EKG interpretation: Ventricular rate 116 with RVR Treatment: ICU monitoring, Close hemodynamic monitoring due to hypotension, on pressors. IV Fluids bolus Levophed Drip (Titrate 07/11/18-07/14/18) Amiodarone drip Solu-Cortef IV Lasix IV, In your professional opinion, can you please specify the type of shock if known? Or clarify is Shock is ruled out Cardiogenic Shock Cause Hypotensive Shock Cause Septic Shock Other, please specify Unable to determine (Last Revision: November 2016) Cardiogenic shock MTDD
--- NOTE | 2018-07-17 11:06 | CDI ---
Documentation Clarification Form Date: 07/17/2018 From: Mraal Carpenter RN, CCDS Admit Date: 07/10/2018 7:15:00 PM Patient Name: Leonel Robles Visit Number: [id number] Discharge Date: ATTENTION: The Clinical Documentation Specialists (CDI) and [facility] Coding Staff appreciate your assistance in clarifying documentation. Please respond to the clarification below the line at the bottom and electronically sign. The CDI & [facility] Coding staff will review the response and follow-up if needed. Please note: Queries are made part of the Legal Health Record. If you have any questions, please contact the author of this message via ITS. Dr. Kianna Monsivais Patient was admitted with a diagnosis of acute renal injury with creatinine of 1.48 this could be due to cardiorenal syndrome per H&P. History/Risk Factors: Atrial Fibrillation, CVA, hyperlipidemia, Hypertension, Systolic CHF, Aortic valve replacement, Current every day smoker Clinical Indicators: 07/14/2018 and ongoing progress notes has documentation of chronic kidney disease. On admission: BUN 27 CR 1.48 GFR 51 07/11/18 BUN 24 CR 1.36 GFR 57 07/12/18 BUN 27 CR 1.60 GFR 47 07/15/18 BUN 44 CR 1.30 GFR 60 07/16/18 BUN 46 CR 1.39 GFR 55 07/17/18; Current BUN 51 CR 1.30 GFR 60 Treatment: Encourage hydration by mouth Monitor Labs, Lytes No Nephrotoxins In order to capture the severity of condition, please clarify if the condition signifies: CKD Stage 1 (GFR > 90) CKD Stage 2 (GFR 60-89) CKD Stage 3 (GFR 30-59) CKD Stage 4 (GFR 15-29) Other, please specify Unable to determine (Last Revision: May 2017) CKD stage 3 MTDD
--- NOTE | 2018-07-17 11:56 | P.PN ---
Subjective Progress Note Date: 07/17/18 Principal diagnosis: A Fib with RVR, hypotension Patient was seen and examined. No acute events overnight. No effective communication. He denies any complaints except for chronic blurry vision. Objective - Vital Signs Vital signs: Vital Signs Temp 97.5 F L 07/17/18 07:56 Pulse 120 H 07/17/18 07:56 Resp 15 07/17/18 07:56 BP 80/56 07/17/18 07:56 Pulse Ox 93 L 07/17/18 07:56 Intake & Output 07/16/18 07/17/18 07/17/18 18:59 06:59 18:59 Intake Total 180 Output Total 400 1250 Balance -400 -1070 Weight 97.3 kg Intake: IV 180 .9 20 180 Output: Urine 400 1250 Other: Voiding Method Urinal Urinal Urinal # Voids 1 1 # Bowel Movements 1 ABP, PAP, CO, CI - Last Documented Arterial Blood Pressure 142/94 - Exam General: [non toxic], [no distress], [appears at stated age] Derm: [warm], [dry] Head: [atraumatic], [normocephalic], [symmetric] Eyes: [EOMI], [no lid lag], [anicteric sclera] Mouth: [no lip lesion], [mucus membranes moist] Cardiovascular: [S1S2 reg], [irregularly irregular], [positive DP pulse bilateral], Lungs: [coarse breath sounds bilateral], [no rhonchi, no rales] , [no accessory muscle use] Abdominal: [soft], [ nontender to palpation], [no guarding], [no appreciable organomegaly] Ext: [no gross muscle atrophy], [no edema], [no contractures] Neuro: [no focal deficits] Psych: [Limited conversation] - Labs CBC & Chem 7: 07/17/18 05:38 07/17/18 05:38 Labs: Abnormal Lab Results - Last 24 Hours (Table) 07/17/18 07/17/18 07/17/18 Range/Units 05:38 05:38 05:38 RBC 4.27 L (4.30-5.90) m/uL Plt Count 117 L (150-450) k/uL PT 15.9 H (9.0-12.0) sec INR 1.6 H (<1.2) Chloride 95 L (98-107) mmol/L Carbon Dioxide 40 H (22-30) mmol/L BUN 51 H (9-20) mg/dL Creatinine 1.30 H (0.66-1.25) mg/dL Glucose 124 H (74-99) mg/dL Total Bilirubin 1.7 H (0.2-1.3) mg/dL Alkaline Phosphatase 166 H (38-126) U/L Total Protein 5.5 L (6.3-8.2) g/dL Albumin 2.8 L (3.5-5.0) g/dL Assessment and Plan Assessment: Assessment and Plan Acute on chronic systolic congestive heart failure Atrial fibrillation with rapid ventricular rate Hypotension likely due to A. fib with RVR with concerns for sepsis due to UTI UTI Supratherapeutic INR L2 compression fracture Chronic kidney disease BNP 832, with echocardiogram showing atrial fibrillation paradoxical septal titi on, severe enlargement of the right ventricle and left atrium, severe regurgitation of the tricuspid valve, cannot estimate EF. Recent chest x-ray showing slight improvement in the patient's pulmonary edema. Plans: Patient transition from Lasix IV to 40 mg by mouth 3 times a day. Hold LARON inhibitor due to CKD. Re-introduce beta pinky today as per Cardiology. Continue Aldactone. Strict intake and output. Daily weights. Follow cardiology recommendations. Heart rate in the 120s. Plans: Currently on digoxin IV and amiodarone by mouth. Re-stated Metoprolol today. INR is therapeutic, resume Coumadin. Keep K > 4 and Mg greater than 2. Telemetry monitoring. Follow cardiology recommendations. BP currently 80/56. Patient afebrile throughout hospitalization. Had no leukocytosis on admission until started on steroids. Lactic acid negative. UA shows small leukocyte esterase, but asymptomatic. Urine culture prelim negative. Patient has no source of infection, sepsis highly unlikely. Hypotension is likely secondary to atrial fibrillation with RVR. Plans: Patient currently transitioned off hydrocortisone and Levophed, able to transfer out of MICU. Diurese carefully due to hypotensive nature. Follow ICU consultation. UA showing small leukocyte esterase. Urine culture prelim negative. Plans: Continue Rocephin IV. Follow urine culture. INR 1.6 this morning. Plans: Re-start Coumadin. From recent fall. Plans: Follow-up in the outpatient setting. Continue wearing brace. Creatinine 1.30. Plans: Avoid nephrotoxins. Encourage hydration by mouth. Daily BMP. Patient admitted for CHF exacerbation, IV diuresis transitioned to oral. Being treated for A. fib with RVR. Currently off pressors and BP maintaining. Also being treated for UTI. DC planning as per Cardiology recommendations. Possible DC in 1-2 days.
[2018-07-17] MEDS: ATORVASTATIN 10 MG TAB PO SCH (20:25)
[2018-07-18 06:58] LABS: HCT 50.5 % (39.0-53.0); Hypochromasia Marked; MCH 30.2 pg (25.0-35.0); MCHC 29.8 g/dL (31.0-37.0); MCV 101.5 fL (80.0-100.0); Macrocytosis Slight; Mean Platelet Volume 8.1; Platelet Count 136 k/uL (150-450); RBC 4.98 m/uL (4.30-5.90); RDW 14.9 % (11.5-15.5); WBC 8.2 k/uL (3.8-10.6)
[2018-07-18 07:00] LABS: INR 1.4 (<1.2); Prothrombin Time 14.2 sec (9.0-12.0)
[2018-07-18 07:10] LABS: Albumin 3.6 g/dL (3.5-5.0); Calcium 9.4 mg/dL (8.4-10.2); Magnesium 2.1 mg/dL (1.6-2.3); Phosphorus 3.4 mg/dL (2.5-4.5); Potassium 4.5 mmol/L (3.5-5.1); Total Bilirubin 2.3 mg/dL (0.2-1.3); Total Protein 6.7 g/dL (6.3-8.2)
[2018-07-18] MEDS: METOPROLOL TARTRATE 25 MG TAB PO SCH ×2 (09:02→20:40)
[2018-07-18] MEDS: DIGOXIN 250 MCG/ML 2 ML AMP IVP SCH (09:02)
[2018-07-18] MEDS: SPIRONOLACTONE 25 MG TAB PO SCH ×2 (09:02→20:39)
[2018-07-18] MEDS: FUROSEMIDE 40 MG TAB PO SCH (09:02)
[2018-07-18] MEDS: predniSONE 10 MG TAB PO SCH ×2 (09:02→20:39)
[2018-07-18] MEDS: AMIODARONE 200 MG TAB PO SCH ×2 (09:02→20:39)
--- NOTE | 2018-07-18 10:30 | P.PN ---
Subjective Progress Note Date: 07/18/18 Principal diagnosis: A. fib with RVR, pulmonary edema patient was seen and examined. No acute events overnight. Patient with minimal communication. States that he has no complaints this morning. Denies any chest pain, shortness of breath or palpitations. Tolerating diet well. Objective - Vital Signs Vital signs: Vital Signs Temp 97.4 F L 07/18/18 08:00 Pulse 79 07/18/18 08:00 Resp 20 07/18/18 08:00 BP 106/63 07/18/18 08:00 Pulse Ox 95 07/18/18 08:00 Intake & Output 07/17/18 07/18/18 07/18/18 18:59 06:59 18:59 Intake Total 500 1440 Output Total 1050 100 Balance -550 -100 1440 Weight 92.9 kg Intake: Oral 500 1440 Output: Urine 1050 100 Other: Voiding Method Urinal Urinal Urinal # Voids 1 ABP, PAP, CO, CI - Last Documented Arterial Blood Pressure 142/94 - Exam General: [non toxic], [no distress], [appears at stated age] Derm: [warm], [dry] Head: [atraumatic], [normocephalic], [symmetric] Eyes: [EOMI], [no lid lag], [anicteric sclera] Mouth: [no lip lesion], [mucus membranes moist] Cardiovascular: [S1S2 reg], [irregularly irregular], [positive DP pulse bilateral], Lungs: [decreased breath sounds bilaterally], [no rhonchi, no rales] , [no accessory muscle use] Abdominal: [soft], [ nontender to palpation], [no guarding], [no appreciable organomegaly] Ext: [no gross muscle atrophy], [2+ lower extremity edema], [no contractures] Neuro: [no focal deficits] Psych: [Limited conversation] - Labs CBC & Chem 7: 07/18/18 06:15 07/18/18 06:15 Labs: Abnormal Lab Results - Last 24 Hours (Table) 07/18/18 07/18/18 07/18/18 Range/Units 06:15 06:15 06:15 MCV 101.5 H (80.0-100.0) fL MCHC 29.8 L (31.0-37.0) g/dL Plt Count 136 L (150-450) k/uL PT 14.2 H (9.0-12.0) sec INR 1.4 H (<1.2) Chloride 90 L (98-107) mmol/L Carbon Dioxide 41 H* (22-30) mmol/L BUN 51 H (9-20) mg/dL Creatinine 1.35 H (0.66-1.25) mg/dL Glucose 115 H (74-99) mg/dL Total Bilirubin 2.3 H (0.2-1.3) mg/dL Alkaline Phosphatase 174 H (38-126) U/L Assessment and Plan Assessment: Assessment and Plan 1. Acute on chronic systolic congestive heart failure 2. Atrial fibrillation with rapid ventricular rate 3. Hypochloremic metabolic alkalosis 4. Hypotension likely due to A. fib with RVR with concerns for sepsis due to UTI 5. UTI 6. Supratherapeutic INR 7. L2 compression fracture 8. Chronic kidney disease 1. BNP 832, with echocardiogram showing atrial fibrillation paradoxical septal motion, severe enlargement of the right ventricle and left atrium, severe regurgitation of the tricuspid valve, cannot estimate EF. Recent chest x-ray showing slight improvement in the patient's pulmonary edema. Plans: Discussed with cardiology, plans to put patient back on IV Lasix for the next couple of days. Hold LARNO inhibitor due to CKD. Continue metoprolol. Continue Aldactone. Strict intake and output. Daily weights. Follow cardiology recommendations. 2. Heart rate in the 120s. Plans: Currently on digoxin IV and amiodarone by mouth. Discussed with cardiology, plans for transitioning to digoxin by mouth today. Re-stated Metoprolol yesterday. INR is therapeutic, resume Coumadin. Keep K > 4 and Mg greater than 2. Telemetry monitoring. Follow cardiology recommendations. 3. Chloride 90, bicarbonate of 41. Likely secondary to use of Lasix. Patient has no respiratory distress. Plans: daily BMP. 4. BP currently 106/63. Patient afebrile throughout hospitalization. Had no leukocytosis on admission until started on steroids. Lactic acid negative. UA shows small leukocyte esterase, but asymptomatic. Urine culture prelim negative. Patient has no source of infection, sepsis highly unlikely. Hypotension is likely secondary to atrial fibrillation with RVR. Plans: Patient currently transitioned off hydrocortisone and Levophed, able to transfer out of MICU. Di urese carefully due to hypotensive nature. Follow ICU consultation. 5. UA showing small leukocyte esterase. Urine culture prelim negative. Plans: Completed 7 days of Rocephin. Follow urine culture. 6. INR 1.4 this morning. Plans: Re-start Coumadin. 7. From recent fall. Plans: Follow-up in the outpatient setting. Continue wearing brace. 8. Creatinine 1.35. Plans: Avoid nephrotoxins. Encourage hydration by mouth. Daily BMP. Patient admitted for CHF exacerbation, initially transitioned from Lasix IV to oral, cardiology recommends a couple more days of IV Lasix. Being treated for A. fib with RVR. DC planning as per Cardiology recommendations. Possible DC in 1-2 days. DC to [facility].
[2018-07-18 10:51] VITALS: BMI 27.8
--- NOTE | 2018-07-18 11:11 | P.PN ---
Subjective Progress Note Date: 07/18/18 Principal diagnosis: Atrial fibrillation with rapid ventricular response, hypotension. The patient is seen today 07/17/2018 in follow-up in the selective care unit. He is awake and alert in no acute distress. He sitting up in a chair at bedside. Rate is better controlled. He is afebrile. Hemodynamically stable. Maintain O2 saturations in the mid 90s on room air. White count 8.2. Hemoglobin 15.0. INR 1.4. Bicarb 41. Creatinine 1.35. Currently on amiodarone 400 mg twice a day. Lasix 40 mg every 12 hours. Objective - Vital Signs Vital signs: Vital Signs Temp 97.4 F L 07/18/18 08:00 Pulse 79 07/18/18 08:00 Resp 20 07/18/18 08:00 BP 106/63 07/18/18 08:00 Pulse Ox 95 07/18/18 08:00 Intake & Output 07/17/18 07/18/18 07/18/18 18:59 06:59 18:59 Intake Total 500 1440 Output Total 1050 100 Balance -550 -100 1440 Weight 92.9 kg 92.9 kg Intake: Oral 500 1440 Output: Urine 1050 100 Other: Voiding Method Urinal Urinal Urinal # Voids 1 ABP, PAP, CO, CI - Last Documented Arterial Blood Pressure 142/94 - Exam GENERAL EXAM: Alert, 58-year-old gentleman, sitting up in the recliner, somewhat slow to respond, related to remote history of anoxic brain injury, comfortable in no apparent distress. HEAD: Normocephalic/atraumatic. EYES: Normal reaction of pupils, equal size. Conjunctiva pink, sclera white. NOSE: Clear with pink turbinates. THROAT: No erythema or exudates. NECK: No masses, no JVD, no thyroid enlargement, no adenopathy. CHEST: No chest wall deformity. Symmetrical expansion. LUNGS: Equal air entry with faint crackles in the bilateral bases, diminished. CVS: Irregular rate and rhythm, normal S1 and S2, no gallops, no murmurs, no rubs ABDOMEN: Soft, nontender. No hepatosplenomegaly, normal bowel sounds, no guarding or rigidity. EXTREMITIES: No clubbing, no edema, no cyanosis, 2+ pulses and upper and lower extremities. MUSCULOSKELETAL: Muscle strength and tone normal. SPINE: No scoliosis or deformity SKIN: No rashes CENTRAL NERVOUS SYSTEM: No focal deficits, tone is normal in all 4 extremities. PSYCHIATRIC: Alert and oriented -3. Appropriate affect. Intact judgment and insight. - Labs CBC & Chem 7: 07/18/18 06:15 07/18/18 06:15 Labs: Abnormal Lab Results - Last 24 Hours (Table) 07/18/18 07/18/18 07/18/18 Range/Units 06:15 06:15 06:15 MCV 101.5 H (80.0-100.0) fL MCHC 29.8 L (31.0-37.0) g/dL Plt Count 136 L (150-450) k/uL PT 14.2 H (9.0-12.0) sec INR 1.4 H (<1.2) Chloride 90 L (98-107) mmol/L Carbon Dioxide 41 H* (22-30) mmol/L BUN 51 H (9-20) mg/dL Creatinine 1.35 H (0.66-1.25) mg/dL Glucose 115 H (74-99) mg/dL Total Bilirubin 2.3 H (0.2-1.3) mg/dL Alkaline Phosphatase 174 H (38-126) U/L Assessment and Plan Assessment: Impression: 1 atrial fibrillation with RVR and hypotension, off IV amiodarone and norepinephrine. Patient is hemodynamically stable. 2 atrial fibrillation with RVR 3 possible urinary tract infection, urinary culture is nondiagnostic, was mixed jo. 4 history of aortic valve replacement. Patient has a mechanical valve and maintained on anticoagulation therapy 5 history of anoxic brain injury and encephalopathy 6 acute on chronic systolic congestive heart failure, remains on diuretics, chest x-ray is showing slight improvement today. Plan: The patient was seen and evaluated by Dr. Armenta. He is currently stable from the pulmonary and critical care standpoint. Radiology for rate control. Plan is for probable discharge to an extended care facility for inpatient rehabilitation. I, the cosigning physician, performed a history & physical examination of the patient. Lungs sounds with faint crackles in posterior bases, diminished. Maintaining good O2 saturations in the 90s on room air. I discussed the assessment and plan of care with my nurse practitioner, Anyi Vieyra. I attest to the above note as dictated by her.
--- NOTE | 2018-07-18 13:00 | P.PN ---
Subjective Progress Note Date: 07/18/18 Santy is a 58-year-old gentleman with history of aortic valve replacement, chronic atrial fibrillation, systolic congestive heart failure, hypertension, was found in the emergency room to be in atrial fibrillation with rapid ventricular response and was also found to be significantly hypotensive. He is followed on the cardiac unit today, his chest x-ray was reviewed and didn't reveal mild congestive heart failure. We will discontinue the oral Lasix and put him back on some IV Lasix today, we will also repeat a BNP level today. White blood cell count 8.2, hemoglobin 15, INR 1.4, bicarb 41, creatinine 1.3. Objective - Vital Signs Vital signs: Vital Signs Temp 97.6 F 07/18/18 11:38 Pulse 75 07/18/18 11:38 Resp 20 07/18/18 11:38 BP 105/65 07/18/18 11:38 Pulse Ox 96 07/18/18 11:38 Intake & Output 07/17/18 07/18/18 07/18/18 18:59 06:59 18:59 Intake Total 500 1440 Output Total 1050 100 350 Balance -550 -100 1090 Weight 92.9 kg 92.9 kg Intake: Oral 500 1440 Output: Urine 1050 100 350 Other: Voiding Method Urinal Urinal Urinal # Voids 1 ABP, PAP, CO, CI - Last Documented Arterial Blood Pressure 142/94 - Exam HEAD: Normocephalic/atraumatic. EYES: Normal reaction of pupils, equal size. Conjunctiva pink, sclera white. NOSE: Clear with pink turbinates. THROAT: No erythema or exudates. NECK: No masses, no JVD, no thyroid enlargement, no adenopathy. CHEST: No chest wall deformity. Symmetrical expansion. LUNGS: Equal air entry with faint crackles in the bilateral bases, diminished. CVS: Irregular rate and rhythm, normal S1 and S2, no gallops, no murmurs, no rubs ABDOMEN: Soft, nontender. No hepatosplenomegaly, normal bowel sounds, no guarding or rigidity. EXTREMITIES: No clubbing, no edema, no cyanosis, 2+ pulses and upper and lower extremities. MUSCULOSKELETAL: Muscle strength and tone normal. SPINE: No scoliosis or deformity SKIN: No rashes CENTRAL NERVOUS SYSTEM: No focal deficits, tone is normal in all 4 extremities. PSYCHIATRIC: Alert and oriented -3. Appropriate affect. Intact judgment and insight. - Labs CBC & Chem 7: 07/18/18 06:15 07/18/18 06:15 Labs: Abnormal Lab Results - Last 24 Hours (Table) 07/18/18 07/18/18 07/18/18 Range/Units 06:15 06:15 06:15 MCV 101.5 H (80.0-100.0) fL MCHC 29.8 L (31.0-37.0) g/dL Plt Count 136 L (150-450) k/uL PT 14.2 H (9.0-12.0) sec INR 1.4 H (<1.2) Chloride 90 L (98-107) mmol/L Carbon Dioxide 41 H* (22-30) mmol/L BUN 51 H (9-20) mg/dL Creatinine 1.35 H (0.66-1.25) mg/dL Glucose 115 H (74-99) mg/dL Total Bilirubin 2.3 H (0.2-1.3) mg/dL Alkaline Phosphatase 174 H (38-126) U/L Assessment and Plan Plan: Impression and plan: 1 chronic atrial fibrillation with RVR and hypotension, off IV amiodarone and norepinephrine. Patient is hemodynamically stable. 3 possible urinary tract infection, urinary culture is nondiagnostic, was mixed jo. 4 history of aortic valve replacement. Patient has a mechanical valve and maintained on anticoagulation therapy 5 history of anoxic brain injury and encephalopathy 6 acute on chronic systolic congestive heart failure Plan We will discontinue the oral diuretics and start the patient on IV Lasix for tod ay, repeat a BNP level. Continue to monitor the intake and output along with daily weights and daily lytes BUN and creatinine. DNP note has been reviewed, I agree with a documented findings and plan of care. Patient was seen and examined.
[2018-07-18] MEDS: FUROSEMIDE 10 MG/ML 4 ML VIAL IV SCH ×2 (15:10→20:40)
[2018-07-18] MEDS: ATORVASTATIN 10 MG TAB PO SCH (20:39)
[2018-07-19 06:22] LABS: Basophils % (A) 0 %; Eosinophils # (A) 0.1 k/uL (0-0.7); Eosinophils % (A) 1 %; HGB 14.3 gm/dL (13.0-17.5); Hypochromasia Moderate; Lymphocytes # (A) 0.8 k/uL (1.0-4.8); Lymphocytes % (A) 9 %; MCH 30.1 pg (25.0-35.0); MCHC 30.6 g/dL (31.0-37.0); MCV 98.4 fL (80.0-100.0); Macrocytosis Slight; Mean Platelet Volume 8.1; Monocytes # (A) 1.5 k/uL (0-1.0); Monocytes % (A) 16 %; Neutrophils # (A) 6.9 k/uL (1.3-7.7); Neutrophils % (A) 72 %; Platelet Count 147 k/uL (150-450); RBC 4.77 m/uL (4.30-5.90); RDW 15.7 % (11.5-15.5); WBC 9.5 k/uL (3.8-10.6)
[2018-07-19 06:35] LABS: Calcium 9.3 mg/dL (8.4-10.2); Potassium 4.5 mmol/L (3.5-5.1)
[2018-07-19 06:51] LABS: INR 1.3 (<1.2); Prothrombin Time 13.2 sec (9.0-12.0)
[2018-07-19] MEDS: Acetaminophen-Codeine 300-30mg TAB PO PRN (07:57)
[2018-07-19] MEDS: FUROSEMIDE 10 MG/ML 4 ML VIAL IV SCH ×2 (07:57→20:33)
[2018-07-19] MEDS: predniSONE 10 MG TAB PO SCH ×2 (07:58→20:33)
[2018-07-19] MEDS: METOPROLOL TARTRATE 25 MG TAB PO SCH ×2 (07:58→20:33)
[2018-07-19] MEDS: AMIODARONE 200 MG TAB PO SCH ×2 (07:58→20:33)
[2018-07-19] MEDS: SPIRONOLACTONE 25 MG TAB PO SCH ×2 (07:58→20:33)
[2018-07-19] MEDS: DIGOXIN 125 MCG TAB PO SCH (07:58)
--- NOTE | 2018-07-19 10:24 | XR ---
EXAMINATION TYPE: XR chest 1V portable DATE OF EXAM: 07/19/2018 COMPARISON: 07/17/2018 HISTORY: Shortness of breath FINDINGS: There are bilateral pleural effusions with cardiomegaly and bibasilar infiltrate. There is a diffuse interstitial pattern. Postsurgical changes. IMPRESSION: 1. Correlate for CHF. Findings are stable.
--- NOTE | 2018-07-19 14:03 | CT ---
EXAMINATION TYPE: CT brain wo con DATE OF EXAM: 07/19/2018 COMPARISON: 07/10/2018 INDICATION: CVA/TIA, confusion DLP: 1050.4 mGycm, Automated exposure control for dose reduction was used. CONTRAST: None CT of the brain is performed utilizing 3 mm thick sections through the posterior fossa and 3 mm thick sections through the remaining calvarium. Study is performed within 24 hours of arrival to the hosp [facility]. No abnormal hyperdensity is present to suggest an acute intracranial hemorrhage. No mass lesion is evident. Ill-defined hypodensity is within the lateral right elbow limited region. Subcortical white matter ch trae could be considered. There is subcortical white matter changes through the right frontal and rig ht temporal lobes. Prior infarcts are also evident within the inferior medial cerebellum both left an d right. These findings are largely present previously correlate with the patient's symptoms. Ventricles and sulci are dominant for the patient age. This may be greater along the right compared to the left. Paranasal sinuses and mastoid air cells within the [id number] are clear. IMPRESSIONS: 1. No acute intracranial process. 2. Prior infarcts and atrophy discussed above
--- NOTE | 2018-07-19 15:15 | US ---
EXAMINATION TYPE: US carotid duplex BILAT DATE OF EXAM: 07/19/2018 COMPARISON: NONE CLINICAL HISTORY: stroke. Poor historian. EXAM MEASUREMENTS: RIGHT: Peak Systolic Velocity (PSV) cm/sec ----- Right CCA: 58.4 ----- Right ICA: 65.3 ----- Right ECA: 116.1 ICA/CCA ratio: 1.1 RIGHT: End Diastole cm/sec ----- Right CCA: 13.9 ----- Right ICA: 9.5 ----- Right ECA: 14.4 LEFT: Peak Systolic Velocity (PSV) cm/sec ----- Left CCA: 78.8 ----- Left ICA: 53.1 ----- Left ECA: 90.8 ICA/CCA ratio: 0.7 LEFT: End Diastole cm/sec ----- Left CCA: 10.2 ----- Left ICA: 11.3 ----- Left ECA: 11.6 VERTEBRALS (direction of flow): Right Vertebral: Antegrade Left Vertebral: Antegrade Rhythm: Arrhythmia No elevated velocities or significant stenosis. Bilateral wall thickening. Plaque seen in left CCA a nd right bulb. IMPRESSION: 1. Mild degree of grayscale atheromatous plaquing with no sonographically evident hemodynamically sig nificant stenosis within either visualized carotid arterial system.. 2. Cardiac arrhythmia incidentally seen. Correlate with EKG. Criteria for Assigning % of Stenosis / Diameter reduction (Estimation based on the indirect measurements of the internal carotid artery velocities (ICA PSV). 1. Normal (no stenosis)=ICA PSV < 125 cm/s: ratio < 2.0: ICA EDV<40 cm/s. 2. Less than 50% stenosis=ICA PSV < 125 cm/s: ratio < 2.0: ICA EDV<40 cm/s. 3. 50 to 69% stenosis=ICA PSV of 125 to 230 cm/s: ration 2.0 ? 4.0: ICA EDV 40-100 cm/s. 4. Greater than 70% stenosis to near occlusion= ICA PSV > 230 cm/s: ratio > 4.0: ICA EDV > 100 cm/s. 5. Near occlusion= ICA PSV velocities may be low or undetectable: variable ratio and ICA EDV. 6. Total occlusion=unable to detect flow.
[2018-07-19] MEDS ORDERED: WARFARIN 2.5 MG TAB PO ONE (18:00)
[2018-07-19] MEDS ORDERED: WARFARIN 5 MG TAB PO SCH (18:00)
--- NOTE | 2018-07-19 20:10 | P.PN ---
Subjective Progress Note Date: 07/19/18 Principal diagnosis: dizziness Patient is a 58-year-old male with history of aortic valve replacement, atrial fibrillation, systolic congestive heart failure, and prior s troke with residual left-sided deficits who presented to the ER with complaints of abdominal pain and dizziness. Patient has been treated for A. fib with RVR and acute exacerbation of systolic CHF throughout this hospitalization. First evaluation of the patient on hospital day 9. Patient seen and examined at bedside. He states he feels his speech is worse today, his gait is less stable than normal, and he feels was left-sided weakness is worse and Discussed with therapy. They feel that his speech is at baseline today, his left sided weakness is worse and they feel that his left facial droop may be worse. Objective - Vital Signs Vital signs: Vital Signs Temp 98.1 F 07/19/18 16:00 Pulse 62 07/19/18 16:00 Resp 18 07/19/18 16:00 BP 129/67 07/19/18 16:00 Pulse Ox 94 L 07/19/18 16:00 Intake & Output 07/19/18 07/19/18 07/20/18 06:59 18:59 06:59 Intake Total 1560 Output Total 1200 250 Balance -1200 1310 Weight 88.1 kg Intake: Oral 1560 Output: Urine 1200 250 Other: Voiding Method Urinal Urinal # Voids 2 1 # Bowel Movements 1 ABP, PAP, CO, CI - Last Documented Arterial Blood Pressure 142/94 - Exam General: non toxic, no distress, appears older than stated age Derm: warm, dry Head: atraumatic, normocephalic, symmetric Eyes: EOMI, no lid lag, anicteric sclera Mouth: no lip lesion, mucus membranes moist Cardiovascular: S1S2 reg, no murmur, positive posterior tibial pulse bilateral, Lungs: Free sounds bilateral, no rhonchi, no rales , no accessory muscle use Abdominal: soft, nontender to palpation, no guarding, no appreciable organomegaly Ext: no gross muscle atrophy, 2+ edema Neuro: Left-sided facial droop, contracture of left hand, left lower extremity weakness and left upper extremity weakness with 3 out of 5, right upper extremity and lower extremity 5 out of 5, Psych: Alert, oriented, flat affect, has some difficulty with speech - Labs CBC & Chem 7: 07/19/18 05:47 06/06/19 05:43 Labs: Abnormal Lab Results - Last 24 Hours (Table) 07/19/18 07/19/18 07/19/18 Range/Units 05:43 05:43 05:47 MCHC 30.6 L (31.0-37.0) g/dL RDW 15.7 H (11.5-15.5) % Plt Count 147 L (150-450) k/uL Lymphocytes # 0.8 L (1.0-4.8) k/uL Monocytes # 1.5 H (0-1.0) k/uL PT 13.2 H (9.0-12.0) sec INR 1.3 H (<1.2) Sodium 136 L (137-145) mmol/L Chloride 91 L (98-107) mmol/L Carbon Dioxide 40 H (22-30) mmol/L BUN 55 H (9-20) mg/dL Creatinine 1.52 H (0.66-1.25) mg/dL Assessment and Plan Assessment: Acute worsening of left-sided deficits -Unable to perform MRI secondary to prior mechanical valve and unable to validate fails -Check head CT which was unchanged -Check carotid Dopplers -Aspirin - pt/ot Acute exacerbation of systolic congestive heart failure, last known ejection fraction 45-50% -Continue with Lasix IV. -Case discussed with cardiology, recommendations appreciated -Continue with metoprolol and spironolactone, ACEI on hold due to bordeline BP A fib with RVR with subtherapeutic coumadin coagulaopthy ( was supratherapeutic on admission) - coumadin 7.5 mg tonight, repeat INR in AM - A fib rate controlled - Continue with amio, dig, lopressor CKD III - at baseline - resume ACEI once BP stable - Follow BMP Contraction alkalosis -Suspected -No additional intervention needed Hypertension, controlled now with borderline Hypotension -Continue medications as outlined above -Follow blood pressures Dyslipidemia -Continue with statin UTI, ruled out Hyperchloremic metabolic acidosis, ruled out DVT prophylaxis:Coumadin Discussed with: Patient, cardio, nurisng, therapy Anticipated discharge: 1-[address]: [facility] A total of 35 minutes was spent on the care of this complex patient more than 50% of the time was spent in counseling and care coordination.
[2018-07-19] MEDS: ATORVASTATIN 10 MG TAB PO SCH (20:33)
--- NOTE | 2018-07-19 21:05 | PN ---
PROGRESS NOTE This patient was admitted with congestive heart failure, abdominal pain. He is comfortable. Denies any orthopnea or PND. The chest x-ray done today shows some congestive changes. Clinically patient respirations are not labored. He is not having any orthopnea or PND. Heart rate is 90 to 100 per minute, blood pressure is 100/60 mmHg. First and second heart sounds are normal. Lungs prosthetic sounds are well heard. The patient's INR is 1.3 and creatinine is 1.52. We will continue the IV Lasix for 1 more day and he can be discharged home tomorrow. MMODL / IJN: [id number] /
[2018-07-20 06:30] LABS: HGB 13.8 gm/dL (13.0-17.5); Hypochromasia Moderate; MCH 31.5 pg (25.0-35.0); MCV 98.4 fL (80.0-100.0); Mean Platelet Volume 7.8; Platelet Count 137 k/uL (150-450); RBC 4.37 m/uL (4.30-5.90); RDW 15.3 % (11.5-15.5); WBC 9.9 k/uL (3.8-10.6)
[2018-07-20 06:39] LABS: INR 1.2 (<1.2); Prothrombin Time 12.1 sec (9.0-12.0)
[2018-07-20 06:42] LABS: Calcium 9.2 mg/dL (8.4-10.2); Magnesium 2.4 mg/dL (1.6-2.3); Potassium 4.7 mmol/L (3.5-5.1)
[2018-07-20] MEDS ORDERED: HEPARIN SODIUM,PORCINE 5,000 UNIT/ML 1 ML VIAL IV PRN (07:55)
[2018-07-20] MEDS ORDERED: HEPARIN SODIUM,PORCINE 5,000 UNIT/ML 1 ML VIAL IV ONE (07:55)
[2018-07-20] MEDS ORDERED: HEPARIN SOD,PORK IN 0.45% NACL 25,000 UNIT in 0.45% NACL 1 250ML.BAG IV SCH (08:00)
[2018-07-20] MEDS: SPIRONOLACTONE 25 MG TAB PO SCH ×2 (08:18→21:03)
[2018-07-20] MEDS: DIGOXIN 125 MCG TAB PO SCH (08:18)
[2018-07-20] MEDS: AMIODARONE 200 MG TAB PO SCH ×2 (08:19→21:03)
[2018-07-20] MEDS: predniSONE 10 MG TAB PO SCH ×2 (08:19→21:03)
[2018-07-20] MEDS: ASPIRIN 81 MG PO SCH (08:19)
[2018-07-20] MEDS: METOPROLOL TARTRATE 25 MG TAB PO SCH ×2 (08:21→21:03)
[2018-07-20] MEDS: FUROSEMIDE 10 MG/ML 4 ML VIAL IV SCH (08:21)
[2018-07-20] MEDS: ENOXAPARIN 60 MG/0.6 ML SYRINGE SQ SCH ×2 (13:55→21:03)
--- NOTE | 2018-07-20 15:00 | PN ---
PROGRESS NOTE This patient is status post aortic valve replacement, mitral commissurotomy. Patient remains comfortable, denies any orthopnea or PND. Patient's chest x-ray showed improvement, but there was still some congestive changes. Some of the x-ray findings could be secondary to chronic pulmonary venous congestion. Patient remains comfortable. First and second heart sounds are heard. Lungs reveal few basal crackles. We will switch the patient to the p.o. Lasix. We will keep the patient on Lovenox subcu for next 3-4 days and monitor the INR. Patient is going to be transferred to the [facility]. MMODL / IJN: [id number] /
[2018-07-20] MEDS: FUROSEMIDE 40 MG TAB PO SCH (15:51)
--- NOTE | 2018-07-20 16:04 | P.PN ---
Subjective Progress Note Date: 07/20/18 Principal diagnosis: dizziness Patient is a 58-year-old male with history of aortic valve replacement, atrial fibrillation, systolic congestive heart failure, and prior s troke with residual left-sided deficits who presented to the ER with complaints of abdominal pain and dizziness. The ER he was found to have A. fib with RVR and was hypotensive. Hypotension improved with some gentle IV fluid hydration. He was found have an INR of greater than 10 and he takes Coumadin for her mechanical aortic valve-he is given vitamin K. CT of the abdomen and pelvis was completed which showed a L2 compression fracture and hepatosplenomegaly. It also showed right common iliac obstructive stenosis. Chest x-ray showed mild fluid overload. He was started on a Cardizem drip due to A. fib with RVR, however he became clinically hypotensive. He was also found to have urinalysis positive for urinary tract infection was started on Rocephin. Creatinine elevated at 1.4 and was felt that his acute kidney injury was due to cardiorenal syndrome. CT of the head and cervical spine was done which did not show any evidence of acute bleed or fracture CT chest showed no acute process. He is managed the ICU for close monitoring. His Cardizem was switched to amiodarone. Echocardiogram was done and they were unable to estimate ejection fraction but did show paradoxical septal wall motion, severely enlarged right ventricle, severely enlarged left atrium, and mild pulmonary hypertension. Cardiology was consulted and recommended continuing amiodarone and starting Lasix 40 mg IV every 12. Critical care was consulted and agreed with current treatment regimen. He was also started on Solu-Cortef for possible adrenal insufficiency. He was seen by spine surgery for his L2 compression fracture who recommended an LSO brace. Patient was seen by Dr. Almaraz who recommended outpatient workup for vascular evaluation. Repeat INR was 6.7. He continued to be hypotensive despite transition Cardizem to amiodarone and was placed on a norepinephrine drip. He developed worsening cardiac overload and his Lasix dose was increased and Aldactone was added. On 07/12 he had a central line and arterial line placed. He was slow to improve. By 07/15 patient was off of amiodarone and norepinephrine. He was continued on diuretics for congestive heart failure. [facility]. He was restarted on beta pinky on 07/17 as blood pressure remained stable. On 07/18 he remained on IV Lasix. On 07/19 he developed some worsening of his chronic left-sided weakness. He was ordered an MRI was unable to have this secondary to his mechanical valve. Repeat head CT showed no acute process, carotid Doppler showed no significant stenosis. His INR remained low on 07/20 and he was started on a heparin drip. Neurology was consulted. Patient seen and examined at bedside. Patient still feels like his left leg and left arm are weaker than baseline, denies any chest pain or shortness of breath. Frustrated and wants to go home. We discussed his need for rehab therapy at this time due to increased weakness, poor gait, and help with medication monitoring. Objective - Vital Signs Vital signs: Vital Signs Temp 97.5 F L 07/20/18 11:17 Pulse 63 07/20/18 11:17 Resp 16 07/20/18 11:17 BP 106/58 07/20/18 11:17 Pulse Ox 97 07/20/18 11:17 Intake & Output 07/19/18 07/20/18 07/20/18 18:59 06:59 18:59 Intake Total 1560 480 Output Total 250 4000 250 Balance 1310 -4000 230 Weight 85.6 kg Intake: Oral 1560 480 Output: Urine 250 3200 250 Stool 800 Other: Voiding Method Urinal Urinal # Voids 1 1 1 # Bowel Movements 1 1 ABP, PAP, CO, CI - Last Documented Arterial Blood Pressure 142/94 - Exam General: non toxic, no distress, appears older than stated age Derm: warm, dry Head: atraumatic, normocephalic, symmetric Eyes: EOMI, no lid lag, anicteric sclera Mouth: no lip lesion, mucus membranes moist Cardiovascular: S1S2 reg, no murmur, positive posterior tibial pulse bilateral, Lungs: Decreased breath sounds bilateral, no rhonchi, no rales , no accessory muscle use Abdominal: soft, nontender to palpation, no guarding, no appreciable organomegaly Ext: no gross muscle atrophy,1+ edema Neuro: Left-sided facial droop, contracture of left hand Psych: Alert, oriented, flat affect, has some difficulty with speech - Labs CBC & Chem 7: 07/20/18 06:07 07/20/18 06:07 Labs: Abnormal Lab Results - Last 24 Hours (Table) 07/20/18 07/20/18 07/20/18 Range/Units 06:07 06:07 06:07 Plt Count 137 L (150-450) k/uL PT 12.1 H (9.0-12.0) sec INR 1.2 H (<1.2) Chloride 96 L (98-107) mmol/L Carbon Dioxide 36 H (22-30) mmol/L BUN 55 H (9-20) mg/dL Creatinine 1.45 H (0.66-1.25) mg/dL Magnesium 2.4 H (1.6-2.3) mg/dL Assessment and Plan Assessment: Acute worsening of left-sided deficits -Consult neuro -Unable to perform MRI secondary to prior mechanical valve and unable to validate -head CT which was unchanged -carotid Dopplers-no significant stenosis -Aspirin - pt/ot Acute exacerbation of systolic congestive heart failure, last known ejection fraction 45-50% -Continue with Lasix IV. -Case discussed with cardiology, recommendations appreciated -Continue with metoprolol and spironolactone, ACEI on hold due to bordeline BP A fib with RVR with subtherapeutic coumadin coagulaopthy ( was supratherapeutic on admission), mechanical Aortic valve - Start heparin drip with history of mechanical valve -Coumadin 10 mg tonight, repeat INR in a.m. - A fib rate controlled - Continue with amio, dig, lopressor L2 compression fracture, age indeterminate -LSO brace when up and ambulating -Follow up with Dr. Hanna in 2 weeks CKD III - at baseline - resume ACEI once BP stable - Follow BMP Contraction alkalosis -Suspected -No additional intervention needed Hypertension, controlled now with borderline Hypotension -Continue medications as outlined above -Follow blood pressures Right common femoral artery chronic occlusion -Seen by vascular surgery -Follow up with Dr. Almaraz for further outpatient management. Dyslipidemia -Continue with statin UTI, ruled out Hyperchloremic metabolic acidosis, ruled out DVT prophylaxis:Coumadin Discussed with: Patient, cardio, nurisng, therapy Anticipated discharge: 1-[address]: SN[facility] A total of 35 minutes was spent on the care of this complex patient more than 50 % of the time was spent in counseling and care coordination.
[2018-07-20] MEDS ORDERED: WARFARIN 10 MG TAB PO ONE (18:00)
[2018-07-20] MEDS ORDERED: WARFARIN 7.5 MG TAB PO ONE (18:00)
--- NOTE | 2018-07-20 18:30 | P.CNNES ---
History of Present Illness Consult date: 07/20/18 Reason for Consult: Worsening left-sided weakness History of Present Illness: Patient is a 58-year-old male with history of atrial fibrillation, mechanical aortic valve replacement, on Coumadin came to the hospital on 07/10/2018 for left lower quadrant abdominal pain of 2 days' duration. Patient had supratherapeutic INR, and was diagnosed with acute mild exacerbation of systolic CHF, acute kidney injury, hepatic congestion. Patient had a computed tomography scan of head performed on admission, which revealed evidence of multiple old strokes. On my review, it appears there is involvement of bilateral occipital, bilateral cerebellar region, right parietal and right temporal region. No acute process. Patient was noted to have some left-sided weakness, which prompted this neurology consultation. Patient cannot have MRI of the brain secondary to prior mechanical valve and unable to validate. Patient had carotid Doppler which revealed no significant stenosis. Patient is currently on aspirin and Coumadin. Patient does not know if he ever had any stroke. Please refer to examination below. He has very slow mentation. 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 Past Anesthesia/Blood Transfusion Reactions: No Reported Reaction Additional Past Anesthesia/Blood Transfusion Reaction / Comment(s): clausterphobia. pt unsure if he ever had blood trandsfusion Past Psychological History: No Psychological Hx Reported Smoking Status: Current every day smoker Past Alcohol Use History: None Reported Additional Past Alcohol Use History / Comment(s): started smopking at age 14 used to smoke 1 ppd.currently pt stated a pack will last him 2 weeks. 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 Sister(s) Family Medical History: Thyroid Disorder Additional Family Medical History / Comment(s): thyroidectomy Medications and Allergies Home Medications Medication Instructions Recorded Confirmed Type Diltiazem Oral [Cardizem*] 30 mg PO TID 02/26/18 07/10/18 History Warfarin [Coumadin] 5 mg PO WESA 02/26/18 07/10/18 History Warfarin [Coumadin] 7.5 mg PO SUMOTUTHFR 02/26/18 07/10/18 History Fosinopril [Monopril] 10 mg PO DAILY #30 tab 03/06/18 07/10/18 Rx Metoprolol Tartrate [Lopressor] 25 mg PO BID 07/10/18 07/10/18 History Simvastatin [Zocor] 20 mg PO HS 07/10/18 07/10/18 History Allergies Allergy/AdvReac Type Severity Reaction Status Date / Time No Known Allergies Allergy Verified 07/10/18 13:40 Physical Examination - Vital Signs Vital Signs: Vital Signs Temp Pulse Resp BP BP Pulse Ox 07/20/18 15:56 98.4 F 70 16 98/57 93 L 07/20/18 11:17 97.5 F L 63 16 106/58 97 07/20/18 08:11 94 17 112/55 92 L 07/20/18 03:45 97.5 F L 64 16 98/58 93 L 07/20/18 00:10 97.9 F 66 18 101/69 92 L 07/19/18 19:45 97.8 F 87 18 95/64 93 L Intake and Output 07/20/18 07/20/18 07/20/18 06:59 14:59 22:59 Intake Total 1920 Output Total 3680 600 Balance -3680 1320 Intake: Oral 1920 Output: Urine 2880 600 Stool 800 Other: Voiding Method Urinal Urinal # Voids 1 1 1 # Bowel Movements 1 1 Weight 85.6 kg On examination patient is a middle aged male, who appears older than his stated age. He is alert and awake, but has slow mentation, prolonged latency time to answer questions. Patient knows his name, date of , and states he is "49 something" of age.. Patient tells me that he is in [facility] in [facility], could not tell current month or year. He is mildly dysarthric but no aphasia. No obvious bruit. On cranial nerve exam his pupils are round and reacting to light. Visual couch are full on confrontation. Extraocular muscles are intact. He has slight flattening of the right nasolabial fold. However on active testing appeared equal. Tongue pr otrudes the midline. Muscle strength testing is normal in the arms and legs. He has moderate peripheral edema on the right. No ataxia for [id number]. Sensations touch is equal. Reflexes 2+ to 3 all over. Plantar is downgoing on the right, up on left. Tone and bulk of muscles normal. Results Carotid Doppler from 07/19/2018 showed mild degree of grayscale atheromatous plaquing with no significant stenosis. Cardiac arrhythmia. Antegrade flow in both vertebral arteries. 2-D echo showed atrial fibrillation. There is paradoxical/descend ALLERGIC septal motion consistent with right radicular volume overload. Cannot estimate EF. Right ventricle is severely enlarged. Left atrium was severely dilated. Aneurysmal septum. Severe tricuspid regurgitation. Chest x-ray showed findings of CHF. Patient's last B12 498 on 03/04/2018. TSH normal. - Laboratory Findings CBC and BMP: 07/20/18 06:07 07/20/18 06:07 Abnormal Lab Findings: Abnormal Labs 07/10/18 07/10/18 07/10/18 14:00 14:00 14:00 WBC RBC MCV 103.3 H MCHC 30.6 L RDW Plt Count 145 L Lymphocytes # 0.9 L Monocytes # PT >130.0 H INR >10.0 H* APTT Sodium Potassium Chloride 110 H Carbon Dioxide BUN 27 H Creatinine 1.48 H Glucose Magnesium Total Bilirubin 2.5 H Alkaline Phosphatase 145 H Creatine Kinase 53 L Total Protein 5.9 L Albumin 2.9 L HDL Cholesterol Urine Protein Ur Leukocyte Esterase Urine RBC Urine WBC Urine Mucus 07/10/18 07/10/18 07/11/18 16:45 22:35 09:10 WBC RBC MCV 103.3 H MCHC 30.1 L RDW Plt Count 146 L Lymphocytes # 0.7 L Monocytes # PT >130.0 H INR >10.0 H* APTT Sodium Potassium Chloride Carbon Dioxide BUN Creatinine Glucose Magnesium Total Bilirubin Alkaline Phosphatase Creatine Kinase Total Protein Albumin HDL Cholesterol Urine Protein Trace H Ur Leukocyte Esterase Small H Urine RBC 6 H Urine WBC 18 H Urine Mucus Rare H 07/11/18 07/11/18 07/12/18 09:10 09:10 05:10 WBC RBC MCV MCHC RDW Plt Count Lymphocytes # Monocytes # PT 65.0 H 43.7 H INR 6.7 H* 4.5 H APTT Sodium Potassium Chloride 111 H Carbon Dioxide BUN 24 H Creatinine 1.36 H Glucose Magnesium Total Bilirubin 3.4 H Alkaline Phosphatase 144 H Creatine Kinase Total Protein 5.9 L Albumin 2.9 L HDL Cholesterol Urine Protein Ur Leukocyte Esterase Urine RBC Urine WBC Urine Mucus 07/12/18 07/12/18 07/13/18 05:10 05:10 04:45 WBC RBC MCV 104.1 H MCHC 30.1 L RDW Plt Count Lymphocytes # Monocytes # PT 53.4 H INR 5.5 H* APTT Sodium Potassium Chloride Carbon Dioxide 21 L BUN 27 H Creatinine 1.60 H Glucose 131 H Magnesium Total Bilirubin Alkaline Phosphatase Creatine Kinase Total Protein Albumin HDL Cholesterol 39 L Urine Protein Ur Leukocyte Esterase Urine RBC Urine WBC Urine Mucus 07/13/18 07/13/18 07/13/18 04:45 04:45 17:10 WBC 15.0 H RBC MCV 100.5 H MCHC RDW Plt Count Lymphocytes # Monocytes # PT INR APTT Sodium 136 L Potassium 3.3 L Chloride Carbon Dioxide BUN 31 H Creatinine 1.34 H Glucose 142 H Magnesium Total Bilirubin Alkaline Phosphatase Creatine Kinase Total Protein Albumin HDL Cholesterol Urine Protein Ur Leukocyte Esterase Urine RBC Urine WBC Urine Mucus 07/14/18 07/14/18 07/14/18 04:55 04:55 04:55 WBC 14.4 H RBC MCV 101.5 H MCHC 30.3 L RDW Plt Count Lymphocytes # Monocytes # PT 39.6 H INR 4.1 H APTT Sodium Potassium Chloride Carbon Dioxide BUN 38 H Creatinine 1.52 H Glucose 125 H Magnesium Total Bilirubin Alkaline Phosphatase Creatine Kinase Total Protein Albumin HDL Cholesterol Urine Protein Ur Leukocyte Esterase Urine RBC Urine WBC Urine Mucus 07/15/18 07/15/18 07/15/18 04:25 04:25 04:25 WBC 10.8 H RBC 4.17 L MCV 102.6 H MCHC 30.6 L RDW Plt Count 127 L Lymphocytes # Monocytes # PT 30.5 H INR 3.2 H APTT Sodium 135 L Potassium Chloride Carbon Dioxide 31 H BUN 44 H Creatinine 1.30 H Glucose 130 H Magnesium Total Bilirubin 1.4 H Alkaline Phosphatase 142 H Creatine Kinase Total Protein 5.6 L Albumin 2.8 L HDL Cholesterol Urine Protein Ur Leukocyte Esterase Urine RBC Urine WBC Urine Mucus 07/16/18 07/16/18 07/16/18 05:15 05:15 05:27 WBC RBC 4.21 L MCV 102.4 H MCHC 30.8 L RDW Plt Count 124 L Lymphocytes # Monocytes # PT 20.5 H INR 2.1 H APTT Sodium 136 L Potassium Chloride Carbon Dioxide 37 H BUN 46 H Creatinine 1.39 H Glucose 114 H Magnesium Total Bilirubin 1.4 H Alkaline Phosphatase 148 H Creatine Kinase Total Protein 5.7 L Albumin 2.9 L HDL Cholesterol Urine Protein Ur Leukocyte Esterase Urine RBC Urine WBC Urine Mucus 07/17/18 07/17/18 07/17/18 05:38 05:38 05:38 WBC RBC 4.27 L MCV MCHC RDW Plt Count 117 L Lymphocytes # Monocytes # PT 15.9 H INR 1.6 H APTT Sodium Potassium Chloride 95 L Carbon Dioxide 40 H BUN 51 H Creatinine 1.30 H Glucose 124 H Magnesium Total Bilirubin 1.7 H Alkaline Phosphatase 166 H Creatine Kinase Total Protein 5.5 L Albumin 2.8 L HDL Cholesterol Urine Protein Ur Leukocyte Esterase Urine RBC Urine WBC Urine Mucus 07/18/18 07/18/18 07/18/18 06:15 06:15 06:15 WBC RBC MCV 101.5 H MCHC 29.8 L RDW Plt Count 136 L Lymphocytes # Monocytes # PT 14.2 H INR 1.4 H APTT Sodium Potassium Chloride 90 L Carbon Dioxide 41 H* BUN 51 H Creatinine 1.35 H Glucose 115 H Magnesium Total Bilirubin 2.3 H Alkaline Phosphatase 174 H Creatine Kinase Total Protein Albumin HDL Cholesterol Urine Protein Ur Leukocyte Esterase Urine RBC Urine WBC Urine Mucus 07/19/18 07/19/18 07/19/18 05:43 05:43 05:47 WBC RBC MCV MCHC 30.6 L RDW 15.7 H Plt Count 147 L Lymphocytes # 0.8 L Monocytes # 1.5 H PT 13.2 H INR 1.3 H APTT Sodium 136 L Potassium Chloride 91 L Carbon Dioxide 40 H BUN 55 H Creatinine 1.52 H Glucose Magnesium Total Bilirubin Alkaline Phosphatase Creatine Kinase Total Protein Albumin HDL Cholesterol Urine Protein Ur Leukocyte Esterase Urine RBC Urine WBC Urine Mucus 07/20/18 07/20/18 07/20/18 06:07 06:07 06:07 WBC RBC MCV MCHC RDW Plt Count 137 L Lymphocytes # Monocytes # PT 12.1 H INR 1.2 H APTT Sodium Potassium Chloride 96 L Carbon Dioxide 36 H BUN 55 H Creatinine 1.45 H Glucose Magnesium 2.4 H Total Bilirubin Alkaline Phosphatase Creatine Kinase Total Protein Albumin HDL Cholesterol Urine Protein Ur Leukocyte Esterase Urine RBC Urine WBC Urine Mucus 07/20/18 14:25 WBC RBC MCV MCHC RDW Plt Count Lymphocytes # Monocytes # PT INR APTT 49.2 H Sodium Potassium Chloride Carbon Dioxide BUN Creatinine Glucose Magnesium Total Bilirubin Alkaline Phosphatase Creatine Kinase Total Protein Albumin HDL Cholesterol Urine Protein Ur Leukocyte Esterase Urine RBC Urine WBC Urine Mucus Assessment and Plan Assessment: * 58-year-old male with 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 All appear embolic in nature, with no acute ischemic process on the current computed tomography scan. * Atrial fibrillation, status post mechanical aortic valve, on long-term anticoagulation * Acute exacerbation of systolic CHF. * History of compression fracture L2. * Chronic renal disease. * Hypertension * Peripheral vascular disease * Hyperlipidemia. Plan: * Suggest continue anticoagulation with Coumadin for stroke prevention. Target INR as per cardiology recommendations. * At present I see no evidence of a new stroke. * Continue aspirin 81 mg and statins. * No other neurological workup needed. * We will check hemoglobin A1c to rule out diabetes.
[2018-07-20] MEDS: ATORVASTATIN 10 MG TAB PO SCH (21:03)
[2018-07-20 22:57] LABS: Appearance,Urine Clear (Clear); Bilirubin,Urine Negative (Negative); Color,Urine Yellow; Glucose,Urine (UA) Negative (Negative); Ketones,Urine Negative (Negative); PH, Urine 7.5 (5.0-8.0); Protein,Urine Negative (Negative); Specific Gravity,Urine 1.014 (1.001-1.035)
[2018-07-20 22:58] LABS: Blood,Urine Small (Negative); Leukocyte Esterase,Urine Negative (Negative); Nitrite,Urine Negative (Negative); RBC,Urine 39 /hpf (0-5)
[2018-07-21 01:44] LABS: Hemoglobin A1C 5.6 % (4.0-6.0)
[2018-07-21 06:49] LABS: Basophils % (A) 0 %; Eosinophils # (A) 0.1 k/uL (0-0.7); Eosinophils % (A) 1 %; HCT 46.2 % (39.0-53.0); HGB 14.3 gm/dL (13.0-17.5); Hypochromasia Moderate; Lymphocytes # (A) 0.9 k/uL (1.0-4.8); Lymphocytes % (A) 9 %; MCH 31.1 pg (25.0-35.0); MCHC 30.9 g/dL (31.0-37.0); MCV 100.7 fL (80.0-100.0); Macrocytosis Slight; Mean Platelet Volume 8.1; Monocytes # (A) 1.2 k/uL (0-1.0); Monocytes % (A) 12 %; Neutrophils # (A) 7.6 k/uL (1.3-7.7); Neutrophils % (A) 76 %; Platelet Count 165 k/uL (150-450); RBC 4.58 m/uL (4.30-5.90); RDW 15.6 % (11.5-15.5)
[2018-07-21 06:53] LABS: INR 1.5 (<1.2); Prothrombin Time 14.7 sec (9.0-12.0)
[2018-07-21 06:59] LABS: Magnesium 2.3 mg/dL (1.6-2.3); Potassium 4.7 mmol/L (3.5-5.1)
[2018-07-21 08:14] VITALS: BP 108/58; PULSE 80; RESP 18; TEMP 97.4
[2018-07-21] MEDS: SPIRONOLACTONE 25 MG TAB PO SCH (08:16)
[2018-07-21] MEDS: DIGOXIN 125 MCG TAB PO SCH (08:17)
[2018-07-21] MEDS: AMIODARONE 200 MG TAB PO SCH (08:17)
[2018-07-21] MEDS: ASPIRIN 81 MG PO SCH (08:17)
[2018-07-21] MEDS: predniSONE 10 MG TAB PO SCH (08:17)
[2018-07-21] MEDS: ENOXAPARIN 60 MG/0.6 ML SYRINGE SQ SCH (08:17)
[2018-07-21] MEDS: METOPROLOL TARTRATE 25 MG TAB PO SCH (08:17)
[2018-07-21] MEDS: FUROSEMIDE 40 MG TAB PO SCH (09:01)
--- NOTE | 2018-07-21 09:48 | P.DS ---
Providers Date of admission: 07/10/18 19:15 Expected date of discharge: 07/21/18 Attending physician: Gilles Becker MD Consults: 07/10/18 22:57 Consult Physician Routine Consulting Provider: Ana Hanna Consult Reason/Comments: L2 compression fracture Do you want consulting provider notified?: Yes, Notify in am 07/10/18 22:58 Consult Physician Routine Consulting Provider: John Almaraz Consult Reason/Comments: right common iliac obst stenosis Do you want consulting provider notified?: Yes Consult Physician Routine Consulting Provider: Marcos [place] Consult Reason/Comments: afib with rvr Do you want consulting provider notified?: Yes 07/11/18 15:31 Consult Physician Urgent Consulting Provider: Valentina Sidhu Consult Reason/Comments: maintenance worker municipal Do you want consulting provider notified?: Yes 07/20/18 13:23 Consult Physician Routine Consulting Provider: Rose Barajas Consult Reason/Comments: worsening left weakness Do you want consulting provider notified?: Yes Primary care physician: JAMA Juarez Hospital Course: Discharge Diagnosis: Acute exacerbation of systolic congestive heart failure with ejection fraction 45-50% Atrial fibrillation with rapid ventricular response and supratherapeutic Coumadin coagulopathy on arrival L2 compression fracture, age indeterminate Chronic kidney disease stage III Contraction alkalosis Hypertension with hypotension on arrival Right common femoral artery chronic occlusion Dyslipidemia Urinary tract infection Hyperchloremic metabolic acidosis Acute worsening of his prior stroke symptoms with left-sided deficit-no new stroke. Hospital Course: Patient is a 58-year-old male with history of aortic valve replacement, atrial fibrillation, systolic congestive heart failure, and prior stroke with residual left-sided deficits who presented to the ER with complaints of abdominal pain and dizziness. The ER he was found to have A. fib with RVR and was hypotensive. Hypotension improved with some gentle IV fluid hydration. He was found have an INR of greater than 10 and he takes Coumadin for her mechanical aortic valve-he is given vitamin K. CT of the abdomen and pelvis was completed which showed a L2 compression fracture and hepatosplenomegaly. It also showed right common iliac obstructive stenosis. Chest x-ray showed mild f luid overload. He was started on a Cardizem drip due to A. fib with RVR, however he became clinically hypotensive. He was also found to have urinalysis positive for urinary tract infection was started on Rocephin. Creatinine elevated at 1.4 and was felt that his acute kidney injury was due to cardiorenal syndrome. CT of the head and cervical spine was done which did not show any evidence of acute bleed or fracture CT chest showed no acute process. He is managed the ICU for close monitoring. His Cardizem was switched to amiodarone. Echocardiogram was done and they were unable to estimate ejection fraction but did show paradoxical septal wall motion, severely enlarged right ventricle, severely enlarged left atrium, and mild pulmonary hypertension. Cardiology was consulted and recommended continuing amiodarone and starting Lasix 40 mg IV every 12. Critical care was consulted and agreed with current treatment regimen. He was also started on Solu-Cortef for possible adrenal insufficiency. He was seen by spine surgery for his L2 compression fracture who recommended an LSO brace. Patient was seen by Dr. Almaraz who recommended outpatient workup for vascular evaluation. Repeat INR was 6.7. He continued to be hypotensive despite transition Cardizem to amiodarone and was placed on a norepinephrine drip. He developed worsening cardiac overload and his Lasix dose was increased and Aldactone was added. On 07/12 he had a central line and arterial line placed. He was slow to improve. By 07/15 patient was off of amiodarone and norepinephrine. He was continued on diuretics for congestive heart failure. He was transferred to [facility] care. He was restarted on beta pinky on 07/17 as blood pressure remained stable. On 07/18 he remained on IV Lasix. On 07/19 he developed some worsening of his chronic left-sided weakness. He was ordered an MRI was unable to have this secondary to his mechanical valve. Repeat head CT showed no acute process, carotid Doppler showed no significant stenosis. His INR remained low on 07/20 and he was started on a heparin drip which was transitioned to lovenox. Neurology was consulted and felt that his left sided weakness was a worsening of his prior stroke symptoms but no new stroke. His CHF was improved, heart rate controlled. He was determined stable for discharge to [facility]. He will need to stay on Lovenox until INR >2.5, he will have daily pt/inr, repeat bmp in 1 week. Patient seen and examined at bedside. No chest pain, SOB, nausea, vomiting, or diarrhea. Vital signs reviewed and stable. General: non toxic, no distress, appears at stated age Derm: warm, dry Head: atraumatic, normocephalic, symmetric Eyes: EOMI, no lid lag, anicteric sclera Mouth: no lip lesion, mucus membranes moist Cardiovascular: S1S2 reg, no murmur, positive posterior tibial pulse bilateral, Lungs: CTA bilateral, no rhonchi, no rales , no accessory muscle use Abdominal: soft, nontender to palpation, no guarding, no appreciable organomegaly Ext: no gross muscle atrophy, no edema, no contractures Neuro:left facial droop, left hand contracture, left LE weakness. Psych: Alert, oriented, appropriate affect A total of 35 minutes of time were spent preparing this complex discharge summary . Pertinent Studies: as outlined in above hospital course Procedures: Arterial and central lines- 07/12/18 Patient Condition at Discharge: Stable Plan - Discharge Summary Discharge Rx Participant: Yes New Discharge Prescriptions: New Spironolactone [Aldactone] 25 mg PO BID tab Aspirin 81 mg PO DAILY chew Amiodarone [Cordarone] 400 mg PO BID tab Warfarin Sodium [Coumadin] 6 mg PO DAILY #10 tablet Digoxin [Lanoxin] 125 mcg PO DAILY tab Furosemide [Lasix] 40 mg PO BID@0900,1600 tab Enoxaparin [Lovenox] 60 mg SQ Q12HR #0 syringe Continue Simvastatin [Zocor] 20 mg PO HS Metoprolol Tartrate [Lopressor] 25 mg PO BID Discontinued Warfarin [Coumadin] 7.5 mg PO SUMOTUTHFR Warfarin [Coumadin] 5 mg PO WESA Diltiazem Oral [Cardizem*] 30 mg PO TID Fosinopril [Monopril] 10 mg PO DAILY #30 tab Discharge Medication List Metoprolol Tartrate [Lopressor] 25 mg PO BID 07/10/18 [History] Simvastatin [Zocor] 20 mg PO HS 07/10/18 [History] Amiodarone [Cordarone] 400 mg PO BID tab 07/21/18 [Rx] Aspirin 81 mg PO DAILY chew 07/21/18 [Rx] Digoxin [Lanoxin] 125 mcg PO DAILY tab 07/21/18 [Rx] Enoxaparin [Lovenox] 60 mg SQ Q12HR #0 syringe 07/21/18 [Rx] Furosemide [Lasix] 40 mg PO BID@0900,1600 tab 07/21/18 [Rx] Spironolactone [Aldactone] 25 mg PO BID tab 07/21/18 [Rx] Warfarin Sodium [Coumadin] 6 mg PO DAILY #10 tablet 07/21/18 [Rx] Follow up Appointment(s)/Referral(s): Carlos Menchaca PAC [PHYSICIAN BOILER REPAIR SUPERVISOR] - 2 Weeks (Patient may follow-up with Carlos Menchaca PA-C or Dr. Yoandy Hanna at [facility] in 2-3 weeks following discharge. ) Medardo Maria MD [STAFF PHYSICIAN] - 1-2 days John Almaraz MD [STAFF PHYSICIAN] - 4 Weeks Jose Ramon Dudley MD [STAFF PHYSICIAN] - 2 Weeks Activity/Diet/Wound Care/Special Instructions: Nicholas 1. Patient may wear LSO brace for comfort and support while sitting upright at greater than 45, while working with therapy, and while ambulating; patient does not have to wear the brace while lying in bed or bathing 2. Patient should avoid excessive bending, twisting, and lifting; no lifting greater than 10 pounds Diet: heart health, 2 gram sodium Activity: as tolerated with fall precautions Keep lovenox and coumadin, daily INR until IND is greater than 2.5. Once INR is greater than 2.5 lovenox may be stopped. Goal INR 2.5-3.5 due to mechanical valve. BMP in 3-5 days DX: YING
--- NOTE | 2018-07-21 10:23 | P.PN ---
Subjective Progress Note Date: 07/21/18 Patient offers no new complaints. He is laying comfortably in the bed. Denies headache. Objective - Vital Signs Vital signs: Vital Signs Temp 97.4 F L 07/21/18 08:00 Pulse 80 07/21/18 08:00 Resp 18 07/21/18 08:00 BP 108/58 07/21/18 08:00 Pulse Ox 93 L 07/21/18 08:00 Intake & Output 07/20/18 07/21/18 07/21/18 18:59 06:59 18:59 Intake Total 2400 Output Total 600 1525 450 Balance 1800 -1525 -450 Weight 83.4 kg Intake: Oral 2400 Output: Urine 600 725 450 Stool 800 Other: Voiding Method Urinal Urinal Urinal # Voids 1 1 # Bowel Movements 1 ABP, PAP, CO, CI - Last Documented Arterial Blood Pressure 142/94 - Exam Patient is awake, alert but has slow mentation, prolonged latency time to answer questions. He has [id number] dysarthria. No aphasia. Patient can name and repeat well. He knows his name and that he is in [facility] in [place]. He could not tell me his age. Strength is equal bilaterally. - Labs CBC & Chem 7: 07/21/18 05:53 07/21/18 05:53 Labs: Abnormal Lab Results - Last 24 Hours (Table) 07/20/18 07/20/18 07/21/18 Range/Units 14:25 22:43 05:53 MCV (80.0-100.0) fL MCHC (31.0-37.0) g/dL RDW (11.5-15.5) % Lymphocytes # (1.0-4.8) k/uL Monocytes # (0-1.0) k/uL PT 14.7 H (9.0-12.0) sec INR 1.5 H (<1.2) APTT 49.2 H (22.0-30.0) sec Sodium (137-145) mmol/L Chloride (98-107) mmol/L Carbon Dioxide (22-30) mmol/L BUN (9-20) mg/dL Creatinine (0.66-1.25) mg/dL Urine Blood Small H (Negative) Urine RBC 39 H (0-5) /hpf 07/21/18 07/21/18 Range/Units 05:53 05:53 MCV 100.7 H (80.0-100.0) fL MCHC 30.9 L (31.0-37.0) g/dL RDW 15.6 H (11.5-15.5) % Lymphocytes # 0.9 L (1.0-4.8) k/uL Monocytes # 1.2 H (0-1.0) k/uL PT (9.0-12.0) sec INR (<1.2) APTT (22.0-30.0) sec Sodium 135 L (137-145) mmol/L Chloride 97 L (98-107) mmol/L Carbon Dioxide 34 H (22-30) mmol/L BUN 56 H (9-20) mg/dL Creatinine 1.52 H (0.66-1.25) mg/dL Urine Blood (Negative) Urine RBC (0-5) /hpf Assessment and Plan Assessment: * 58-year-old male with 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 All appear embolic in nature, with no acute ischemic process on the current computed tomography scan. * Atrial fibrillation, status post mechanical aortic valve, on long-term anticoagulation * Acute exacerbation of systolic CHF. * History of compression fracture L2. * Chronic renal disease. * Hypertension * Peripheral vascular disease * Hyperlipidemia. 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 Plan: * Suggest continue anticoagulation with Coumadin for stroke prevention. Target INR as per cardiology recommendations. * At present I see no evidence of a new stroke. Patient is neurologically stable. * Continue aspirin 81 mg and statins. * No other neurological workup needed. * We will check hemoglobin A1c to rule out diabetes. * Neurologically clear for discharge.
== END 2018-07-21 12:49 | DRG 291 ==
LOC: EC 12:31 → SUPCPDRO 12:31 → 3SCARD 19:15 → 2SICU 07-11 16:51 → 3SCARD 07-17 19:59
PROVIDERS: ADMIT Internal Medicine; ATTEND Internal Medicine
PROC: 03HY32Z Insertion of Monitoring Device into Upper Artery, Percutaneous Approach (ICD-10-PCS; principal; 2018-07-12)
PROC: 4A133B1 Monitoring of Arterial Pressure, Peripheral, Percutaneous Approach (ICD-10-PCS; 2018-07-12)
PROC: 4A133J1 Monitoring of Arterial Pulse, Peripheral, Percutaneous Approach (ICD-10-PCS; 2018-07-12)
PROC: 06HM33Z Insertion of Infusion Device into Right Femoral Vein, Percutaneous Approach (ICD-10-PCS; 2018-07-12)
DX: I13.0 Hypertensive heart and chronic kidney disease with heart failure and stage 1 through stage 4 chronic kidney disease, or unspecified chronic kidney disease (principal); I50.23 Acute on chronic systolic (congestive) heart failure; R57.0 Cardiogenic shock; D68.9 Coagulation defect, unspecified; E87.4 Mixed disorder of acid-base balance; I69.354 Hemiplegia and hemiparesis following cerebral infarction affecting left non-dominant side; J98.11 Atelectasis; M48.56XA Collapsed vertebra, not elsewhere classified, lumbar region, initial encounter for fracture; N17.9 Acute kidney failure, unspecified; N39.0 Urinary tract infection, site not specified; R18.8 Other ascites; K56.7 Ileus, unspecified; E78.5 Hyperlipidemia, unspecified; E87.8 Other disorders of electrolyte and fluid balance, not elsewhere classified; F01.50 Vascular dementia, unspecified severity, without behavioral disturbance, psychotic disturbance, mood disturbance, and anxiety; F17.210 Nicotine dependence, cigarettes, uncomplicated; I08.3 Combined rheumatic disorders of mitral, aortic and tricuspid valves; I25.2 Old myocardial infarction; I27.20 Pulmonary hypertension, unspecified; I48.2 Chronic atrial fibrillation; K76.1 Chronic passive congestion of liver; N18.3 Chronic kidney disease, stage 3 (moderate); R29.810 Facial weakness; T45.515A Adverse effect of anticoagulants, initial encounter; W18.2XXA Fall in (into) shower or empty bathtub, initial encounter; Y93.E1 Activity, personal bathing and showering; Z79.01 Long term (current) use of anticoagulants; Z79.82 Long term (current) use of aspirin; Z79.899 Other long term (current) drug therapy; Z83.3 Family history of diabetes mellitus; Z91.81 History of falling; Z95.2 Presence of prosthetic heart valve; I70.201 Unspecified atherosclerosis of native arteries of extremities, right leg; F40.240 Claustrophobia
CPT/HCPCS: 36415; 70450; 71045; 71046; 71250; 72125; 74018; 74177; 80048; 80053; 80061; 81001; 82533; 82550; 83036; 83605; 83690; 83735; 83880; 84100; 84132; 84484; 85025; 85027; 85610; 85730; 87086; 93005; 93306; 93880; 94760; 96361; 96365; 96366; 96367; 96375; 96376; 99291

== ENCOUNTER 2018-11-28 02:20 | Inpatient (IN) | payer OTHER ==
[2018-11-28] MEDS ORDERED: HYDROmorphone 1 MG/ML 1 ML SYRINGE ONE (03:25)
[2018-11-28] MEDS ORDERED: KETAMINE 10 MG/ML 20 ML VIAL ONE (03:25)
[2018-11-28] MEDS ORDERED: ZIPRASIDONE 20 MG VIAL IM ONE (03:25)
[2018-11-28] MEDS ORDERED: HALOPERIDOL LACTATE 5 MG/ML 1 ML VIAL ONE (03:25)
[2018-11-28] MEDS ORDERED: diphenhydrAMINE 50 MG/ML 1 ML VIAL ONE (03:25)
[2018-11-28] MEDS ORDERED: SODIUM CHLORIDE 0.9% 1,000 ML BAG ONE (03:25)
[2018-11-28] MEDS ORDERED: LORazepam 2 MG/ML INJ ONE ×3 (03:25)
[2018-11-28] MEDS ORDERED: HYDROmorphone 1 MG/ML 1 ML SYRINGE IVP STA (08:46)
--- NOTE | 2018-11-28 10:22 | CT ---
EXAM: CT Head Without Intravenous Contrast CLINICAL HISTORY: ams TECHNIQUE: Axial computed tomography images of the head/brain without intravenous contrast. CTDI is 49 mGy and DLP is 1231 mGy-cm. This CT exam was performed using one or more of the following dose reduction techniques: automated exposure control, adjustment of the mA and/or kV according to patient size, and/or use of iterative reconstruction technique. COMPARISON: Head CT 07/19/18 FINDINGS: Brain: No acute intracranial hemorrhage, mass effect or edema. No evidence of acute cortical stroke. Periventricular small vessel ischemic change. No midline shift or hydrocephalus. Diffuse parenchymal atrophy. Encephalomalacia involving the right and left cerebral hemispheres. Consider prior insult such as infarct. Encephalomalacia suggestive of prior infarct involving the right posterior parietal lobe also. Ventricles: See above. Bones/joints: Unremarkable. No acute fracture. Soft tissues: Unremarkable. Vasculature: Atherosclerotic calcifications of the carotid siphons and vertebrobasilar arteries. Sinuses: Unremarkable as visualized. No acute sinusitis. Mastoid air cells: Visualized sinuses and mastoid air cells are clear. IMPRESSION: No evidence of acute intracranial pathology.
--- NOTE | 2018-11-28 10:23 | XR ---
EXAM: XR Chest, 1 View CLINICAL HISTORY: AMS TECHNIQUE: Frontal view of the chest. COMPARISON: No relevant prior studies available. Impression: Severe cardiomegaly. Mild pulmonary edema. No consolidation or pleural effusion.
[2018-11-28] MEDS ORDERED: ACETAMINOPHEN TAB 325 MG TAB PO PRN (10:27)
[2018-11-28] MEDS ORDERED: NALOXONE 0.4 MG/ML 1 ML VIAL IV PRN (10:27)
[2018-11-28 10:58] LABS: Albumin 4.2 g/dL (3.5-5.0); Calcium 10.1 mg/dL (8.4-10.2); Magnesium 1.9 mg/dL (1.6-2.3); Potassium 4.5 mmol/L (3.5-5.1); Total Bilirubin 1.9 mg/dL (0.2-1.3); Total Protein 7.4 g/dL (6.3-8.2)
[2018-11-28 10:59] LABS: Basophils # (A) 0.1 k/uL (0-0.2); Basophils % (A) 1 %; Eosinophils # (A) 0.3 k/uL (0-0.7); Eosinophils % (A) 3 %; HCT 46.2 % (39.0-53.0); Lymphocytes # (A) 1.5 k/uL (1.0-4.8); Lymphocytes % (A) 16 %; MCH 33.4 pg (25.0-35.0); MCHC 32.5 g/dL (31.0-37.0); MCV 102.7 fL (80.0-100.0); Macrocytosis Slight; Mean Platelet Volume 6.7; Monocytes # (A) 1.1 k/uL (0-1.0); Monocytes % (A) 12 %; Neutrophils # (A) 6.2 k/uL (1.3-7.7); Neutrophils % (A) 65 %; Platelet Count 169 k/uL (150-450); RBC 4.49 m/uL (4.30-5.90); RDW 13.1 % (11.5-15.5); WBC 9.6 k/uL (3.8-10.6)
[2018-11-28 11:08] LABS: Appearance,Urine Clear (Clear); Bilirubin,Urine Negative (Negative); Blood,Urine Trace (Negative); Color,Urine Yellow; Glucose,Urine (UA) Negative (Negative); Hyaline Casts,Urine 3 /lpf (0-2); Ketones,Urine Negative (Negative); Leukocyte Esterase,Urine Small (Negative); Mucus,Urine Rare /hpf; Nitrite,Urine Negative (Negative); Protein,Urine Trace (Negative); RBC,Urine 22 /hpf (0-5); Squamous Epithelial Cell,Urine 1 /hpf (0-4); Urobilinogen,Urine <2.0 mg/dL (<2.0); WBC,Urine 5 /hpf (0-5)
[2018-11-28 11:09] LABS: Amphetamine Screen,Urine Not Detected (NotDetected); Barbiturate Screen,Urine Not Detected (NotDetected); Benzodiazepines Screen,Urine Not Detected (NotDetected); Cocaine Screen,Urine Not Detected (NotDetected); Methadone Screen, Urine Not Detected (NotDetected); Opiate Screen,Urine Not Detected (NotDetected); Oxycodone Screen, Urine Not Detected (NotDetected); Phencyclidine Screen,Urine Not Detected (NotDetected); Tricyclic Antidepressant,Urine Not Detected (NotDetected); Urn Cannabinoid Scrn Not Detected (NotDetected)
[2018-11-28] MEDS: FUROSEMIDE 40 MG TAB PO SCH ×2 (16:16→16:40)
[2018-11-28] MEDS: SPIRONOLACTONE 25 MG TAB PO SCH (16:16)
[2018-11-28] MEDS: SODIUM CHLORIDE 0.9% 1,000 ML IV SCH (16:19)
[2018-11-28] MEDS: ATORVASTATIN 10 MG TAB PO SCH (16:39)
[2018-11-28] MEDS: METOPROLOL TARTRATE 25 MG TAB PO SCH (16:39)
[2018-11-28] MEDS: clonazePAM 0.5 MG TAB PO SCH (16:40)
[2018-11-28] MEDS: APIXABAN 5 MG TAB PO SCH (16:41)
[2018-11-28] MEDS: DIVALPROEX SPRINKLE 125 MG CAP.SPRINK PO SCH (16:41)
--- NOTE | 2018-11-28 21:50 | P.HPIM ---
History of Present Illness H&P Date: 11/28/18 Chief Complaint: combative behavior Patient care was assigned to [facility] by Dr. Mehta @ 1915 on 11/28/2018 58-year-old male with history of anoxic brain injury resulting in mental challenges and learning difficulties. Patient also has history of dementia c oronary artery disease and CVA and A. fib. Patient was brought into the hospital from [facility] due to combative behavior. Patient is not cooperative with care and still showing com bative behavior while on the medical floor as seems like in the ER he was placed in restraints and was given Geodon and Ativan to calm him down. It seems like, per nursing staff, he was refusing care old day refusing to take all his medications. Patient unable to provide any meaningful history at this time as he is not showing any interest in cooperating with the interview is requesting to be left alone and to let go home Medical records showed that he's been refusing to take his medications specifically psych meds for about a week at the [facility], started manifesting aggressive behavior over the past 2 days with increase aggression towards staff for which she was sent to our hospital for evaluation by psychiatry. As seems like at the [facility] on November 22 he was switched from Coumadin to Eliquis for history of mechanical aortic valve. Patient last seen in this hospital back in June 2018 when he came in for A. fib with RVR and acute CHF exacerbation. His most recent echocardiogram from February 2018 showing EF of 45%. Patient currently ripping off all IVs lines in cardiac monitoring refusing any care and requesting to be left alone. when asked he is denying any chest pain , trouble breathing, fever, chills, abd pain , nausea or vomiting,. Review of Systems patient denies any symptoms or complaints, unreliable historian. limited review of systems due to patient not being reliable and not showing interest in the interview. Past Medical History Past Medical History: Atrial Fibrillation, Heart Failure, CVA/TIA, Dementia, Hyperlipidemia, Hypertension, Myocardial Infarction (NH), Renal Disease, Vascular Disorder Additional Past Medical History / Comment(s): CVA with L side deficit, muscle weakness, Afib with RVR, severely enlarged R ventricle and L atrium/mild pulm onary HTN, L2 compression fracture-wears brace at times, chronic low back pain, PVD, NH in his 20s per pt and pt's sister, UTI. Last Myocardial Infarction Date:: "in his 20's" History of Any Multi-Drug Resistant Organisms: None Reported Past Surgical History: Cardiac Valve Replacement, Orthopedic Surgery Additional Past Surgical History / Comment(s): Mechanical aortic valve and pig valve as well per pt's sister, R hip hemiarthroplasty, R wrist fx with resetting, bilateral corrective eye surgery for strabismus. Past Anesthesia/Blood Transfusion Reactions: No Reported Reaction Additional Past Anesthesia/Blood Transfusion Reaction / Comment(s): Clausterphobia. Smoking Status: Former smoker - Past Family History Mother Family Medical History: Diabetes Mellitus Father Family Medical History: Cancer, COPD Additional Family Medical History / Comment(s): Colon/liver cancer, back fracture, pacemaker Sister(s) Family Medical History: Thyroid Disorder Additional Family Medical History / Comment(s): thyroidectomy Medications and Allergies Home Medications Medication Instructions Recorded Confirmed Type Metoprolol Tartrate [Lopressor] 25 mg PO BID@0900,209907/10/18 11/28/18 History Simvastatin [Zocor] 20 mg PO HS@209907/10/18 11/28/18 History Acetaminophen Tab [Tylenol Tab] 650 mg PO Q4H PRN 11/28/18 11/28/18 History Amiodarone [Cordarone] 200 mg PO DAILY@0900 11/28/18 11/28/18 History Apixaban [Eliquis] 5 mg PO BID@0900,209911/28/18 11/28/18 History Aspirin 81 mg PO DAILY@0900 11/28/18 11/28/18 History Divalproex Sodium [Depakote] 125 mg PO BID@0900,209911/28/18 11/28/18 History Furosemide [Lasix] 40 mg PO BID@0600,1400 11/28/18 11/28/18 History Spironolactone [Aldactone] 25 mg PO BID@0600,1400 11/28/18 11/28/18 History clonazePAM [KlonoPIN] 0.5 mg PO BID@0900,2100 11/28/18 11/28/18 History Allergies Allergy/AdvReac Type Severity Reaction Status Date / Time No Known Allergies Allergy Verified 11/28/18 09:37 Physical Exam Vitals: Vital Signs Temp Pulse Resp BP Pulse Ox 11/28/18 16:00 16 11/28/18 11:26 98.0 F 76 16 159/89 16 L Intake and Output 11/28/18 11/28/18 11/28/18 06:59 14:59 22:59 Intake Total 360 Balance 360 Intake: Intake, IV Titration 360 Amount Sodium Chloride 0.9% 1, 360 000 ml @ 80 mls/hr IV . [id number] [facility] Rx#:[id number] Other: # Voids 2 1 Weight 104.326 kg Constitutional: No acute distress, conversant, uncooperative Eyes: Anicteric sclerae, moist conjunctiva, no lid-lag Pupils equal round reactive to light ENMT: NC/AT Oropharynx clear, no erythema, or exudates. dry mucus membranes Neck: Supple, FROM, no masses, or JVD No carotid bruits No thyromegaly Lungs: Clear to auscultation Clear to percussion Normal respiratory effort, no accessory muscle use Cardiovascular: Heart regular in rate and rhythm, clicks of mechanical valve systolic murmurs, no gallops, or rubs No peripheral edema Abdominal: Soft Nontender, no guarding, rebound or rigidity Abdomen moving with respiration Normoactive bowel sounds No hepatomegaly, No splenomegaly No palpable mass epigastric abd wall hernia Skin: Normal temperature, tone, texture, turgor No induration No subcutaneous nodules No rash, lesions No ulcers Extremities: No digital cyanosis No clubbing Pedal pulses intact and symmetrical Radial pulses intact and symmetrical No calf tenderness Psychiatric: Alert and oriented to person, place , oriented to time of the day Appropriate affect poor judgment Neuro limited neuro exam patient not cooperating, patient has contractures left upper extremity which is chronic and seems like he has left upper extremity residual deficits from prior stroke. Otherwise he is moving all 4 extremities Lymphatics: no palpable cervical or supraclavicular , or inguinal lymph nodes Results CBC & Chem 7: 11/28/18 03:25 11/28/18 03:25 Labs: Abnormal Lab Results - Last 24 Hours (Table) 11/28/18 11/28/18 11/28/18 Range/Units 03:25 03:25 03:25 MCV 102.7 H (80.0-100.0) fL Monocytes # 1.1 H (0-1.0) k/uL Chloride 109 H (98-107) mmol/L Carbon Dioxide 19 L (22-30) mmol/L BUN 28 H (9-20) mg/dL Creatinine 1.41 H (0.66-1.25) mg/dL Glucose 116 H (74-99) mg/dL Plasma Lactic Acid Heri 2.1 H* (0.7-2.0) mmol/L Total Bilirubin 1.9 H (0.2-1.3) mg/dL ALT 19 L (21-72) U/L Urine Protein (Negative) Urine Blood (Negative) Ur Leukocyte Esterase (Negative) Urine RBC (0-5) /hpf Hyaline Casts (0-2) /lpf Urine Mucus (None) /hpf 11/28/18 Range/Units 03:25 MCV (80.0-100.0) fL Monocytes # (0-1.0) k/uL Chloride (98-107) mmol/L Carbon Dioxide (22-30) mmol/L BUN (9-20) mg/dL Creatinine (0.66-1.25) mg/dL Glucose (74-99) mg/dL Plasma Lactic Acid Heri (0.7-2.0) mmol/L Total Bilirubin (0.2-1.3) mg/dL ALT (21-72) U/L Urine Protein Trace H (Negative) Urine Blood Trace H (Negative) Ur Leukocyte Esterase Small H (Negative) Urine RBC 22 H (0-5) /hpf Hyaline Casts 3 H (0-2) /lpf Urine Mucus Rare H (None) /hpf Thrombosis Risk Factor Assmnt - Choose All That Apply Any of the Below Risk Factors Present?: Yes Each Factor Represents 1 point: Age 41-60 years, Obesity (BMI >25) Other Risk Factors: No Other congenital or acquired thrombophilia - If yes, enter type in comment: No Thrombosis Risk Factor Assessment Total Risk Factor Score: 2 Thrombosis Risk Factor Assessment Level: Low Risk Assessment and Plan Assessment: 58-year-old male with history of anoxic brain injury resulting in mental challenges and delayed learning, history of dementia, A. fib, hypertension, CHF, CAD, CVA. Patient was sent in from [facility] for aggressive behavior and not participating in care. Patient will require psych evaluation, his sister is in the process of obtaining guardianship. Patient labs and vital signs were reviewed currently stable patient lactic acidosis improved. Patient was combative in the ED required Geodon and Ativan and restraints. Patient was screaming and yelling requesting the IV to be removed and all lines and monitors to be removed and discontinued he was screaming requesting to be left alone and to be sent home. Patient agreed to come down if the IV was removed. He eventually took his medication and was agreeable to go to sleep if left alone on a condition that he would be evaluated to leave early in the morning and go home. Plan: combative behavior and not participating in care psych evaluation patient agreeable to take his medications and stay in the hospital if IV removed and all lines discontinued. patient otherwise was screaming and yelling and at tempting to leave the room. he calmed down after reassurance, and discontinuing the IV line. he is hoping that he will be discharged in the morning psych evaluation patient was not taking his psych meds at the [facility] lactic acidosis , resolved CKD , stable monitor urine output encourage PO intake patient refuses IV fluids now elevated bilirubin 1.9 monitor liver function chronic conditions mechanical aortic valve. patient was switched to eliquis on Nov 22 (he was on coumadin prior to that) , request cardiology input history of systolic impaired ejection fraction of 45% ,compensated afib , rate controlled was on coumadin now on eliquis , request cardiology input regarding appropriateness history of CVA and CAD, continue home meds Right femoral artery chronic occlusion Old stroke with left-sided deficit hypertension ' Preformed a thorough record review from recent hospitalization *back in June 2018 for CHF exacerbation and A. fib with RVR Surrogate decision-maker: sister trying to get guardianship CODE STATUS: Full code DVT prophylaxis: Eliquis Discussed with: Patient, ER, RN Anticipated length of stay more than [address]: Pending clinical course A total of 60 minutes was spent on the care of this complex patient more than 50% of the time was spent in counseling and care coordination.
[2018-11-29] MEDS: SODIUM CHLORIDE 0.9% 1,000 ML IV SCH (05:16)
[2018-11-29] MEDS: APIXABAN 5 MG TAB PO SCH (08:52)
[2018-11-29] MEDS: clonazePAM 0.5 MG TAB PO SCH (08:52)
[2018-11-29] MEDS: DIVALPROEX SPRINKLE 125 MG CAP.SPRINK PO SCH ×3 (08:52→21:27)
[2018-11-29] MEDS: ASPIRIN 81 MG PO SCH (08:54)
[2018-11-29] MEDS: FUROSEMIDE 40 MG TAB PO SCH ×2 (08:54→13:32)
[2018-11-29] MEDS: SPIRONOLACTONE 25 MG TAB PO SCH ×2 (08:54→13:32)
--- NOTE | 2018-11-29 09:06 | P.DS ---
Providers Date of admission: 11/28/18 10:29 Expected date of discharge: 11/29/18 Attending physician: Gilles Becker MD Consults: 11/28/18 14:38 Consult Physician Stat Consulting Provider: Ivan Claudio Consult Reason/Comments: dementia ams violence Do you want consulting provider notified?: Yes 11/28/18 21:55 Consult Physician Routine Consulting Provider: Augie Coulter Consult Reason/Comments: refusing care, combative behavior Do you want consulting provider notified?: Yes 11/28/18 21:56 Consult Physician Routine Consulting Provider: Marcos Colorado Consult Reason/Comments: afib, mechanical aortic valve, was switched to Eliquis Do you want consulting provider notified?: Yes, Notify in am Primary care physician: Naresh Kent Hospital Course: 58-year-old male with PMH of atrial fibrillation with mechanical aortic valve, systolic CHF, CVA/TIA, hypertension, dyslipidemia, history of anoxic brain injury with mental challenges presents to the ED from [facility] due to combative behavior. Patient apparently was not cooperative with care, along with refusing to take all of his medications. He does have a history of mechanical aortic valve for which he was switched on November 22 from Coumadin to Eliquis. He was previously hospitalized in June 2018 for A. fib with RVR and acute CHF exacerbation. Most recent echocardiogram showed EF of 45% in February 2018. In the ED, his vital signs are stable. CBC showed macrocytosis with MCV 102.7. CMP showed chloride 109, bicarbonate 19, BUN 28, creatinine 1.41, lactic acid 2.1, glucose 116, total bilirubin 1.9. Lactic acid trended down to 1.1 on repeat. Urinalysis showed trace leukocyte esterase. Patient was admitted for further workup and management. Patient was seen and examined this morning. No acute events overnight. Patient states that he disliked [facility] and would not like to go back there. States that he wants housing rather than hospital setting. He denies any chest pain, shortness of breath or palpitations. No nausea or vomiting. No fever or chills. Bowel movement this morning. No dysuria. General: [non toxic], [no distress], [appears at stated age] Derm: [warm], [dry] Head: [atraumatic], [normocephalic], [symmetric] Eyes: [EOMI], [no lid lag], [anicteric sclera] Mouth: [no lip lesion], [mucus membranes moist] Cardiovascular: [S1S2 reg], [irregularly regular], [positive DP pulse bilateral], Lungs: [CTA bilateral], [no rhonchi, no rales] , [no accessory muscle use] Abdominal: [soft], [ nontender to palpation], [no guarding], [no appreciable organomegaly] Ext: [no gross muscle atrophy], [no edema], [no contractures] Neuro: [no focal neuro deficits] Psych: [Slow to respond but appropriate and noncombative] Combative behavior with history of anoxic brain injury and developmental challenges History of aortic valve replacement Hyperchloremic metabolic acidosis Chronic kidney disease Lactic acidosis Macrocytosis Abnormal UA Chronic conditions: Systolic CHF with EF 45%, euvolemic and compensated, resume beta pinky, Lasix and Aldactone, follow cardiology consult. Atrial fibrillation, rate controlled on beta pinky and rhythm controlled with amiodarone and on Eliquis for anticoagulation. History of CVA and CAD, continue aspirin, Lipitor and beta pinky. Hypertension, controlled on current medications. Plans: We will restart home medications of Depakote and Klonopin. Continue sitter. Follow psychiatry consultation for further recommendations. Apparently switched from Coumadin to Eliquis at [facility]? Eliquis not indicated for valvular A. fib or mechanical valve. Plans: Follow cardiology recommendations. Chloride 109, bicarbonate 19. Likely due to infused IVF. Plans: Follow repeat BMP. Creatinine 1.41. Appears at baseline. Plans: Avoid nephrotoxins. Follow repeat BMP. Lactic acid 2.1-1.1. Likely due to dehydration. Plans: Resolved. MCV 102.7. Hemoglobin within normal limits. B12 and folate within normal limits in February 2018. Likely related to Depakote use. Plans: Nothing further to do. UA showing trace leukocyte esterase. Patient asymptomatic. Plans: Nothing further to do. [Patient is pending psychiatry evaluation. Social work on board for placement. Per RN, apparently rejected from [facility]. Cardiology consulted for medication reconciliation.] Pertinent Studies: Chest x-ray, brain CT Plan - Discharge Summary Discharge Rx Participant: No New Discharge Prescriptions: No Action Simvastatin [Zocor] 20 mg PO HS@2100 Metoprolol Tartrate [Lopressor] 25 mg PO BID@0900,2100 Acetaminophen Tab [Tylenol Tab] 650 mg PO Q4H PRN PRN Reason: Pain Or Fever > 100.5 Amiodarone [Cordarone] 200 mg PO DAILY@0900 Apixaban [Eliquis] 5 mg PO BID@0900,2100 Aspirin 81 mg PO DAILY@0900 clonazePAM [KlonoPIN] 0.5 mg PO BID@0900,2100 Divalproex Sodium [Depakote] 125 mg PO BID@0900,2100 Furosemide [Lasix] 40 mg PO BID@0600,1400 Spironolactone [Aldactone] 25 mg PO BID@0600,1400 Discharge Medication List Metoprolol Tartrate [Lopressor] 25 mg PO BID@0900,209907/10/18 [History] Simvastatin [Zocor] 20 mg PO HS@209907/10/18 [History] Acetaminophen Tab [Tylenol Tab] 650 mg PO Q4H PRN 11/28/18 [History] Amiodarone [Cordarone] 200 mg PO DAILY@0900 11/28/18 [History] Apixaban [Eliquis] 5 mg PO BID@0900,2100 11/28/18 [History] Aspirin 81 mg PO DAILY@0900 11/28/18 [History] Divalproex Sodium [Depakote] 125 mg PO BID@0900,2100 11/28/18 [History] Furosemide [Lasix] 40 mg PO BID@0600,1400 11/28/18 [History] Spironolactone [Aldactone] 25 mg PO BID@0600,1400 11/28/18 [History] clonazePAM [KlonoPIN] 0.5 mg PO BID@0900,2100 11/28/18 [History] Follow up Appointment(s)/Referral(s): Naresh Houston MD [Primary Care Provider] - 1 Week
[2018-11-29] MEDS: AMIODARONE 200 MG TAB PO SCH (13:32)
[2018-11-29] MEDS: METOPROLOL TARTRATE 25 MG TAB PO SCH ×2 (13:32→21:27)
--- NOTE | 2018-11-29 14:31 | P.CN ---
Psychiatric Consult - . Consult date: 11/29/18 Consult:: 11/29/18 14:17 IDENTIFYING DATA: This patient is a 58-year-old male with a history of dementia who currently lives at [facility], has 1 daughter who he does not stay in contact with HISTORY OF PRESENT ILLNESS: The [facility] by [facility] staff as patient was agitated and aggressive at the [facility] and was refusing meds. Patient was found to have an increase in his lactic acid creatinine and also a UTI. UDS was negative on admission. Psychiatry was consulted for dementia, AMS, violence. Nurse caring for patient claim the patient has been aggressive however has not been violent. Patient is currently on one-to-one for safety. Patient was agreeable to be seen by psychiatrist today however patient appeared to be irritable during the interview and had poor insight and wanted to be discharged to the streets. He shouldn't spoke about wanting to play soccer and other sports and did not want to stay in the hospital. Patient claimed that she knew about his sister trying to get guardianship over him and disagrees with it. Patient feels that as he can take care of himself however cannot verbalize his medications and what help him with. When asked about his mood he claims that it is "shitty" at this time. He denies any specific symptoms of depression including guilt and decreased concentration. Patient is oriented to state only and claims that his October 2018. Patient has poor memory recall 0 out of 3 after 5 minutes and has poor concentration during mental status exam. Patient claimed that he has been sleeping poorly and has fair appetite and energy. At this time patient denies any suicidal or homical ideations, intent or plan. Patient denies any auditory, visual hallucinations and denies any paranoia or delusions. Patient denies using any recreational drugs including marijuana and alcohol. PAST PSYCHIATRIC HISTORY: Patient has a history of dementia, has never been admitted to a psychiatric hospital, no suicide attempts in the past. Patient denies following up with any psychiatrist. Patient was on Depakote sprinkles 125 mg twice a day and Klonopin 0.5 mg twice a day. PAST MEDICAL HISTORY: CHF, A. fib, dementia ALLERGIES: as per EMR. CHEMICAL DEPENDENCY HISTORY: as per HPI. 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 He also stated that he worked for the [employer]. Patient claims that he has one daughter who she does not remain in contact with this currently unmarried and lives at a [facility]. MENTAL STATUS EXAM: General Appearance: Patient appears to be older than stated age is alert, irritable/aggressive. Vision has poor eye contact and poor hygiene and grooming. Behavior: Patient is lying in bed and restless. Speech: Patient's speech is fluent and nonpressured. Mood/Affect: Patient reports their mood is "ok", affect is incongruent and constricted Suicidality/Homicidality: Patient denies having any suicidal or homicidal idea tion intent or plan. Perceptions: Patient denies any auditory or visual hallucinations. Though content/process: Patient is a illogical and is tangential/circumstantial in his thought process. Memory and concentration: AOX1-2, cannot spell "WORLD" backwards. Has poor memory recall, 0 out of 3 words recalled after 5 minutes. Patient has poor judgment and is impulsive. Her attention span Judgment and insight: Poor IMPRESSIONS: Dementia with behavioral disturbance PLAN: -Patient DOES NOT have decision making capacity at this time and is unable to reason through and communicate/appreciate the risks, benefits and alternatives to treatment. -Delirium precautions recommended with patient including - avoiding use of narcotics and [employer] sedatives, limit anticholinergic medications when possible, frequent re-orientation, minimize use of restraints, open window shades during the day and close them at night -Would recommend the following medication changes/additions: Discontinued Klonopin as this may trigger delirium and increase patient's confusion. Increased Depakote sprinkles to 125 mg 3 times a day for mood stabilization/irritability. Started patient on Seroquel 50 mg twice a day for irritability/agitation. -Can give trial off of one-to-one sitter at this time. If patient is a behavioral problem or becomes more agitated than it would be okay to restart patient back on one-to-one. -Will continue to follow along -If patient improves behaviorally, and is appropriate for discharge and he may be discharged back to [facility]. -Sister currently attempting to seek guardianship, hearing his in December.
--- NOTE | 2018-11-29 14:38 | P.CRDCN ---
History of Present Illness History of present illness: This is a pleasant 58-year-old male past medical history significant for mechanical aortic valve replacement 1990, mitral valvuloplasty, rheumatic fever, paroxysmal atrial fibrillation, hypertension, dyslipidemia, chronic kidney disease, CVA with left-sided deficit, pulmonary hypertension, former nicotine dependence and anoxic brain injury. He has no coronary artery disease per cath in 1990 prior to aortic valve replacement. He follows in the office with Dr. Smith. We have been asked to see him in consultation for medication recommendations. The patient is brought into the hospital from [facility] secondary to combative behavior. He is apparently refusing to take medications and is not cooperating with care. Review of the medical records indicates at some point between leaving here in September and coming back yesterday he has been changed from Coumadin to Eliquis for anticoagulation despite a mechanical valve. He is seen and examined sitting up eating lunch in no acute distress. He denies symptoms of chest discomfort, shortness of breath, dizziness or pa lpitations. At the time of my exam: CONSTITUTIONAL: Denies fever. Denies chills. EYES: Denies blurred vision. Denies vision changes. Denies eye pain. EARS, NOSE, MOUTH & THROAT: Denies headache. Denies sore throat. Denies ear pain. CARDIOVASCULAR: Denies chest pain. Denies shortness of breath. Denies orthopnea. Denies PND. Denies palpitations. RESPIRATORY: Denies cough. GASTROINTESTINAL: Denies abdominal pain. Denies diarrhea. Denies constipation. Denies nausea. Denies vomiting. MUSCULOSKELETAL: Denies myalgias. INTEGUMENTARY: Denies pruitis. Denies rash. NEUROLOGIC: Denies numbness. Denies tingling. Denies weakness. PSYCHIATRIC: Denies anxiety. Denies depression. ENDOCRINE: Denies fatigue. Denies weight change. Denies polydipsia. Denies polyurina. GENITOURINARY: Denies burning, hematuria or urgency with micturation. HEMATOLOGIC: Denies history of anemia. Denies bleeding. Blood pressure 103/60 heart rate 73 afebrile maintaining oxygen saturation on room air GENERAL: This is a 58-year-old male in no apparent distress at the time of my examination. HEENT: Head is atraumatic, normocephalic. Pupils are equal, round. Sclerae anicteric. Conjunctivae are clear. Mucous membranes of the mouth are moist. Neck is supple. There is no jugular venous distention. No carotid bruit is heard. LUNGS: Clear to auscultation no wheezes, rales or rhonchi. No chest wall tenderness is noted on palpation or with deep breathing. HEART: Regular rate and rhythm with metallic click at the base, soft systolic ejection murmur at the left sternal border, no rubs or gallops. S1 and S2 heard. ABDOMEN: Soft, nontender. Bowel sounds are heard. No organomegaly noted. EXTREMITIES: No evidence of peripheral edema and no calf tenderness noted. VASCULAR: Radial and dorsalis pedis pulses palpated, no evidence of clubbing. NEUROLOGIC: Patient is awake, alert and oriented x3. ASSESSMENT Mechanical valve replacement Paroxysmal atrial fibrillation, maintaining sinus mechanism History of mitral valvuloplasty Rheumatic fever as a child Dyslipidemia Hypertension Nonischemic cardiomyopathy History of CVA Pulmonary hypertension Chronic systolic heart failure, currently euvolemic PLAN Discontinue eliquis and initiate on coumadin 5 mg daily. Lengthy discussion with the patient and nursing staff regarding machine long goods helper use of coumadin only for protection of his mechanical valve. Thank you kindly for this consultation. Nurse Practitioner note has been reviewed, I agree with a documented findings and plan of care. Patient was seen and examined. Past Medical History Past Medical History: Atrial Fibrillation, Heart Failure, CVA/TIA, Dementia, Hyperlipidemia, Hypertension, Myocardial Infarction ([place]), Renal Disease, Vascular Disorder Additional Past Medical History / Comment(s): CVA with L side deficit, muscle weakness, Afib with RVR, severely enlarged R ventricle and L atrium/mild pulmonary HTN, L2 compression fracture-wears brace at times, chronic low back pain, PVD, [place] in his 20s per pt and pt's sister, UTI. Last Myocardial Infarction Date:: "in his 20's" History of Any Multi-Drug Resistant Organisms: None Reported Past Surgical History: Cardiac Valve Replacement, Orthopedic Surgery Additional Past Surgical History / Comment(s): Mechanical aortic valve and pig valve as well per pt's sister, R hip hemiarthroplasty, R wrist fx with resetting, bilateral corrective eye surgery for strabismus. Past Anesthesia/Blood Transfusion Reactions: No Reported Reaction Additional Past Anesthesia/Blood Transfusion Reaction / Comment(s): Clausterphobia. Smoking Status: Former smoker - Past Family History Mother Family Medical History: Diabetes Mellitus Father Family Medical History: Cancer, COPD Additional Family Medical History / Comment(s): Colon/liver cancer, back fracture, pacemaker Sister(s) Family Medical History: Thyroid Disorder Additional Family Medical History / Comment(s): thyroidectomy Medications and Allergies Home Medications Medication Instructions Recorded Confirmed Type Metoprolol Tartrate [Lopressor] 25 mg PO BID@0900,2100 07/10/18 11/28/18 History Simvastatin [Zocor] 20 mg PO HS@209907/10/18 11/28/18 History Acetaminophen Tab [Tylenol Tab] 650 mg PO Q4H PRN 11/28/18 11/28/18 History Amiodarone [Cordarone] 200 mg PO DAILY@0900 11/28/18 11/28/18 History Apixaban [Eliquis] 5 mg PO BID@0900,209911/28/18 11/28/18 History Aspirin 81 mg PO DAILY@0900 11/28/18 11/28/18 History Divalproex Sodium [Depakote] 125 mg PO BID@0900,209911/28/18 11/28/18 History Furosemide [Lasix] 40 mg PO BID@0600,1400 11/28/18 11/28/18 History Spironolactone [Aldactone] 25 mg PO BID@0600,1400 11/28/18 11/28/18 History clonazePAM [KlonoPIN] 0.5 mg PO BID@0900,2100 11/28/18 11/28/18 History Allergies Allergy/AdvReac Type Severity Reaction Status Date / Time No Known Allergies Allergy Verified 11/28/18 09:37 Physical Exam Vitals: Vital Signs Temp Pulse Resp BP BP Pulse Ox 11/29/18 06:50 16 11/29/18 05:57 97.6 F 73 16 103/60 88/55 92 L 11/28/18 22:40 72 103/67 94 L 11/28/18 16:00 16 Intake and Output 11/28/18 11/29/18 11/29/18 22:59 06:59 14:59 Intake Total 75 240 Output Total 250 Balance 75 -250 240 Intake: Intake, IV Titration 75 Amount Sodium Chloride 0.9% 1, 75 000 ml @ 80 mls/hr IV . [id number] [facility] Rx#:[id number] Oral 240 Output: Urine 250 Other: # Voids 1 Results 11/28/18 03:25 11/28/18 03:25 Current Medications Generic Name Dose Route Start Last Admin Trade Name Henrietta PRN Reason Stop Dose Admin Acetaminophen 650 mg 11/28/18 10:27 Tylenol Tab PO Q6HR PRN Mild Pain or Fever > 100.5 Amiodarone HCl 200 mg 11/29/18 09:00 11/29/18 13:32 Cordarone PO Not Given DAILY@0900 [facility] Aspirin 81 mg 11/29/18 09:00 11/29/18 08:54 Aspirin PO Not Given DAILY@0900 [facility] Atorvastatin Calcium 10 mg 11/28/18 21:00 11/28/18 16:39 Lipitor PO 10 mg HS@2100 [facility] Administration Clonazepam 0.5 mg 11/28/18 21:00 11/29/18 08:52 Klonopin PO 0.5 mg BID@0900,2100 [facility] Administration Divalproex Sodium 125 mg 11/28/18 21:00 11/29/18 08:52 Depakote Sprinkle PO 125 mg BID@0900,2100 [facility] Administration Furosemide 40 mg 11/28/18 14:00 11/29/18 13:32 Lasix PO Not Given BID@0600,1400 [facility] Metoprolol Tartrate 25 mg 11/28/18 21:00 11/29/18 13:32 Lopressor PO Not Given BID@0900,2100 [facility] Naloxone HCl 0.2 mg 11/28/18 10:27 Narcan IV Q2M PRN Opioid Reversal Spironolactone 25 mg 11/28/18 14:00 11/29/18 13:32 Aldactone PO Not Given BID@0600,1400 [facility] Warfarin Sodium 5 mg 11/29/18 18:00 Coumadin PO DAILY@1800 [facility] Intake and Output 11/28/18 11/29/18 11/29/18 22:59 06:59 14:59 Intake Total 75 240 Output Total 250 Balance 75 -250 240 Intake: Intake, IV Titration 75 Amount Sodium Chloride 0.9% 1, 75 000 ml @ 80 mls/hr IV . [id number] [facility] Rx#:[id number] Oral 240 Output: Urine 250 Other: # Voids 1 11/28/18 03:25 11/28/18 03:25
[2018-11-29] MEDS ORDERED: WARFARIN 5 MG TAB PO SCH (18:00)
[2018-11-29] MEDS: QUEtiapine 50 MG TAB PO SCH (21:27)
[2018-11-29] MEDS: ATORVASTATIN 10 MG TAB PO SCH (21:27)
[2018-11-30] MEDS: FUROSEMIDE 40 MG TAB PO SCH ×2 (06:21→13:50)
[2018-11-30] MEDS: SPIRONOLACTONE 25 MG TAB PO SCH ×2 (06:21→13:50)
[2018-11-30] MEDS ORDERED: HEPARIN SODIUM,PORCINE 5,000 UNIT/ML 1 ML VIAL IV PRN ×2 (07:33→22:22)
[2018-11-30] MEDS: AMIODARONE 200 MG TAB PO SCH (09:14)
[2018-11-30] MEDS: ASPIRIN 81 MG PO SCH (09:14)
[2018-11-30] MEDS: METOPROLOL TARTRATE 25 MG TAB PO SCH ×2 (09:15→22:33)
[2018-11-30] MEDS: QUEtiapine 50 MG TAB PO SCH ×2 (09:15→22:33)
[2018-11-30] MEDS: DIVALPROEX SPRINKLE 125 MG CAP.SPRINK PO SCH ×4 (09:16→22:33)
[2018-11-30] MEDS: HEPARIN SOD,PORK IN 0.45% NACL 25,000 UNIT in 0.45% NACL 1 250ML.BAG IV SCH (09:50)
[2018-11-30 10:10] LABS: Basophils # (A) 0.1 k/uL (0-0.2); Basophils % (A) 1 %; Eosinophils # (A) 0.4 k/uL (0-0.7); Eosinophils % (A) 6 %; HCT 41.9 % (39.0-53.0); HGB 13.7 gm/dL (13.0-17.5); Lymphocytes # (A) 1.6 k/uL (1.0-4.8); Lymphocytes % (A) 23 %; MCH 33.8 pg (25.0-35.0); MCHC 32.8 g/dL (31.0-37.0); MCV 103.2 fL (80.0-100.0); Macrocytosis Slight; Mean Platelet Volume 6.2; Monocytes # (A) 0.8 k/uL (0-1.0); Monocytes % (A) 11 %; Neutrophils % (A) 55 %; Platelet Count 170 k/uL (150-450); RBC 4.06 m/uL (4.30-5.90); RDW 12.6 % (11.5-15.5); WBC 7.1 k/uL (3.8-10.6)
[2018-11-30 10:18] LABS: Prothrombin Time 10.5 sec (9.0-12.0)
--- NOTE | 2018-11-30 10:56 | P.PN ---
Subjective This is a pleasant 58-year-old male past medical history significant for mechanical aortic valve replacement 1990, mitral valvuloplasty, rheumatic fever, paroxysmal atrial fibrillation, hypertension, dyslipidemia, chronic kidney disease, CVA with left-sided deficit, pulmonary hypertension, former nicotine dependence and anoxic brain injury. He has no coronary artery disease per cath in 1990 prior to aortic valve replacement. He follows in the office with Dr. Smiht. He is seen and examined sitting up in bed eating breakfast. He has been refusing an IV for heparin bridging. Discussed the idea of lovenox injections and he would prefer IV infusion. He denies chest pain, shortness of breath, dizziness or palpitations. Blood pressure 98/53 heart rate 78 afebrile and maintaining oxygen saturation on room air. Laboratory data reviewed, INR 1.0, WBC 7.1, hgb 13.7, plt 170 and lactic acid 1.1 down from 2.1. GENERAL: This is a 58-year-old male in no apparent distress at the time of my examination. HEENT: Head is atraumatic, normocephalic. Pupils are equal, round. Sclerae anicteric. Conjunctivae are clear. Mucous membranes of the mouth are moist. Neck is supple. There is no jugular venous distention. No carotid bruit is heard. LUNGS: Clear to auscultation no wheezes, rales or rhonchi. No chest wall tenderness is noted on palpation or with deep breathing. HEART: Regular rate and rhythm with metallic click at the base, soft systolic ejection murmur at the left sternal border, no rubs or gallops. S1 and S2 heard. EXTREMITIES: No evidence of peripheral edema and no calf tenderness noted. ASSESSMENT Mechanical valve replacement Paroxysmal atrial fibrillation, maintaining sinus mechanism History of mitral valvuloplasty Rheumatic fever as a child Dyslipidemia Hypertension Nonischemic cardiomyopathy History of CVA Pulmonary hypertension Chronic systolic heart failure, currently euvolemic PLAN Lengthy discussion with the patient regarding the need for bridging with either heparin or lovenox. He currently has no IV and has been refusing. HOwever, he is now agreeable to IV infusion. Check daily PT/INR until therapeutic between 2.0- 3.0, target of 2.5. Nurse Practitioner note has been reviewed, I agree with a documented findings and plan of care. Patient was seen and examined. Objective - Vital Signs Vital signs: Vital Signs Temp 97.6 F 11/30/18 06:18 Pulse 78 11/30/18 06:18 Resp 18 11/30/18 06:18 BP 98/63 11/30/18 06:18 Pulse Ox 95 11/30/18 06:18 Intake & Output 11/29/18 11/30/18 11/30/18 18:59 06:59 18:59 Intake Total 1090 480 Balance 1090 480 Weight 92.5 kg Intake: Oral 1090 480 Other: # Voids 2 - Labs CBC & Chem 7: 11/30/18 08:44 11/28/18 03:25 Labs: Abnormal Lab Results - Last 24 Hours (Table) 11/30/18 Range/Units 08:44 RBC 4.06 L (4.30-5.90) m/uL MCV 103.2 H (80.0-100.0) fL
--- NOTE | 2018-11-30 12:56 | P.PN ---
Subjective Progress Note Date: 11/30/18 Principal diagnosis: Placement Patient was seen and examined. No acute events overnight. Patient with no complaints. Patient is upset that we are keeping limits at the hospital without letting him explore the world. States that he just wanted to smoke a cigarette at [facility] but was not allowed to. States that he does not want people telling him what to do any wants to be able to have some independence with his own bedroom and washroom. Objective - Vital Signs Vital signs: Vital Signs Temp 97.6 F 11/30/18 06:18 Pulse 78 11/30/18 06:18 Resp 18 11/30/18 06:18 BP 98/63 11/30/18 06:18 Pulse Ox 95 11/30/18 06:18 Intake & Output 11/29/18 11/30/18 11/30/18 18:59 06:59 18:59 Intake Total 1090 480 Balance 1090 480 Weight 92.5 kg Intake: Oral 1090 480 Other: # Voids 2 - Exam General: [non toxic], [no distress], [appears at stated age] Derm: [warm], [dry] Head: [atraumatic], [normocephalic], [symmetric] Eyes: [EOMI], [no lid lag], [anicteric sclera] Mouth: [no lip lesion], [mucus membranes moist] Cardiovascular: [S1S2 reg], [irregularly regular], [positive DP pulse bilateral], Lungs: [CTA bilateral], [no rhonchi, no rales] , [no accessory muscle use] Abdominal: [soft], [ nontender to palpation], [no guarding], [no appreciable organomegaly] Ext: [no gross muscle atrophy], [no edema], [no contractures] Neuro: [no focal neuro deficits] Psych: [Slow to respond but appropriate and noncombative] - Labs CBC & Chem 7: 11/30/18 08:44 11/28/18 03:25 Labs: Abnormal Lab Results - Last 24 Hours (Table) 11/30/18 Range/Units 08:44 RBC 4.06 L (4.30-5.90) m/uL MCV 103.2 H (80.0-100.0) fL Assessment and Plan Assessment: Combative behavior with history of anoxic brain injury and developmental challenges History of aortic valve replacement Hyperchloremic metabolic acidosis Chronic kidney disease Lactic acidosis Macrocytosis Abnormal UA Chronic conditions: Systolic CHF with EF 45%, euvolemic and compensated, resume beta pinky, Lasix and Aldactone, follow cardiology consult. Atrial fibrillation, rate controlled on beta pinky and rhythm controlled with amiodarone and on Eliquis for anticoagulation. History of CVA and CAD, continue aspirin, Lipitor and beta pinky. Hypertension, controlled on current medications. Plans: We will restart home medications of Depakote and Klonopin. Psych deemed patient with no decisional capacity. Follow psychiatry consultation for further recommendations. Apparently switched from Coumadin to Eliquis at [facility]? Eliquis not indicated for valvular A. fib or mechanical valve. Plans: Start heparin drip and transition to Coumadin to maintain INR 2-3. Chloride 109, bicarbonate 19. Likely due to infused IVF. Plans: Follow repeat BMP. Creatinine 1.41. Appears at baseline. Plans: Avoid nephrotoxins. Follow repeat BMP. Lactic acid 2.1-1.1. Likely due to dehydration. Plans: Resolved. MCV 102.7. Hemoglobin within normal limits. B12 and folate within normal limits in February 2018. Likely related to Depakote use. Plans: Nothing further to do. UA showing trace leukocyte esterase. Patient asymptomatic. Plans: Nothing further to do. [Social work on board for placement. Per social work, guardianship hearing scheduled in December. Patient does not want to go back to [facility] would like to maintain some independence but is not decisional. ]
--- NOTE | 2018-11-30 17:15 | P.PN ---
Progress Note - Text Progress Note Date: 11/30/18 Psychiatric progress note: Interval History: Patient was seen for psychiatric follow-up today. As per nurse taking care of the patient claims that he has been more cooperative today and has been sleeping better. She also states that patient has been somewhat forgetful. Patient was agreeable to speak to clinical writer and appeared to be in no distress. Patient was less irritable today during conversation and continues to have chronically poor insight into his condition. He states that "I want to be free" and points outside. Patient also spoke about wanting to smoke a cigarette at [facility] and wasn't allowed. Patient claims that his mood has been "fine" and denies any anxiety at this time. States that he is eating well as fair energy. At this time patient denies any suicidal or homical ideations, intent or plan. Patient denies any auditory, visual hallucinations and denies any paranoia or delusions. Patient denies any side effects from the medications and has been compliant with meds. Mental Status Exam: General Appearance: Patient appears to be older than stated age is alert, not aggressive today and directable. Patient has fair eye contact and poor hygiene and grooming. Behavior: Patient is up and sitting in chair. No agitation. Speech: Patient's speech is fluent and nonpressured. Mood/Affect: Patient reports their mood is "fine", affect is congruent and constricted Suicidality/Homicidality: Patient denies having any suicidal or homicidal ideation intent or plan. Perceptions: Patient denies any auditory or visual hallucinations. Though content/process: Patient is preoccupied with going outside and smoking a cigarette. Patient is concrete thought process. Memory and concentration: AOX1-2, Patient has chronically poor judgment. Fair attention span. Judgment and insight: Poor chronically Assessment Dementia with behavioral disturbance Plan: -Delirium precautions recommended with patient including - avoiding use of narcotics and [employer] DENTIST sedatives, limit anticholinergic medications when possible, frequent re-orientation, minimize use of restraints, open window shades during the day and close them at night -Would recommend the following medication changes/additions: Can continue on Depakote sprinkles to 125 mg 3 times a day for mood stabilization/irritability. Continue on Seroquel 50 mg twice a day for irritability/agitation. -Sister currently attempting to seek guardianship, hearing his in December. -Psychiatry will sign off at this time. Patient can be discharged back to his shelter or other assisted living when medically appropriate.
[2018-11-30] MEDS ORDERED: WARFARIN 5 MG TAB PO ONE (18:00)
[2018-11-30] MEDS: ATORVASTATIN 10 MG TAB PO SCH (22:33)
[2018-12-01 03:37] LABS: Basophils # (A) 0.1 k/uL (0-0.2); Basophils % (A) 1 %; Eosinophils # (A) 0.5 k/uL (0-0.7); Eosinophils % (A) 7 %; HCT 43.9 % (39.0-53.0); HGB 13.6 gm/dL (13.0-17.5); Lymphocytes % (A) 25 %; MCH 32.3 pg (25.0-35.0); MCV 104.1 fL (80.0-100.0); Macrocytosis Slight; Mean Platelet Volume 6.9; Monocytes # (A) 0.8 k/uL (0-1.0); Monocytes % (A) 10 %; Neutrophils # (A) 4.2 k/uL (1.3-7.7); Neutrophils % (A) 53 %; Platelet Count 165 k/uL (150-450); RBC 4.22 m/uL (4.30-5.90); RDW 12.9 % (11.5-15.5)
[2018-12-01 03:51] LABS: Partial Thromboplastin Time 65.1 sec (22.0-30.0)
[2018-12-01 04:05] LABS: Calcium 9.7 mg/dL (8.4-10.2); Potassium 4.5 mmol/L (3.5-5.1)
[2018-12-01] MEDS: FUROSEMIDE 40 MG TAB PO SCH ×2 (05:28→14:26)
[2018-12-01] MEDS: SPIRONOLACTONE 25 MG TAB PO SCH ×2 (05:28→14:26)
[2018-12-01] MEDS: METOPROLOL TARTRATE 25 MG TAB PO SCH ×2 (07:40→21:40)
[2018-12-01] MEDS: ASPIRIN 81 MG PO SCH (07:40)
[2018-12-01] MEDS: QUEtiapine 50 MG TAB PO SCH ×2 (07:40→21:40)
[2018-12-01] MEDS: AMIODARONE 200 MG TAB PO SCH (07:40)
[2018-12-01] MEDS: HEPARIN SOD,PORK IN 0.45% NACL 25,000 UNIT in 0.45% NACL 1 250ML.BAG IV SCH (07:41)
[2018-12-01] MEDS: DIVALPROEX SPRINKLE 125 MG CAP.SPRINK PO SCH ×3 (07:41→21:40)
--- NOTE | 2018-12-01 08:13 | P.PN ---
Subjective Progress Note Date: 12/01/18 Principal diagnosis: Placement Patient was seen and examined. No acute events overnight. Patient with no complaints. Now understanding that he will have to go back to [facility]. States that he just wanted to smoke a cigarette, but they did not allow him to do that. He denies any chest pain, shortness of breath or palpitations. No nausea or vomiting. No fever or chills. Objective - Vital Signs Vital signs: Vital Signs Temp 97.1 F L 12/01/18 04:50 Pulse 72 12/01/18 04:50 Resp 18 12/01/18 04:50 BP 110/62 12/01/18 04:50 Pulse Ox 93 L 12/01/18 04:50 Intake & Output 11/30/18 12/01/18 12/01/18 18:59 06:59 18:59 Intake Total 127.872 107.152 Output Total 250 Balance -250 127.872 107.152 Intake: Intake, IV Titration 127.872 107.152 Amount Heparin Sod,Pork in 0.45% 127.872 107.152 NaCl 25,000 unit In 0.45 % NaCl 1 250ml.bag @ 10.8 UNITS/KG/HR 9.99 mls/hr IV .Q24H [facility] Rx#: [id number] Output: Urine 250 Other: Voiding Method Toilet Urinal # Voids 2 1 - Exam General: [non toxic], [no distress], [appears at stated age] Derm: [warm], [dry] Head: [atraumatic], [normocephalic], [symmetric] Eyes: [EOMI], [no lid lag], [anicteric sclera] Mouth: [no lip lesion], [mucus membranes moist] Cardiovascular: [S1S2 reg], [irregularly regular], [positive DP pulse bilateral], Lungs: [CTA bilateral], [no rhonchi, no rales] , [no accessory muscle use] Abdominal: [soft], [ nontender to palpation], [no guarding], [no appreciable org anomegaly] Ext: [no gross muscle atrophy], [no edema], [no contractures] Neuro: [no focal neuro deficits] Psych: [Slow to respond but appropriate and noncombative] - Labs CBC & Chem 7: 12/01/18 02:50 12/01/18 02:50 Labs: Abnormal Lab Results - Last 24 Hours (Table) 11/30/18 11/30/18 12/01/18 Range/Units 08:44 20:12 02:50 RBC 4.06 L 4.22 L (4.30-5.90) m/uL MCV 103.2 H 104.1 H (80.0-100.0) fL APTT 42.1 H (22.0-30.0) sec Chloride (98-107) mmol/L BUN (9-20) mg/dL Creatinine (0.66-1.25) mg/dL Glucose (74-99) mg/dL 12/01/18 12/01/18 Range/Units 02:50 03:00 RBC (4.30-5.90) m/uL MCV (80.0-100.0) fL APTT 65.1 H (22.0-30.0) sec Chloride 108 H (98-107) mmol/L BUN 27 H (9-20) mg/dL Creatinine 1.56 H (0.66-1.25) mg/dL Glucose 121 H (74-99) mg/dL Assessment and Plan Assessment: Combative behavior with history of anoxic brain injury and developmental challenges History of aortic valve replacement Hyperchloremic metabolic acidosis Chronic kidney disease Lactic acidosis Macrocytosis Abnormal UA Chronic conditions: Systolic CHF with EF 45%, euvolemic and compensated, resume beta pinky, Lasix and Aldactone, follow cardiology consult. Atrial fibrillation, rate controlled on beta pinky and rhythm controlled with amiodarone and on Eliquis for anticoagulation. History of CVA and CAD, continue aspirin, Lipitor and beta pinky. Hypertension, controlled on current medications. Plans: We will restart home medications of Depakote and Klonopin. Psych deemed patient with no decisional capacity. Follow psychiatry consultation for further recommendations. Apparently switched from Coumadin to Eliquis at [facility]? Eliquis not indicated for valvular A. fib or mechanical valve. INR continues to be 1. Plans: Start heparin drip and transition to Coumadin to maintain INR 2-3. Will receive 10 mg Coumadin today. Chloride 109-108, bicarbonate 19-within normal limits. Likely due to infused IVF. Plans: Follow repeat BMP. Creatinine 1.41-1.56. Appears at baseline. Plans: Avoid nephrotoxins. Encourage hydration by mouth. Follow repeat BMP. Lactic acid 2.1-1.1. Likely due to dehydration. Plans: Resolved. MCV 104.1. Hemoglobin within normal limits. B12 and folate within normal limits in February 2018. Likely related to Depakote use. Plans: Nothing further to do. UA showing trace leukocyte esterase. Patient asymptomatic. Plans: Nothing fu rther to do. [Social work on board for placement. Per social work, guardianship hearing scheduled in December, will need emergency hearing. Patient appears agreeable to return back to [facility]. ]
--- NOTE | 2018-12-01 12:30 | P.PN ---
Subjective Progress Note Date: 12/01/18 This is a pleasant 58-year-old male past medical history significant for mechanical aortic valve replacement 1990, mitral valvuloplasty, rheumatic fever, paroxysmal atrial fibrillation, hypertension, dyslipidemia, chronic kidney disease, CVA with left-sided deficit, pulmonary hypertension, former nicotine dependence and anoxic brain injury. He has no coronary artery disease per cath in 1990 prior to aortic valve replacement. He follows in the office with Dr. Smith. We have been asked to see him in consultation for medication recommendations. The patient is brought into the hospital from [facility] secondary to combative behavior. He is apparently refusing to take medications and is not cooperating with care. Review of the medical records indicates at some point between leaving here in September and coming back yesterday he has been changed from Coumadin to Eliquis for anticoagulation despite a mechanical valve. He is seen and examined sitting up eating lunch in no acute distress. He denies symptoms of chest discomfort, shortness of breath, dizziness or palpitations. 11/29/18 Eliquis discontinued and started on Coumadin 11/30/18 Blood pressure 98/53 heart rate 78 afebrile and maintaining oxygen saturation on room air. Laboratory data reviewed, INR 1.0, WBC 7.1, hgb 13.7, plt 170 and lactic acid 1.1 down from 2.1. Patient started on heparin drip for bridging. Patient initially refused IV therapy. 12/01/18 patient states he is overall doing well and is very eager to be discharged back to [facility]. INR today is 1.0 despite starting Coumadin 2 days prior. Pharmacy to dose.White blood cell count 8.0, hemoglobin 13.6, hematocrit 43.9, platelet 165, sodium 140, potassium 4.5, BUN 27, creatinine 1.56. blood pressure in the low 100s. Heart rates in the 70s. 92-93% on room air. Objective - Vital Signs Vital signs: Vital Signs Temp 97.7 F 12/01/18 11:38 Pulse 73 12/01/18 11:38 Resp 18 12/01/18 11:38 BP 102/65 12/01/18 11:38 Pulse Ox 92 L 12/01/18 11:38 Intake & Output 11/30/18 12/01/18 12/01/18 18:59 06:59 18:59 Intake Total 127.872 107.152 Output Total 250 Balance -250 127.872 107.152 Intake: Intake, IV Titration 127.872 107.152 Amount Heparin Sod,Pork in 0.45% 127.872 107.152 NaCl 25,000 unit In 0.45 % NaCl 1 250ml.bag @ 10.8 UNITS/KG/HR 9.99 mls/hr IV .Q24H [facility] Rx#: [id number] Output: Urine 250 Other: Voiding Method Toilet Toilet Urinal Urinal # Voids 2 1 2 - Exam GENERAL: This is a 58-year-old male in no apparent distress at the time of my examination. HEENT: Head is atraumatic, normocephalic. Pupils are equal, round. Sclerae anicteric. Conjunctivae are clear. Mucous membranes of the mouth are moist. Neck is supple. There is no jugular venous distention. No carotid bruit is heard. LUNGS: Clear to auscultation no wheezes, rales or rhonchi. No chest wall tenderness is noted on palpation or with deep breathing. HEART: Regular rate and rhythm with metallic click at the base, soft systolic ejection murmur. no rubs or gallops. S1 and S2 heard. ABDOMEN: Soft, nontender. Bowel sounds are heard. No organomegaly noted. EXTREMITIES: No evidence of peripheral edema and no calf tenderness noted. VASCULAR: Radial and dorsalis pedis pulses palpated, no evidence of clubbing. NEUROLOGIC: Patient is awake, alert and oriented x3. - Labs CBC & Chem 7: 12/01/18 02:50 12/01/18 02:50 Labs: Abnormal Lab Results - Last 24 Hours (Table) 11/30/18 12/01/18 12/01/18 Range/Units 20:12 02:50 02:50 RBC 4.22 L (4.30-5.90) m/uL MCV 104.1 H (80.0-100.0) fL APTT 42.1 H (22.0-30.0) sec Chloride 108 H (98-107) mmol/L BUN 27 H (9-20) mg/dL Creatinine 1.56 H (0.66-1.25) mg/dL Glucose 121 H (74-99) mg/dL 12/01/18 Range/Units 03:00 RBC (4.30-5.90) m/uL MCV (80.0-100.0) fL APTT 65.1 H (22.0-30.0) sec Chloride (98-107) mmol/L BUN (9-20) mg/dL Creatinine (0.66-1.25) mg/dL Glucose (74-99) mg/dL Assessment and Plan Assessment: 1) Mechanical valve replacement 2) Paroxysmal atrial fibrillation, maintaining sinus mechanism 3) History of mitral valvuloplasty 4) Rheumatic fever as a child 5) Dyslipidemia 6) Hypertension 7) Nonischemic cardiomyopathy 8) History of CVA 9) Pulmonary hypertension 10) Chronic systolic heart failure, currently euvolemic Plan: continue current medication regimen. Pharmacy to dose warfarin to achieve therapeutic INR of 2.5-3.5.
[2018-12-01] MEDS ORDERED: WARFARIN 10 MG TAB PO ONE (18:00)
[2018-12-01] MEDS: ATORVASTATIN 10 MG TAB PO SCH (21:40)
[2018-12-02] MEDS: FUROSEMIDE 40 MG TAB PO SCH ×2 (05:29→13:31)
[2018-12-02] MEDS: SPIRONOLACTONE 25 MG TAB PO SCH ×2 (05:29→13:31)
[2018-12-02] MEDS: HEPARIN SOD,PORK IN 0.45% NACL 25,000 UNIT in 0.45% NACL 1 250ML.BAG IV SCH (07:37)
[2018-12-02] MEDS: AMIODARONE 200 MG TAB PO SCH (07:43)
[2018-12-02] MEDS: METOPROLOL TARTRATE 25 MG TAB PO SCH ×2 (07:43→20:36)
[2018-12-02] MEDS: QUEtiapine 50 MG TAB PO SCH ×2 (07:44→20:36)
[2018-12-02] MEDS: DIVALPROEX SPRINKLE 125 MG CAP.SPRINK PO SCH ×3 (07:44→22:07)
[2018-12-02] MEDS: ASPIRIN 81 MG PO SCH (07:44)
[2018-12-02 08:31] LABS: INR 1.3 (<1.2); Partial Thromboplastin Time 57.7 sec (22.0-30.0); Prothrombin Time 13.2 sec (9.0-12.0)
--- NOTE | 2018-12-02 10:07 | P.PN ---
Subjective Progress Note Date: 12/02/18 Principal diagnosis: Placement Patient was seen and examined. No acute events overnight. Patient with no complaints. Patient understanding that is unable to go home to the streets, that he requires supervision, appears agreeable to go back to [facility]. States that he just wanted to smoke a cigarette, but they did not allow him to do that. He denies any chest pain, shortness of breath or palpitations. No nausea or vomiting. No fever or chills. Objective - Vital Signs Vital signs: Vital Signs Temp 97.8 F 12/02/18 04:37 Pulse 75 12/02/18 08:00 Resp 24 12/02/18 04:37 BP 107/68 12/02/18 04:37 Pulse Ox 92 L 12/02/18 04:37 Intake & Output 12/01/18 12/02/18 12/02/18 18:59 06:59 18:59 Intake Total 1406.144 431.008 Output Total 250 Balance 1156.144 431.008 Intake: Intake, IV Titration 226.144 131.008 Amount Heparin Sod,Pork in 0.45% 226.144 131.008 NaCl 25,000 unit In 0.45 % NaCl 1 250ml.bag @ 10.8 UNITS/KG/HR 9.99 mls/hr IV .Q24H [facility] Rx#: [id number] Oral 1180 300 Output: Urine 250 Other: Voiding Method Toilet Toilet Toilet Urinal Urinal Urinal # Voids 1 6 1 # Bowel Movements 1 - Exam General: [non toxic], [no distress], [appears at stated age] Derm: [warm], [dry] Head: [atraumatic], [normocephalic], [symmetric] Eyes: [EOMI], [no lid lag], [anicteric sclera] Mouth: [no lip lesion], [mucus membranes moist] Cardiovascular: [S1S2 reg], [irregularly regular], [positive DP pulse bilateral], Lungs: [CTA bilateral], [no rhonchi, no rales] , [no accessory muscle use] Abdominal: [soft], [ nontender to palpation], [no guarding], [no appreciable organomegaly] Ext: [no gross muscle atrophy], [no edema], [no contractures] Neuro: [no focal neuro deficits] Psych: [Slow to respond but appropriate and noncombative] - Labs CBC & Chem 7: 12/01/18 02:50 12/01/18 02:50 Labs: Abnormal Lab Results - Last 24 Hours (Table) 12/02/18 Range/Units 08:01 PT 13.2 H (9.0-12.0) sec INR 1.3 H (<1.2) APTT 57.7 H (22.0-30.0) sec Assessment and Plan Assessment: Combative behavior with history of anoxic brain injury and developmental challenges History of aortic valve replacement Hyperchloremic metabolic acidosis Chronic kidney disease Lactic acidosis Macrocytosis Abnormal UA Chronic conditions: Systolic CHF with EF 45%, euvolemic and compensated, resume beta pinky, Lasix and Aldactone, follow cardiology consult. Atrial fibrillation, rate controlled on beta pinky and rhythm controlled with amiodarone and on Eliquis for anticoagulation. History of CVA and CAD, continue aspirin, Lipitor and beta pinky. Hypertension, controlled on current medications. Plans: We will restart home medications of Depakote and Klonopin. Psych deemed patient with no decisional capacity. Follow psychiatry consultation for further recommendations. Apparently switched from Coumadin to Eliquis at [facility]? Eliquis not indicated for valvular A. fib or mechanical valve. INR 1.3. Plans: Start heparin drip and transition to Coumadin to maintain INR 2-3. Will receive 10 mg Coumadin today. Cardiology on board. Chloride 109-108, bicarbonate 19-within normal limits. Likely due to infused IVF. Plans: Nothing to do. Creatinine 1.41-1.56. Appears at baseline. Plans: Avoid nephrotoxins. Encourage hydration by mouth. Lactic acid 2.1-1.1. Likely due to dehydration. Plans: Resolved. MCV 104.1. Hemoglobin within normal limits. B12 and folate within normal mckinney its in February 2018. Likely related to Depakote use. Plans: Nothing further to do. UA showing trace leukocyte esterase. Patient asymptomatic. Plans: Nothing further to do. [Social work on board for placement. Per social work, guardianship hearing scheduled in December, will need emergency hearing. Patient appears agreeable to return back to [facility]. Likely DC tomorrow. ]
--- NOTE | 2018-12-02 14:00 | P.PN ---
Subjective Progress Note Date: 12/02/18 This is a pleasant 58-year-old male past medical history significant for mechanical aortic valve replacement 1990, mitral valvuloplasty, rheumatic fever, paroxysmal atrial fibrillation, hypertension, dyslipidemia, chronic kidney disease, CVA with left-sided deficit, pulmonary hypertension, former nicotine dependence and anoxic brain injury. He has no coronary artery disease per cath in 1990 prior to aortic valve replacement. He follows in the office with Dr. Smith. The patient is brought into the hospital from [facility] secondary to combative behavior. He is apparently refusing to take medications and is not cooperating with care. Review of the medical records indicates at some point between leaving here in September and coming back yesterday he has been changed from Coumadin to Eliquis for anticoagulation despite a mechanical valve. He is seen and examined sitting up eating lunch in no acute distress. He denies symptoms of chest discomfort, shortness of breath, dizziness or palpitations. 12/01/18 patient states he is overall doing well and is very eager to be discharged back to [facility]. INR today is 1.0 despite starting Coumadin 2 days prior. Pharmacy to dose.White blood cell count 8.0, hemoglobin 13.6, hematocrit 43.9, platelet 165, sodium 140, potassium 4.5, BUN 27, creatinine 1.56. blood pressure in the low 100s. Heart rates in the 70s. 92-93% on room air. 12/02/18 Patient continues to be confused but is sitting comfortably up in the chair. His INR continues to be subtherapeutic at 1.3. Recommend INR of 2.5-3.5 prior to discharge. Vital signs continue to be stable with blood pressures in the low 100s. SpO2 93% on room air. Heart rates in the 60s to 70s. Objective - Vital Signs Vital signs: Vital Signs Temp 97.6 F 12/02/18 11:15 Pulse 68 12/02/18 11:15 Resp 20 12/02/18 11:15 BP 102/61 12/02/18 11:15 Pulse Ox 93 L 12/02/18 11:15 Intake & Output 12/01/18 12/02/18 12/02/18 18:59 06:59 18:59 Intake Total 1406.144 305.870 8585 Output Total 250 1 Balance 1156.144 575.580 9875 Intake: Intake, IV Titration 226.144 131.008 Amount Heparin Sod,Pork in 0.45% 226.144 131.008 NaCl 25,000 unit In 0.45 % NaCl 1 250ml.bag @ 10.8 UNITS/KG/HR 9.99 mls/hr IV .Q24H [facility] Rx#: [id number] Oral 2926 [id number] 8459 Output: Urine 250 Stool 1 Other: Voiding Method Toilet Toilet Toilet Urinal Urinal Urinal # Voids 1 6 9 # Bowel Movements 1 - Exam GENERAL: Well-appearing, well-nourished and in no acute distress. NECK: Supple without JVD or thyromegaly. LUNGS: Breath sounds clear to auscultation bilaterally. Respiration equal and unlabored. No wheezes, rales or rhonchi. HEART: Regular rate and rhythm. Audible click at he base. S1 and S2 heard. EXTREMITIES: Normal range of motion, no edema. No clubbing or cyanosis. Peripheral pulses intact and strong. - Labs CBC & Chem 7: 12/01/18 02:50 12/01/18 02:50 Labs: Abnormal Lab Results - Last 24 Hours (Table) 12/02/18 Range/Units 08:01 PT 13.2 H (9.0-12.0) sec INR 1.3 H (<1.2) APTT 57.7 H (22.0-30.0) sec Assessment and Plan Assessment: 1) Mechanical valve replacement, on heparin and Coumadin 2) Paroxysmal atrial fibrillation, maintaining sinus mechanism 3) History of mitral valvuloplasty 4) Rheumatic fever as a child 5) Dyslipidemia 6) Hypertension 7) Nonischemic cardiomyopathy 8) History of CVA 9) Pulmonary hypertension 10) Chronic systolic heart failure, currently euvolemic Plan: Pharmacy to continue titration of warfarin for therapeutic INR of 2.5-3.5. Discharge once therapeutic.
[2018-12-02] MEDS ORDERED: WARFARIN 10 MG TAB PO ONE (18:00)
[2018-12-02] MEDS: ATORVASTATIN 10 MG TAB PO SCH (20:36)
[2018-12-03] MEDS: HEPARIN SOD,PORK IN 0.45% NACL 25,000 UNIT in 0.45% NACL 1 250ML.BAG IV SCH (04:23)
[2018-12-03] MEDS: FUROSEMIDE 40 MG TAB PO SCH ×3 (08:20→12:45)
[2018-12-03] MEDS: SPIRONOLACTONE 25 MG TAB PO SCH ×3 (08:20→12:45)
--- NOTE | 2018-12-03 11:18 | P.PN ---
Subjective This is a pleasant 58-year-old male past medical history significant for mechanical aortic valve replacement 1990, mitral valvuloplasty, rheumatic fever, paroxysmal atrial fibrillation, hypertension, dyslipidemia, chronic kidney disease, CVA with left-sided deficit, pulmonary hypertension, former nicotine dependence and anoxic brain injury. He has no coronary artery disease per cath in 1990 prior to aortic valve replacement. He follows in the office with Dr. Smith. He is seen and examined laying flat resting comfortably in bed in no acute distress. Overall his mood is negative today and he is upset about the phone in his room not working. He has no chest pain, shortness of breath, dizziness, nausea, vomiting or diaphoresis. Blood pressure 118/76 heart rate 82 afebrile and maintaining oxygen saturation on room air. Laboratory data reviewed, INR 1.3. Currently maintained on heparin infusion and warfarin. GENERAL: This is a 58-year-old male in no apparent distress at the time of my examination. HEENT: Head is atraumatic, normocephalic. Pupils are equal, round. Sclerae anicteric. Conjunctivae are clear. Mucous membranes of the mouth are moist. Neck is supple. There is no jugular venous distention. No carotid bruit is heard. LUNGS: Clear to auscultation no wheezes, rales or rhonchi. No chest wall tenderness is noted on palpation or with deep breathing. HEART: Regular rate and rhythm with metallic click at the base, soft systolic ejection murmur at the left sternal border, no rubs or gallops. S1 and S2 heard. EXTREMITIES: No evidence of peripheral edema and no calf tenderness noted. ASSESSMENT Mechanical aortic valve replacement 1990 Paroxysmal atrial fibrillation, maintaining sinus mechanism History of mitral valvuloplasty Rheumatic fever as a child Dyslipidemia Hypertension Nonischemic cardiomyopathy History of CVA Pulmonary hypertension Chronic systolic heart failure, currently euvolemic PLAN Continue current medical regimen with IV heparin infusion bridging with warfarin for target INR 2-3. Nurse Practitioner note has been reviewed, I agree with a documented findings and plan of care. Patient was seen and examined. Objective - Vital Signs Vital signs: Vital Signs Temp 98.4 F 12/02/18 20:34 Pulse 82 12/02/18 20:34 Resp 16 12/02/18 20:34 BP 118/76 12/02/18 20:34 Pulse Ox 95 12/02/18 20:34 Intake & Output 12/02/18 12/03/18 12/03/18 18:59 06:59 18:59 Intake Total 2229.717 136.16 Output Total 252 1 Balance 1977.717 135.16 Intake: Intake, IV Titration 109.717 136.16 Amount Heparin Sod,Pork in 0.45% 109.717 136.16 NaCl 25,000 unit In 0.45 % NaCl 1 250ml.bag @ 10.8 UNITS/KG/HR 9.99 mls/hr IV .Q24H [facility] Rx#: [id number] Oral 2120 Output: Urine 250 Stool 2 1 Other: Voiding Method Toilet Toilet Urinal Urinal # Voids 1 2 # Bowel Movements 1 1 - Labs CBC & Chem 7: 12/01/18 02:50 12/01/18 02:50
--- NOTE | 2018-12-03 11:39 | P.PN ---
Subjective Progress Note Date: 12/03/18 Principal diagnosis: Placement Patient was seen and examined. No acute events overnight. Patient refusing blood draws this morning. Also refusing to take medications. Wants to be discharged. Patient denies chest pain, shortness of breath, palpitations. No nausea or vomiting. No fever or chills. Objective - Vital Signs Vital signs: Vital Signs Temp 98.2 F 12/03/18 11:31 Pulse 68 12/03/18 11:31 Resp 17 12/03/18 11:31 BP 97/59 12/03/18 11:31 Pulse Ox 95 12/03/18 11:31 Intake & Output 12/02/18 12/03/18 12/03/18 18:59 06:59 18:59 Intake Total 2229.717 136.16 Output Total 252 1 Balance 1977.717 135.16 Intake: Intake, IV Titration 109.717 136.16 Amount Heparin Sod,Pork in 0.45% 109.717 136.16 NaCl 25,000 unit In 0.45 % NaCl 1 250ml.bag @ 10.8 UNITS/KG/HR 9.99 mls/hr IV .Q24H [facility] Rx#: [id number] Oral 2120 Output: Urine 250 Stool 2 1 Other: Voiding Method Toilet Toilet Urinal Urinal # Voids 1 2 # Bowel Movements 1 1 - Exam General: [non toxic], [no distress], [appears at stated age] Derm: [warm], [dry] Head: [atraumatic], [normocephalic], [symmetric] Eyes: [EOMI], [no lid lag], [anicteric sclera] Mouth: [no lip lesion], [mucus membranes moist] Cardiovascular: [S1S2 reg], [irregularly regular], [positive DP pulse bilateral], Lungs: [CTA bilateral], [no rhonchi, no rales] , [no accessory muscle use] Abdominal: [soft], [ nontender to palpation], [no guarding], [no appreciable organomegaly] Ext: [no gross muscle atrophy], [no edema], [no contractures] Neuro: [no focal neuro deficits] Psych: [Slow to respond but appropriate and noncombative, difficult to reason] - Labs CBC & Chem 7: 12/01/18 02:50 12/01/18 02:50 Assessment and Plan Assessment: Combative behavior with history of anoxic brain injury and developmental challenges History of aortic valve replacement Hyperchloremic metabolic acidosis Chronic kidney disease Lactic acidosis Macrocytosis Abnormal UA Chronic conditions: Systolic CHF with EF 45%, euvolemic and compensated, resume beta pinky, Lasix and Aldactone, follow cardiology consult. Atrial fibrillation, rate controlled on beta pinky and rhythm controlled with amiodarone and on Eliquis for anticoagulation. History of CVA and CAD, continue aspirin, Lipitor and beta pinky. Hypertension, controlled on current medications. Plans: We will restart home medications of Depakote and Klonopin. Psych deemed patient with no decisional capacity. Follow psychiatry consultation for further recommendations. Apparently switched from Coumadin to Eliquis at [facility]? Eliquis not indicated for valvular A. fib or mechanical valve. INR 1.3. Plans: Start heparin drip and transition to Coumadin to maintain INR 2-3. Will receive 10 mg Coumadin today. Cardiology on board. Chloride 109-108, bicarbonate 19-within normal limits. Likely due to infused IVF. Plans: Nothing to do. Creatinine 1.41-1.56. Appears at baseline. Plans: Avoid nephrotoxins. Encourage hydration by mouth. Lactic acid 2.1-1.1. Likely due to dehydration. Plans: Resolved. MCV 104.1. Hemoglobin within normal limits. B12 and folate within normal limits in February 2018. Likely related to Depakote use. Plans: Nothing further to do. UA showing trace leukocyte esterase. Patient asymptomatic. Plans: Nothing further to do. [Social work on board for placement. Per social work, guardianship hearing scheduled in December, will need emergency hearing or alternative placement. Patient refusing blood draws. Refusing INR checks, DC today.]
[2018-12-03] MEDS: AMIODARONE 200 MG TAB PO SCH ×2 (11:55→12:44)
[2018-12-03] MEDS: QUEtiapine 50 MG TAB PO SCH ×3 (11:55→21:08)
[2018-12-03] MEDS: METOPROLOL TARTRATE 25 MG TAB PO SCH ×3 (11:55→21:08)
[2018-12-03] MEDS: ASPIRIN 81 MG PO SCH ×2 (11:55→12:45)
[2018-12-03] MEDS: DIVALPROEX SPRINKLE 125 MG CAP.SPRINK PO SCH ×5 (11:55→21:08)
[2018-12-03 16:08] LABS: INR 2.5 (<1.2); Prothrombin Time 24.6 sec (9.0-12.0)
[2018-12-03 16:14] LABS: Partial Thromboplastin Time 108.1 sec (22.0-30.0)
[2018-12-03] MEDS ORDERED: WARFARIN 0.5 MG TAB PO ONE (18:00)
[2018-12-03] MEDS: WARFARIN 3 MG TAB PO ONE ×2 (18:27→18:30)
[2018-12-03] MEDS: ATORVASTATIN 10 MG TAB PO SCH (21:08)
[2018-12-04] MEDS: HEPARIN SOD,PORK IN 0.45% NACL 25,000 UNIT in 0.45% NACL 1 250ML.BAG IV SCH (04:40)
[2018-12-04] MEDS: SPIRONOLACTONE 25 MG TAB PO SCH ×2 (05:01→16:03)
[2018-12-04] MEDS: FUROSEMIDE 40 MG TAB PO SCH ×2 (05:01→16:03)
[2018-12-04 07:30] LABS: INR 2.2 (<1.2); Prothrombin Time 21.7 sec (9.0-12.0)
--- NOTE | 2018-12-04 09:33 | P.PN ---
Subjective Progress Note Date: 12/04/18 Patient reports that he is doing fine and he wants to go home or other facility, other than [facility]. Patient is deemed not decisional by the psych team and currently waiting for emergency guardianship. driver utility worker reported that the hearing is scheduled for witnessed a December 05 at 8:30 AM. Patient's sister is filing to become patient's legal guardian. Nurses reported that patient refuse to take morning medication but he ate his breakfast 100%. Patient has been refusing on and off his medication/blood draws. Patient history significant for anoxic brain injury with mental challenges and delayed learning, atrial fibrillation, hypertension, CHF, CAD, CVA and possible dementia. Patient denies chest pain, shortness of breath, palpitation, diaphoresis, fever, chills, cough, sputum, nausea, vomiting and denies rest of the review system but I doubt the reliability due to presence of his mental status condition. Objective - Vital Signs Vital signs: Vital Signs Temp 97.6 F 12/04/18 05:00 Pulse 67 12/04/18 05:00 Resp 18 12/04/18 05:00 BP 107/68 12/04/18 05:00 Pulse Ox 91 L 12/04/18 05:00 Intake & Output 12/03/18 12/04/18 12/04/18 18:59 06:59 18:59 Intake Total 1100.896 830 Output Total 252 1 Balance 848.896 829 Intake: Intake, IV Titration 140.896 Amount Heparin Sod,Pork in 0.45% 140.896 NaCl 25,000 unit In 0.45 % NaCl 1 250ml.bag @ 10.8 UNITS/KG/HR 9.99 mls/hr IV .Q24H [facility] Rx#: [id number] Oral 960 830 Output: Urine 250 Stool 2 1 Other: Voiding Method Toilet Toilet Urinal Urinal # Voids 3 2 - Constitutional General appearance: Present: cooperative, no acute distress - EENT Eyes: Present: EOMI, normal appearance ENT: Present: hearing grossly normal - Respiratory Respiratory: bilateral: CTA, negative: rales, rhonchi, wheezing - Cardiovascular Rhythm: irregularly irregular Heart sounds: abnormal: S1 (Variable.), S2 (Variable.) Abnormal Heart Sounds: Absent: systolic murmur, diastolic murmur, S3 Gallop, S4 Gallop - Gastrointestinal General gastrointestinal: Present: normal bowel sounds, soft. Absent: distended, rigid, tenderness - Allied health notes Allied health notes reviewed: social work (Re: Guardianship hearing and placement issues, care also coordinated with the nursing staff on duty.) - Labs CBC & Chem 7: 12/01/18 02:50 12/01/18 02:50 Labs: Abnormal Lab Results - Last 24 Hours (Table) 12/03/18 12/04/18 Range/Units 15:19 06:41 PT 24.6 H 21.7 H (9.0-12.0) sec INR 2.5 H 2.2 H (<1.2) APTT 108.1 H* (22.0-30.0) sec Assessment and Plan Plan: Combative behavior with history of anoxic brain injury and developmental challenges History of aortic valve replacement Hyperchloremic metabolic acidosis Chronic kidney disease Lactic acidosis Macrocytosis Abnormal UA, treatment not indicated. Chronic conditions: Systolic CHF with EF 45%, euvolemic and compensated, resume beta pinky, Lasix and Aldactone, follow cardiology consult. Atrial fibrillation, rate controlled on beta pinky and rhythm controlled with amiodarone and on warfarin for anticoagulation. History of CVA and CAD, continue aspirin, Lipitor and beta pinky. Hypertension, controlled on current medications. Plans: Per social work, emergency guardianship hearing scheduled December 05 at 8:30 AM, was sister received guardianship then we will work with her regarding alternative placement or sending him back to [facility] from where he came. Patient refusing blood draws, refusing INR checks, but sometimes depending upon his mood he allows blood draws and takes medication. Total time spent in coordination of care was more than 30 minutes and more than 50% was spent in coordination of care and discharge planning. Time with Patient: Greater than 30
[2018-12-04 10:34] VITALS: BMI 26.9
[2018-12-04] MEDS: ASPIRIN 81 MG PO SCH (13:15)
[2018-12-04] MEDS: AMIODARONE 200 MG TAB PO SCH (13:15)
[2018-12-04] MEDS: METOPROLOL TARTRATE 25 MG TAB PO SCH (13:15)
[2018-12-04] MEDS: QUEtiapine 50 MG TAB PO SCH (13:15)
[2018-12-04] MEDS: DIVALPROEX SPRINKLE 125 MG CAP.SPRINK PO SCH ×2 (13:15→16:03)
--- NOTE | 2018-12-04 14:33 | P.PN ---
Subjective This is a pleasant 58-year-old male past medical history significant for mechanical aortic valve replacement 1990, mitral valvuloplasty, rheumatic fever, paroxysmal atrial fibrillation, hypertension, dyslipidemia, chronic kidney disease, CVA with left-sided deficit, pulmonary hypertension, former nicotine dependence and anoxic brain injury. He has no coronary artery disease per cath in 1990 prior to aortic valve replacement. He follows in the office with Dr. Smith. He is seen and examined laying flat resting comfortably in bed in no acute distress. INR is therapeutic today at 2.2. Heparin infusion has been discontinued. He denies chest pain, shortness of breath, dizziness or palpitations. Blood pressure 107/68 heart rate 67 afebrile maintaining oxygen saturation on room air. Patient has been quite aggressive and refusing m edications for nursing. GENERAL: This is a 58-year-old male in no apparent distress at the time of my examination. HEENT: Head is atraumatic, normocephalic. Pupils are equal, round. Sclerae anicteric. Conjunctivae are clear. Mucous membranes of the mouth are moist. Neck is supple. There is no jugular venous distention. No carotid bruit is heard. LUNGS: Clear to auscultation no wheezes, rales or rhonchi. No chest wall tenderness is noted on palpation or with deep breathing. HEART: Regular rate and rhythm with metallic click at the base, soft systolic ejection murmur at the left sternal border, no rubs or gallops. S1 and S2 heard. EXTREMITIES: No evidence of peripheral edema and no calf tenderness noted. ASSESSMENT Mechanical aortic valve replacement 1990 Paroxysmal atrial fibrillation, maintaining sinus mechanism History of mitral valvuloplasty Rheumatic fever as a child Dyslipidemia Hypertension Nonischemic cardiomyopathy History of CVA Pulmonary hypertension Chronic systolic heart failure, currently euvolemic PLAN INR therapeutic, heparin can be discontinued. Continue current dose of Coumadin 6 mg daily. Lengthy discussion had with the patient regarding compliance with this medication. He is aware of the risk of his valve Fehling if he does not take his Coumadin regularly. Follow up with Dr. Dudley upon discharge. We will continue to follow as needed. Nurse Practitioner note has been reviewed, I agree with a documented findings and plan of care. Patient was seen and examined. Objective - Vital Signs Vital signs: Vital Signs Temp 97.6 F 12/04/18 05:00 Pulse 67 12/04/18 05:00 Resp 18 12/04/18 05:00 BP 107/68 12/04/18 05:00 Pulse Ox 91 L 12/04/18 05:00 Intake & Output 12/03/18 12/04/18 12/04/18 18:59 06:59 18:59 Intake Total 1100.896 830 Output Total 252 1 Balance 848.896 829 Weight 92.5 kg Intake: Intake, IV Titration 140.896 Amount Heparin Sod,Pork in 0.45% 140.896 NaCl 25,000 unit In 0.45 % NaCl 1 250ml.bag @ 10.8 UNITS/KG/HR 9.99 mls/hr IV .Q24H BEATA Rx#: [id number] Oral 960 830 Output: Urine 250 Stool 2 1 Other: Voiding Method Toilet Toilet Urinal Urinal # Voids 3 2 3 - Labs CBC & Chem 7: 12/01/18 02:50 12/01/18 02:50 Labs: Abnormal Lab Results - Last 24 Hours (Table) 12/03/18 12/04/18 Range/Units 15:19 06:41 PT 24.6 H 21.7 H (9.0-12.0) sec INR 2.5 H 2.2 H (<1.2) APTT 108.1 H* (22.0-30.0) sec
--- NOTE | 2018-12-04 14:34 | P.PN ---
Progress Note - Text Progress Note Date: 12/04/18 Psychiatric progress note: Interval History: Patient was seen for psychiatric follow-up today. As per nurse taking care of the patient claims that he has been refusing selective meds and has not been a behavioral problem. Patient was sleeping when appeals writer entered the room however patient was arousable and was agreeable to speak to appeals writer and appeared to be in no distress. Patient was less irritable today and continues to be confused and have poor insight/judgment which is chronic. He continues to state that "I want to be free" and was preoccupied with smoking a cigarette outside. Patient claims that his mood has been "ok" and denies any anxiety at this time. States that he is eating well as fair energy. At this time patient denies any suicidal or homical ideations, intent or plan. Patient denies any auditory, visual hallucinations and denies any paranoia or delusions. Patient denies any side effects from the medications and has been compliant with meds. Mental Status Exam: General Appearance: Patient appears to be older than stated age is alert, not aggressive today and directable. Patient has fair eye contact and poor hygiene and grooming. Behavior: Patient is up and sitting in chair. No agitation. Speech: Patient's speech is fluent and nonpressured. Mood/Affect: Patient reports their mood is "ok", affect is congruent and constricted Suicidality/Homicidality: Patient denies having any suicidal or homicidal ideation intent or plan. Perceptions: Patient denies any auditory or visual hallucinations. Though content/process: Patient is preoccupied with going outside and smoking a cigarette. Patient is concrete thought process. Memory and concentration: AOX1-2, Patient has chronically poor judgment. Fair attention span. Judgment and insight: Poor chronically Assessment Dementia with behavioral disturbance Plan: -Delirium precautions recommended with patient including - avoiding use of narcotics and [employer] sedatives, limit anticholinergic medications when possible, frequent re-orientation, minimize use of restraints, open window shades during the day and close them at night -Would recommend the following medication changes/additions: Continue on Depakote sprinkles to 125 mg 3 times a day for mood stabilization/irritability. Continue on Seroquel 50 mg twice a day for irritability/agitation. patient was encouraged to take his medications. We will add haloperidol 3 mg twice a day when necessary for agitation. -Sister currently attempting to seek emergency guardianship, hearing is taking place tomorrow. -Psychiatry will sign off at this time. Currently social research assistant/CM looking for placement at [facility]
[2018-12-04] MEDS ORDERED: WARFARIN 3 MG TAB PO ONE (18:00)
[2018-12-05] MEDS: DIVALPROEX SPRINKLE 125 MG CAP.SPRINK PO SCH ×2 (00:04→07:58)
[2018-12-05] MEDS: METOPROLOL TARTRATE 25 MG TAB PO SCH ×2 (00:04→07:59)
[2018-12-05] MEDS: QUEtiapine 50 MG TAB PO SCH ×2 (00:04→07:58)
[2018-12-05] MEDS: ATORVASTATIN 10 MG TAB PO SCH (00:04)
[2018-12-05 05:01] VITALS: BP 97/61; PULSE 68; RESP 18; TEMP 97.2
[2018-12-05] MEDS: FUROSEMIDE 40 MG TAB PO SCH ×2 (05:38→14:15)
[2018-12-05] MEDS: SPIRONOLACTONE 25 MG TAB PO SCH ×2 (05:38→14:15)
[2018-12-05] MEDS: ASPIRIN 81 MG PO SCH (07:58)
[2018-12-05] MEDS: AMIODARONE 200 MG TAB PO SCH (07:58)
[2018-12-05 11:39] LABS: INR 1.8 (<1.2)
[2018-12-05 11:40] LABS: Prothrombin Time 17.7 sec (9.0-12.0)
--- NOTE | 2018-12-05 12:54 | P.DS ---
Providers Date of admission: 11/28/18 10:29 Expected date of discharge: 12/05/18 Attending physician: Gilles Becker MD Consults: 11/28/18 14:38 Consult Physician Stat Consulting Provider: Ivan Claudio Consult Reason/Comments: dementia ams violence Do you want consulting provider notified?: Yes 11/28/18 21:56 Consult Physician Routine Consulting Provider: Marcos [place] Consult Reason/Comments: afib, mechanical aortic valve, was switched to Eliquis Do you want consulting provider notified?: Yes, Notify in am Primary care physician: [facility] Course: S- 58-year-old male with history of anoxic brain injury resulting in mental challenges and learning difficulties, dementia, coronary artery disease, CVA and A. fib. who was brought into the hospital from [facility] due to combative behavior. Patient was not cooperative with care and was showing combative behavior while on the medical floor too, it seemed like that in the ER, he was placed in restraints and was given Geodon and Ativan to calm him down. Pt. wants to smoke and he hasn't smoked in a year or so but due to his dementia he forgets and get agitated when confronted. Pt. was stabilized and ELIQUIS was d/c'd (not indicated for Valvular Atrial Fibrillation) and he was re-started on Warfarin with INR therapeutic. O- VSS, afebrile. Lungs- CTA. Heart- Irregularly Irregular, loud heart sounds. Abd- Soft, BS+, non T/D. Ext- PP+, no edema. Assessment and Plan Combative behavior with history of anoxic brain injury and developmental challenges History of aortic valve replacement Hyperchloremic metabolic acidosis Chronic kidney disease Lactic acidosis Macrocytosis Abnormal UA, treatment not indicated. Chronic conditions: Systolic CHF with EF 45%, euvolemic and compensated, resume beta pinky, Lasix and Aldactone, follow cardiology consult. Atrial fibrillation, rate controlled on beta pinky and rhythm controlled with amiodarone and on warfarin for anticoagulation. History of CVA and CAD, continue aspirin, Lipitor and beta pinky. Hypertension, controlled on current medications. Plan: Per mental health social worker Josué reported that pt's sister got the Temp. Legal Guardianship and would like to get him transferred back to [facility] for LTC. Pt. will be discharged with pharmacy to order warfarin dosing and monitor INR according to the protocol. Total time spent in coordination of care was more than 30 minutes and more than 50% was spent in coordination of care and discharge planning. Assessment: See above. Health Concerns: Pt. will need to be on scheduled WARFARIN per your pharmacy dosing policy and will need to be followed on INR regularly to maintain it under therapeutic range for him. Procedures: None. Patient Condition at Discharge: Fair Plan - Discharge Summary Discharge Rx Participant: No New Discharge Prescriptions: New Divalproex Sprinkle [Depakote Sprinkle] 125 mg PO TID cap.sprink QUEtiapine [SEROquel] 50 mg PO BID tab Warfarin [Coumadin] 7.5 mg PO DAILY 30 Days #30 tab Continue Simvastatin [Zocor] 20 mg PO HS@2099 Metoprolol Tartrate [Lopressor] 25 mg PO BID@0900,2100 Acetaminophen Tab [Tylenol] 650 mg PO Q4H PRN PRN Reason: Pain Or Fever > 100.5 Amiodarone [Cordarone] 200 mg PO DAILY@0900 Aspirin 81 mg PO DAILY@0900 clonazePAM [KlonoPIN] 0.5 mg PO BID@0900,2100 Furosemide [Lasix] 40 mg PO BID@0600,1400 Spironolactone [Aldactone] 25 mg PO BID@0600,1400 Discontinued Apixaban [Eliquis] 5 mg PO BID@0900,2100 Divalproex Sodium [Depakote] 125 mg PO BID@0900,2100 Discharge Medication List Metoprolol Tartrate [Lopressor] 25 mg PO BID@0900,209907/10/18 [History] Simvastatin [Zocor] 20 mg PO HS@209907/10/18 [History] Acetaminophen Tab [Tylenol] 650 mg PO Q4H PRN 11/28/18 [History] Amiodarone [Cordarone] 200 mg PO DAILY@0900 11/28/18 [History] Aspirin 81 mg PO DAILY@0900 11/28/18 [History] Furosemide [Lasix] 40 mg PO BID@0600,1400 11/28/18 [History] Spironolactone [Aldactone] 25 mg PO BID@0600,1400 11/28/18 [History] clonazePAM [KlonoPIN] 0.5 mg PO BID@0900,2100 11/28/18 [History] Divalproex Sprinkle [Depakote Sprinkle] 125 mg PO TID cap.sprink 12/03/18 [Rx] QUEtiapine [SEROquel] 50 mg PO BID tab 12/03/18 [Rx] Warfarin [Coumadin] 7.5 mg PO DAILY 30 Days #30 tab 12/05/18 [Rx] Follow up Appointment(s)/Referral(s): Naresh Houston MD [Primary Care Provider] - 1 Week Jose Ramon Dudley MD [STAFF PHYSICIAN] - 2 Weeks Patient Instructions/Handouts: Heart Failure (ER) Activity/Diet/Wound Care/Special Instructions: Diet: Cardiac Follow-up PCP within 3 days of discharge. Follow-up cardiology within 1 week of discharge. Take all medications as advised. Discharge Disposition: TRANSFER TO SNF/ECF
[2018-12-05] MEDS ORDERED: WARFARIN 7.5 MG TAB PO ONE (18:00)
== END 2018-12-05 15:06 | DRG 884 ==
LOC: EC 02:20 → 3NMEDONC 10:29
PROVIDERS: ADMIT Internal Medicine; ATTEND Internal Medicine
DX: F03.91 Unspecified dementia, unspecified severity, with behavioral disturbance (principal); G93.1 Anoxic brain damage, not elsewhere classified; E87.2 Acidosis; I13.0 Hypertensive heart and chronic kidney disease with heart failure and stage 1 through stage 4 chronic kidney disease, or unspecified chronic kidney disease; I42.8 Other cardiomyopathies; I50.22 Chronic systolic (congestive) heart failure; I69.354 Hemiplegia and hemiparesis following cerebral infarction affecting left non-dominant side; R45.6 Violent behavior; D75.89 Other specified diseases of blood and blood-forming organs; E78.5 Hyperlipidemia, unspecified; E86.0 Dehydration; F17.210 Nicotine dependence, cigarettes, uncomplicated; I25.10 Atherosclerotic heart disease of native coronary artery without angina pectoris; I25.2 Old myocardial infarction; I27.20 Pulmonary hypertension, unspecified; I48.0 Paroxysmal atrial fibrillation; I73.9 Peripheral vascular disease, unspecified; N18.9 Chronic kidney disease, unspecified; E80.6 Other disorders of bilirubin metabolism; Z53.20 Procedure and treatment not carried out because of patient's decision for unspecified reasons; Z79.01 Long term (current) use of anticoagulants; Z79.82 Long term (current) use of aspirin; Z79.899 Other long term (current) drug therapy; Z80.0 Family history of malignant neoplasm of digestive organs; Z82.5 Family history of asthma and other chronic lower respiratory diseases; Z83.3 Family history of diabetes mellitus; Z86.19 Personal history of other infectious and parasitic diseases; Z87.820 Personal history of traumatic brain injury; Z95.2 Presence of prosthetic heart valve; F40.240 Claustrophobia
CPT/HCPCS: 36415; 70450; 71045; 80048; 80053; 80306; 80320; 81001; 82272; 83605; 83735; 85025; 85610; 85730; 96361; 96372; 96374; 96375; 96376; 99285

== ENCOUNTER → 2019-03-22 | Outpatient (CLI) | payer OTHER ==
--- NOTE | 2019-03-22 12:33 | US ---
EXAMINATION TYPE: US kidneys/renal and bladder DATE OF EXAM: 03/22/2019 COMPARISON: NONE CLINICAL HISTORY: CKD stage 3 N18.3. EXAM MEASUREMENTS: Right Kidney: 10.0 x 5.7 x 4.7 cm Left Kidney: 11.7 x 6.1 x 5.3 cm Patient of large body habitus with limited mobility. Technically difficult study. Right Kidney: small cysts lateral, largest measuring 1.4 x 1.2 x 1.1cm Left Kidney: irregular contour, measures larger than right Bladder: wnl IMPRESSION: 1. Small cyst may be on the mid right renal cortex.
== END | disposition home or self-care (01) ==
LOC: EEVIPCON 11:00 → RADUSWWP 11:06
PROVIDERS: ATTEND Internal Medicine
DX: N18.3 Chronic kidney disease, stage 3 (moderate) (principal)
CPT/HCPCS: 76770

== ENCOUNTER 2019-04-13 02:27 | Inpatient (IN) | payer OTHER ==
[2019-04-13 03:25] LABS: Basophils # (A) 0.1 k/uL (0-0.2); Basophils % (A) 1 %; Eosinophils # (A) 0.2 k/uL (0-0.7); Eosinophils % (A) 2 %; HCT 46.6 % (39.0-53.0); HGB 15.5 gm/dL (13.0-17.5); Lymphocytes # (A) 0.4 k/uL (1.0-4.8); Lymphocytes % (A) 5 %; MCH 33.4 pg (25.0-35.0); MCHC 33.3 g/dL (31.0-37.0); MCV 100.1 fL (80.0-100.0); Mean Platelet Volume 7.9; Monocytes # (A) 0.8 k/uL (0-1.0); Monocytes % (A) 8 %; Neutrophils # (A) 7.6 k/uL (1.3-7.7); Neutrophils % (A) 83 %; Platelet Count 158 k/uL (150-450); RBC 4.65 m/uL (4.30-5.90); RDW 13.4 % (11.5-15.5); WBC 9.2 k/uL (3.8-10.6)
[2019-04-13 03:34] LABS: Calcium 9.4 mg/dL (8.4-10.2); Magnesium 2.1 mg/dL (1.6-2.3); Potassium 4.7 mmol/L (3.5-5.1); Total Bilirubin 1.6 mg/dL (0.2-1.3)
[2019-04-13 03:38] LABS: D-Dimer 0.52 mg/L FEU (<0.60); INR 2.2 (<1.2); Partial Thromboplastin Time 34.4 sec (22.0-30.0); Prothrombin Time 21.2 sec (9.0-12.0)
[2019-04-13 03:41] LABS: Appearance,Urine Clear (Clear); Bilirubin,Urine Negative (Negative); Blood,Urine Negative (Negative); Color,Urine Yellow; Glucose,Urine (UA) Negative (Negative); Ketones,Urine Negative (Negative); Leukocyte Esterase,Urine Negative (Negative); Nitrite,Urine Negative (Negative); PH, Urine 5.5 (5.0-8.0); Protein,Urine Trace (Negative); Specific Gravity,Urine 1.021 (1.001-1.035)
[2019-04-13] MEDS ORDERED: NITROGLYCERIN OINT 1 INCH/GM PACKET TOPICAL STA (04:00)
[2019-04-13] MEDS ORDERED: OSELTAMIVIR 75 MG CAP PO STA (04:00)
--- NOTE | 2019-04-13 04:05 | XR ---
EXAMINATION TYPE: XR chest 2V DATE OF EXAM: 04/13/2019 COMPARISON: 11/28/2018 HISTORY: Altered mental status TECHNIQUE: FINDINGS: There are sternal wires. Heart appears borderline enlarged. There is coarsening of the inte rstitial markings. There are small calcified granulomata scattered in the lungs. There are chest lead s. IMPRESSION: Old granulomatous disease. Mild pulmonary fibrosis. No gross heart failure. Cardiomegaly. Heart appears smaller than last exam.
--- NOTE | 2019-04-13 04:45 | ED ---
General Adult HPI - General Chief complaint: Shortness of Breath Stated complaint: Weakness Time Seen by Provider: 04/13/19 02:40 Source: patient, family, EMS Mode of arrival: EMS Limitations: physical limitation - History of Present Illness Initial comments: This patient is a 58-year-old man transferred here from the [facility] the [place] [facility]. The patient is not cooperative with the history, some of the history comes from the transfer papers some from patient's family members at the bedside. When I attempted to take history from the patient he said "leave me alone." The patient's guardian is at the bedside and states that he is not appe aring to be his usual self. He has been more fatigued and then having generalized weakness going on for today. He also did seem somewhat short of breath at the [facility]. They did obtain an x-ray and were told that he had a degree of congestive heart failure on the x-ray. Onset/Timin -: days(s) - Related Data Home Medications Medication Instructions Recorded Confirmed Metoprolol Tartrate [Lopressor] 25 mg PO BID@0900,209907/10/18 04/13/19 Simvastatin [Zocor] 20 mg PO HS@209907/10/18 04/13/19 Amiodarone [Cordarone] 200 mg PO DAILY@0900 11/28/18 04/13/19 Aspirin 81 mg PO DAILY@0900 11/28/18 04/13/19 Furosemide [Lasix] 40 mg PO BID@0600,1400 11/28/18 04/13/19 Spironolactone [Aldactone] 25 mg PO BID@0600,1400 11/28/18 04/13/19 Acetaminophen [Tylenol 8 Hour] 650 mg PO Q4H 04/13/19 04/13/19 Divalproex Sprinkle [Depakote 125 mg PO TID@0600,1400,2200 04/13/19 04/13/19 Sprinkle] QUEtiapine [SEROquel] 50 mg PO BID@0900,209904/13/19 04/13/19 Warfarin Sodium [Coumadin] 4 mg PO SUTUWEFRSA@139904/13/19 04/13/19 Warfarin [Coumadin] 5 mg PO MOTH@139904/13/19 04/13/19 Previous Rx's Medication Instructions Recorded Oseltamivir [Tamiflu] 75 mg PO Q12HR #8 cap 04/13/19 Allergies Allergy/AdvReac Type Severity Reaction Status Date / Time No Known Allergies Allergy Verified 04/13/19 11:41 Review of Systems ROS Statement: Those systems with pertinent positive or pertinent negative responses have been documented in the HPI. ROS Other: All systems not noted in ROS Statement are negative. Limitations: ROS unobtainable due to patients medical condition (Not cooperative with history) Past Medical History Past Medical History: Atrial Fibrillation, Heart Failure, CVA/TIA, Dementia, Hyperlipidemia, Hypertension, Myocardial Infarction (ME), Renal Disease, Vascular Disorder Additional Past Medical History / Comment(s): CVA with L side deficit, muscle weakness, Afib with RVR, severely enlarged R ventricle and L atrium/mild pulmonary HTN, L2 compression fracture-wears brace at times, chronic low back pain, PVD, ME in his 20s per pt and pt's sister, UTI. Last Myocardial Infarction Date:: "in his 20's" History of Any Multi-Drug Resistant Organisms: None Reported Past Surgical History: Cardiac Valve Replacement, Orthopedic Surgery Additional Past Surgical History / Comment(s): Mechanical aortic valve and pig valve as well per pt's sister, R hip hemiarthroplasty, R wrist fx with resetting, bilateral corrective eye surgery for strabismus. Past Anesthesia/Blood Transfusion Reactions: No Reported Reaction Additional Past Anesthesia/Blood Transfusion Reaction / Comment(s): Clausterphobia. Past Psychological History: Anxiety, Depression Smoking Status: Current every day smoker Past Alcohol Use History: None Reported Past Drug Use History: None Reported - Past Family History Mother Family Medical History: Diabetes Mellitus Father Family Medical History: Cancer, COPD Additional Family Medical History / Comment(s): Colon/liver cancer, back fracture, pacemaker Sister(s) Family Medical History: Thyroid Disorder Additional Family Medical History / Comment(s): thyroidectomy General Exam Limitations: no limitations General appearance: alert, in no apparent distress Head exam: Present: atraumatic, normocephalic Eye exam: Present: normal appearance Respiratory exam: Present: rales. Absent: respiratory distress, wheezes, rhonchi, stridor Cardiovascular Exam: Present: regular rate, irregular rhythm, normal heart sounds, clicks. Absent: systolic murmur, diastolic murmur, rubs, gallop GI/Abdominal exam: Present: soft. Absent: distended, tenderness, guarding, rebound, rigid, mass Extremities exam: Present: normal inspection, normal capillary refill. Absent: pedal edema, calf tenderness Neurological exam: Present: alert Skin exam: Present: warm, dry, intact, normal color. Absent: rash Course Vital Signs 04/13/19 04/13/19 04/13/19 02:28 02:45 03:40 Temperature 99.2 F 98.9 F Pulse Rate 95 110 H Respiratory 20 22 20 Rate Blood Pressure 110/52 110/52 O2 Sat by Pulse 89 L 18 L Oximetry 04/13/19 04/13/19 04/13/19 04:00 05:00 06:00 Temperature 98.8 F Pulse Rate 102 H 108 H 103 H Respiratory 20 20 20 Rate Blood Pressure 112/54 115/68 106/74 O2 Sat by Pulse 96 96 98 Oximetry EKG Findings - EKG Results: EKG: interpreted by ERMD, normal axis, normal QRS EKG shows: tachycardia, atrial fibrillation (Rate approximately 105 bpm) - Blocks, Phil Campbell, Hypertrophy, ST Abn: Repolarization changes or abnormalities: nonspecific abnormality, ST segment, and/or T wave Medical Decision Making - Medical Decision Making This patient is 58-year-old man sent from his long-term care facility to be a value for dyspnea and generalized fatigue. The patient is found to have pos itive test for influenza. The chest x-ray does appear to show degree of CHF and his head BNP is elevated at 3400. The patient will be admitted and as I'm not able find a recent echocardiogram will have this done and cardiology consultation. - Lab Data Result diagrams: 04/13/19 03:19 04/13/19 03:19 Lab Results 04/13/19 04/13/19 04/13/19 Range/Units 03:19 03:19 03:19 WBC 9.2 (3.8-10.6) k/uL RBC 4.65 (4.30-5.90) m/uL Hgb 15.5 (13.0-17.5) gm/dL Hct 46.6 (39.0-53.0) % MCV 100.1 H (80.0-100.0) fL MCH 33.4 (25.0-35.0) pg MCHC 33.3 (31.0-37.0) g/dL RDW 13.4 (11.5-15.5) % Plt Count 158 (150-450) k/uL Neutrophils % 83 % Lymphocytes % 5 % Monocytes % 8 % Eosinophils % 2 % Basophils % 1 % Neutrophils # 7.6 (1.3-7.7) k/uL Lymphocytes # 0.4 L (1.0-4.8) k/uL Monocytes # 0.8 (0-1.0) k/uL Eosinophils # 0.2 (0-0.7) k/uL Basophils # 0.1 (0-0.2) k/uL PT 21.2 H (9.0-12.0) sec INR 2.2 H (<1.2) APTT 34.4 H (22.0-30.0) sec D-Dimer 0.52 (<0.60) mg/L FEU Sodium 136 L (137-145) mmol/L Potassium 4.7 (3.5-5.1) mmol/L Chloride 102 (98-107) mmol/L Carbon Dioxide 26 (22-30) mmol/L Anion Gap 8 mmol/L BUN 34 H (9-20) mg/dL Creatinine 2.21 H (0.66-1.25) mg/dL Est GFR (CKD-EPI)AfAm 36 (>60 ml/min/1.73 sqM) Est GFR (CKD-EPI)NonAf 32 (>60 ml/min/1.73 sqM) Glucose 97 (74-99) mg/dL Plasma Lactic Acid Heri (0.7-2.0) mmol/L Calcium 9.4 (8.4-10.2) mg/dL Magnesium 2.1 (1.6-2.3) mg/dL Total Bilirubin 1.6 H (0.2-1.3) mg/dL AST 28 (17-59) U/L ALT 18 (4-49) U/L Alkaline Phosphatase 65 (38-126) U/L Troponin I (0.000-0.034) ng/mL NT-Pro-B Natriuret Pep pg/mL Total Protein 7.0 (6.3-8.2) g/dL Albumin 4.0 (3.5-5.0) g/dL Urine Color Urine Appearance (Clear) Urine pH (5.0-8.0) Ur Specific Ed[place] (1.001-1.035) Urine Protein (Negative) Urine Glucose (UA) (Negative) Urine Ketones (Negative) Urine Blood (Negative) Urine Nitrite (Negative) Urine Bilirubin (Negative) Urine Urobilinogen (<2.0) mg/dL Ur Leukocyte Esterase (Negative) Influenza Type A RNA (Not Detectd) Influenza Type B (PCR) (Not Detectd) 04/13/19 04/13/19 04/13/19 Range/Units 03:19 03:19 03:19 WBC (3.8-10.6) k/uL RBC (4.30-5.90) m/uL Hgb (13.0-17.5) gm/dL Hct (39.0-53.0) % MCV (80.0-100.0) fL MCH (25.0-35.0) pg MCHC (31.0-37.0) g/dL RDW (11.5-15.5) % Plt Count (150-450) k/uL Neutrophils % % Lymphocytes % % Monocytes % % Eosinophils % % Basophils % % Neutrophils # (1.3-7.7) k/uL Lymphocytes # (1.0-4.8) k/uL Monocytes # (0-1.0) k/uL Eosinophils # (0-0.7) k/uL Basophils # (0-0.2) k/uL PT (9.0-12.0) sec INR (<1.2) APTT (22.0-30.0) sec D-Dimer (<0.60) mg/L FEU Sodium (137-145) mmol/L Potassium (3.5-5.1) mmol/L Chloride (98-107) mmol/L Carbon Dioxide (22-30) mmol/L Anion Gap mmol/L BUN (9-20) mg/dL Creatinine (0.66-1.25) mg/dL Est GFR (CKD-EPI)AfAm (>60 ml/min/1.73 sqM) Est GFR (CKD-EPI)NonAf (>60 ml/min/1.73 sqM) Glucose (74-99) mg/dL Plasma Lactic Acid Heri 1.9 (0.7-2.0) mmol/L Calcium (8.4-10.2) mg/dL Magnesium (1.6-2.3) mg/dL Total Bilirubin (0.2-1.3) mg/dL AST (17-59) U/L ALT (4-49) U/L Alkaline Phosphatase (38-126) U/L Troponin I 0.025 (0.000-0.034) ng/mL NT-Pro-B Natriuret Pep 3470 pg/mL Total Protein (6.3-8.2) g/dL Albumin (3.5-5.0) g/dL Urine Color Urine Appearance (Clear) Urine pH (5.0-8.0) Ur Specific [place] (1.001-1.035) Urine Protein (Negative) Urine Glucose (UA) (Negative) Urine Ketones (Negative) Urine Blood (Negative) Urine Nitrite (Negative) Urine Bilirubin (Negative) Urine Urobilinogen (<2.0) mg/dL Ur Leukocyte Esterase (Negative) Influenza Type A RNA (Not Detectd) Influenza Type B (PCR) (Not Detectd) 04/13/19 04/13/19 Range/Units 03:19 03:35 WBC (3.8-10.6) k/uL RBC (4.30-5.90) m/uL Hgb (13.0-17.5) gm/dL Hct (39.0-53.0) % MCV (80.0-100.0) fL MCH (25.0-35.0) pg MCHC (31.0-37.0) g/dL RDW (11.5-15.5) % Plt Count (150-450) k/uL Neutrophils % % Lymphocytes % % Monocytes % % Eosinophils % % Basophils % % Neutrophils # (1.3-7.7) k/uL Lymphocytes # (1.0-4.8) k/uL Monocytes # (0-1.0) k/uL Eosinophils # (0-0.7) k/uL Basophils # (0-0.2) k/uL PT (9.0-12.0) sec INR (<1.2) APTT (22.0-30.0) sec D-Dimer (<0.60) mg/L FEU Sodium (137-145) mmol/L Potassium (3.5-5.1) mmol/L Chloride (98-107) mmol/L Carbon Dioxide (22-30) mmol/L Anion Gap mmol/L BUN (9-20) mg/dL Creatinine (0.66-1.25) mg/dL Est GFR (CKD-EPI)AfAm (>60 ml/min/1.73 sqM) Est GFR (CKD-EPI)NonAf (>60 ml/min/1.73 sqM) Glucose (74-99) mg/dL Plasma Lactic Acid Heri (0.7-2.0) mmol/L Calcium (8.4-10.2) mg/dL Magnesium (1.6-2.3) mg/dL Total Bilirubin (0.2-1.3) mg/dL AST (17-59) U/L ALT (4-49) U/L Alkaline Phosphatase (38-126) U/L Troponin I (0.000-0.034) ng/mL NT-Pro-B Natriuret Pep pg/mL Total Protein (6.3-8.2) g/dL Albumin (3.5-5.0) g/dL Urine Color Yellow Urine Appearance Clear (Clear) Urine pH 5.5 (5.0-8.0) Ur Specific [place] 1.021 (1.001-1.035) Urine Protein Trace H (Negative) Urine Glucose (UA) Negative (Negative) Urine Ketones Negative (Negative) Urine Blood Negative (Negative) Urine Nitrite Negative (Negative) Urine Bilirubin Negative (Negative) Urine Urobilinogen 2.0 (<2.0) mg/dL Ur Leukocyte Esterase Negative (Negative) Influenza Type A RNA Detected H (Not Detectd) Influenza Type B (PCR) Not Detected (Not Detectd) Disposition Clinical Impression: CHF (congestive heart failure), Influenza Disposition: ADMITTED IP TO THIS HOSP Condition: Poor Is patient prescribed a controlled substance at d/c from ED?: No
[2019-04-13] MEDS ORDERED: ACETAMINOPHEN TAB 325 MG TAB PO STA (05:27)
[2019-04-13] MEDS ORDERED: ACETAMINOPHEN TAB 325 MG TAB PO PRN (05:42)
[2019-04-13] MEDS: SODIUM CHLORIDE 0.9% 1,000 ML IV SCH (05:49)
[2019-04-13] MEDS ORDERED: FUROSEMIDE 40 MG TAB PO SCH (06:00)
[2019-04-13] MEDS: SPIRONOLACTONE 25 MG TAB PO SCH ×2 (06:26→12:56)
[2019-04-13] MEDS: NITROGLYCERIN OINT 1 INCH/GM PACKET TOPICAL SCH ×4 (09:23→21:51)
[2019-04-13] MEDS: METOPROLOL TARTRATE 25 MG TAB PO SCH ×2 (09:23→21:40)
[2019-04-13] MEDS: clonazePAM 0.5 MG TAB PO SCH ×2 (09:23→21:15)
[2019-04-13] MEDS: AMIODARONE 200 MG TAB PO SCH (09:23)
[2019-04-13] MEDS: QUEtiapine 50 MG TAB PO SCH ×2 (09:23→21:15)
[2019-04-13] MEDS: DIVALPROEX SPRINKLE 125 MG CAP.SPRINK PO SCH ×3 (09:23→21:15)
[2019-04-13] MEDS: FUROSEMIDE 10 MG/ML 4 ML VIAL IV SCH ×2 (09:49→21:40)
--- NOTE | 2019-04-13 10:43 | P.HPIM ---
History of Present Illness Patient is a 58-year-old the transferred from residential with concerns of heart failure. Poor historian he denied any orthopnea proximal nocturnal dyspnea or shortness of breath patient doesn't provide much of the history. Patient had a chest x-ray which does show some bronchovascular markings, patient also saturations around 88% on room air. Patient is found to have positive Phalen's although patient denied any fever chills body aches cough. Chest x-ray was read by the radiologist as no more than failure although there are some chronic changes. Patient doesn't have any significant pedal edema and did not appreciate any JVD. Patient does have decreased ejection fraction does have history of coronary artery disease his EF was mildly decreased around 40% from his previous echocardiogram does have borderline heart valve. Patient is on Coumadin with INR of 2.2, target INR level is 2-3 Review of Systems REVIEW OF SYSTEMS: CONSTITUTIONAL: No fever, no malaise, no fatigue. HEENT: No recent visual problems or hearing problems. Denied any sore throat. CARDIOVASCULAR: No chest pain, orthopnea, PND, no palpitations, no syncope. PULMONARY: No shortness of breath, no cough, no hemoptysis. GASTROINTESTINAL: No diarrhea, no nausea, no vomiting, no abdominal pain. NEUROLOGICAL: No headaches, no weakness, no numbness. HEMATOLOGICAL: Denies any bleeding or petechiae. GENITOURINARY: Denies any burning micturition, frequency, or urgency. MUSCULOSKELETAL/RHEUMATOLOGICAL: Denies any joint pain, swelling, or any muscle pain. ENDOCRINE: Denies any polyuria or polydipsia. The rest of the 14-point review of systems is negative. Past Medical History Past Medical History: Atrial Fibrillation, Heart Failure, CVA/TIA, Dementia, Hyperlipidemia, Hypertension, Myocardial Infarction ([place]), Renal Disease, Vascular Disorder Additional Past Medical History / Comment(s): CVA with L side deficit, muscle weakness, Afib with RVR, severely enlarged R ventricle and L atrium/mild pulmonary HTN, L2 compression fracture-wears brace at times, chronic low back pain, PVD, [place] in his 20s per pt and pt's sister, UTI. Last Myocardial Infarction Date:: "in his 20's" History of Any Multi-Drug Resistant Organisms: None Reported Past Surgical History: Cardiac Valve Replacement, Orthopedic Surgery Additional Past Surgical History / Comment(s): Mechanical aortic valve and pig valve as well per pt's sister, R hip hemiarthroplasty, R wrist fx with resetting, bilateral corrective eye surgery for strabismus. Past Anesthesia/Blood Transfusion Reactions: No Reported Reaction Additional Past Anesthesia/Blood Transfusion Reaction / Comment(s): Clausterphobia. Past Psychological History: Anxiety, Depression Additional Psychological History / Comment(s): Adjustment disorder. Pt resides at [facility]. He uses a wheelchair or walker and occasionally gets up on his own and ambulates. He has been having increased aggression/combat iveness/abusiveness past 2 days. Smoking Status: Former smoker Past Alcohol Use History: None Reported Additional Past Alcohol Use History / Comment(s): Pt started smoking in 1974 and quit in 2018. He occasionally has one beer at [facility]. Past Drug Use History: None Reported Additional Drug Use History / Comment(s): occ use - Past Family History Mother Family Medical History: Diabetes Mellitus Father Family Medical History: Cancer, COPD Additional Family Medical History / Comment(s): Colon/liver cancer, back fracture, pacemaker Sister(s) Family Medical History: Thyroid Disorder Additional Family Medical History / Comment(s): thyroidectomy Medications and Allergies Home Medications Medication Instructions Recorded Confirmed Type Metoprolol Tartrate [Lopressor] 25 mg PO BID@0900,2100 07/10/18 11/28/18 History Simvastatin [Zocor] 20 mg PO HS@209907/10/18 11/28/18 History Acetaminophen Tab [Tylenol] 650 mg PO Q4H PRN 11/28/18 11/28/18 History Amiodarone [Cordarone] 200 mg PO DAILY@0900 11/28/18 11/28/18 History Aspirin 81 mg PO DAILY@0900 11/28/18 11/28/18 History Furosemide [Lasix] 40 mg PO BID@0600,1400 11/28/18 11/28/18 History Spironolactone [Aldactone] 25 mg PO BID@0600,1400 11/28/18 11/28/18 History clonazePAM [KlonoPIN] 0.5 mg PO BID@0900,2100 11/28/18 11/28/18 History Divalproex Sprinkle [Depakote 125 mg PO TID cap.sprink 12/03/18 Rx Sprinkle] QUEtiapine [SEROquel] 50 mg PO BID tab 12/03/18 Rx Warfarin [Coumadin] 7.5 mg PO DAILY 30 Days #30 tab 12/05/18 Rx Allergies Allergy/AdvReac Type Severity Reaction Status Date / Time No Known Allergies Allergy Verified 04/13/19 02:42 Physical Exam Vitals: Vital Signs Temp Pulse Pulse Resp BP BP Pulse Ox 04/13/19 09:27 18 88 L 04/13/19 09:20 99.1 F 80 18 96/48 90 L 04/13/19 06:38 98.3 F 85 18 98/55 91 L 04/13/19 06:00 98.8 F 103 H 20 106/74 98 04/13/19 05:00 108 H 20 115/68 96 04/13/19 04:00 102 H 20 112/54 96 04/13/19 03:40 98.9 F 110 H 20 110/52 18 L 04/13/19 02:45 22 04/13/19 02:28 99.2 F 95 20 110/52 89 L Intake and Output 04/12/19 04/13/19 04/13/19 22:59 06:59 14:59 Other: Weight 77.111 kg PHYSICAL EXAMINATION: GENERAL: The patient is alert and oriented x3, not in any acute distress. HEENT: Pupils are round and equally reacting to light. EOMI. No scleral icterus. No conjunctival pallor. Normocephalic, atraumatic. No pharyngeal erythema. No thyromegaly. CARDIOVASCULAR: S1 and S2 present. No murmurs, rubs, or gallops. PULMONARY: Chest is clear to auscultation, no wheezing or crackles. ABDOMEN: Soft, nontender, nondistended, normoactive bowel sounds. No palpable organomegaly. MUSCULOSKELETAL: No joint swelling or deformity. EXTREMITIES: No cyanosis, clubbing, or pedal edema. NEUROLOGICAL: Gross neurological examination did not reveal any focal deficits. SKIN: No rashes. Results CBC & Chem 7: 04/13/19 03:19 04/13/19 03:19 Labs: Abnormal Lab Results - Last 24 Hours (Table) 04/13/19 04/13/19 04/13/19 Range/Units 03:19 03:19 03:19 MCV 100.1 H (80.0-100.0) fL Lymphocytes # 0.4 L (1.0-4.8) k/uL PT 21.2 H (9.0-12.0) sec INR 2.2 H (<1.2) APTT 34.4 H (22.0-30.0) sec Sodium 136 L (137-145) mmol/L BUN 34 H (9-20) mg/dL Creatinine 2.21 H (0.66-1.25) mg/dL Total Bilirubin 1.6 H (0.2-1.3) mg/dL Urine Protein (Negative) Influenza Type A RNA (Not Detectd) 04/13/19 04/13/19 Range/Units 03:19 03:35 MCV (80.0-100.0) fL Lymphocytes # (1.0-4.8) k/uL PT (9.0-12.0) sec INR (<1.2) APTT (22.0-30.0) sec Sodium (137-145) mmol/L BUN (9-20) mg/dL Creatinine (0.66-1.25) mg/dL Total Bilirubin (0.2-1.3) mg/dL Urine Protein Trace H (Negative) Influenza Type A RNA Detected H (Not Detectd) Thrombosis Risk Factor Assmnt - Choose All That Apply Any of the Below Risk Factors Present?: Yes Each Factor Represents 1 point: Age 41-60 years, Heart failure (<1month) Other Risk Factors: Yes Each Risk Factor Represents 2 Points: Patient confined to bed Other congenital or acquired thrombophilia - If yes, enter type in comment: No Thrombosis Risk Factor Assessment Total Risk Factor Score: 4 Thrombosis Risk Factor Assessment Level: Moderate Risk Assessment and Plan Plan: -Congestive heart failure possibility of mild acute exacerbation patient was started on IV Lasix patient has chronic systolic dysfunction EF of around 40%. -Influenza viral illness patient will be started on Tamiflu -Coronary artery disease. -Atrial fibrillation valvular A. fib for which patient is on Coumadin, and will be continued and INR will be repeated tomorrow -Severity of the past -Hypertension -Hyperlipidemia -Chronic kidney disease baseline creatinine around the 1.9 his present creatinine is 2.2 patient probably has stage III chronic kidney disease from hypertensive nephropathy. Patient may have acute renal failure prerenal azotemia from heart failure -Anxiety depression and other psychiatric issues: Patient will be resumed on home medications for this
--- NOTE | 2019-04-13 11:21 | P.CRDCN ---
History of Present Illness Consult date: 04/13/19 Consult reason: congestive heart failure History of present illness: The patient is a 58-year-old male who follows with Dr. VC Dudley in office, who presented to the hospital from [facility] with increased fatigue and generalized weakness. Chest x-ray on arrival showed cardiomegaly with mild pulmonary fibrosis and without heart failure. BNP was elevated at 3400. Troponins mildly elevated. Patient has tested positive for influenza A. EKG shows atrial fibrillation with heart rates in the low 100s. He has not been cooperative with staff since his admission due to underlying dementia. On exam this morning patient is lying in bed. He states he does feel sick and he is quite fatigued. He denies any chest pain, chest pressure, dyspnea, palpitations, dizziness, or lightheadedness. PAST MEDICAL HISTORY: Persistent atrial fibrillation, congestive heart failure, CVA/TIA, dementia, hyperlipidemia, hypertension, coronary artery disease, renal disease REVIEW OF SYSTEMS: No fever or chills. No cough or expectoration. No diaphoresis. Patient denies headache, dizziness, blurred vision, double vision. Patient denies any stomach discomfort. No nausea, vomiting. No hematochezia. No hematemesis. Denies any black stools or blood in his stools. Denies dysuria or hematuria. No muscle weakness or numbness. PHYSICAL EXAMINATION: This is a 58-year-old male in no apparent distress at the time of my examination. HEENT: Head is atraumatic, normocephalic. Pupils are equal, round. Sclerae anicteric. Conjunctivae are clear. Mucous membranes of the mouth are moist. Neck is supple. There is no jugular venous distention. No carotid bruit is heard. CHEST EXAMINATION: Lungs are diminished. No chest wall tenderness is noted on palpation or with deep breathing. HEART EXAMINATION: Irregular heart sounds. S1, S2 heard. No murmurs, gallops or rub. ABDOMEN: Soft, nontender. Bowel sounds are heard. No organomegaly noted. EXTREMITIES: 2+ peripheral pulses with no evidence of peripheral edema and no calf tenderness noted. NEUROLOGIC EXAMINATION: Patient is awake, alert and oriented x2. LABORATORY DATA: WBC 9.2, hemoglobin 15.5, hematocrit 46.6, platelet 158, INR 2.2, d-dimer 0.52, sodium 136, potassium 4.7, BUN 34, creatinine 2.21, BNP 3470, troponin 0.025 and 0.033, AST 28, ALT 18 Vital signs: Blood pressure averaging in the one-teens. Oxygen greater than 92% on 3 L nasal cannula. Heart rate in the 80s via telemetry. FINAL ASSESSMENT AND PLAN: #1 influenza A, likely contributing to mildly elevated troponins #2 congestive heart failure, chest x-ray unremarkable #3 persistent atrial fibrillation, rate controlled, on Coumadin #4 dementia, poor historian PLAN: We will reduce his aspirin to 81 mg daily. Continue with single dose IV push Lasix for diuresis and monitor blood pressure. Patient will follow-up in the office for echocardiogram outpatient once he recovers from his influenza. Past Medical History Past Medical History: Atrial Fibrillation, Heart Failure, CVA/TIA, Dementia, Hyperlipidemia, Hypertension, Myocardial Infarction ([place]), Renal Disease, Vascular Disorder Additional Past Medical History / Comment(s): CVA with L side deficit, muscle weakness, Afib with RVR, severely enlarged R ventricle and L atrium/mild pulmonary HTN, L2 compression fracture-wears brace at times, chronic low back pain, PVD, [place] in his 20s per pt and pt's sister, UTI. Last Myocardial Infarction Date:: "in his 20's" History of Any Multi-Drug Resistant Organisms: None Reported Past Surgical History: Cardiac Valve Replacement, Orthopedic Surgery Additional Past Surgical History / Comment(s): Mechanical aortic valve and pig valve as well per pt's sister, R hip hemiarthroplasty, R wrist fx with resetting, bilateral corrective eye surgery for strabismus. Past Anesthesia/Blood Transfusion Reactions: No Reported Reaction Additional Past Anesthesia/Blood Transfusion Reaction / Comment(s): Clausterphobia. Past Psychological History: Anxiety, Depression Additional Psychological History / Comment(s): Adjustment disorder. Pt resides at [facility]. He uses a wheelchair or walker and occasionally gets up on his own and ambulates. He has been having increased aggression/combativeness/abusiveness past 2 days. Smoking Status: Former smoker Past Alcohol Use History: None Reported Additional Past Alcohol Use History / Comment(s): Pt started smoking in 1974 and quit in 2018. He occasionally has one beer at [facility]. Past Drug Use History: None Reported Additional Drug Use History / Comment(s): occ use - Past Family History Mother Family Medical History: Diabetes Mellitus Father Family Medical History: Cancer, COPD Additional Family Medical History / Comment(s): Colon/liver cancer, back fracture, pacemaker Sister(s) Family Medical History: Thyroid Disorder Additional Family Medical History / Comment(s): thyroidectomy Medications and Allergies Home Medications Medication Instructions Recorded Confirmed Type Metoprolol Tartrate [Lopressor] 25 mg PO BID@0900,2100 07/10/18 11/28/18 History Simvastatin [Zocor] 20 mg PO HS@2100 07/10/18 11/28/18 History Acetaminophen Tab [Tylenol] 650 mg PO Q4H PRN 11/28/18 11/28/18 History Amiodarone [Cordarone] 200 mg PO DAILY@0900 11/28/18 11/28/18 History Aspirin 81 mg PO DAILY@0900 11/28/18 11/28/18 History Furosemide [Lasix] 40 mg PO BID@0600,1400 11/28/18 11/28/18 History Spironolactone [Aldactone] 25 mg PO BID@0600,1400 11/28/18 11/28/18 History clonazePAM [KlonoPIN] 0.5 mg PO BID@0900,2100 11/28/18 11/28/18 History Divalproex Sprinkle [Depakote 125 mg PO TID cap.sprink 12/03/18 Rx Sprinkle] QUEtiapine [SEROquel] 50 mg PO BID tab 12/03/18 Rx Warfarin [Coumadin] 7.5 mg PO DAILY 30 Days #30 tab 12/05/18 Rx Allergies Allergy/AdvReac Type Severity Reaction Status Date / Time No Known Allergies Allergy Verified 04/13/19 02:42 Physical Exam Vitals: Vital Signs Temp Pulse Pulse Resp BP BP Pulse Ox 04/13/19 09:27 18 88 L 04/13/19 09:20 99.1 F 80 18 96/48 90 L 04/13/19 06:38 98.3 F 85 18 98/55 91 L 04/13/19 06:00 98.8 F 103 H 20 106/74 98 04/13/19 05:00 108 H 20 115/68 96 04/13/19 04:00 102 H 20 112/54 96 04/13/19 03:40 98.9 F 110 H 20 110/52 18 L 04/13/19 02:45 22 04/13/19 02:28 99.2 F 95 20 110/52 89 L Intake and Output 04/12/19 04/13/19 04/13/19 22:59 06:59 14:59 Other: Voiding Method Diaper # Voids 2 Weight 77.111 kg Results 04/13/19 03:19 04/13/19 03:19 Cardiac Enzymes 04/13/19 04/13/19 04/13/19 Range/Units 03:19 03:19 09:30 AST 28 (17-59) U/L Troponin I 0.025 0.033 (0.000-0.034) ng/mL Coagulation 04/13/19 Range/Units 03:19 PT 21.2 H (9.0-12.0) sec APTT 34.4 H (22.0-30.0) sec CBC 04/13/19 Range/Units 03:19 WBC 9.2 (3.8-10.6) k/uL RBC 4.65 (4.30-5.90) m/uL Hgb 15.5 (13.0-17.5) gm/dL Hct 46.6 (39.0-53.0) % Plt Count 158 (150-450) k/uL Comprehensive Metabolic Panel 04/13/19 Range/Units 03:19 Sodium 136 L (137-145) mmol/L Potassium 4.7 (3.5-5.1) mmol/L Chloride 102 (98-107) mmol/L Carbon Dioxide 26 (22-30) mmol/L BUN 34 H (9-20) mg/dL Creatinine 2.21 H (0.66-1.25) mg/dL Glucose 97 (74-99) mg/dL Calcium 9.4 (8.4-10.2) mg/dL AST 28 (17-59) U/L ALT 18 (4-49) U/L Alkaline Phosphatase 65 (38-126) U/L Total Protein 7.0 (6.3-8.2) g/dL Albumin 4.0 (3.5-5.0) g/dL Current Medications Generic Name Dose Route Start Last Admin Trade Name Freq PRN Reason Stop Dose Admin Acetaminophen 650 mg 04/13/19 05:42 Tylenol Tab PO Q4H PRN Pain or Fever > 100.5 Amiodarone HCl 200 mg 04/13/19 09:00 04/13/19 09:23 Cordarone PO 200 mg DAILY@0900 [facility] Administration Aspirin 325 mg 04/14/19 05:41 Aspirin PO DAILY [facility] Atorvastatin Calcium 10 mg 04/13/19 21:00 Lipitor PO HS@2100 [facility] Clonazepam 0.5 mg 04/13/19 09:00 04/13/19 09:23 Klonopin PO 0.5 mg BID@0900,2100 [facility] Administration Divalproex Sodium 125 mg 04/13/19 09:00 04/13/19 09:23 Depakote Sprinkle PO 125 mg TID [facility] Administration Furosemide 40 mg 04/13/19 09:30 04/13/19 09:49 Lasix IV 40 mg Q12HR [facility] Administration Sodium Chloride 1,000 mls @ 20 mls/hr 04/13/19 05:45 04/13/19 05:49 Saline 0.9% IV 20 mls/hr .Q24H [facility] Administration Metoprolol Tartrate 25 mg 04/13/19 09:00 04/13/19 09:23 Lopressor PO 25 mg BID@0900,2100 [facility] Administration Nitroglycerin 0.5 inch 04/13/19 09:00 04/13/19 09:23 Nitro-Bid Oint TOPICAL Not Given QID [facility] Oseltamivir Phosphate 30 mg 04/13/19 21:00 Tamiflu PO 04/18/19 09:01 Q12HR [facility] Quetiapine Fumarate 50 mg 04/13/19 09:00 04/13/19 09:23 Seroquel PO 50 mg BID [facility] Administration Spironolactone 25 mg 04/13/19 06:00 04/13/19 06:26 Aldactone PO 25 mg BID@0600,1400 [facility] Administration Warfarin Sodium 7.5 mg 04/13/19 18:00 Coumadin PO DAILY@1800 [facility] Protocol Intake and Output 04/12/19 04/13/19 04/13/19 22:59 06:59 14:59 Other: Voiding Method Diaper # Voids 2 Weight 77.111 kg 04/13/19 03:19 04/13/19 03:19
[2019-04-13] MEDS ORDERED: WARFARIN 7.5 MG TAB PO SCH (18:00)
[2019-04-13] MEDS: ATORVASTATIN 10 MG TAB PO SCH (21:15)
[2019-04-13] MEDS: OSELTAMIVIR 60 MG/10 ML ORAL SYRINGE PO SCH (21:50)
[2019-04-14] MEDS ORDERED: ASPIRIN 325 MG TAB PO SCH (05:41)
[2019-04-14] MEDS: SODIUM CHLORIDE 0.9% 1,000 ML IV SCH (08:23)
--- NOTE | 2019-04-14 08:37 | ECHOF ---
Referral Reason:Heart Failure MEASUREMENTS -------- HEIGHT: 180.3 cm WEIGHT: 77.1 kg BP: RVIDd: 5.1 cm (< 3.3) Ao Diam: 3.3 cm (2.0 - 3.7) LA Diam: 6.5 cm (2.7 - 3.8) AV Cusp: 1.8 cm (1.5 - 2.6) EPSS: 1.1 cm AV maxP.83 mmHg AV meanP.97 mmHg RAP: 5.00 mmHg RVSP: 45.15 mmHg %FS: 29.84 % EDV(Teich): 109.71 ml EF(Teich): 56.86 % ESV(Teich): 47.33 ml IVSd: 0.86 cm (0.6 - 1.1) IVSs: 1.56 cm LVIDd: 4.84 cm (3.9 - 5.3) LVIDs: 3.40 cm LVPWd: 1.09 cm (0.6 - 1.1) LVPWs: 1.68 cm MV EF SLOPE: 18.90 mm/s (70 - 150) MV EXCURSION: 17.96 mm (> 18.000) SV(Teich): 62.37 ml FINDINGS -------- Sinus rhythm. This was a technically difficult study with suboptimal views. The left ventricular size is normal. Left ventricular wall thickness is normal. Overall left vent ricular systolic function is low-normal with, an EF between 50 - 55 %. There is paradoxical/dysyner gic septal motion consistent with right ventricular volume overload and/or elevated right ventricular end-diastolic pressure. The right ventricle is severely enlarged. The left atrium is markedly dilated. The right atrium was not well visualized. Peak/mean gradient across the valve is 40.83mmHg / 28.97mmHg. Mechanical prosthetic valve. There is trace mitral regurgitation. Mitral ring annulloplasty is in place. The tricuspid valve appears structurally normal. Severe tricuspid regurgitation present. There is moderate pulmonary hypertension. The right ventricular systolic pressure, as measured by Doppler, is 45.15mmHg. There is no pulmonic regurgitation present. The aortic root size is normal. There is no pericardial effusion. Lumason used CONCLUSIONS -------- 1. Sinus rhythm. 2. This was a technically difficult study with suboptimal views. 3. The left ventricular size is normal. 4. Left ventricular wall thickness is normal. 5. Overall left ventricular systolic function is low-normal with, an EF between 50 - 55 %. 6. There is paradoxical/dysynergic septal motion consistent with right ventricular volume overload an d/or elevated right ventricular end-diastolic pressure. 7. The right ventricle is severely enlarged. 8. The left atrium is markedly dilated. 9. The right atrium was not well visualized. 10. Peak/mean gradient across the valve is 40.83mmHg / 28.97mmHg. 11. Mechanical prosthetic valve. 12. Mitral ring annulloplasty is in place. 13. Lumason used 14. The tricuspid valve appears structurally normal. 15. Severe tricuspid regurgitation present. 16. There is moderate pulmonary hypertension. 17. The right ventricular systolic pressure, as measured by Doppler, is 45.15mmHg. 18. There is no pulmonic regurgitation present. 19. The aortic root size is normal. 20. There is no pericardial effusion. FIELD HAULER: Cha Cotton RDCS
[2019-04-14] MEDS: NITROGLYCERIN OINT 1 INCH/GM PACKET TOPICAL SCH ×3 (08:47→15:47)
[2019-04-14] MEDS: AMIODARONE 200 MG TAB PO SCH (08:47)
[2019-04-14] MEDS: METOPROLOL TARTRATE 25 MG TAB PO SCH ×2 (08:47→21:11)
[2019-04-14] MEDS: SPIRONOLACTONE 25 MG TAB PO SCH ×2 (08:47→11:37)
[2019-04-14] MEDS: OSELTAMIVIR 60 MG/10 ML ORAL SYRINGE PO SCH ×2 (08:47→21:12)
[2019-04-14] MEDS: clonazePAM 0.5 MG TAB PO SCH ×2 (08:47→21:11)
[2019-04-14] MEDS: ASPIRIN 81 MG PO SCH (08:47)
[2019-04-14] MEDS: DIVALPROEX SPRINKLE 125 MG CAP.SPRINK PO SCH ×2 (08:47→17:59)
[2019-04-14] MEDS: QUEtiapine 50 MG TAB PO SCH (08:47)
[2019-04-14] MEDS: FUROSEMIDE 10 MG/ML 4 ML VIAL IV SCH (08:48)
[2019-04-14 08:55] VITALS: RESP 16
--- NOTE | 2019-04-14 12:28 | P.PN ---
Subjective 58-year-old the transferred from custodial with concerns of heart failure. Poor historian he denied any orthopnea proximal nocturnal dyspnea or shortness of breath patient doesn't provide much of the history. Patient had a chest x- ray which does show some bronchovascular markings, patient also saturations around 88% on room air. Patient is found to have positive Phalen's although patient denied any fever chills body aches cough. Chest x-ray was read by the radiologist as no more than failure although there are some chronic changes. Srinath nunez doesn't have any significant pedal edema and did not appreciate any JVD. Patient does have decreased ejection fraction does have history of coronary artery disease his EF was mildly decreased around 40% from his previous echocardiogram does have borderline heart valve. Patient is on Coumadin with INR of 2.2, target INR level is 2-3 04/14/2019 Patient pulled out of his IVarea. Patient does not talk to anyone doesn't want any more testing although his saturations are in high 80s to low 90s without oxygen. Patient was receiving IV Lasix which will be switched to oral but will hold today morning dose because of low blood pressure will be restarted back in the evening today we are unable to get an INR level as patient declined any more blood tests although patient received a higher dose of Coumadin yesterday from the pharmacy will give a lesser dose today and patient can be resumed on his home regimen from tomorrow patient probably can be discharged tomorrow patient is receiving Tamiflu for influenza review of systems: Unable to obtain as patient isnot willing to speak All inpatient medications were reviewed and appropriate changes in these medications as dictated in the interval history and assessment and plan. Objective - Vital Signs Vital signs: Vital Signs Temp 98.6 F 04/14/19 08:50 Pulse 72 04/14/19 11:10 Resp 16 04/14/19 11:10 BP 85/53 04/14/19 11:10 Pulse Ox 92 L 04/14/19 11:10 Intake & Output 04/13/19 04/14/19 04/14/19 18:59 06:59 18:59 Intake Total 596 Output Total 300 500 Balance 296 -500 Weight 96.5 kg Intake: Oral 596 Output: Urine 300 500 Other: Voiding Method Diaper Diaper Diaper # Voids 3 1 - Exam PHYSICAL EXAMINATION: GENERAL: The patient is alert and oriented , not in any acute distress. HEENT: Pupils are round and equally reacting to light. EOMI. No scleral icterus. No conjunctival pallor. Normocephalic, atraumatic. No pharyngeal erythema. No thyromegaly. CARDIOVASCULAR: S1 and S2 present. No murmurs, rubs, or gallops. PULMONARY: Chest is clear to auscultation, no wheezing or crackles. ABDOMEN: Soft, nontender, nondistended, normoactive bowel sounds. No palpable organomegaly. MUSCULOSKELETAL: No joint swelling or deformity. EXTREMITIES: No cyanosis, clubbing, or pedal edema. NEUROLOGICAL: Gross neurological examination did not reveal any focal deficits. SKIN: No rashes. - Labs CBC & Chem 7: 04/13/19 03:19 04/13/19 03:19 Assessment and Plan Plan: -Congestive heart failure possibility of mild acute exacerbation patient has chronic systolic dysfunction EF of around 40%.IV Lasix will be switched to oral as mentioned above -Influenza viral illness patient will be started on Tamiflu -Coronary artery disease. -Atrial fibrillation valvular A. fib for which patient is on Coumadin, and will be continued and INR will be repeated tomorrow -Severity of the past -Hypertension -Hyperlipidemia -Chronic kidney disease baseline creatinine around the 1.9 his present creatinine is 2.2 patient probably has stage III chronic kidney disease from hypertensive nephropathy. Patient may have acute renal failure prerenal azotemia from heart failure -Anxiety depression and other psychiatric issues: Patient will be resumed on home medications for this
--- NOTE | 2019-04-14 12:40 | P.PN ---
Subjective Progress Note Date: 04/14/19 04/13/2019 On exam this morning patient is lying in bed. He states he does feel sick and he is quite fatigued. He denies any chest pain, chest pressure, dyspnea, palpitations, dizziness, or lightheadedness. Chest x-ray on arrival showed cardiomegaly with mild pulmonary fibrosis and without heart failure. BNP was elevated at 3400. Troponins mildly elevated. Patient has tested positive for influenza A. EKG shows atrial fibrillation with heart rates in the low 100s. 04/14/2019 Patient interviewed and examined, while lying comfortably in bed. He states he is not feeling well today and appears sickly. He denies any chest pain, chest pressure, shortness of breath, palpitations, dizzy or lightheaded. He is calm and cooperative with examination. Overnight he did remove his IV and required a environmental health and safety leader. He was given 2 doses of IV push Lasix, ordered by the attending physician. Echocardiogram shows normal LV function; poor study for valvular imaging. GENERAL: Well-appearing, well-nourished and in no acute distress. NECK: Supple without JVD or thyromegaly. LUNGS: Breath sounds diminished bilaterally. Respiration equal and unlabored. No wheezes, rales or rhonchi. HEART: Irregular rate and rhythm without murmurs, rubs or gallops. S1 and S2 heard. EXTREMITIES: Normal range of motion, no edema. No clubbing or cyanosis. Peripheral pulses intact and strong. Vital signs: Blood pressure 85/53, respiration 16, heart rate 72, 92% on 2 L nasal cannula FINAL ASSESSMENT AND PLAN: #1 influenza A, likely contributing to mildly elevated troponins #2 congestive heart failure, chest x-ray unremarkable #3 persistent atrial fibrillation, rate controlled, on Coumadin #4 dementia, poor historian #5 hypotension, likely related to dehydration #6 chronic kidney disease, Stage III Plan: No additional diuresis recommended at this time. Continue Coumadin per pharmacy. Follow up outpatient. Objective - Vital Signs Vital signs: Vital Signs Temp 98.6 F 04/14/19 08:50 Pulse 72 04/14/19 11:10 Resp 16 04/14/19 11:10 BP 85/53 04/14/19 11:10 Pulse Ox 92 L 04/14/19 11:10 Intake & Output 04/13/19 04/14/1920 18:59 06:59 18:59 Intake Total 596 Output Total 300 500 Balance 296 -500 Weight 96.5 kg Intake: Oral 596 Output: Urine 300 500 Other: Voiding Method Diaper Diaper Diaper # Voids 3 1 - Labs CBC & Chem 7: 04/13/19 03:19 04/13/19 03:19
[2019-04-14 14:17] VITALS: BMI 28.8
[2019-04-14] MEDS: FUROSEMIDE 40 MG TAB PO SCH (17:17)
[2019-04-14] MEDS ORDERED: WARFARIN 2 MG TAB PO ONE (18:00)
[2019-04-14] MEDS ORDERED: HALOPERIDOL LACTATE 5 MG/ML 1 ML VIAL IM STA (20:32)
[2019-04-14] MEDS: ATORVASTATIN 10 MG TAB PO SCH (21:11)
[2019-04-14 21:20] VITALS: TEMP 99
[2019-04-15] MEDS: QUEtiapine 50 MG TAB PO SCH ×2 (01:01→12:19)
[2019-04-15] MEDS: DIVALPROEX SPRINKLE 125 MG CAP.SPRINK PO SCH ×2 (01:02→12:19)
[2019-04-15] MEDS: NITROGLYCERIN OINT 1 INCH/GM PACKET TOPICAL SCH ×2 (01:02→12:19)
[2019-04-15] MEDS: SODIUM CHLORIDE 0.9% 1,000 ML IV SCH (06:12)
[2019-04-15] MEDS: SPIRONOLACTONE 25 MG TAB PO SCH (06:14)
--- NOTE | 2019-04-15 11:00 | P.DS ---
Providers Date of admission: 04/13/19 05:49 Attending physician: Reji Sanchez Consults: 04/13/19 05:39 Consult Physician Routine Consulting Provider: Marcos [place] Consult Reason/Comments: CHF exacerbation Do you want consulting provider notified?: Yes Primary care physician: Naresh Houston Hospital Course: 58-year-old the transferred from half-way with concerns of heart failure. Poor historian he denied any orthopnea proximal nocturnal dyspnea or shortness of breath patient doesn't provide much of the history. Patient had a chest x- ray which does show some bronchovascular markings, patient also saturations around 88% on room air. Patient is found to have positive Phalen's although patient denied any fever chills body aches cough. Chest x-ray was read by the radiologist as no more than failure although there are some chronic changes. Patient doesn't have any significant pedal edema and did not appreciate any JVD. Patient does have decreased ejection fraction does have history of coronary artery disease his EF was mildly decreased around 40% from his previous echocardiogram does have borderline heart valve. Patient is on Coumadin with INR of 2.2, target INR level is 2-3 04/14/2019 Patient pulled out of his IVarea. Patient does not talk to anyone doesn't want any more testing although his saturations are in high 80s to low 90s without oxygen. Patient was receiving IV Lasix which will be switched to oral but will hold today morning dose because of low blood pressure will be restarted back in the evening today we are unable to get an INR level as patient declined any more blood tests although patient received a higher dose of Coumadin yesterday from the pharmacy will give a lesser dose today and patient can be resumed on his home regimen from tomorrow patient probably can be discharged tomorrow patient is receiving Tamiflu for influenza 04/15/2019 patient is declining all care is hemodynamically stable patient is medically stable to be discharged to subacute rehabilitation hopefully will start taking his medication patient declined to take any medications today. - Exam PHYSICAL EXAMINATION: GENERAL: The patient is alert and oriented , not in any acute distress. 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 EOMI. No scleral icterus. No conjunctival pallor. Normocephalic, atraumatic. No pharyngeal erythema. No thyromegaly. CARDIOVASCULAR: S1 and S2 present. No murmurs, rubs, or gallops. PULMONARY: Chest is clear to auscultation, no wheezing or crackles. ABDOMEN: Soft, nontender, nondistended, normoactive bowel sounds. No palpable organomegaly. MUSCULOSKELETAL: No joint swelling or deformity. EXTREMITIES: No cyanosis, clubbing, or pedal edema. NEUROLOGICAL: Gross neurological examination did not reveal any focal deficits. SKIN: No rashes. Assessment and Plan Plan: -Congestive heart failure possibility of mild acute exacerbation patient has chronic systolic dysfunction EF of around 40%.received Lasix on the day of admission after which his blood pressure dropped patient Lasix was held yesterday and today patient is not taking any medications -Influenza viral illness patient will be started on Tamiflu -Coronary artery disease. -Atrial fibrillation valvular A. fib for which patient is on Coumadin, and will be continued and INR will be repeated tomorrow -Severity of the past -Hypertension -Hyperlipidemia -Chronic kidney disease baseline creatinine around the 1.9 his present creatinine is 2.2which was 2 days ago patient is declining any blood tests do not have any further labs available -Anxiety depression and other psychiatric issues: Patient will be resumed on home medications for this Patient Condition at Discharge: Poor Plan - Discharge Summary Discharge Rx Participant: No New Discharge Prescriptions: New Oseltamivir [Tamiflu] 75 mg PO Q12HR #8 cap Continue Simvastatin [Zocor] 20 mg PO HS@2100 Metoprolol Tartrate [Lopressor] 25 mg PO BID@0900,2100 Amiodarone [Cordarone] 200 mg PO DAILY@0900 Aspirin 81 mg PO DAILY@0900 Furosemide [Lasix] 40 mg PO BID@0600,1400 Spironolactone [Aldactone] 25 mg PO BID@0600,1400 No Action Acetaminophen [Tylenol 8 Hour] 650 mg PO Q4H Divalproex Sprinkle [Depakote Sprinkle] 125 mg PO TID@0600,1400,2200 QUEtiapine [SEROquel] 50 mg PO BID@0900,2100 Warfarin [Coumadin] 5 mg PO MOTH@1400 Warfarin Sodium [Coumadin] 4 mg PO SUTUWEFRSA@1400 Discharge Medication List Metoprolol Tartrate [Lopressor] 25 mg PO BID@0900,209907/10/18 [History] Simvastatin [Zocor] 20 mg PO HS@209907/10/18 [History] Amiodarone [Cordarone] 200 mg PO DAILY@0900 11/28/18 [History] Aspirin 81 mg PO DAILY@0900 11/28/18 [History] Furosemide [Lasix] 40 mg PO BID@0600,1400 11/28/18 [History] Spironolactone [Aldactone] 25 mg PO BID@0600,1400 11/28/18 [History] Acetaminophen [Tylenol 8 Hour] 650 mg PO Q4H 04/13/19 [History] Divalproex Sprinkle [Depakote Sprinkle] 125 mg PO TID@0600,1400,219904/13/19 [History] Oseltamivir [Tamiflu] 75 mg PO Q12HR #8 cap 04/13/19 [Rx] QUEtiapine [SEROquel] 50 mg PO BID@0900,209904/13/19 [History] Warfarin Sodium [Coumadin] 4 mg PO SUTUWEFRSA@139904/13/19 [History] Warfarin [Coumadin] 5 mg PO MOTH@139904/13/19 [History] Follow up Appointment(s)/Referral(s): Naresh Houston MD [Primary Care Provider] - 3 Days Patient Instructions/Handouts: Influenza (DC) Discharge Disposition: TRANSFER TO SNF/ECF
[2019-04-15] MEDS: ASPIRIN 81 MG PO SCH (12:18)
[2019-04-15] MEDS: AMIODARONE 200 MG TAB PO SCH (12:18)
[2019-04-15] MEDS: clonazePAM 0.5 MG TAB PO SCH (12:19)
[2019-04-15] MEDS: FUROSEMIDE 40 MG TAB PO SCH (12:19)
[2019-04-15] MEDS: METOPROLOL TARTRATE 25 MG TAB PO SCH (12:19)
[2019-04-15] MEDS: OSELTAMIVIR 60 MG/10 ML ORAL SYRINGE PO SCH (12:20)
[2019-04-15 14:49] VITALS: BP 165/76; PULSE 66
== END 2019-04-15 12:43 | DRG 291 ==
LOC: EC 02:27 → SUPCPDRO 02:27 → 3SCARD 05:49
PROVIDERS: ADMIT Hospitalist; ATTEND Hospitalist
DX: I13.0 Hypertensive heart and chronic kidney disease with heart failure and stage 1 through stage 4 chronic kidney disease, or unspecified chronic kidney disease (principal); I50.23 Acute on chronic systolic (congestive) heart failure; I48.19 Other persistent atrial fibrillation; E78.5 Hyperlipidemia, unspecified; J10.1 Influenza due to other identified influenza virus with other respiratory manifestations; E86.0 Dehydration; F03.90 Unspecified dementia, unspecified severity, without behavioral disturbance, psychotic disturbance, mood disturbance, and anxiety; F17.200 Nicotine dependence, unspecified, uncomplicated; F41.8 Other specified anxiety disorders; I25.10 Atherosclerotic heart disease of native coronary artery without angina pectoris; I27.20 Pulmonary hypertension, unspecified; I73.9 Peripheral vascular disease, unspecified; J84.10 Pulmonary fibrosis, unspecified; N18.3 Chronic kidney disease, stage 3 (moderate); Z79.01 Long term (current) use of anticoagulants; I25.2 Old myocardial infarction; Z79.82 Long term (current) use of aspirin; Z79.899 Other long term (current) drug therapy; Z80.0 Family history of malignant neoplasm of digestive organs; Z82.5 Family history of asthma and other chronic lower respiratory diseases; Z83.3 Family history of diabetes mellitus; Z86.73 Personal history of transient ischemic attack (TIA), and cerebral infarction without residual deficits; Z95.2 Presence of prosthetic heart valve; Z83.49 Family history of other endocrine, nutritional and metabolic diseases
CPT/HCPCS: 36415; 71046; 80053; 81003; 83605; 83735; 83880; 84484; 85025; 85379; 85610; 85730; 87502; 93005; 93306; 99285

== ENCOUNTER 2020-12-30 11:08 | Emergency (ER) | payer OTHER ==
[2020-12-30 11:39] VITALS: TEMP 97.9
--- NOTE | 2020-12-30 11:51 | ED ---
General Adult HPI - General Chief complaint: Weakness Stated complaint: Low Heart Rate Time Seen by Provider: 12/30/20 11:33 Source: patient, RN notes reviewed Mode of arrival: EMS Limitations: physical limitation - History of Present Illness Initial comments: Dictation was produced using [employer] dictation software. please excuse any grammatical, word or spelling errors. Chief Complaint: 60-year-old male with dementia, A. fib presents to emergency department with episode of bradycardia, weakness, shortness of breath and hypoxia. History of Present Illness: Patient is a 60-year-old male he is a poor historian. He arrives via EMS. Sister and [id number] the patient are here at the bedside providing history of present illness. Patient allegedly has multiple comorbidities. It's to their knowledge the patient is brought here for weakness, hypoxia and bradycardia. Patient is history of A. fib. He takes beta blockers. He is also on anticoagulation medications. Patient complains of shortness of breath. Family member at the bedside reports the patient has having some coughing episodes recently. Patient's sister is legal guardian. He denies any fevers. Denies any pain complaints. Patient takes Coumadin. He has history of stroke with residual left-sided weakness. The ROS documented in this emergency department record has been reviewed and confirmed by me. Those systems with pertinent positive or negative responses have been documented in the HPI. All other systems are other negative and/or noncontributory. PHYSICAL EXAM: General Impression: Alert and oriented x3, not in acute distress HEENT: Normocephalic atraumatic, extra-ocular movements intact, pupils equal and reactive to light bilaterally, mucous membranes moist. Cardiovascular: Heart regular rate and rhythm Chest: Able to complete full sentences, no retractions, no tachypnea Abdomen: abdomen soft, non-tender, non-distended, no organomegaly Musculoskeletal: Pulses present and equal in all extremities, no peripheral edema Motor: no focal deficits noted Neurological: CN II-XII grossly intact, no focal motor or sensory deficits noted Skin: Intact with no visualized rashes Psych: Normal affect and mood ED course: 60-year-old male presents emergency department for episode of hypoxia and bradycardia. He has multiple comorbidities. Vital signs upon arrival shows 90% on room air, heart rate of 53. Repeat vitals are improved. Patient is on rate controlling medications. He does have history of oxygen use at home and is a O2 concentrator at the snf. Patient's sister/legal guardian request the patient be discharged back to [facility]. Limited evaluation obtained. CBC unremarkable. Metabolic panel is findings within acceptable limits. Coag panel is normal. Rotavirus is negative. Chest x-ray shows perhaps bilateral interstitial edema. His brain natruretic peptide is normal. Patient was given emergency department for 3 hours. Is reevaluated at the bedside 2:15 PM found to be in stable medical condition. There is some concern for pulmonary infection. Patient given azithromycin and ceftriaxone. Patient b e discharged with prescription for Augmentin and Zithromax. Stress that patient is to follow up with his primary care doctor. Return precautions discussed. EKG interpretation: Ventricular rate 62, A. fib, QRS 126, QTC 501. No OK prolongation, no QTC prolongation, no ST or T-wave changes noted. EKG compared to [facility] 11/03/2019 showing no changes. Overall, this EKG is unremarkable - Related Data Home Medications Medication Instructions Recorded Confirmed Metoprolol Tartrate [Lopressor] 25 mg PO BID@0900,209907/10/18 04/13/19 Simvastatin [Zocor] 20 mg PO HS@209907/10/18 04/13/19 Amiodarone [Cordarone] 200 mg PO DAILY@0900 11/28/18 04/13/19 Aspirin 81 mg PO DAILY@0900 11/28/18 04/13/19 Furosemide [Lasix] 40 mg PO BID@0600,1400 11/28/18 04/13/19 Spironolactone [Aldactone] 25 mg PO BID@0600,1400 11/28/18 04/13/19 Acetaminophen [Tylenol 8 Hour] 650 mg PO Q4H 04/13/19 04/13/19 Divalproex Sprinkle [Depakote 125 mg PO TID@0600,1400,2200 04/13/19 04/13/19 Sprinkle] QUEtiapine [SEROquel] 50 mg PO BID@0900,209904/13/19 04/13/19 Warfarin Sodium [Coumadin] 4 mg PO SUTUWEFRSA@139904/13/19 04/13/19 Warfarin [Coumadin] 5 mg PO MOTH@139904/13/19 04/13/19 Previous Rx's Medication Instructions Recorded Oseltamivir [Tamiflu] 75 mg PO Q12HR #8 cap 04/13/19 Amoxic-Pot Clav 875-125Mg 1 tab PO Q12HR 5 Days #10 tab 12/30/20 [Augmentin 875-125] Allergies Allergy/AdvReac Type Severity Reaction Status Date / Time No Known Allergies Allergy Verified 04/13/19 11:41 Review of Systems ROS Statement: Those systems with pertinent positive or pertinent negative responses have been documented in the HPI. ROS Other: All systems not noted in ROS Statement are negative. Past Medical History Past Medical History: Atrial Fibrillation, Heart Failure, CVA/TIA, Dementia, Hyperlipidemia, Hypertension, Myocardial Infarction ([place]), Renal Disease, Vascular Disorder Additional Past Medical History / Comment(s): CVA with L side deficit, muscle weakness, Afib with RVR, severely enlarged R ventricle and L atrium/mild p ulmonary HTN, L2 compression fracture-wears brace at times, chronic low back pain, PVD, [place] in his 20s per pt and pt's sister, UTI. Last Myocardial Infarction Date:: "in his 20's" History of Any Multi-Drug Resistant Organisms: None Reported Past Surgical History: Cardiac Valve Replacement, Orthopedic Surgery Additional Past Surgical History / Comment(s): Mechanical aortic valve and pig valve as well per pt's sister, R hip hemiarthroplasty, R wrist fx with resetting, bilateral corrective eye surgery for strabismus. Past Anesthesia/Blood Transfusion Reactions: No Reported Reaction Additional Past Anesthesia/Blood Transfusion Reaction / Comment(s): Clausterphobia. Past Psychological History: Anxiety, Depression Smoking Status: Current every day smoker Past Alcohol Use History: None Reported Past Drug Use History: None Reported - Past Family History Mother Family Medical History: Diabetes Mellitus Father Family Medical History: Cancer, COPD Additional Family Medical History / Comment(s): Colon/liver cancer, back fracture, pacemaker Sister(s) Family Medical History: Thyroid Disorder Additional Family Medical History / Comment(s): thyroidectomy General Exam Limitations: physical limitation Course Vital Signs 12/30/20 11:09 Temperature 97.9 F Pulse Rate 53 L Respiratory 18 Rate Blood Pressure 121/76 O2 Sat by Pulse 90 L Oximetry Medical Decision Making - Lab Data Result diagrams: 12/30/20 12:36 12/30/20 12:36 Lab Results 12/30/20 12/30/20 12/30/20 Range/Units 12:14 12:36 12:36 WBC 8.1 (3.8-10.6) k/uL RBC 4.80 (4.30-5.90) m/uL Hgb 16.3 (13.0-17.5) gm/dL Hct 49.8 (39.0-53.0) % MCV 103.6 H (80.0-100.0) fL MCH 34.0 (25.0-35.0) pg MCHC 32.8 (31.0-37.0) g/dL RDW 13.0 (11.5-15.5) % Plt Count 186 (150-450) k/uL MPV 7.4 Neutrophils % 67 % Lymphocytes % 16 % Monocytes % 12 % Eosinophils % 2 % Basophils % 1 % Neutrophils # 5.4 (1.3-7.7) k/uL Lymphocytes # 1.3 (1.0-4.8) k/uL Monocytes # 1.0 (0-1.0) k/uL Eosinophils # 0.2 (0-0.7) k/uL Basophils # 0.1 (0-0.2) k/uL Macrocytosis Slight PT 17.5 H (9.0-12.0) sec INR 1.8 H (<1.2) APTT 28.5 (22.0-30.0) sec Sodium (137-145) mmol/L Potassium (3.5-5.1) mmol/L Chloride (98-107) mmol/L Carbon Dioxide (22-30) mmol/L Anion Gap mmol/L BUN (9-20) mg/dL Creatinine (0.66-1.25) mg/dL Est GFR (CKD-EPI)AfAm (>60 ml/min/1.73 sqM) Est GFR (CKD-EPI)NonAf (>60 ml/min/1.73 sqM) Glucose (74-99) mg/dL Calcium (8.4-10.2) mg/dL Magnesium (1.6-2.3) mg/dL Total Bilirubin (0.2-1.3) mg/dL AST (17-59) U/L ALT (4-49) U/L Alkaline Phosphatase (38-126) U/L NT-Pro-B Natriuret Pep pg/mL Total Protein (6.3-8.2) g/dL Albumin (3.5-5.0) g/dL Coronavirus (PCR) Not Detected (Not Detectd) 12/30/20 12/30/20 Range/Units 12:36 12:36 WBC (3.8-10.6) k/uL RBC (4.30-5.90) m/uL Hgb (13.0-17.5) gm/dL Hct (39.0-53.0) % MCV (80.0-100.0) fL MCH (25.0-35.0) pg MCHC (31.0-37.0) g/dL RDW (11.5-15.5) % Plt Count (150-450) k/uL MPV Neutrophils % % Lymphocytes % % Monocytes % % Eosinophils % % Basophils % % Neutrophils # (1.3-7.7) k/uL Lymphocytes # (1.0-4.8) k/uL Monocytes # (0-1.0) k/uL Eosinophils # (0-0.7) k/uL Basophils # (0-0.2) k/uL Macrocytosis PT (9.0-12.0) sec INR (<1.2) APTT (22.0-30.0) sec Sodium 139 (137-145) mmol/L Potassium 4.4 (3.5-5.1) mmol/L Chloride 109 H (98-107) mmol/L Carbon Dioxide 25 (22-30) mmol/L Anion Gap 5 mmol/L BUN 25 H (9-20) mg/dL Creatinine 1.65 H (0.66-1.25) mg/dL Est GFR (CKD-EPI)AfAm 51 (>60 ml/min/1.73 sqM) Est GFR (CKD-EPI)NonAf 44 (>60 ml/min/1.73 sqM) Glucose 89 (74-99) mg/dL Calcium 10.1 (8.4-10.2) mg/dL Magnesium 2.6 H (1.6-2.3) mg/dL Total Bilirubin 1.7 H (0.2-1.3) mg/dL AST 25 (17-59) U/L ALT 17 (4-49) U/L Alkaline Phosphatase 89 (38-126) U/L NT-Pro-B Natriuret Pep 484 pg/mL Total Protein 6.8 (6.3-8.2) g/dL Albumin 3.9 (3.5-5.0) g/dL Coronavirus (PCR) (Not Detectd) Disposition Clinical Impression: Dyspnea Disposition: HOME SELF-CARE Condition: Fair Instructions (If sedation given, give patient instructions): Dyspnea (ED) Prescriptions: Amoxic-Pot Clav 875-125Mg [Augmentin 875-125] 1 tab PO Q12HR 5 Days #10 tab Is patient prescribed a controlled substance at d/c from ED?: No Referrals: Johnny Mcleod MD [Primary Care Provider] - 1-2 days
[2020-12-30 12:49] LABS: Basophils # (A) 0.1 k/uL (0-0.2); Basophils % (A) 1 %; Eosinophils # (A) 0.2 k/uL (0-0.7); Eosinophils % (A) 2 %; HCT 49.8 % (39.0-53.0); HGB 16.3 gm/dL (13.0-17.5); Lymphocytes # (A) 1.3 k/uL (1.0-4.8); Lymphocytes % (A) 16 %; MCHC 32.8 g/dL (31.0-37.0); MCV 103.6 fL (80.0-100.0); Macrocytosis Slight; Mean Platelet Volume 7.4; Monocytes % (A) 12 %; Neutrophils # (A) 5.4 k/uL (1.3-7.7); Neutrophils % (A) 67 %; Platelet Count 186 k/uL (150-450); WBC 8.1 k/uL (3.8-10.6)
[2020-12-30 13:02] LABS: Albumin 3.9 g/dL (3.5-5.0); Calcium 10.1 mg/dL (8.4-10.2); Total Bilirubin 1.7 mg/dL (0.2-1.3); Total Protein 6.8 g/dL (6.3-8.2)
[2020-12-30 13:03] LABS: Magnesium 2.6 mg/dL (1.6-2.3); Potassium 4.4 mmol/L (3.5-5.1)
[2020-12-30 13:07] LABS: INR 1.8 (<1.2); Partial Thromboplastin Time 28.5 sec (22.0-30.0); Prothrombin Time 17.5 sec (9.0-12.0)
--- NOTE | 2020-12-30 13:09 | XR ---
EXAMINATION TYPE: XR chest 1V portable DATE OF EXAM: 12/30/2020 COMPARISON: Chest x-ray x-ray April 13, [address] older studies[address] CT July 10, 2018 HISTORY: Hypoxia and bradycardia TECHNIQUE: Single portable frontal view of the chest is obtained. FINDINGS: Overlying sternal wires and mediastinal clips along with cardiomegaly resolving demonstrate d. There is severe biatrial dilatation noted on CT. Calcified right-sided pleural plaques on CT are l ess well seen on plain films. Background chronic emphysematous and pulmonary fibrotic changes with in creased interstitial markings and some central opacities. No pleural effusion or pneumothorax seen. O sseous structures are intact. IMPRESSION: Suspect CHF exacerbation as there is cardiomegaly with suspected central alveolar and b ilateral interstitial edema on background chronic emphysematous and pulmonary fibrotic changes.
[2020-12-30] MEDS ORDERED: cefTRIAXone IN SWFI 1,000 MG/10 ML SYRINGE IVP STA (13:55)
[2020-12-30] MEDS ORDERED: AZITHROMYCIN 500 MG in SODIUM CHLORIDE 0.9% 250 ML IVPB STA (13:55)
[2020-12-30 14:24] VITALS: RESP 20
[2020-12-30 15:53] VITALS: BP 95/54; PULSE 68
== END 2020-12-30 15:53 | disposition home or self-care (01) ==
LOC: EC 11:08
DX: R06.09 Other forms of dyspnea (principal); I11.0 Hypertensive heart disease with heart failure; I50.9 Heart failure, unspecified; I25.2 Old myocardial infarction; I27.20 Pulmonary hypertension, unspecified; I48.91 Unspecified atrial fibrillation; F03.90 Unspecified dementia, unspecified severity, without behavioral disturbance, psychotic disturbance, mood disturbance, and anxiety; E78.5 Hyperlipidemia, unspecified; F41.9 Anxiety disorder, unspecified; F32.A Depression, unspecified; F17.200 Nicotine dependence, unspecified, uncomplicated; Z20.822 Contact with and (suspected) exposure to COVID-19; Z79.82 Long term (current) use of aspirin; Z79.01 Long term (current) use of anticoagulants; Z86.73 Personal history of transient ischemic attack (TIA), and cerebral infarction without residual deficits; Z87.440 Personal history of urinary (tract) infections; Z95.2 Presence of prosthetic heart valve
CPT/HCPCS: 99285; 96374; 36415; 93005; 83880; 80053; 83735; 85025; 85610; 85730; 87635; 71045; J0456; J0696

== ENCOUNTER 2021-08-18 21:04 | Observation (INO) | payer OTHER ==
[2021-08-18] MEDS ORDERED: SODIUM CHLORIDE 0.9% 1,000 ML IV STA (21:28)
--- NOTE | 2021-08-18 21:48 | ED ---
Weakness HPI - General Chief complaint: Weakness Stated complaint: Confusion, weakness Time Seen by Provider: 08/18/21 21:28 Source: EMS, RN notes reviewed, old records reviewed Mode of arrival: EMS Limitations: altered mental status - History of Present Illness Initial comments: This is a 61-year-old male to the emergency department for evaluation patient resents today for evaluation of altered mental status shortness of breath weakness not feeling well. No fevers no travel show sick contacts no other complaints. Patient himself states he does not want to be in the hospital he hates being in the hospital. MD Complaint: generalized weakness, lack of energy, difficulty walking -: days(s) Location: generalized Severity: moderate Severity scale (1-10): 4 Quality: numbness Consistency: constant Improves with: none Worsens with: none Context: recent illness, history of similar Associated Symptoms: nausea/vomiting, shortness of breath - Related Data Home Medications Medication Instructions Recorded Confirmed Metoprolol Tartrate [Lopressor] 25 mg PO BID 07/10/18 08/18/21 Simvastatin [Zocor] 20 mg PO HS 07/10/18 08/18/21 Amiodarone [Cordarone] 200 mg PO DAILY 11/28/18 08/18/21 Aspirin 81 mg PO DAILY 11/28/18 08/18/21 Furosemide [Lasix] 40 mg PO BID@0600,1400 11/28/18 08/18/21 Spironolactone [Aldactone] 25 mg PO BID@0600,1400 11/28/18 08/18/21 QUEtiapine [SEROquel] 50 mg PO BID 04/13/19 08/18/21 Warfarin Sodium [Coumadin] 4 mg PO MOTUTHFRSA@1400 04/13/19 08/18/21 Acetaminophen Tab [Tylenol] 650 mg PO Q4H PRN 12/30/20 08/18/21 Baclofen [Lioresal] 10 mg PO TID PRN 12/30/20 08/18/21 Ipratropium-Albuterol Nebulize 3 ml INHALATION RT-QID PRN 12/30/20 08/18/21 [Duoneb 0.5 mg-3 mg/3 ml Soln] Lidocaine 5% Patch [Lidoderm] 1 patch TRANSDERM DAILY 12/30/20 08/18/21 Umeclidinium Brm/Vilanterol Tr 1 puff INHALATION RT-DAILY 12/30/20 08/18/21 [Anoro Ellipta 62.5-25 Mcg INH] Warfarin Sodium 2 mg PO SUWE@1400 12/30/20 08/18/21 Clotrimazole/Betameth Cream 1 applic TOPICAL BID 08/18/21 08/18/21 [Lotrisone] Menthol [Biofreeze] 1 applic TOPICAL Q6H PRN 08/18/21 08/18/21 Allergies Allergy/AdvReac Type Severity Reaction Status Date / Time No Known Allergies Allergy Verified 08/18/21 22:31 Review of Systems ROS Statement: Those systems with pertinent positive or pertinent negative responses have been documented in the HPI. ROS Other: All systems not noted in ROS Statement are negative. Past Medical History Past Medical History: Atrial Fibrillation, Heart Failure, CVA/TIA, Dementia, Hyperlipidemia, Hypertension, Myocardial Infarction ([place]), Renal Disease, Vascular Disorder Additional Past Medical History / Comment(s): CVA with L side deficit, muscle weakness, Afib with RVR, severely enlarged R ventricle and L atrium/mild pulmonary HTN, L2 compression fracture-wears brace at times, chronic low back pain, PVD, [place] in his 20s per pt and pt's sister, UTI. Last Myocardial Infarction Date:: "in his 20's" History of Any Multi-Drug Resistant Organisms: None Reported Past Surgical History: Cardiac Valve Replacement, Orthopedic Surgery Additional Past Surgical History / Comment(s): Mechanical aortic valve and pig valve as well per pt's sister, R hip hemiarthroplasty, R wrist fx with resetting, bilateral corrective eye surgery for strabismus. Past Anesthesia/Blood Transfusion Reactions: No Reported Reaction Additional Past Anesthesia/Blood Transfusion Reaction / Comment(s): Clausterphobia. Past Psychological History: Anxiety, Depression Smoking Status: Current every day smoker Past Alcohol Use History: None Reported Past Drug Use History: None Reported - Past Family History Mother Family Medical History: Diabetes Mellitus Father Family Medical History: Cancer, COPD Additional Family Medical History / Comment(s): Colon/liver cancer, back fract ure, pacemaker Sister(s) Family Medical History: Thyroid Disorder Additional Family Medical History / Comment(s): thyroidectomy General Exam General appearance: alert, in no apparent distress Head exam: Present: atraumatic, normocephalic, normal inspection Eye exam: Present: normal appearance, PERRL, EOMI. Absent: scleral icterus, conjunctival injection, periorbital swelling ENT exam: Present: normal exam, mucous membranes moist Neck exam: Present: normal inspection. Absent: tenderness, meningismus, lymphadenopathy Respiratory exam: Present: normal lung sounds bilaterally. Absent: respiratory distress, wheezes, rales, rhonchi, stridor Cardiovascular Exam: Present: regular rate, normal rhythm, normal heart sounds. Absent: systolic murmur, diastolic murmur, rubs, gallop, clicks GI/Abdominal exam: Present: soft, normal bowel sounds. Absent: distended, tenderness, guarding, rebound, rigid Extremities exam: Present: normal inspection, full ROM, normal capillary refill. Absent: tenderness, pedal edema, joint swelling, calf tenderness Back exam: Present: normal inspection Neurological exam: Present: alert, oriented X3, CN II-XII intact Psychiatric exam: Present: normal affect, normal mood Skin exam: Present: warm, dry, intact, normal color. Absent: rash Course Vital Signs 08/18/21 21:25 Temperature 97.8 F Pulse Rate 70 Respiratory 18 Rate Blood Pressure 116/77 O2 Sat by Pulse 96 Oximetry - Reevaluation(s) Reevaluation #1: 08/19/21 00:36 Medical record is reviewed Reevaluation #2: 08/19/21 00:36 Patient informed results and questions answered Reevaluation #3: 08/19/21 00:36 Patient has no improvement here in the ER Medical Decision Making - Medical Decision Making 61 male to the emergency department for evaluation patient presents to the second for evaluation of altered mental status shortness of breath CHF and COPD. Patient [place] for breathing treatments and cardiology to see - Lab Data Result diagrams: 08/18/21 22:55 08/18/21 22:55 Lab Results 08/18/21 08/18/21 08/18/21 Range/Units 22:55 22:55 22:55 WBC 7.9 (3.8-10.6) k/uL RBC 5.05 (4.30-5.90) m/uL Hgb 17.9 H (13.0-17.5) gm/dL Hct 54.2 H (39.0-53.0) % MCV 107.4 H (80.0-100.0) fL MCH 35.4 H (25.0-35.0) pg MCHC 32.9 (31.0-37.0) g/dL RDW 13.6 (11.5-15.5) % Plt Count 167 (150-450) k/uL MPV 8.0 Neutrophils % 69 % Lymphocytes % 16 % Monocytes % 10 % Eosinophils % 2 % Basophils % 1 % Neutrophils # 5.4 (1.3-7.7) k/uL Lymphocytes # 1.3 (1.0-4.8) k/uL Monocytes # 0.8 (0-1.0) k/uL Eosinophils # 0.2 (0-0.7) k/uL Basophils # 0.1 (0-0.2) k/uL Macrocytosis Moderate PT 55.9 H (9.0-12.0) sec INR 5.6 H* (<1.2) APTT 41.6 H (22.0-30.0) sec Sodium 137 (137-145) mmol/L Potassium 4.4 (3.5-5.1) mmol/L Chloride 102 (98-107) mmol/L Carbon Dioxide 28 (22-30) mmol/L Anion Gap 7 mmol/L BUN 27 H (9-20) mg/dL Creatinine 1.79 H (0.66-1.25) mg/dL Est GFR (CKD-EPI)AfAm 46 (>60 ml/min/1.73 sqM) Est GFR (CKD-EPI)NonAf 40 (>60 ml/min/1.73 sqM) Glucose 90 (74-99) mg/dL Plasma Lactic Acid Heri (0.7-2.0) mmol/L Calcium 9.9 (8.4-10.2) mg/dL Phosphorus 3.6 (2.5-4.5) mg/dL Magnesium 2.1 (1.6-2.3) mg/dL Total Bilirubin 2.1 H (0.2-1.3) mg/dL AST 32 (17-59) U/L ALT 15 (4-49) U/L Alkaline Phosphatase 160 H (38-126) U/L Ammonia (<30) umol/L Troponin I (0.000-0.034) ng/mL NT-Pro-B Natriuret Pep pg/mL Total Protein 7.5 (6.3-8.2) g/dL Albumin 4.2 (3.5-5.0) g/dL TSH 18.800 H (0.465-4.680) mIU/L 08/18/21 08/18/21 08/18/21 Range/Units 22:55 22:55 22:55 WBC (3.8-10.6) k/uL RBC (4.30-5.90) m/uL Hgb (13.0-17.5) gm/dL Hct (39.0-53.0) % MCV (80.0-100.0) fL MCH (25.0-35.0) pg MCHC (31.0-37.0) g/dL RDW (11.5-15.5) % Plt Count (150-450) k/uL MPV Neutrophils % % Lymphocytes % % Monocytes % % Eosinophils % % Basophils % % Neutrophils # (1.3-7.7) k/uL Lymphocytes # (1.0-4.8) k/uL Monocytes # (0-1.0) k/uL Eosinophils # (0-0.7) k/uL Basophils # (0-0.2) k/uL Macrocytosis PT (9.0-12.0) sec INR (<1.2) APTT (22.0-30.0) sec Sodium (137-145) mmol/L Potassium (3.5-5.1) mmol/L Chloride (98-107) mmol/L Carbon Dioxide (22-30) mmol/L Anion Gap mmol/L BUN (9-20) mg/dL Creatinine (0.66-1.25) mg/dL Est GFR (CKD-EPI)AfAm (>60 ml/min/1.73 sqM) Est GFR (CKD-EPI)NonAf (>60 ml/min/1.73 sqM) Glucose (74-99) mg/dL Plasma Lactic Acid Heri 1.4 (0.7-2.0) mmol/L Calcium (8.4-10.2) mg/dL Phosphorus (2.5-4.5) mg/dL Magnesium (1.6-2.3) mg/dL Total Bilirubin (0.2-1.3) mg/dL AST (17-59) U/L ALT (4-49) U/L Alkaline Phosphatase (38-126) U/L Ammonia 35 H (<30) umol/L Troponin I 0.013 (0.000-0.034) ng/mL NT-Pro-B Natriuret Pep 263 pg/mL Total Protein (6.3-8.2) g/dL Albumin (3.5-5.0) g/dL TSH (0.465-4.680) mIU/L - Radiology Data Radiology results: report reviewed (Chest x-rays positive for CHF), image reviewed Disposition Clinical Impression: Dehydration, Delirium, Weakness, CHF (congestive heart failure), COPD (chronic obstructive pulmonary disease) Disposition: ADMITTED IP TO THIS HOSP Condition: Fair Is patient prescribed a controlled substance at d/c from ED?: No Referrals: Johnny Mcleod MD [Primary Care Provider] - 1-2 days Time of Disposition: 00:20
--- NOTE | 2021-08-18 23:04 | XR ---
EXAMINATION TYPE: XR chest 1V portable DATE OF EXAM: 08/18/2021 COMPARISON: 12/30/2020 HISTORY: Cough TECHNIQUE: FINDINGS: Heart is enlarged. There is some pulmonary vascular congestion. There are sternal wires. Th ere is slight blunting of the right costophrenic angle. IMPRESSION: There is mild congestive heart failure and small right pleural effusion. There is improve ment in the right-sided pulmonary edema compared to old exams there is some increased left sided mild pulmonary edema.
[2021-08-18 23:26] LABS: Basophils # (A) 0.1 k/uL (0-0.2); Basophils % (A) 1 %; Eosinophils # (A) 0.2 k/uL (0-0.7); Eosinophils % (A) 2 %; HCT 54.2 % (39.0-53.0); HGB 17.9 gm/dL (13.0-17.5); Lymphocytes # (A) 1.3 k/uL (1.0-4.8); Lymphocytes % (A) 16 %; MCH 35.4 pg (25.0-35.0); MCHC 32.9 g/dL (31.0-37.0); MCV 107.4 fL (80.0-100.0); Macrocytosis Moderate; Monocytes # (A) 0.8 k/uL (0-1.0); Monocytes % (A) 10 %; Neutrophils # (A) 5.4 k/uL (1.3-7.7); Neutrophils % (A) 69 %; Platelet Count 167 k/uL (150-450); RBC 5.05 m/uL (4.30-5.90); RDW 13.6 % (11.5-15.5); WBC 7.9 k/uL (3.8-10.6)
[2021-08-18 23:29] LABS: Partial Thromboplastin Time 41.6 sec (22.0-30.0); Prothrombin Time 55.9 sec (9.0-12.0)
[2021-08-18 23:32] LABS: Calcium 9.9 mg/dL (8.4-10.2); Lactic Acid, Venous 1.4 mmol/L (0.7-2.0); Total Bilirubin 2.1 mg/dL (0.2-1.3)
[2021-08-18 23:33] LABS: INR 5.6 (<1.2)
[2021-08-19 00:03] LABS: Albumin 4.2 g/dL (3.5-5.0); Magnesium 2.1 mg/dL (1.6-2.3); Phosphorus 3.6 mg/dL (2.5-4.5); Potassium 4.4 mmol/L (3.5-5.1); Total Protein 7.5 g/dL (6.3-8.2)
[2021-08-19] MEDS ORDERED: IPRATROPIUM-ALBUTEROL 3 ML NEB INHALATION STA (00:34)
[2021-08-19] MEDS ORDERED: IPRATROPIUM-ALBUTEROL 3 ML NEB INHALATION PRN (00:34)
[2021-08-19] MEDS: SODIUM CHLORIDE 0.9% 1,000 ML IV SCH ×2 (01:59→22:29)
[2021-08-19 04:37] LABS: Appearance,Urine Clear (Clear); Bilirubin,Urine Negative (Negative); Blood,Urine Moderate (Negative); Calcium Oxalate Crystals,Urine Occasional /hpf; Color,Urine Yellow; Glucose,Urine (UA) Negative (Negative); Hyaline Casts,Urine 18 /lpf (0-2); Ketones,Urine Negative (Negative); Leukocyte Esterase,Urine Negative (Negative); Mucus,Urine Rare /hpf; Nitrite,Urine Negative (Negative); Protein,Urine Negative (Negative); RBC,Urine 112 /hpf (0-5); Specific Gravity,Urine 1.013 (1.001-1.035); Squamous Epithelial Cell,Urine 1 /hpf (0-4); Urobilinogen,Urine <2.0 mg/dL (<2.0); WBC,Urine 3 /hpf (0-5)
[2021-08-19] MEDS ORDERED: ACETAMINOPHEN TAB 325 MG TAB PO PRN (06:55)
[2021-08-19] MEDS ORDERED: BACLOFEN 10 MG TAB PO PRN (06:55)
[2021-08-19] MEDS: FLUTICASONE 44 MCG INHALER INHALATION SCH ×2 (07:19→20:23)
[2021-08-19] MEDS: RIVASTIGMINE 4.6MG/24HR PATCH TRANSDERM SCH (07:49)
--- NOTE | 2021-08-19 09:43 | P.CRDCN ---
History of Present Illness Consult date: 08/19/21 Chief complaint: Change in mental status History of present illness: This is an 61-year-old gentleman with an extensive past medical history cons istent of underlying dementia, history of stroke was residual left-sided weakness, history of valvular heart disease and status post aortic valve replacement using mechanical valve, as well as permanent atrial fibrillation also multiple comorbid conditions. The patient currently is residing at [facility]. He was brought to the hospital for change in mental status. The patient is extremely poor historian. When he was interviewed today with his nurse in the room he reports no increasing in the shortness of breath and no symptoms of chest pain or chest discomfort and no dizziness or lightheadedness and no feeling of heart racing or fluttering. As a mentioned earlier he does have poor functional capacity and left sided weakness and also he does have underlying dementia. Apparently he was feeling overall weak according to the chart. He underwent a workup in the hospital including a chest x-ray which showed pleural effusion somewhat improved compared to prior exam according to the report. He also underwent a blood work including CBC and BMP. The creatinine is 1.7. The INR is elevated. The troponin is within normal limits. When the patient was seen and examined this morning he definitely looks euvolemic on examination and he doesn't seems to be in any overt congestive heart failure. He is on Lasix by mouth which we are going to continue at this point. The most recent echo from 2019 showed normal left ventricle systolic function was normally functioning mechanical valve in aortic position and also evidence of severe pulmonary hypertension with right ventricular dilation. Past Medical History Past Medical History: Atrial Fibrillation, Heart Failure, CVA/TIA, Dementia, Hyperlipidemia, Hypertension, Myocardial Infarction ([place]), Renal Disease, Vascular Disorder Additional Past Medical History / Comment(s): CVA with L side deficit, muscle weakness, Afib with RVR, severely enlarged R ventricle and L atrium/mild pulmonary HTN, L2 compression fracture-wears brace at times, chronic low back p ain, PVD, [place] in his 20s per pt and pt's sister, UTI. Last Myocardial Infarction Date:: "in his 20's" History of Any Multi-Drug Resistant Organisms: None Reported Past Surgical History: Cardiac Valve Replacement, Orthopedic Surgery Additional Past Surgical History / Comment(s): Mechanical aortic valve and pig valve as well per pt's sister, R hip hemiarthroplasty, R wrist fx with resetting, bilateral corrective eye surgery for strabismus. Past Anesthesia/Blood Transfusion Reactions: No Reported Reaction Additional Past Anesthesia/Blood Transfusion Reaction / Comment(s): Clausterphobia. Past Psychological History: Anxiety, Depression Additional Psychological History / Comment(s): Adjustment disorder. Pt resides at [facility]. He uses a wheelchair or walker and occasionally gets up on his own and ambulates. He has been having increased aggression/combativeness/abusiveness past 2 days. Smoking Status: Unknown if ever smoked Past Alcohol Use History: None Reported Additional Past Alcohol Use History / Comment(s): Pt started smoking in 1974 and quit in 2018. He occasionally has one beer at [facility]. Past Drug Use History: None Reported Additional Drug Use History / Comment(s): occ use - Past Family History Mother Family Medical History: Diabetes Mellitus Father Family Medical History: Cancer, COPD Additional Family Medical History / Comment(s): Colon/liver cancer, back fracture, pacemaker Sister(s) Family Medical History: Thyroid Disorder Additional Family Medical History / Comment(s): thyroidectomy Medications and Allergies Home Medications Medication Instructions Recorded Confirmed Type Metoprolol Tartrate [Lopressor] 25 mg PO BID 07/10/18 08/18/21 History Simvastatin [Zocor] 20 mg PO HS 07/10/18 08/18/21 History Amiodarone [Cordarone] 200 mg PO DAILY 11/28/18 08/18/21 History Aspirin 81 mg PO DAILY 11/28/18 08/18/21 History Furosemide [Lasix] 40 mg PO BID@0600,1400 11/28/18 08/18/21 History Spironolactone [Aldactone] 25 mg PO BID@0600,1400 11/28/18 08/18/21 History QUEtiapine [SEROquel] 50 mg PO BID 04/13/19 08/18/21 History Warfarin Sodium [Coumadin] 4 mg PO MOTUTHFRSA@1400 04/13/19 08/18/21 History Acetaminophen Tab [Tylenol] 650 mg PO Q4H PRN 12/30/20 08/18/21 History Baclofen [Lioresal] 10 mg PO TID PRN 12/30/20 08/18/21 History Ipratropium-Albuterol Nebulize 3 ml INHALATION RT-QID PRN 12/30/20 08/18/21 History [Duoneb 0.5 mg-3 mg/3 ml Soln] Lidocaine 5% Patch [Lidoderm] 1 patch TRANSDERM DAILY 12/30/20 08/18/21 History Umeclidinium Brm/Vilanterol Tr 1 puff INHALATION RT-DAILY 12/30/20 08/18/21 History [Anoro Ellipta 62.5-25 Mcg INH] Warfarin Sodium 2 mg PO SUWE@1400 12/30/20 08/18/21 History Clotrimazole/Betameth Cream 1 applic TOPICAL BID 08/18/21 08/18/21 History [Lotrisone] Menthol [Biofreeze] 1 applic TOPICAL Q6H PRN 08/18/21 08/18/21 History Allergies Allergy/AdvReac Type Severity Reaction Status Date / Time No Known Allergies Allergy Verified 08/18/21 22:31 Physical Exam Vitals: Vital Signs Temp Pulse Pulse Resp BP BP Pulse Ox 08/19/21 07:21 95 08/19/21 03:42 22 08/19/21 03:25 97.6 F 71 19 118/74 85 L 08/19/21 02:27 88 18 134/87 98 08/19/21 01:00 74 08/19/21 00:55 70 08/18/21 21:25 97.8 F 70 18 116/77 96 Intake and Output 08/18/21 08/19/21 08/19/21 22:59 06:59 14:59 Intake Total 150 Output Total 250 Balance -100 Intake: Oral 150 Output: Urine 250 Other: Voiding Method Toilet Urinal Incontinent Weight 113.398 kg 113.398 kg - Constitutional General appearance: no acute distress - Respiratory Respiratory: bilateral: diminished - Cardiovascular Rhythm: irregularly irregular Results 08/18/21 22:55 08/18/21 22:55 Cardiac Enzymes 08/18/21 08/18/21 Range/Units 22:55 22:55 AST 32 (17-59) U/L Troponin I 0.013 (0.000-0.034) ng/mL Coagulation 08/18/21 Range/Units 22:55 PT 55.9 H (9.0-12.0) sec APTT 41.6 H (22.0-30.0) sec CBC 08/18/21 Range/Units 22:55 WBC 7.9 (3.8-10.6) k/uL RBC 5.05 (4.30-5.90) m/uL Hgb 17.9 H (13.0-17.5) gm/dL Hct 54.2 H (39.0-53.0) % Plt Count 167 (150-450) k/uL Comprehensive Metabolic Panel 08/18/21 Range/Units 22:55 Sodium 137 (137-145) mmol/L Potassium 4.4 (3.5-5.1) mmol/L Chloride 102 (98-107) mmol/L Carbon Dioxide 28 (22-30) mmol/L BUN 27 H (9-20) mg/dL Creatinine 1.79 H (0.66-1.25) mg/dL Glucose 90 (74-99) mg/dL Calcium 9.9 (8.4-10.2) mg/dL AST 32 (17-59) U/L ALT 15 (4-49) U/L Alkaline Phosphatase 160 H (38-126) U/L Total Protein 7.5 (6.3-8.2) g/dL Albumin 4.2 (3.5-5.0) g/dL Current Medications Generic Name Dose Route Start Last Admin Trade Name Freq PRN Reason Stop Dose Admin Acetaminophen 650 mg 08/19/21 06:55 Acetaminophen Tab 325 Mg Tab PO Q4H PRN Fever and/ or Pain Albuterol/Ipratropium 3 ml 08/19/21 00:34 Ipratropium-Albuterol 3 Ml Neb INHALATION RT-QID PRN Shortness Of Breath Or Wheezing Amiodarone HCl 200 mg 08/19/21 09:00 Amiodarone 200 Mg Tab PO DAILY BEATA Aspirin 81 mg 08/19/21 09:00 Aspirin 81 Mg PO DAILY BEATA Atorvastatin Calcium 10 mg 08/19/21 21:00 Atorvastatin 10 Mg Tab PO HS BEATA Baclofen 10 mg 08/19/21 06:55 Baclofen 10 Mg Tab PO TID PRN back spasms Fluticasone Propionate 1 puff 08/19/21 08:00 08/19/21 07:19 Fluticasone 44 Mcg Inhaler INHALATION 1 puff RT-BID BEATA Administration Furosemide 40 mg 08/19/21 14:00 Furosemide 40 Mg Tab PO BID@0600,1400 BEATA Sodium Chloride 1,000 mls @ 20 mls/hr 08/19/21 00:45 08/19/21 01:59 Saline 0.9% IV 20 mls/hr .Q24H BEATA Administration Metoprolol Tartrate 25 mg 08/19/21 09:00 Metoprolol Tartrate 25 Mg Tab PO BID BEATA Prednisone 40 mg 08/19/21 09:00 Prednisone 20 Mg Tab PO DAILY BEATA Quetiapine Fumarate 50 mg 08/19/21 09:00 Quetiapine 50 Mg Tab PO BID BEATA Rivastigmine 1 patch 08/19/21 07:00 08/19/21 07:49 Rivastigmine 4.6mg/24hr Patch TRANSDERM 1 patch Q24H BEATA Administration Spironolactone 25 mg 08/19/21 14:00 Spironolactone 25 Mg Tab PO BID@0600,1400 BEATA Intake and Output 08/18/21 08/19/21 08/19/21 22:59 06:59 14:59 Intake Total 150 Output Total 250 Balance -100 Intake: Oral 150 Output: Urine 250 Other: Voiding Method Toilet Urinal Incontinent Weight 113.398 kg 113.398 kg 08/18/21 22:55 08/18/21 22:55 Assessment and Plan Assessment: Assessment #1 change in mental status probably multi-factorial #2 permanent atrial fibrillation was controlled heart rate #3 history of stroke with left-sided weakness #4 generalized weakness and fatigue #5 history of aortic valve replacement using mechanical valve #6 multiple comorbid conditions Plan #1 the patient seems to be euvolemic on examination #2 continue the current medical regimen including oral diuretics #3 hold Coumadin at this point in the light of elevated INR #4 continue monitor the INR on daily basis #5 continue monitor the kidney function and electrolytes #6 follow-up with the patient
[2021-08-19] MEDS: AMIODARONE 200 MG TAB PO SCH (10:11)
[2021-08-19] MEDS: predniSONE 20 MG TAB PO SCH (10:11)
[2021-08-19] MEDS: METOPROLOL TARTRATE 25 MG TAB PO SCH ×2 (10:11→20:06)
[2021-08-19] MEDS: ASPIRIN 81 MG PO SCH (10:11)
[2021-08-19] MEDS: QUEtiapine 50 MG TAB PO SCH ×2 (10:13→20:06)
--- NOTE | 2021-08-19 11:54 | P.CNPUL ---
History of Present Illness Consult date: 08/19/21 Requesting physician: Johnny Mcleod Chief complaint: Altered mental status, shortness of breath History of present illness: 61-year-old male patient with a poor historian related to history of dementia and history of CVA with residual left-sided weakness, past medical history of atrial fibrillation, chronic CHF with diastolic dysfunction, previous HI, history of mechanical aortic prosthetic valve, hypertension, hyperlipidemia, chronic kidney disease, former smoker, resides at the [facility] on [facility]. Patient was brought into the hospital on 08/18/2021 with confusion, weakness, shortness of breath, not feeling well. There is no documented history of fevers, no travel, no sick contacts or other complaints, no nausea vomiting or diarrhea, no abdominal pain. Chest x-ray showing pulmonary vessel congestion, small right pleural effusion. His lab showed normal white count of 7.9, hemoglobin of 17.9, platelet count of 167, INR is 5.6, electrolytes are within normal limits, BUN is 27, creatinine is 1.79, lactic acid is 1.4, AST and ALT were within normal limits, alkaline phosphatase was 160, proBNP was 263, troponin was 0.013, urinalysis showed moderate blood, rare mucus, hyaline cast, but no definite sign of infection. Patient is satting 96% on room air although did have one isolated reading with a pulse ox of 85% on room air, patient was placed on supplemental oxygen at 2 L, afebrile, hemodynamically stable. He is on oral Lasix 40 mg twice daily, Aldactone, he is on DuoNeb nebulized treatments and Anoro Ellipta. Vital signs are stable. Patient is resting in bed at the time of our evaluation, he wants to be left alone, he is a poor historian, cannot offer much in the way of history. Does not appear to be in any respiratory distress, breathing comfortably. Vital signs are stable. His chest x-rays from previous hospitalizations have been reviewed showing a degree of bilateral interstitial edema on the background of chronic emphysematous some pulmonary fibrotic changes. he does take amiodarone 200 mg daily, possibility of amiodarone related interstitial lung disease is being considered. Review of Systems All systems: negative Constitutional: Denies chills, Denies fever Eyes: denies blurred vision, denies pain Ears, nose, mouth and throat: Denies headache, Denies sore throat Cardiovascular: Denies chest pain, Denies shortness of breath Respiratory: Reports dyspnea, Denies cough Gastrointestinal: Denies abdominal pain, Denies diarrhea, Denies nausea, Denies vomiting Musculoskeletal: Denies myalgias Integumentary: Denies pruritus, Denies rash Neurological: Denies numbness, Denies weakness Psychiatric: Denies anxiety, Denies depression Endocrine: Denies fatigue, Denies weight change Past Medical History Past Medical History: Atrial Fibrillation, Heart Failure, CVA/TIA, Dementia, Hyperlipidemia, Hypertension, Myocardial Infarction ([place]), Renal Disease, Vascular Disorder Additional Past Medical History / Comment(s): CVA with L side deficit, muscle weakness, Afib with RVR, severely enlarged R ventricle and L atrium/mild pulmonary HTN, L2 compression fracture-wears brace at times, chronic low back pain, PVD, [place] in his 20s per pt and pt's sister, UTI. Last Myocardial Infarction Date:: "in his 20's" History of Any Multi-Drug Resistant Organisms: None Reported Past Surgical History: Cardiac Valve Replacement, Orthopedic Surgery Additional Past Surgical History / Comment(s): Mechanical aortic valve and pig valve as well per pt's sister, R hip hemiarthroplasty, R wrist fx with resetting , bilateral corrective eye surgery for strabismus. Past Anesthesia/Blood Transfusion Reactions: No Reported Reaction Additional Past Anesthesia/Blood Transfusion Reaction / Comment(s): Clausterphobia. Past Psychological History: Anxiety, Depression Additional Psychological History / Comment(s): Adjustment disorder. Pt resides at [facility]. He uses a wheelchair or walker and occasionally gets up on his own and ambulates. He has been having increased aggression/combativeness/abusiveness past 2 days. Smoking Status: Unknown if ever smoked Past Alcohol Use History: None Reported Additional Past Alcohol Use History / Comment(s): Pt started smoking in 1974 and quit in 2018. He occasionally has one beer at [facility]. Past Drug Use History: None Reported Additional Drug Use History / Comment(s): occ use - Past Family History Mother Family Medical History: Diabetes Mellitus Father Family Medical History: Cancer, COPD Additional Family Medical History / Comment(s): Colon/liver cancer, back fracture, pacemaker Sister(s) Family Medical History: Thyroid Disorder Additional Family Medical History / Comment(s): thyroidectomy Medications and Allergies Home Medications Medication Instructions Recorded Confirmed Type Metoprolol Tartrate [Lopressor] 25 mg PO BID 07/10/18 08/18/21 History Simvastatin [Zocor] 20 mg PO HS 07/10/18 08/18/21 History Amiodarone [Cordarone] 200 mg PO DAILY 11/28/18 08/18/21 History Aspirin 81 mg PO DAILY 11/28/18 08/18/21 History Furosemide [Lasix] 40 mg PO BID@0600,1400 11/28/18 08/18/21 History Spironolactone [Aldactone] 25 mg PO BID@0600,1400 11/28/18 08/18/21 History QUEtiapine [SEROquel] 50 mg PO BID 04/13/19 08/18/21 History Warfarin Sodium [Coumadin] 4 mg PO MOTUTHFRSA@1400 04/13/19 08/18/21 History Acetaminophen Tab [Tylenol] 650 mg PO Q4H PRN 12/30/20 08/18/21 History Baclofen [Lioresal] 10 mg PO TID PRN 12/30/20 08/18/21 History Ipratropium-Albuterol Nebulize 3 ml INHALATION RT-QID PRN 12/30/20 08/18/21 History [Duoneb 0.5 mg-3 mg/3 ml Soln] Lidocaine 5% Patch [Lidoderm] 1 patch TRANSDERM DAILY 12/30/20 08/18/21 History Umeclidinium Brm/Vilanterol Tr 1 puff INHALATION RT-DAILY 12/30/20 08/18/21 History [Anoro Ellipta 62.5-25 Mcg INH] Warfarin Sodium 2 mg PO SUWE@1400 12/30/20 08/18/21 History Clotrimazole/Betameth Cream 1 applic TOPICAL BID 08/18/21 08/18/21 History [Lotrisone] Menthol [Biofreeze] 1 applic TOPICAL Q6H PRN 08/18/21 08/18/21 History Allergies Allergy/AdvReac Type Severity Reaction Status Date / Time No Known Allergies Allergy Verified 08/18/21 22:31 Physical Exam Vitals: Vital Signs Temp Pulse Pulse Resp BP BP Pulse Ox 08/19/21 07:21 95 08/19/21 03:42 22 08/19/21 03:25 97.6 F 71 19 118/74 85 L 08/19/21 02:27 88 18 134/87 98 08/19/21 01:00 74 08/19/21 00:55 70 08/18/21 21:25 97.8 F 70 18 116/77 96 Intake and Output 08/18/21 08/19/21 08/19/21 22:59 06:59 14:59 Intake Total 150 Output Total 250 Balance -100 Intake: Oral 150 Output: Urine 250 Other: Voiding Method Toilet Urinal Incontinent Weight 113.398 kg 113.398 kg GENERAL EXAM: Alert, confused, poor historian, 61-year-old male patient on today's visit oxygen pulse ox of 95% comfortable in no apparent distress. HEAD: Normocephalic/atraumatic. EYES: Normal reaction of pupils, equal size. Conjunctiva pink, sclera white. NOSE: Clear with pink turbinates. THROAT: No erythema or exudates. NECK: No masses, no JVD, no thyroid enlargement, no adenopathy. CHEST: No chest wall deformity. Symmetrical expansion. LUNGS: Equal air entry with no crackles, wheeze, rhonchi or dullness. CVS: Regular rate and rhythm, normal S1 and S2, no gallops, no murmurs, no rubs ABDOMEN: Soft, nontender. No hepatosplenomegaly, normal bowel sounds, no guarding or rigidity. EXTREMITIES: No clubbing, no edema, no cyanosis, 2+ pulses and upper and lower extremities. MUSCULOSKELETAL: Muscle strength and tone normal. SPINE: No scoliosis or deformity SKIN: No rashes CENTRAL NERVOUS SYSTEM: Alert and oriented -3. No focal deficits, tone is normal in all 4 extremities. PSYCHIATRIC: Alert and oriented -3. Appropriate affect. Intact judgment and insight. Results - Laboratory Findings CBC and BMP: 08/18/21 22:55 08/18/21 22:55 PT/INR, D-dimer PT 55.9 sec (9.0-12.0) H 08/18/21 22:55 INR 5.6 (<1.2) H* 08/18/21 22:55 Abnormal lab findings: Abnormal Labs 08/18/21 08/18/21 08/18/21 22:55 22:55 22:55 Hgb 17.9 H Hct 54.2 H MCV 107.4 H MCH 35.4 H PT 55.9 H INR 5.6 H* APTT 41.6 H BUN 27 H Creatinine 1.79 H Total Bilirubin 2.1 H Alkaline Phosphatase 160 H Ammonia TSH 18.800 H Urine Blood Urine RBC Calcium Oxalate Crystal Hyaline Casts Urine Mucus 08/18/21 08/19/21 22:55 03:42 Hgb Hct MCV MCH PT INR APTT BUN Creatinine Total Bilirubin Alkaline Phosphatase Ammonia 35 H TSH Urine Blood Moderate H Urine RBC 112 H Calcium Oxalate Crystal Occasional H Hyaline Casts 18 H Urine Mucus Rare H - Diagnostic Findings Chest x-ray: report reviewed, image reviewed Assessment and Plan Plan: Assessment: #1. Acute hypoxic respiratory failure, no clear evidence of acute CHF, possibility of interstitial lung disease on the background of emphysematous changes is being considered. Patient has been on long-term amiodarone for history of chronic atrial fibrillation, possibility of amiodarone related lung toxicity is being considered #2. Altered mental status, however patient has underlying history of dementia, he is currently awake and alert, baseline mental status is not known to us #3. History of valvular heart disease with history of mechanical aortic valve replacement, on Coumadin #4. Chronic CHF, with diastolic dysfunction #5. Pulmonary hypertension, likely related to chronic disease, and valvular heart disease #6. Chronic kidney disease, stage III #7. Hypertension #8. Hyperlipidemia #9. Anxiety and depression #10. History of CVA #11. History of dementia #12. Former smoker #13. Probable COPD Plan: Patient appears to be in no acute distress Patient's chest x-rays always had a degree of pulmonary vascular congestion, possibility of pulmonary fibrosis, rule out possibility of amiodarone related lung toxicity We'll obtain high resolution lung CT Continue with diuretics, and inhalers We'll continue to follow I have personally seen and examined the patient, performed the documentation and the assessment and plan as written. Number of minutes spent on the visit: [15] Time with Patient: Greater than 30
--- NOTE | 2021-08-19 12:55 | P.HPIM ---
History of Present Illness H&P Date: 08/19/21 Chief Complaint: Dyspnea, shortness of breath Mr. Berrios is a 61-year-old patient very new to our practice a poor historian history of dementia and post CVA with residual left-sided weakness past medical history of atrial fibrillation chronic CHF with diastolic dysfunction previous myocardial infarction, history of mechanical aortic breast prosthetic valve, hypertension, hyperlipidemia chronic kidney disease former smoker of this individual currently resides at [facility] on the [address]. Patient was brought to the hospital on 08/18/2021 with confusion and weakness and shortness of breath and general malaise not feeling well. No documented history of fever no travel no s ick contacts or other complaints of nausea no vomiting or diarrhea no abdominal pain chest x-ray shows pulmonary vessel congestion and a small right pleural effusion. Review of Systems Constitutional: Reports as per HPI Ears, nose, mouth and throat: Reports as per HPI Cardiovascular: Reports decreased exercise tolerance, Reports dyspnea on exertion, Reports high blood pressure, Reports shortness of breath Respiratory: Reports dyspnea (Diminished breath sounds) Gastrointestinal: Reports as per HPI Genitourinary: Reports as per HPI Musculoskeletal: Reports as per HPI Integumentary: Reports as per HPI Neurological: Reports as per HPI Psychiatric: Reports memory loss (Mildly aggressive) Past Medical History Past Medical History: Atrial Fibrillation, Heart Failure, CVA/TIA, Dementia, Hyperlipidemia, Hypertension, Myocardial Infarction ([place]), Renal Disease, Vascular Disorder Additional Past Medical History / Comment(s): CVA with L side deficit, muscle weakness, Afib with RVR, severely enlarged R ventricle and L atrium/mild pulmonary HTN, L2 compression fracture-wears brace at times, chronic low back pain, PVD, [place] in his 20s per pt and pt's sister, UTI. Last Myocardial Infarction Date:: "in his 20's" History of Any Multi-Drug Resistant Organisms: None Reported Past Surgical History: Cardiac Valve Replacement, Orthopedic Surgery Additional Past Surgical History / Comment(s): Mechanical aortic valve and pig valve as well per pt's sister, R hip hemiarthroplasty, R wrist fx with resetting, bilateral corrective eye surgery for strabismus. Past Anesthesia/Blood Transfusion Reactions: No Reported Reaction Additional Past Anesthesia/Blood Transfusion Reaction / Comment(s): Clausterphobia. Past Psychological History: Anxiety, Depression Additional Psychological History / Comment(s): Adjustment disorder. Pt resides at [facility]. He uses a wheelchair or walker and occasionally gets up on his own and ambulates. He has been having increased aggression/comba tiveness/abusiveness past 2 days. Smoking Status: Unknown if ever smoked Past Alcohol Use History: None Reported Additional Past Alcohol Use History / Comment(s): Pt started smoking in 1974 and quit in 2018. He occasionally has one beer at [facility]. Past Drug Use History: None Reported Additional Drug Use History / Comment(s): occ use - Past Family History Mother Family Medical History: Diabetes Mellitus Father Family Medical History: Cancer, COPD Additional Family Medical History / Comment(s): Colon/liver cancer, back fracture, pacemaker Sister(s) Family Medical History: Thyroid Disorder Additional Family Medical History / Comment(s): thyroidectomy Medications and Allergies Home Medications Medication Instructions Recorded Confirmed Type Metoprolol Tartrate [Lopressor] 25 mg PO BID 07/10/18 08/18/21 History Simvastatin [Zocor] 20 mg PO HS 07/10/18 08/18/21 History Amiodarone [Cordarone] 200 mg PO DAILY 11/28/18 08/18/21 History Aspirin 81 mg PO DAILY 11/28/18 08/18/21 History Furosemide [Lasix] 40 mg PO BID@0600,1400 11/28/18 08/18/21 History Spironolactone [Aldactone] 25 mg PO BID@0600,1400 11/28/18 08/18/21 History QUEtiapine [SEROquel] 50 mg PO BID 04/13/19 08/18/21 History Warfarin Sodium [Coumadin] 4 mg PO MOTUTHFRSA@1400 04/13/19 08/18/21 History Acetaminophen Tab [Tylenol] 650 mg PO Q4H PRN 12/30/20 08/18/21 History Baclofen [Lioresal] 10 mg PO TID PRN 12/30/20 08/18/21 History Ipratropium-Albuterol Nebulize 3 ml INHALATION RT-QID PRN 12/30/20 08/18/21 History [Duoneb 0.5 mg-3 mg/3 ml Soln] Lidocaine 5% Patch [Lidoderm] 1 patch TRANSDERM DAILY 12/30/20 08/18/21 History Umeclidinium Brm/Vilanterol Tr 1 puff INHALATION RT-DAILY 12/30/20 08/18/21 History [Anoro Ellipta 62.5-25 Mcg INH] Warfarin Sodium 2 mg PO SUWE@1400 12/30/20 08/18/21 History Clotrimazole/Betameth Cream 1 applic TOPICAL BID 08/18/21 08/18/21 History [Lotrisone] Menthol [Biofreeze] 1 applic TOPICAL Q6H PRN 08/18/21 08/18/21 History Allergies Allergy/AdvReac Type Severity Reaction Status Date / Time No Known Allergies Allergy Verified 08/18/21 22:31 Physical Exam Osteopathic Statement: *. No significant issues noted on an osteopathic structural exam other than those noted in the History and Physical/Consult. Vitals: Vital Signs Temp Pulse Pulse Resp BP BP Pulse Ox 08/19/21 07:21 95 08/19/21 03:42 22 08/19/21 03:25 97.6 F 71 19 118/74 85 L 08/19/21 02:27 88 18 134/87 98 08/19/21 01:00 74 08/19/21 00:55 70 08/18/21 21:25 97.8 F 70 18 116/77 96 Intake and Output 08/18/21 08/19/21 08/19/21 22:59 06:59 14:59 Intake Total 150 Output Total 250 Balance -100 Intake: Oral 150 Output: Urine 250 Other: Voiding Method Toilet Toilet Urinal Urinal Incontinent Incontinent Weight 113.398 kg 113.398 kg General: [Patient awake, alert and oriented times 2 Patient in no acute distress.] HEENT: [PERRL. EOMI. No pharyngeal erythema or exudate.] Neck: [No adenopathy.] Cardiac: [Heart regular in rate and rhythm. No S3. No S4. No clicks, rubs. No murmur.] Lungs: [Clear to auscultation bilaterally. But diminished Abdomen: [No mass. No organomegaly. Bowel sounds presnt and normoactive in all 4 quadrants.] Extremes: [No edema no cyanosis no claudication normal pulses] : Normal male genitalia Musculoskeletal: [No joint erythema, edema or tenderness.] Skin: [No rash.] Neurologic: [No lateralizing deficits. CN II - XII grossly intact.] Lymphatic: [No adenopathy.] Results CBC & Chem 7: 08/18/21 22:55 08/18/21 22:55 Labs: Abnormal Lab Results - Last 24 Hours (Table) 08/18/21 08/18/21 08/18/21 Range/Units 22:55 22:55 22:55 Hgb 17.9 H (13.0-17.5) gm/dL Hct 54.2 H (39.0-53.0) % MCV 107.4 H (80.0-100.0) fL MCH 35.4 H (25.0-35.0) pg PT 55.9 H (9.0-12.0) sec INR 5.6 H* (<1.2) APTT 41.6 H (22.0-30.0) sec BUN 27 H (9-20) mg/dL Creatinine 1.79 H (0.66-1.25) mg/dL Total Bilirubin 2.1 H (0.2-1.3) mg/dL Alkaline Phosphatase 160 H (38-126) U/L Ammonia (<30) umol/L TSH 18.800 H (0.465-4.680) mIU/L Urine Blood (Negative) Urine RBC (0-5) /hpf Calcium Oxalate Crystal (None) /hpf Hyaline Casts (0-2) /lpf Urine Mucus (None) /hpf 08/18/21 07 Range/Units 22:55 03:42 Hgb (13.0-17.5) gm/dL Hct (39.0-53.0) % MCV (80.0-100.0) fL MCH (25.0-35.0) pg PT (9.0-12.0) sec INR (<1.2) APTT (22.0-30.0) sec BUN (9-20) mg/dL Creatinine (0.66-1.25) mg/dL Total Bilirubin (0.2-1.3) mg/dL Alkaline Phosphatase (38-126) U/L Ammonia 35 H (<30) umol/L TSH (0.465-4.680) mIU/L Urine Blood Moderate H (Negative) Urine RBC 112 H (0-5) /hpf Calcium Oxalate Crystal Occasional H (None) /hpf Hyaline Casts 18 H (0-2) /lpf Urine Mucus Rare H (None) /hpf Assessment and Plan (1) CHF (congestive heart failure) Current Visit: Yes Status: Acute Code(s): I50.9 - HEART FAILURE, UNSPECIFIED SNOMED Code(s): 58645168 (2) COPD (chronic obstructive pulmonary disease) Current Visit: Yes Status: Acute Code(s): J44.9 - CHRONIC OBSTRUCTIVE PULMONARY DISEASE, UNSPECIFIED SNOMED Code(s): 91633429 (3) Dehydration Current Visit: Yes Status: Acute Code(s): E86.0 - DEHYDRATION SNOMED Code(s): 43711351 (4) Delirium Current Visit: Yes Status: Acute Code(s): R41.0 - DISORIENTATION, UNSPECIFIED SNOMED Code(s): 9346114 (5) Weakness Current Visit: Yes Status: Acute Code(s): R53.1 - WEAKNESS SNOMED Code(s): 00741180 (6) Acute kidney injury Current Visit: No Status: Acute Code(s): N17.9 - ACUTE KIDNEY FAILURE, U NSPECIFIED SNOMED Code(s): 67235008 (7) Acute on chronic systolic (congestive) heart failure Current Visit: No Status: Acute Code(s): I50.23 - ACUTE ON CHRONIC SYSTOLIC (CONGESTIVE) HEART FAILURE SNOMED Code(s): 246736949 (8) Dementia Current Visit: No Status: Acute Code(s): F03.90 - UNSPECIFIED DEMENTIA WITHOUT BEHAVIORAL DISTURBANCE SNOMED Code(s): 26311590 (9) History of stroke Current Visit: No Status: Acute Code(s): Z86.73 - PRSNL HX OF TIA (TIA), AND CEREB INFRC W/O RESID DEFICITS SNOMED Code(s): 899637894 Plan: This patient appears to be in no acute distress Chest x-ray has increased pulmonary vascular congestion, possible pulmonary fibrosis, rule out possibility of amiodarone related lung disease Pulmonary consultation performed recommending high resolution lungs CT Continue diuretics and inhalers Continue oral prednisone Anticipate possible discharge back to [facility] on the [address] tomorrow Time with Patient: Greater than 30
[2021-08-19 13:09] VITALS: BMI 36.9
--- NOTE | 2021-08-19 14:02 | CT ---
EXAMINATION TYPE: CT chest wo con DATE OF EXAM: 08/19/2021 COMPARISON: 07/10/2018 HISTORY: Pulmonary Fibrosis CT DLP: 648.4 mGycm, Automated exposure control for dose reduction was used. CONTRAST: None TECHNIQUE: Axial images were obtained at 1 mm thick sections at 10 mm intervals. This will limit po rtions of the examination which may not be visualized within the [id number]. Images were obtained in the supine view only. FINDINGS: Portion of the thyroid visualized is normal. Pleural calcification is noted on the posterio r right lung. Emphysematous changes are evident. There is streak opacity within the left perihilar region which has a thickness of 1.5 cm. This is non specific. Atelectasis and pneumonia could be considered. Underlying mass should be considered. Consid er PET/CT for follow-up. This is an interval change. No enlarged mediastinal or hilar adenopathy is evident. The ascending aorta diameter at the level o f the main pulmonary artery is 3.9 cm. The main pulmonary artery diameter at the bifurcation is 3.[address] sections are obtained through the upper abdomen. Abdomen is essentially unremarkable. IMPRESSIONS: 1. Area of thickening along the left perihilar region of uncertain etiology. PET CT is recommended fo r additional evaluation. Mass, atelectasis, pneumonia could be considered within the differential. 2. Emphysematous changes. 3. Calcified pleural plaquing right lung. Correlate for prior asbestos exposure.
[2021-08-19] MEDS: SPIRONOLACTONE 25 MG TAB PO SCH (15:40)
[2021-08-19] MEDS: FUROSEMIDE 40 MG TAB PO SCH (15:40)
[2021-08-19] MEDS ORDERED: ATORVASTATIN 10 MG TAB PO SCH (21:00)
[2021-08-20] MEDS: SPIRONOLACTONE 25 MG TAB PO SCH ×2 (05:42→14:38)
[2021-08-20] MEDS: FUROSEMIDE 40 MG TAB PO SCH ×2 (05:42→14:38)
[2021-08-20] MEDS: RIVASTIGMINE 4.6MG/24HR PATCH TRANSDERM SCH (07:18)
[2021-08-20] MEDS: FLUTICASONE 44 MCG INHALER INHALATION SCH (07:42)
[2021-08-20] MEDS: QUEtiapine 50 MG TAB PO SCH (10:01)
[2021-08-20] MEDS: predniSONE 20 MG TAB PO SCH (10:01)
[2021-08-20] MEDS: METOPROLOL TARTRATE 25 MG TAB PO SCH (10:01)
[2021-08-20] MEDS: ASPIRIN 81 MG PO SCH (10:01)
[2021-08-20] MEDS: AMIODARONE 200 MG TAB PO SCH (10:02)
--- NOTE | 2021-08-20 11:03 | P.PN ---
Subjective Progress Note Date: 08/20/21 Principal diagnosis: Shortness of breath This is a 61-year-old gentleman with a past medical history significant for permanent atrial fibrillation on oral anticoagulation was Coumadin as well as history of stroke with left sided weakness and also history of aortic valve replacement using mechanical valve as well as multiple comorbid conditions was admitted to the hospital with a change in mental status. We consulted to see the patient for further evaluation of possible heart failure. The patient was seen today as a follow-up visit. His mentation has definitely improved. He is hemodynamically stable with he stated that the shortness of breath is somewhat better compared to before. When he was seen and examined this morning he doesn't look in any overt congestive heart failure at this point. Currently he is on Lasix by mouth which I would continue at this point. His INR continues to be elevated and I would continue holding the Coumadin on him today. His bilirubin is 2 and that need to be further investigated. He also underwent a computed tomography scan of the chest which showed thickening in the perihilar area concerning for malignancy. For further investigation of the shortness of breath and going to obtain an echo to assess the function of the aortic valve which is a mechanical valve. Otherwise will follow-up with the patient on when necessary. Objective - Vital Signs Vital signs: Vital Signs Temp 97.5 F L 08/20/21 07:00 Pulse 80 08/20/21 07:00 Resp 20 08/20/21 08:00 BP 115/65 08/20/21 07:00 Pulse Ox 96 08/20/21 07:00 FiO2 Intake & Output 08/19/21 08/20/21 08/20/21 18:59 06:59 18:59 Output Total 400 0 Balance -400 0 Weight 113.398 kg Output: Urine 400 Emesis 0 Other: Voiding Method Toilet Toilet Toilet Urinal Urinal Urinal Incontinent Incontinent Incontinent # Voids 3 - Constitutional General appearance: Present: no acute distress - Respiratory Respiratory: bilateral: diminished - Cardiovascular Rhythm: irregularly irregular - Labs CBC & Chem 7: 08/18/21 22:55 08/18/21 22:55 Assessment and Plan Assessment: Assessment #1 change in mental status probably multi-factorial #2 permanent atrial fibrillation with controlled heart rate #3 history of stroke with left-sided weakness #4 generalized weakness and fatigue #5 history of aortic valve replacement using mechanical valve #6 supratherapeutic INR #7 Plan #1 the patient seems to be euvolemic on examination #2 continue the current medical regimen including oral diuretics #3 hold Coumadin at this point in the light of elevated INR #4 continue monitor the INR on daily basis #5 continue monitor the kidney function and electrolytes #6 follow-up with the patient
--- NOTE | 2021-08-20 12:23 | P.PN ---
Subjective Progress Note Date: 08/20/21 Principal diagnosis: Acute hypoxemic respiratory failure 61-year-old male patient with a poor historian related to history of dementia and history of CVA with residual left-sided weakness, past medical history of atrial fibrillation, chronic CHF with diastolic dysfunction, previous IA, history of mechanical aortic prosthetic valve, hypertension, hyperlipidemia, chronic kidney disease, former smoker, resides at the [facility] on [facility]. Patient was brought into the hospital on 08/18/2021 with confusion, weakness, shortness of breath, not feeling well. There is no documented history of fevers, no travel, no sick contacts or other complaints, no nausea vomiting or diarrhea, no abdominal pain. Chest x-ray showing pulmonary vessel congestion, small right pleural effusion. His lab showed normal white count of 7.9, hemoglobin of 17.9, platelet count of 167, INR is 5.6, electrolytes are within normal limits, BUN is 27, creatinine is 1.79, lactic acid is 1.4, AST and ALT were within normal limits, alkaline phosphatase was 160, proBNP was 263, troponin was 0.013, urinalysis showed moderate blood, rare mucus, hyaline cast, but no definite sign of infection. Patient is satting 96% on room air although did have one isolated reading with a pulse ox of 85% on room air, patient was placed on supplemental oxygen at 2 L, afebrile, hemodynamically stable. He is on oral Lasix 40 mg twice daily, Aldactone, he is on DuoNeb nebulized treatments and Anoro Ellipta. Vital signs are stable. Patient is resting in bed at the time of our evaluation, he wants to be left alone, he is a poor historian, cannot offer much in the way of history. Does not appear to be in any res piratory distress, breathing comfortably. Vital signs are stable. His chest x- rays from previous hospitalizations have been reviewed showing a degree of bilateral interstitial edema on the background of chronic emphysematous some pulmonary fibrotic changes. he does take amiodarone 200 mg daily, possibility of amiodarone related interstitial lung disease is being considered. The patient is seen today 08/20/2021 in follow-up on the regular medical floor. He is awake and alert in no acute distress. He remains quite a poor historian due to underlying dementia. He is maintaining O2 saturations in the 90s on 3 L/m per nasal cannula. He's been afebrile. Hemodynamically stable. Computed t omography scan of the chest revealed area of thickening along the left perihilar region of uncertain etiology. [place] to be more of a scar. Mass, atelectasis, pneumonia within the differential. Noted emphysematous changes. There is some calcified pleural plaquing of the right lung from possible asbestos exposure. No new labs today. The patient remains on DuoNeb inhalations Objective - Vital Signs Vital signs: Vital Signs Temp 97.5 F L 08/20/21 07:00 Pulse 80 08/20/21 07:00 Resp 20 08/20/21 08:00 BP 115/65 08/20/21 07:00 Pulse Ox 96 08/20/21 07:00 FiO2 Intake & Output 08/19/21 08/20/21 08/20/21 18:59 06:59 18:59 Output Total 400 0 1500 Balance -400 0 -1500 Weight 113.398 kg Output: Urine 400 1500 Emesis 0 Other: Voiding Method Toilet Toilet Toilet Urinal Urinal Urinal Incontinent Incontinent Incontinent # Voids 3 - Exam GENERAL EXAM: Alert, confused, poor historian, 61-year-old male, on 3 L nasal cannula, comfortable in no apparent distress. HEAD: Normocephalic/atraumatic. EYES: Normal reaction of pupils, equal size. Conjunctiva pink, sclera white. NOSE: Clear with pink turbinates. THROAT: No erythema or exudates. NECK: No masses, no JVD, no thyroid enlargement, no adenopathy. CHEST: No chest wall deformity. Symmetrical expansion. LUNGS: Equal air entry with no crackles, wheeze, rhonchi or dullness. CVS: Regular rate and rhythm, normal S1 and S2, no gallops, no murmurs, no rubs ABDOMEN: Soft, nontender. No hepatosplenomegaly, normal bowel sounds, no guarding or rigidity. EXTREMITIES: No clubbing, no edema, no cyanosis, 2+ pulses and upper and lower extremities. MUSCULOSKELETAL: Muscle strength and tone normal. SPINE: No scoliosis or deformity SKIN: No rashes CENTRAL NERVOUS SYSTEM: No focal deficits, tone is normal in all 4 extremities. PSYCHIATRIC: Alert and oriented -1. Appropriate affect. - Labs CBC & Chem 7: 08/18/21 22:55 08/18/21 22:55 Assessment and Plan Assessment: 1 Acute hypoxic respiratory failure, no clear evidence of acute CHF, possibility of interstitial lung disease on the background of emphysematous changes is being considered. However, computed tomography scan of the chest without contrast ruled out interstitial lung disease. There is an area of thickening along the left perihilar region of uncertain etiology. [place] to be more like scarring versus mass. Patient would not be a candidate for surgery. There is also emphysematous changes and calcified pleural plaquing of the right lung. Possible asbestos exposure. 2 Atrial fibrillation maintained on amiodarone 3 Altered mental status, however patient has underlying history of dementia, he is currently awake and alert, baseline mental status is not known to us 4 History mechanical aortic valve replacement, on Coumadin 5 Chronic CHF, with diastolic dysfunction 6 Pulmonary hypertension, likely related to chronic disease, and valvular heart disease 7 Chronic kidney disease, stage III 8 Hypertension 9 Hyperlipidemia 10 Anxiety and depression 11 History of CVA 12 History of dementia 13 Former smoker 14 Emphysema Plan: The patient was seen and evaluated CAT scan of the chest reviewed Most likely scarring in the left perihilar region Patient would not be a surgical candidate No significant interstitial lung disease Evaluate for possible home oxygen I have personally seen and examined the patient, performed the documentation and the assessment and plan as written. Number of minutes spent on the visit: 10.
[2021-08-20 14:56] VITALS: PULSE 79; RESP 22; TEMP 97.9
--- NOTE | 2021-08-20 14:57 | P.DS ---
Providers Date of admission: 08/19/21 00:33 Expected date of discharge: 08/20/21 Attending physician: Johnny Mcleod Consults: 08/19/21 00:33 Consult Physician Routine Consulting Provider: Juan Manuel Yeboah Consult Reason/Comments: chf Do you want consulting provider notified?: Yes 08/19/21 06:43 Consult Physician Routine Consulting Provider: David Trevino Consult Reason/Comments: CHF Do you want consulting provider notified?: Yes Primary care physician: Johnny Mcleod - Discharge Diagnosis(es) (1) CHF (congestive heart failure) Current Visit: Yes Status: Acute (2) COPD (chronic obstructive pulmonary disease) Current Visit: Yes Status: Acute (3) Dehydration Current Visit: Yes Status: Acute (4) Delirium Current Visit: Yes Status: Acute (5) Weakness Current Visit: Yes Status: Acute (6) Acute kidney injury Current Visit: No Status: Acute (7) Acute on chronic systolic (congestive) heart failure Current Visit: No Status: Acute (8) Dementia Current Visit: No Status: Acute (9) History of stroke Current Visit: No Status: Acute Patient Condition at Discharge: Fair Plan - Discharge Summary Discharge Rx Participant: No New Discharge Prescriptions: No Action Simvastatin [Zocor] 20 mg PO HS Metoprolol Tartrate [Lopressor] 25 mg PO BID Amiodarone [Cordarone] 200 mg PO DAILY Aspirin 81 mg PO DAILY Furosemide [Lasix] 40 mg PO BID@0600,1400 Spironolactone [Aldactone] 25 mg PO BID@0600,1400 QUEtiapine [SEROquel] 50 mg PO BID Warfarin Sodium [Coumadin] 4 mg PO MOTUTHFRSA@1400 Baclofen [Lioresal] 10 mg PO TID PRN PRN Reason: back spasms Acetaminophen Tab [Tylenol] 650 mg PO Q4H PRN PRN Reason: Fever And/ Or Pain Lidocaine 5% Patch [Lidoderm] 1 patch TRANSDERM DAILY Umeclidinium Brm/Vilanterol Tr [Anoro Ellipta 62.5-25 Mcg INH] 1 puff INHALATION RT-DAILY Ipratropium-Albuterol Nebulize [Duoneb 0.5 mg-3 mg/3 ml Soln] 3 ml INHALATION RT-QID PRN PRN Reason: Shortness Of Breath Or Wheezing Clotrimazole/Betameth Cream [Lotrisone] 1 applic TOPICAL BID Warfarin Sodium 2 mg PO SUWE@1400 Menthol [Biofreeze] 1 applic TOPICAL Q6H PRN PRN Reason: BACK PAIN Discharge Medication List Metoprolol Tartrate [Lopressor] 25 mg PO BID 07/10/18 [History] Simvastatin [Zocor] 20 mg PO HS 07/10/18 [History] Amiodarone [Cordarone] 200 mg PO DAILY 11/28/18 [History] Aspirin 81 mg PO DAILY 11/28/18 [History] Furosemide [Lasix] 40 mg PO BID@0600,1400 11/28/18 [History] Spironolactone [Aldactone] 25 mg PO BID@0600,1400 11/28/18 [History] QUEtiapine [SEROquel] 50 mg PO BID 04/13/19 [History] Warfarin Sodium [Coumadin] 4 mg PO MOTUTHFRSA@1400 04/13/19 [History] Acetaminophen Tab [Tylenol] 650 mg PO Q4H PRN 12/30/20 [History] Baclofen [Lioresal] 10 mg PO TID PRN 12/30/20 [History] Ipratropium-Albuterol Nebulize [Duoneb 0.5 mg-3 mg/3 ml Soln] 3 ml INHALATION RT-QID PRN 12/30/20 [History] Lidocaine 5% Patch [Lidoderm] 1 patch TRANSDERM DAILY 12/30/20 [History] Umeclidinium Brm/Vilanterol Tr [Anoro Ellipta 62.5-25 Mcg INH] 1 puff INHALATION RT-DAILY 12/30/20 [History] Warfarin Sodium 2 mg PO SUWE@1400 12/30/20 [History] Clotrimazole/Betameth Cream [Lotrisone] 1 applic TOPICAL BID 08/18/21 [History] Menthol [Biofreeze] 1 applic TOPICAL Q6H PRN 08/18/21 [History] Follow up Appointment(s)/Referral(s): Nicholas Lagunas, [NON-STAFF] - Johnny Mcleod MD [Primary Care Provider] - 1-2 days
[2021-08-20 15:01] VITALS: BP 106/70
--- NOTE | 2021-08-20 15:01 | P.PN ---
Subjective Progress Note Date: 08/20/21 Principal diagnosis: Patient is awake alert 2 vital signs stable patient is afebrile Currently admitted for acute exacerbation chronic COPD , resolved Patient's sats have improved tolerating diet well wishes to go back to [facility] on the [place] will continue Exelon patch for aggressive behavior patient tolerating well we'll consider increasing to 9.5 g patch Objective - Vital Signs Vital signs: Vital Signs Temp 97.9 F 08/20/21 14:54 Pulse 79 08/20/21 14:54 Resp 22 08/20/21 14:54 BP 90/63 08/20/21 14:54 Pulse Ox 93 L 08/20/21 14:54 FiO2 Intake & Output 08/19/21 08/20/21 08/20/21 18:59 06:59 18:59 Intake Total 118 Output Total 400 0 2000 Balance -400 0 -1882 Weight 113.398 kg Intake: Oral 118 Output: Urine 400 2000 Emesis 0 Other: Voiding Method Toilet Toilet Toilet Urinal Urinal Urinal Incontinent Incontinent Incontinent # Voids 3 - Exam General: [Patient awake, alert and oriented times 2. Patient in no acute distress.] HEENT: [PERRL. EOMI. No pharyngeal erythema or exudate.] Neck: [No adenopathy.] Cardiac: [Heart regular in rate and rhythm. No S3. No S4. No clicks, rubs. No murmur.] Lungs: [Clear to auscultation bilaterally.] Abdomen: [No mass. No organomegaly. Bowel sounds presnt and normoactive in all 4 quadrants.] Extremes: [No edema no cyanosis no claudication normal pulses] : [] Musculoskeletal: [No joint erythema, edema or tenderness.] Skin: [No rash.] Neurologic: [No lateralizing deficits. CN II - XII grossly intact.] Lymphatic: [No adenopathy.] - Labs CBC & Chem 7: 08/18/21 22:55 08/18/21 22:55 Assessment and Plan (1) CHF (congestive heart failure) Current Visit: Yes Status: Acute Code(s): I50.9 - HEART FAILURE, UNSPECIFIED SNOMED Code(s): 59133025 (2) COPD (chronic obstructive pulmonary disease) Current Visit: Yes Status: Acute Code(s): J44.9 - CHRONIC OBSTRUCTIVE PULMONARY DISEASE, UNSPECIFIED SNOMED Code(s): 21478962 (3) Dehydration Current Visit: Yes Status: Acute Code(s): E86.0 - DEHYDRATION SNOMED Code(s): 16241776 (4) Delirium Current Visit: Yes Status: Acute Code(s): R41.0 - DISORIENTATION, UNSPECIFIE D SNOMED Code(s): 6615414 (5) Weakness Current Visit: Yes Status: Acute Code(s): R53.1 - WEAKNESS SNOMED Code(s): 15407633 (6) Acute kidney injury Current Visit: No Status: Acute Code(s): N17.9 - ACUTE KIDNEY FAILURE, UNSPECIFIED SNOMED Code(s): 20298397 (7) Acute on chronic systolic (congestive) heart failure Current Visit: No Status: Acute Code(s): I50.23 - ACUTE ON CHRONIC SYSTOLIC (CONGESTIVE) HEART FAILURE SNOMED Code(s): 546998907 (8) Dementia Current Visit: No Status: Acute Code(s): F03.90 - UNSPECIFIED DEMENTIA WITHOUT BEHAVIORAL DISTURBANCE SNOMED Code(s): 74614550 (9) History of stroke Current Visit: No Status: Acute Code(s): Z86.73 - PRSNL HX OF TIA (TIA), AND CEREB INFRC W/O RESID DEFICITS SNOMED Code(s): 363453251 Plan: This patient appears to be in no acute distress Chest x-ray has increased pulmonary vascular congestion, possible pulmonary fibrosis, rule out possibility of amiodarone related lung disease Patient being discharged back to [facility] on the [place] Continue diuretics and inhalers Continue oral prednisone Time with Patient: Greater than 30
[2021-08-20] MEDS ORDERED: METHYL SALICYLATE/MENTHOL CREAM 5 OZ TOPICAL PRN (15:19)
[2021-08-20] MEDS ORDERED: IPRATROPIUM-ALBUTEROL 3 ML NEB INHALATION PRN (15:19)
[2021-08-20] MEDS ORDERED: IPRATROPIUM 0.5 MG/2.5 ML NEBU INHALATION SCH (16:00)
--- NOTE | 2021-08-20 18:39 | CA ---
Transthoracic Echo Report Name: Leonel Robles Age: 61 Gender: M : 1960 Exam Date: 08/20/2021 13:23 Exam Location: [place] [facility] Ht (in): 65 Wt (lb): 250 Ordering Physician: Marcos Colorado MD ([id number]) Attending/Referring Phys: [employer] Brush Decorator Angelica Ogden, ASHLY Procedure CPT: Indications: sob Cardiac Hx: Technical Quality: Fair Contrast 1: Total Dose (mL): Contrast 2: Total Dose (mL): MEASUREMENTS (Male / Female) Normal Values 2D ECHO LV Diastolic Diameter PLAX 5.0 cm 4.2 - 5.9 / 3.9 - 5.3 cm LV Systolic Diameter PLAX 3.3 cm IVS Diastolic Thickness 1.3 cm 0.6 - 1.0 / 0.6 - 0.9 cm LVPW Diastolic Thickness 1.7 cm 0.6 - 1.0 / 0.6 - 0.9 cm LV Relative Wall Thickness 0.6 RV Internal Dim ED PLAX 4.7 cm LA Systolic Diameter LX 7.2 cm 3.0 - 4.0 / 2.7 - 3.8 cm M-MODE Aortic Root Diameter MM 3.1 cm DOPPLER MV Peak Velocity 220.3 cm/s MV Peak Gradient 19.4 mmHg MV Mean Velocity 102.5 cm/s MV Mean Gradient 5.6 mmHg MV Velocity Time Integral 85.1 cm MV Area PHT 0.9 cm??? TR Peak Velocity 310.1 cm/s TR Peak Gradient 38.5 mmHg Right Ventricular Systolic Press 42.1 mmHg FINDINGS Left Ventricle Left ventricular ejection fraction is estimated at 40-45%. Right Ventricle Severe right ventricular dilatation. Moderate to severe pulmonary hypertension. Right Atrium Severe right atrial dilatation. Left Atrium Severely increased left atrial diameter. Mitral Valve Thickened mitral valve with stenosis. MV peak gradient 19.4mmHg, mean peak gradient 6mmHg. Aortic Valve Aortic valve not well visualized. Tricuspid Valve Structurally normal tricuspid valve. [id number] tricuspid regurgitation. Pulmonic Valve Pulmonic valve not well visualized. Pericardium Normal pericardium. Aorta Aortic root and proximal ascending aorta not well visualized. CONCLUSIONS Extremely difficult study for interpretation Normal left ventricular dimension and systolic function Extremely thickened mitral valve leaflets with evidence of moderate mitral stenosis. Cannot exclude mass/vegetation located on the downstream side of the valve Severe pulmonary hypertension Dilated right ventricle and right atrium Previewed by: Dr. Marcos Colorado MD (Electronically Signed) Final Date: 20 August 2021 18:38
[2021-08-20] MEDS ORDERED: FORMOTEROL FUMARATE 20 MCG/2 ML NEBU INHALATION SCH (20:00)
[2021-08-20] MEDS ORDERED: CLOTRIMAZOLE/BETAMETH 1-0.05% CREAM 45 GM TUBE TOPICAL SCH (21:00)
[2021-08-21] MEDS ORDERED: NON FORMULARY DRUG (Umeclidinium Brm/Vilanterol Tr [Anoro Ellipta 62.5-25 Mcg Inh] 1 EACH INHALATION SCH (08:00)
[2021-08-21] MEDS ORDERED: LIDOCAINE 5% PATCH TOPICAL SCH (09:00)
[2021-08-21] MEDS ORDERED: NON FORMULARY DRUG (Warfarin Sodium [Coumadin] 4 MG Tablet) PO SCH (14:00)
[2021-08-22] MEDS ORDERED: WARFARIN 2 MG TAB PO SCH (14:00)
== END 2021-08-20 16:00 ==
LOC: EC 21:04 → 6NMEDSUR 08-19 00:33
PROVIDERS: ADMIT Family Medicine; ATTEND Family Medicine
DX: I13.0 Hypertensive heart and chronic kidney disease with heart failure and stage 1 through stage 4 chronic kidney disease, or unspecified chronic kidney disease (principal); I50.43 Acute on chronic combined systolic (congestive) and diastolic (congestive) heart failure; J43.9 Emphysema, unspecified; E86.0 Dehydration; N17.9 Acute kidney failure, unspecified; F03.90 Unspecified dementia, unspecified severity, without behavioral disturbance, psychotic disturbance, mood disturbance, and anxiety; I27.20 Pulmonary hypertension, unspecified; I48.21 Permanent atrial fibrillation; I69.354 Hemiplegia and hemiparesis following cerebral infarction affecting left non-dominant side; R79.1 Abnormal coagulation profile; R32 Unspecified urinary incontinence; E78.5 Hyperlipidemia, unspecified; J96.01 Acute respiratory failure with hypoxia; F32.A Depression, unspecified; F41.9 Anxiety disorder, unspecified; N18.30 Chronic kidney disease, stage 3 unspecified; I25.2 Old myocardial infarction; I73.9 Peripheral vascular disease, unspecified; M48.56XA Collapsed vertebra, not elsewhere classified, lumbar region, initial encounter for fracture; R20.0 Anesthesia of skin; R11.2 Nausea with vomiting, unspecified; G89.29 Other chronic pain; M54.50 Low back pain, unspecified; I08.1 Rheumatic disorders of both mitral and tricuspid valves; F43.20 Adjustment disorder, unspecified; Z95.2 Presence of prosthetic heart valve; Z87.891 Personal history of nicotine dependence; Z87.440 Personal history of urinary (tract) infections; Z79.899 Other long term (current) drug therapy; Z79.01 Long term (current) use of anticoagulants; Z79.82 Long term (current) use of aspirin; Z71.9 Counseling, unspecified; Z83.3 Family history of diabetes mellitus; Z80.0 Family history of malignant neoplasm of digestive organs; Z82.5 Family history of asthma and other chronic lower respiratory diseases; Z80.8 Family history of malignant neoplasm of other organs or systems; Z82.49 Family history of ischemic heart disease and other diseases of the circulatory system; Z83.49 Family history of other endocrine, nutritional and metabolic diseases
CPT/HCPCS: 96360; 96361 ×2; 99285; 36415; 94640 ×2; 94760; 93306; 97163; 97167; 84439; 83880; 80053; 82140; 83605; 83735; 84100; 84443; 84484; 85025; 85610; 85730; 81001; 71045; 71250; G0378 ×2; J7512